=== PATIENT | female | born 1955 | race Caucasian/White ===

== ENCOUNTER 2019-02-04 07:10 | Inpatient (IN) | payer BC ==
[2019-02-03 15:32] VITALS: Ht 162.6 cm; Wt 58.9 kg
[2019-02-04] VITALS (23 sets, daily range): BP systolic 108–168; BP diastolic 49–75; PULSE 64–86; RESP 10–22
[~2019-02-04] VITALS: Ht 162.6 cm; Wt 58.9 kg
[2019-02-04] MEDS ORDERED: CEFAZOLIN 2 GM/50 ML (PMX) 50 ML IVPB SCH (08:30)
[2019-02-04] MEDS ORDERED: SOD CHLORIDE 0.9% 1,000 ML IV ONE (08:30)
[2019-02-04] MEDS ORDERED: ATOR20TA38 PO (10:02)
[2019-02-04] MEDS ORDERED: LANS15CA27 PO (10:02)
[2019-02-04] MEDS ORDERED: ATOR40TA68 PO (10:02)
[2019-02-04] MEDS ORDERED: WARF6TAB PO (10:02)
[2019-02-04] MEDS ORDERED: ISOSULFAN BLUE 1% 5 ML INJ SC ONE ×2 (12:02→12:47)
--- NOTE | 2019-02-04 12:09 | PREAC ---
Date/Time of Note Date/Time of Note DATE: 02/04/19 TIME: 12:05 Anesthesia Eval and Record Evaluation Time Pre-Procedure Interview DATE: 02/04/19 TIME: 12:05 Age 63 Sex female NPO: 8 hrs Preoperative diagnosis Breast Mass Planned procedure Excion of Breast Mass with Lymph Nodes Past Medical History Past Medical History: Includes Cardio: Arrythmia, Other (H/O AVR, Mitral Stenosis, A. Fib) Surgery & Anesthesia Issues Hx of PONV (N/V) Meds Anticoagulation: Yes (Stopped Warfarin 4 Days Ago) Beta Maddie within 24 hr: No Reason Beta Maddie not given: Pt. not on B-Maddie Reported Medications Lansoprazole* (Prevacid*) 15 Mg Capsule.dr, 15 MG PO DAILY, CAP 02/04/19 Atorvastatin Calcium* (Atorvastatin Calcium*) 20 Mg Tablet, 20 MG PO QHS, #30 TAB 02/04/19 Warfarin Sodium* (Coumadin*) 6 Mg Tablet, 6 MG PO DAILY, TAB 02/04/19 Discontinued Reported Medications Atorvastatin* (Atorvastatin*) 40 Mg Tablet, 40 MG PO QHS, #30 TAB 02/04/19 Current Medications Cefazolin Sodium/ Dextrose 50 ml @ 100 mls/hr PRE-OP IVPB ; Start 02/04/19 at 08:30 Sodium Chloride 1,000 ml @ 75 mls/hr [id number] ONCE IV Last administered on 02/04/19at 10:10; Admin Dose 75 MLS/HR; Start 02/04/19 at 08:30; Stop 02/04/19 at 21:49 Meds reviewed: Yes Allergies Coded Allergies: belladonna alkaloids (Verified Allergy, Mild, itching, swelling, 02/04/19) codeine (Verified Allergy, Mild, NUMBNESS OF HAND, EXTREME AGITATION, 02/04/19) acetaminophen (Verified Allergy, Unknown, itch, swelling, 02/04/19) hydrocodone (Verified Allergy, Unknown, itch, swelling, 02/04/19) aspirin (Verified Adverse Reaction, Mild, GASTRIC PROBLEMS, 02/04/19) Allergies Reviewed: Yes Labs/Studies Labs Reviewed: Reviewed by anesthesiologist test: N/A Pre-procedure Exam Last vitals Vital Signs Date Temp Pulse Resp B/P (MAP) Pulse Ox O2 O2 Flow FiO2 Time Delivery Rate 02/04/19 97.9 77 16 168/75 99 Room Air 10:19 (106) Airway: Adequate mouth opening Mallampati: Mallampati II Teeth: Normal Lung: Normal Heart: Normal ASA Physical Status ASA physical status: 3 Emergency: None Planned Anesthetic General/MAC: LMA Pre-operative Attestations Prior to commencing anesthesia and surgery, the patient was re-evaluated, there was verification of: *The patient's identity *The results of appropriate recent lab work and preoperative vital signs *The above evaluation not changing prior to induction *Anesthetic plan, risk benefits, alternative and complications discussed with p atient/family; questions answered; patient/family understands, accepts and wishes to proceed. STEPHANIE GONZALEZ MD February 04, 2019 12:09
[2019-02-04] MEDS ORDERED: CEFAZOLIN 1 GM INJ ONE (12:14)
[2019-02-04] MEDS ORDERED: PROPOFOL 20 ML ONE (12:14)
[2019-02-04] MEDS ORDERED: MIDAZOLAM 1 MG/ML 2 ML INJ ONE (12:15)
[2019-02-04] MEDS ORDERED: DEXAMETHASONE 4 MG/ML 5 ML INJ ONE (12:16)
[2019-02-04] MEDS ORDERED: ONDANSETRON 4 MG INJ ONE (12:17)
--- NOTE | 2019-02-04 13:42 | SIPON ---
Date/Time of Note Date/Time of Note DATE: 02/04/19 TIME: 13:40 Operative Report Preoperative Diagnosis Invasive cancer left breast Postoperative Diagnosis Same Operation/Procedure Performed Left needle directed partial mastectomy and axillary dissection utilizing sentinel lymph node technique Surgeon see signature line executive marketing assistant Dr Royal Anesthesia: general Estimated blood loss: 10 - 50 ml's Transfusion Required none Specimen Left partial mastectomy specimen and sentinel lymph node with additional axillary nodes Grafts/Implants none Complications none MAIA HINOJOSA MD February 04, 2019 13:42
[2019-02-04] MEDS ORDERED: ONDANSETRON 4 MG INJ IV PRN (14:00)
--- NOTE | 2019-02-04 14:08 | PAC ---
Date/Time of Note Date/Time of Note DATE: 02/04/19 TIME: 14:07 Post-Anesthesia Notes Post-Anesthesia Note Last documented vital signs Vital Signs Date Temp Pulse Resp B/P (MAP) Pulse Ox O2 O2 Flow FiO2 Time Delivery Rate 02/04/19 97.9 77 16 168/75 99 Room Air 10:19 (106) Activity: WNL Respiratory function: WNL Cardiovascular function: WNL Mental status: Baseline Pain reasonably controlled: Yes Hydration appropriate: Yes Nausea/Vomiting absent: Yes STEPHANIE GONZALEZ MD February 04, 2019 14:08
--- NOTE | 2019-02-04 15:05 | CONS ---
Assessment/Plan Assessment/Plan Hospital Course (Demo Recall) Status post breast surgery 02/04/2019 Mechanical aortic valve replacement Paroxysmal atrial fibrillation, currently sinus rhythm -Patient status post breast surgery today -Did speak to our esteemed surgeon heather Maurer to start full dose Lovenox this evening as well as Coumadin -Orders have been placed for Lovenox bridging as well as Coumadin to be started this evening with daily INRs Consultation Date/Type/Reason Admit Date/Time February 04, 2019 at 14:08 Type of Consult Cardiology Reason for Consultation Postoperative cardiac evaluation Date/Time of Note DATE: 02/04/19 TIME: 15:02 Hx of Present Illness This is a 63-year-old female with past medical history of mechanical aortic valve replacement, atrial fibrillation who presents for elective mastectomy. Patient underwent surgery today. She is currently being evaluated in the PACU. She is sleeping but arousable. No complaints at the current time. Past Medical History Aortic insufficiency status post mechanical aortic valve replacement Atrial fibrillation, paroxysmal Mitral insufficiency and stenosis Dyslipidemia Home Meds Reported Medications Lansoprazole* (Prevacid*) 15 Mg Capsule., 15 MG PO DAILY, CAP 02/04/19 Atorvastatin Calcium* (Atorvastatin Calcium*) 20 Mg Tablet, 20 MG PO QHS, #30 TAB 02/04/19 Warfarin Sodium* (Coumadin*) 6 Mg Tablet, 6 MG PO DAILY, TAB 02/04/19 Discontinued Reported Medications Atorvastatin* (Atorvastatin*) 40 Mg Tablet, 40 MG PO QHS, #30 TAB 02/04/19 Medications Current Medications Cefazolin Sodium/ Dextrose 50 ml @ 100 mls/hr PRE-OP IVPB ; Start 02/04/19 at 08:30 Sodium Chloride 1,000 ml @ 75 mls/hr [id number] ONCE IV Last administered on 02/04/19at 10:10; Admin Dose 75 MLS/HR; Start 02/04/19 at 08:30; Stop 02/04/19 at 21:49 Hydromorphone HCl (Dilaudid) 0.2 mg PACU PRN IV MILD PAIN 1-3; Start 02/04/19 at 14:00; Stop 02/04/19 at 19:00 Ondansetron HCl (Zofran Inj) 4 mg PACU ORDER PRN IV NAUSEA/VOMITING; Start 02/04/19 at 14:00; Stop 02/04/19 at 19:00 Ondansetron HCl (Zofran Inj) 4 mg Q6H PRN IV NAUSEA AND/OR VOMITING; Start 02/04/19 at 14:00 Potassium Chloride/Dextrose/ Sod Cl 1,000 ml @ 125 mls/hr Q8H IV ; Start 02/04/19 at 13:42 Allergies: Coded Allergies: belladonna alkaloids (Verified Allergy, Mild, itching, swelling, 02/04/19) codeine (Verified Allergy, Mild, NUMBNESS OF HAND, EXTREME AGITATION, 02/04/19) acetaminophen (Verified Allergy, Unknown, itch, swelling, 02/04/19) hydrocodone (Verified Allergy, Unknown, itch, swelling, 02/04/19) aspirin (Verified Adverse Reaction, Mild, GASTRIC PROBLEMS, 02/04/19) Past Surgical History Past Surgical Hx: other (Aortic valve replacement) Family History Significant Family History: no pertinent family hx Social History Smoking Status: Never smoker Exam/Review of Systems Vital Signs Vitals Vital Signs Date Temp Pulse Resp B/P (MAP) Pulse Ox O2 O2 Flow FiO2 Time Delivery Rate 02/04/19 64 22 150/63 100 Mask 14:24 (92) 02/04/19 6.0 14:10 02/04/19 98.2 14:07 Exam Exam Sleeping but arousable, no apparent distress Head: normocephalic Respiratory: clear to auscultation, normal air movement Cardiovascular: regular rate and rhythm, systolic murmur Gastrointestinal: soft, non-tender, bowel sounds Extremities: other (No significant edema) Labs Results 24hrs Laboratory Tests Test 02/04/19 07:57 Prothrombin Time 12.7 Prothrombin Time Ratio 1.0 INR International Normalized Ratio 0.94 Activated Partial Thromboplast Time 29.9 Medications Medications Current Medications Cefazolin Sodium/ Dextrose 50 ml @ 100 mls/hr PRE-OP IVPB ; Start 02/04/19 at 08:30 Sodium Chloride 1,000 ml @ 75 mls/hr [id number] ONCE IV Last administered on 02/04/19at 10:10; Admin Dose 75 MLS/HR; Start 02/04/19 at 08:30; Stop 02/04/19 at 21:49 Hydromorphone HCl (Dilaudid) 0.2 mg PACU PRN IV MILD PAIN 1-3; Start 02/04/19 at 14:00; Stop 02/04/19 at 19:00 Ondansetron HCl (Zofran Inj) 4 mg PACU ORDER PRN IV NAUSEA/VOMITING; Start 02/04/19 at 14:00; Stop 02/04/19 at 19:00 Ondansetron HCl (Zofran Inj) 4 mg Q6H PRN IV NAUSEA AND/OR VOMITING; Start 02/04/19 at 14:00 Potassium Chloride/Dextrose/ Sod Cl 1,000 ml @ 125 mls/hr Q8H IV ; Start 02/04/19 at 13:42 Dima Hicks DO February 04, 2019 15:05
[2019-02-04] MEDS: HYDROmorphONE 1 MG/5 ML IV SYRINGE IV PRN ×3 (15:15→17:37)
--- NOTE | 2019-02-04 16:59 | OPR ---
DATE OF OPERATION: 02/04/2019 PREOPERATIVE DIAGNOSIS: Invasive cancer, left breast. POSTOPERATIVE DIAGNOSIS: Invasive cancer, left breast. PROCEDURE: Left needle-directed partial mastectomy and axillary dissection utilizing sentinel lymph node technique. ANESTHESIA: General. ANESTHESIOLOGIST: Minesh Ahumada MD SURGEON: Barry Diaz MD ELECTRICIAN SUPERVISOR AIRPLANE: Shay Royal MD INDICATIONS FOR PROCEDURE: The patient is a 63-year-old female who underwent screening mammography a nd was found to have a suspicious lesion in her left breast. She underwent core needle biopsy which revealed invasive cancer. She was counseled as to the risks versus benefits of breast conservation s urgery. She consented and was scheduled for surgery. DESCRIPTION OF PROCEDURE: On the morning of surgery, the patient presented to [facility] where she underwent localization of the lesion performed by attending radiologist, Dr. Michael Bermudez. Subsequently, she was brought to the operating theater, placed under general a nesthesia. The left breast and axillary region was prepped and draped in the usual sterile fashion. Approximately 3 to 4 mL of 1% Lymphazurin blue dye were then injected peritumorally and the breast w as gently massaged for approximately 12 minutes. At this point, a 3 to 4 cm incision was made in the left axillary hairline. Subcutaneous tissue was dissected with cautery down through the clavipector al fascia. Dye stained lymphatic was traced to a sentinel lymph node. Approximately 3 additional ly mph nodes were then resected using the Voyant device. Specimen was removed. Intraoperative analysis was performed by attending pathologist, Dr. Lois Staples. The sentinel node was negative for eviden ce of metastatic disease; therefore, no further nodes were taken. The wound was irrigated. Minimal bleeding was controlled with cautery. Skin was then reapproximated with 4-0 Vicryl suture in subcuti cular fashion. Attention was then directed to performing the partial mastectomy. Localization wire was in the upper inner quadrant. A curvilinear incision was made in this region from approximately t he 9 o'clock position to the 12 o'clock position approximately 3 cm from nipple-areolar border. Subc utaneous tissue was dissected with cautery. The skin edges were elevated with skin hooks and wide ci rcumferential dissection of the tissue associated with the wire then took place down to the pectorali s major fascia, taking great care to ensure adequate margin. Specimen was elevated, transected, orie nted, sent for radiographic confirmation of capture. Capture was confirmed. Specimen was then sent for permanent pathologic analysis. The wound was irrigated. Minimal bleeding was controlled with ca utery. The skin was then reapproximated with deep dermal layer of 4-0 Vicryl sutures in interrupted fashion, followed by final skin approximation with 5-0 PDS sutures in subcuticular fashion. Dermabon d was then applied to both incisions. The patient tolerated procedure well. A total blood loss was approximately 50 mL. There were no complications and the patient was transported in stable condition to the recovery room where circumferential compression wrap was applied. Dictated By: BARRY DIAZ MD TL/ALLEY Conf#: [id number] DID#: [id number] CC: LEYLA ZIEGLER MD;*EndCC*
[2019-02-04] MEDS ORDERED: HYDROCODONE/APAP (7.5/325) TAB GTB PRN (18:00)
[2019-02-04] MEDS ORDERED: WARFARIN 3 MG TAB PO ONE (18:00)
[2019-02-04] MEDS: D5W-0.45 NACL + KCL 20 MEQ 1,000 ML IV SCH ×2 (18:26→21:42)
[2019-02-04] MEDS: HYDROmorphONE 0.5 MG/0.5 ML SYG IV PRN (20:52)
[2019-02-04] MEDS: ENOXAPARIN 100 MG/ML SYG SC SCH (21:02)
[2019-02-05 02:00] VITALS: BP 116/59; PULSE 75; RESP 17
[2019-02-05] MEDS: D5W-0.45 NACL + KCL 20 MEQ 1,000 ML IV SCH (02:45)
--- NOTE | 2019-02-05 04:05 | HP ---
DATE OF ADMISSION: 02/04/2019 CHIEF COMPLAINT AND HISTORY OF PRESENT ILLNESS: The patient is a 63-year-old female with history of mechanical aortic valve, atrial fibrillation who was being followed by Dr. Diaz as an outpatient for abdominal screening mammogram. The patient had a suspicious lesion in her left breast on screening mammogram. The patient underwent core needle biopsy, which revealed invasive cancer. The patient wa s brought in to hospital today and underwent a left partial mastectomy and axillary dissection. The patient has significant chest wall pain and is being admitted for further evaluation and management. The patient did not have any nausea, vomiting. No history of lightheadedness or syncope. No histor y of abdominal pain. No history of focal weakness. No history of headache. REVIEW OF SYSTEMS: Other than postoperative pain, the rest of the review of system was unremarkable. ALLERGIES: 1. CODEINE. 2. ASPIRIN. 3. THERE IS MENTION OF ALLERGY TO ACETAMINOPHEN, BELLADONNA ALKALOIDS AND HYDROCODONE, ALTHOUGH SHE DID TOLERATE NORCO IN THE RECOVERY ROOM. The patient postoperatively has been put on IV Dilaudid on p.r.n. basis. PAST MEDICAL HISTORY: As stated above, patient has history of aortic insufficiency and underwent a m echanical aortic valve replacement back [place] [address] Yates. The patient also has history of pa roxysmal atrial fibrillation. SOCIAL HISTORY: No smoking or alcohol. FAMILY HISTORY: Noncontributory. PHYSICAL EXAMINATION: GENERAL: The patient is awake, alert. VITAL SIGNS: Blood pressure 150/63, pulse 64, respirations 20, temperature 98.2, O2 saturation 97% o n room air. HEENT: Atraumatic, normocephalic. Conjunctivae are normal. Oropharynx clear. NECK: Supple. No mass, lymph node or thyromegaly. CHEST: Diminished air entry at bases. No use of accessory muscles. CARDIOVASCULAR: Regular rate and rhythm. Prosthetic valve click and systolic murmur present. ABDOMEN: Soft, nondistended, nontender. EXTREMITIES: No edema. No clubbing or cyanosis. NEUROLOGIC: The patient is awake, alert, fairly oriented with no gross focal deficit. LABORATORY DATA: Coagulation profile revealed PT 12.7, INR 1. BUN 15, creatinine 0.6. IMPRESSION: 1. Invasive cancer of the left breast, status post left partial mastectomy and axillary dissection. 2. Paroxysmal atrial fibrillation. 3. Mechanical aortic valve replacement secondary to aortic valve insufficiency. PLAN: The patient admitted on medical floor. The patient will be started with clear liquid diet, wh ich will be advanced as tolerated. The patient was seen by Dr. Hicks from cardiac standpoint and th e patient will be bridged with Lovenox and Coumadin will be resumed. The patient apparently has bee n cleared by Dr. Diaz to start full dose Lovenox as well as Coumadin postoperatively. For pain medi cation, the patient has been started on p.r.n. basis. We will order followup labs. Further re commendation will depend on patient's hospital course. Dictated By: LEYLA ZIEGLER MD AB/NTS Conf#: [id number] DID#: [id number] CC: MAIA DIAZ MD;*EndCC*
[2019-02-05 08:00] VITALS: BP 111/56; PULSE 70; RESP 20
[2019-02-05] MEDS: ENOXAPARIN 100 MG/ML SYG SC SCH ×2 (09:32→20:38)
--- NOTE | 2019-02-05 13:03 | PN ---
DATE: 02/05/2019 SUBJECTIVE: Follow up on recent left partial mastectomy, mechanical aortic valve replacement, paroxy smal atrial fibrillation. The patient is breathing comfortably. Postoperative pain seems to be bett er. No nausea, vomiting. No bleeding from any site. The patient received Lovenox this morning. PHYSICAL EXAMINATION: GENERAL: Reveals the patient to be awake, alert. VITAL SIGNS: Temperature 98.6, pulse 70, respiration 20, blood pressure 111/56, O2 saturation is 100 % on room air. HEENT: No eye discharge or redness. Conjunctivae and lids are normal. Oropharynx is clear. NECK: No mass. CHEST: Fairly clear. CARDIOVASCULAR: Irregular rhythm. Prosthetic valve click present. ABDOMEN: Soft, nondistended, nontender. EXTREMITIES: No edema. NEUROLOGIC: The patient is awake, alert, fairly oriented. LABORATORY DATA: WBC 9.6, hemoglobin 12.6 and platelet 200. Sodium 138, potassium 4.5. AST 23, ALT 30. INR 1. IMPRESSION: 1. Left breast cancer status post left partial mastectomy. 2. Paroxysmal atrial fibrillation. 3. Mechanical aortic valve replacement secondary to aortic insufficiency. PLAN: The patient will be continued on Lovenox and warfarin for now since INR is still subtherapeuti c. Continue postop care as per Dr. Diaz. We will discontinue IV fluid as the patient has good p.o. intake. Plan of care was discussed with patient's family. The patient is also being followed by Dr Desirae Hicks from cardiac standpoint. Dictated By: LEYLA ZIEGLER MD AB/NTS Conf#: [id number] DID#: [id number] CC: MAIA DIAZ MD;*EndCC*
--- NOTE | 2019-02-05 13:18 | CONS ---
Assessment/Plan Assessment/Plan Hospital Course (Demo Recall) Status post breast surgery 02/04/2019 Mechanical aortic valve replacement Paroxysmal atrial fibrillation, currently sinus rhythm -Patient status post breast surgery yesterday -Did speak to our esteemed surgeon Dr. Diaz yesterday, full dose Lovenox was started yesterday evening as well as Coumadin. -Patient's home dose of Coumadin is 6 mg daily. Would continue. If patient is discharged over the weekend, would continue Lovenox until INR is therapeutic. Patient to have outpatient INR check in the next 3 to 4 days. Consultation Date/Type/Reason Admit Date/Time February 04, 2019 at 14:08 Initial Consult Date Type of Consult Cardiology Date/Time of Note DATE: 02/05/19 TIME: 13:16 24 HR Interval Summary Free Text/Dictation Overall feeling better. Less chest wall pain. Denies palpitations Exam/Review of Systems Vital Signs Vitals Vital Signs Date Temp Pulse Resp B/P (MAP) Pulse Ox O2 O2 Flow FiO2 Time Delivery Rate 02/05/19 98.6 70 20 111/56 0 08:00 (74) 02/05/19 Room Air 02:00 02/04/19 6.0 14:10 Intake and Output 02/04/19 02/04/19 02/05/19 1515:00 23:00 07:00 IntakeIntake Total 1200 ml 400 ml 1400 ml OutputOutput Total 23 ml 412 ml BalanceBalance 1177 ml -12 ml 1400 ml Exam Constitutional: alert, oriented (No apparent distress) Head: normocephalic Respiratory: other (Coarse breath sounds bilaterally, no wheezing) Cardiovascular: regular rate and rhythm (S1-S2 heard), systolic murmur Gastrointestinal: soft, non-tender, bowel sounds Extremities: other (No edema) Labs Result Diagram: 02/05/19 0606 02/05/19 0606 Results 24hrs Laboratory Tests Test 02/04/19 18:46 02/05/19 06:06 Blood Urea Nitrogen 15 16 Creatinine 0.60 0.71 White Blood Count 9.6 Red Blood Count 4.37 Hemoglobin 12.6 Hematocrit 38.3 Mean Corpuscular Volume 87.6 Mean Corpuscular Hemoglobin 28.8 L Mean Corpuscular Hemoglobin Concent 32.9 Red Cell Distribution Width 12.3 Platelet Count 200 Mean Platelet Volume 9.6 Immature Granulocytes % 0.300 Neutrophils % 79.6 H Lymphocytes % 13.9 L Monocytes % 6.1 Eosinophils % 0.0 Basophils % 0.1 Nucleated Red Blood Cells % 0.0 Immature Granulocytes # 0.030 Neutrophils # 7.6 H Lymphocytes # 1.3 Monocytes # 0.6 Eosinophils # 0.0 Basophils # 0.0 Nucleated Red Blood Cells # 0.0 Prothrombin Time 13.6 Prothrombin Time Ratio 1.1 INR International Normalized Ratio 1.03 Sodium Level 138 Potassium Level 4.5 Chloride Level 106 Carbon Dioxide Level 26 Anion Gap 6 Est Glomerular Filtrat Rate mL/min > 60 Glucose Level 146 Calcium Level 8.3 L Total Bilirubin 1.0 Direct Bilirubin 0.00 Indirect Bilirubin 1.0 Aspartate Amino Transf (AST/SGOT) 23 Alanine Aminotransferase (ALT/SGPT) 30 Alkaline Phosphatase 60 Total Protein 6.7 Albumin 3.8 Globulin 2.90 Albumin/Globulin Ratio 1.31 Medications Medications Current Medications Cefazolin Sodium/ Dextrose 50 ml @ 100 mls/hr PRE-OP IVPB ; Start 02/04/19 at 08:30 Ondansetron HCl (Zofran Inj) 4 mg Q6H PRN IV NAUSEA AND/OR VOMITING; Start 02/04/19 at 14:00 Enoxaparin Sodium (Lovenox) 60 mg Q12 SC Last administered on 02/05/19at 09:32; Admin Dose 60 MG; Start 02/04/19 at 21:00 Warfarin Sodium (Coumadin) 6 mg 1700 GTB ; Start 02/05/19 at 17:00 Hydromorphone HCl (Dilaudid) 0.5 mg Q4H PRN IV SEVERE PAIN LEVEL 7-10 Last administered on 02/04/19at 20:52; Admin Dose 0.5 MG; Start 02/04/19 at 21:00 Dima Hicks DO February 05, 2019 13:18
[2019-02-05 14:00] VITALS: BP 116/58; PULSE 81; RESP 20
--- NOTE | 2019-02-05 14:50 | PN ---
DATE: 02/05/2019 Postop day #1 status post left breast needle localized partial mastectomy with axillary dissection and sentinel ly.n. technique. SUBJECTIVE: Feels okay. No nausea, no vomiting. OBJECTIVE: GENERAL: Awake, alert, oriented. VITAL SIGNS: Temperature maximum 98.6, heart rate 75, respirations 17, blood pressure 116/59, saturation 100% room air. HEART: Regular. LUNGS: Clear. ABDOMEN: Soft. CHEST: Symmetrical expansion. The wraparound chest dressing is not too tight. LABORATORY DATA: WBC 9600, hemoglobin 12.6, hematocrit 38.3. Chemistry: Sodium, potassium, BUN, creatinine within normal limits. INPUT AND OUTPUT: There is 1 Gerson-Russell drain which from the time of operation yesterday until today 7:00 in the morning has drained 30 mL fluid. Today, the drainage so far from 7:00 a.m. until 2:00 p.m. has been 15 mL, but it is kind of bloody drainage. Apparently, the patient was started on Coumadin and also 60 mg of Lovenox subcutaneous as of 11:00 p.m. last night. This is because of the fact that the patient has metallic aortic valve replaced and she has been on Coumadin, therapeutic dose at home for long time which at home dose of 6 mg per day. Television Journalist is following, ____. PLAN: We will keep the patient maybe a couple of more days, considering the conversion of Lovenox to Coumadin and overlapping of the doses especially that the patient is postop day #1. If stable from surgical point of view, maybe she can be discharged tomorrow which is Friday which is postop day 2, but the Coumadin and Lovenox should be adjusted by the template inspector. Dictated By: ALFONSO CONTRERAS MD PS/NTS Conf#: [id number] DID#: [id number] CC: MAIA HINOJOSA MD; LEYLA ZIEGLER MD;*EndCC* MTDD
[2019-02-05] MEDS: HYDROmorphONE 0.5 MG/0.5 ML SYG IV PRN (17:33)
[2019-02-05] MEDS: WARFARIN 3 MG TAB GTB SCH (17:34)
[2019-02-05 20:00] VITALS: BP 123/60; PULSE 77; RESP 18
[2019-02-06 02:00] VITALS: BP 114/49; PULSE 75; RESP 16
[2019-02-06] MEDS: HYDROmorphONE 0.5 MG/0.5 ML SYG IV PRN (04:34)
[2019-02-06 08:00] VITALS: BP 96/58; PULSE 79; RESP 17
[2019-02-06] MEDS: ENOXAPARIN 100 MG/ML SYG SC SCH ×2 (09:12→20:58)
[2019-02-06] MEDS: ONDANSETRON 4 MG INJ IV PRN ×2 (09:31→22:00)
[2019-02-06] MEDS ORDERED: SOD CHLORIDE 0.9% 1,000 ML IV ONE (10:30)
[2019-02-06 10:48] VITALS: BP 104/51; PULSE 61; RESP 18
[2019-02-06] MEDS: KETOROLAC 30 MG INJ IV PRN ×2 (10:48→22:01)
[2019-02-06 14:00] VITALS: BP 100/45; PULSE 81; RESP 17
[2019-02-06] MEDS: SOD CHLORIDE 0.9% 1,000 ML IV SCH (14:44)
[2019-02-06] MEDS: DOCUSATE SODIUM 100 MG CAP PO PRN (16:20)
[2019-02-06] MEDS: WARFARIN 3 MG TAB GTB SCH (16:49)
--- NOTE | 2019-02-06 17:36 | PN ---
DATE: 02/06/2019 Postop day #2, status post left partial mastectomy and axillary dissection for cancer of left breast. SUBJECTIVE: Has been complaining of increased pain on the chest wall. They had to give her Dilaudid to control the pain. Apparently when she got out of bed and walk today, she had an episode of dizziness and the blood pressure was low, so they gave 1 liter of normal saline, now feels better. No more dizziness. OBJECTIVE: GENERAL: Awake, alert, oriented x3. VITAL SIGNS: Temperature 98.1, heart rate 79, respirations 17; blood pressure 96/58 on one episode, and another episode is 104/51; saturation 95% room air. CLINICAL EXAMINATION: HEART: Regular. LUNGS: Clear. CHEST: There is obvious swelling and protrusion of the left chest wall anteriorly, so the dressing was removed and the wound inspected. There is a relatively large hematoma at the site of operation in left breast anteriorly, but there is no hematoma in the axillary area. ABDOMEN: Soft. LABORATORY DATA: There has not been any lab today, so we ordered a stat CBC. The drainage from Gerson-Russell in past 24-hour up to 7 o'clock today morning has been 195 mL, and the tubing of the stated, there is blood and there is some clot formation. As was mentioned, I removed the dressing and inspected the wound. The color of the skin is slightly bluish, but the skin of the left breast to me appears normal and the circulation and perfusion appears normal. IMPRESSION: This is a 63-year-old female known to have had aortic valve replacement metallic and has been on Coumadin, which was discontinued 4 or 5 days before operation. The patient had left breast partial mastectomy with axillary dissection. Gerson-Russell drain one was left in the left breast area. Apparently, the patient was started back on Coumadin and Lovenox as of the night of operation and appears that this has been anticoagulation started a little bit early and has caused bleeding and hematoma formation, so I discussed with Dr. Ziegler on the phone and he suggested that we hold tonight's dose of Lovenox and also tonight's dose of Coumadin. We are going to get a stat CBC and also check H and H every 8 hours and repeat CBC tomorrow. We are going to start IV normal saline at 60 mL per hour as maintenance to prevent hypotension. I will call and let Dr. Diaz know about it. I do not think if we take the patient to the OR for evacuation of hematoma, this is going to help that much, but I will to talk to him and see what the decision we shall make or Dr. Diaz is going to be his decision. Dictated By: ALFONSO CONTRERAS MD PS/NTS Conf#: [id number] DID#: [id number] CC: MAIA DIAZ MD; LEYLA ZIEGLER MD;*EndCC* MTDD
[2019-02-06 20:00] VITALS: BP 131/61; PULSE 77; RESP 18
--- NOTE | 2019-02-06 20:40 | PN ---
Date/Time of Note Date/Time of Note DATE: 02/06/19 TIME: 20:38 Assessment/Plan VTE Prophylaxis Risk score (from Ns)>0 risk: 5 SCD applied (from [facility] [place]): Yes SCD contraindicated: other Pharmacological prophylaxis: other Pharm contraindication: other Lines/Catheters IV Catheter Type (from Nrsg): Peripheral IV Assessment/Plan Assessment/Plan 1. Invasive cancer of the left breast 2. Status post left partial mastectomy and axillary dissection. - per surgery - pain control - wound care - monitor for s/s of infection;VS; am labs - advance diet per surgey 3. Paroxysmal atrial fibrillation. 4. Mechanical aortic valve replacement secondary to aortic valve insu fficiency.' 5. SCD for DVT prophylaxis Patient seen in collaboration with Dr curiel Result Diagram: 02/06/19 1514 02/05/19 0606 Results 24hrs Laboratory Tests Test 02/06/19 04:52 02/06/19 15:14 Prothrombin Time 18.4 #H Prothrombin Time Ratio 1.4 INR International Normalized Ratio 1.52 White Blood Count 9.7 Red Blood Count 4.04 L Hemoglobin 11.8 L Hematocrit 36.8 L Mean Corpuscular Volume 91.1 Mean Corpuscular Hemoglobin 29.2 Mean Corpuscular Hemoglobin Concent 32.1 Red Cell Distribution Width 12.8 Platelet Count 204 Mean Platelet Volume 10.2 Immature Granulocytes % 0.400 Neutrophils % 62.6 Lymphocytes % 27.5 Monocytes % 8.2 Eosinophils % 0.6 Basophils % 0.7 Nucleated Red Blood Cells % 0.0 Immature Granulocytes # 0.040 H Neutrophils # 6.0 Lymphocytes # 2.7 Monocytes # 0.8 Eosinophils # 0.1 Basophils # 0.1 Nucleated Red Blood Cells # 0.0 Subjective 24 Hr Interval Summary Free Text/Dictation - c/o left breast pain ; effective pain control - afebrile - no events reported overnight - family at bed side - all Qs answered. dw staff Eyes: no complaints ENT: no complaints Respiratory: no complaints Cardiovascular: no complaints Gastrointestinal: nausea Genitourinary: no complaints Musculoskeletal: no complaints Skin: other (left breast sx- pain) Exam/Review of Systems Exam Vitals Vital Signs Date Temp Pulse Resp B/P (MAP) Pulse Ox O2 O2 Flow FiO2 Time Delivery Rate 02/06/19 98.7 77 18 131/61 97 Room Air 20:00 (84) 02/04/19 6.0 14:10 Intake and Output 02/05/19 02/05/19 02/06/19 1515:00 23:00 07:00 IntakeIntake Total 590 ml OutputOutput Total 20 ml 190 ml 80 ml BalanceBalance 570 ml -190 ml -80 ml Constitutional: alert, well developed Psych: nl mood/affect Head: atraumatic Eyes: nl lids, nl sclera ENMT: nl external ears & nose Neck: non-tender Respiratory: clear to auscultation Cardiovascular: nl pulses Gastrointestinal: soft, non-tender Musculoskeletal: nl extremities to inspection Extremities: normal pulses Neurological: nl mental status, nl speech Skin: other (left mastectomy-) Lymph: nontender Results Results 24hrs Laboratory Tests Test 02/06/19 04:52 02/06/19 15:14 Prothrombin Time 18.4 #H Prothrombin Time Ratio 1.4 INR International Normalized Ratio 1.52 White Blood Count 9.7 Red Blood Count 4.04 L Hemoglobin 11.8 L Hematocrit 36.8 L Mean Corpuscular Volume 91.1 Mean Corpuscular Hemoglobin 29.2 Mean Corpuscular Hemoglobin Concent 32.1 Red Cell Distribution Width 12.8 Platelet Count 204 Mean Platelet Volume 10.2 Immature Granulocytes % 0.400 Neutrophils % 62.6 Lymphocytes % 27.5 Monocytes % 8.2 Eosinophils % 0.6 Basophils % 0.7 Nucleated Red Blood Cells % 0.0 Immature Granulocytes # 0.040 H Neutrophils # 6.0 Lymphocytes # 2.7 Monocytes # 0.8 Eosinophils # 0.1 Basophils # 0.1 Nucleated Red Blood Cells # 0.0 Medications Medication Current Medications Cefazolin Sodium/ Dextrose 50 ml @ 100 mls/hr PRE-OP IVPB ; Start 02/04/19 at 08:30 Ondansetron HCl (Zofran Inj) 4 mg Q6H PRN IV NAUSEA AND/OR VOMITING Last administered on 02/06/19at 09:31; Admin Dose 4 MG; Start 02/04/19 at 14:00 Enoxaparin Sodium (Lovenox) 60 mg Q12 SC Last administered on 02/06/19at 09:12; Admin Dose 60 MG; Start 02/04/19 at 21:00 Warfarin Sodium (Coumadin) 6 mg 1700 GTB Last administered on 02/05/19at 17:34; Admin Dose 6 MG; Start 02/05/19 at 17:00 Hydromorphone HCl (Dilaudid) 0.5 mg Q4H PRN IV SEVERE PAIN LEVEL 7-10 Last administered on 02/06/19 04:34; Admin Dose 0.5 MG; Start 02/04/19 at 21:00 Pantoprazole (Protonix Tab) 40 mg DAILY@06 PO ; Start 02/07/19 at 06:00 Ketorolac Tromethamine (Toradol) 30 mg Q6H PRN IV PAIN LEVEL 1-3 Last administered on 02/06/19 10:48; Admin Dose 30 MG; Start 02/06/19 at 10:30; Stop 02/09/19 at 10:29 Docusate Sodium (Colace) 200 mg DAILY PRN PO CONSTIPATION Last administered on 02/06/19 16:20; Admin Dose 200 MG; Start 02/06/19 at 14:00 Sodium Chloride 1,000 ml @ 60 mls/hr [id number] IV Last administered on 02/06/19 14:44; Admin Dose 60 MLS/HR; Start 02/06/19 at 14:00 ALEAH RUBY February 06, 2019 20:40
[2019-02-07 02:00] VITALS: BP 102/53; PULSE 84; RESP 18
[2019-02-07] MEDS: PANTOPRAZOLE (EC) 40 MG TAB PO SCH (05:16)
--- NOTE | 2019-02-07 07:30 | PN ---
Date/Time of Note Date/Time of Note DATE: 02/07/19 TIME: 07:28 Assessment/Plan VTE Prophylaxis Risk score (from [facility] [place])>0 risk: 4 SCD applied (from [facility] [place]): Yes SCD contraindicated: other Pharmacological prophylaxis: other Pharm contraindication: other Lines/Catheters IV [facility]ter Type (from [facility]): Peripheral IV Assessment/Plan Assessment/Plan 1. Invasive cancer of the left breast 2. status post left partial mastectomy and axillary dissection. - left breast hematoma - per general sx - Coumadin/Lovenox on hold- will check with Dr Pelaez to resume med - pain control 3. Paroxysmal atrial fibrillation. -- will cardio consult - evaluate valve functioning- DR Edmond group notified 4. Mechanical aortic valve replacement secondary to aortic valve insufficie ncy.' 5. SCD for DVT prophylaxis Patient sen in collaboration with dw dr pelaez Result Diagram: 02/07/19 0459 02/07/19 0459 Results 24hrs Laboratory Tests Test 02/06/19 15:14 02/06/19 22:20 02/07/19 04:59 White Blood Count 9.7 8.1 Red Blood Count 4.04 L 3.45 L Hemoglobin 11.8 L 10.5 L 10.1 L Hematocrit 36.8 L 32.2 L 30.6 L Mean Corpuscular Volume 91.1 88.7 Mean Corpuscular Hemoglobin 29.2 29.3 Mean Corpuscular Hemoglobin Concent 32.1 33.0 Red Cell Distribution Width 12.8 12.9 Platelet Count 204 171 Mean Platelet Volume 10.2 9.7 Immature Granulocytes % 0.400 0.400 Neutrophils % 62.6 63.7 Lymphocytes % 27.5 24.7 Monocytes % 8.2 9.5 Eosinophils % 0.6 1.2 Basophils % 0.7 0.5 Nucleated Red Blood Cells % 0.0 0.0 Immature Granulocytes # 0.040 H 0.030 Neutrophils # 6.0 5.2 Lymphocytes # 2.7 2.0 Monocytes # 0.8 0.8 Eosinophils # 0.1 0.1 Basophils # 0.1 0.0 Nucleated Red Blood Cells # 0.0 0.0 Prothrombin Time 17.8 H Prothrombin Time Ratio 1.4 INR International Normalized Ratio 1.46 Sodium Level 139 Potassium Level 4.2 Chloride Level 107 Carbon Dioxide Level 27 Anion Gap 5 Blood Urea Nitrogen 18 Creatinine 0.71 Est Glomerular Filtrat Rate mL/min > 60 Glucose Level 110 Calcium Level 7.9 L Subjective 24 Hr Interval Summary Free Text/Dictation - nad - afebrile - DDI- left breast- DDI - effective pain control -no events reported overnight dw staff Eyes: no complaints ENT: no complaints Respiratory: no complaints Cardiovascular: no complaints Gastrointestinal: no complaints Genitourinary: no complaints Musculoskeletal: no complaints Skin: other (left breast hematome) Endocrine: no complaints Exam/Review of Systems Exam Vitals Vital Signs Date Temp Pulse Resp B/P (MAP) Pulse Ox O2 O2 Flow FiO2 Time Delivery Rate 02/07/19 98.5 84 18 102/53 96 Room Air 02:00 (69) 02/04/19 6.0 14:10 Intake and Output 02/06/19 02/06/19 02/07/19 1414:59 22:59 06:59 IntakeIntake Total 225 ml 730 ml 720 ml OutputOutput Total 20 ml BalanceBalance 225 ml 710 ml 720 ml Constitutional: alert, well developed Psych: nl mood/affect Eyes: nl lids, nl sclera ENMT: nl external ears & nose Neck: non-tender Respiratory: clear to auscultation Cardiovascular: nl pulses, other (s1s2) Gastrointestinal: soft, non-tender Musculoskeletal: muscle weakness Extremities: normal pulses Neurological: nl speech, other (alert/responsive) Results Results 24hrs Laboratory Tests Test 02/06/19 15:14 02/06/19 22:20 02/07/19 04:59 White Blood Count 9.7 8.1 Red Blood Count 4.04 L 3.45 L Hemoglobin 11.8 L 10.5 L 10.1 L Hematocrit 36.8 L 32.2 L 30.6 L Mean Corpuscular Volume 91.1 88.7 Mean Corpuscular Hemoglobin 29.2 29.3 Mean Corpuscular Hemoglobin Concent 32.1 33.0 Red Cell Distribution Width 12.8 12.9 Platelet Count 204 171 Mean Platelet Volume 10.2 9.7 Immature Granulocytes % 0.400 0.400 Neutrophils % 62.6 63.7 Lymphocytes % 27.5 24.7 Monocytes % 8.2 9.5 Eosinophils % 0.6 1.2 Basophils % 0.7 0.5 Nucleated Red Blood Cells % 0.0 0.0 Immature Granulocytes # 0.040 H 0.030 Neutrophils # 6.0 5.2 Lymphocytes # 2.7 2.0 Monocytes # 0.8 0.8 Eosinophils # 0.1 0.1 Basophils # 0.1 0.0 Nucleated Red Blood Cells # 0.0 0.0 Prothrombin Time 17.8 H Prothrombin Time Ratio 1.4 INR International Normalized Ratio 1.46 Sodium Level 139 Potassium Level 4.2 Chloride Level 107 Carbon Dioxide Level 27 Anion Gap 5 Blood Urea Nitrogen 18 Creatinine 0.71 Est Glomerular Filtrat Rate mL/min > 60 Glucose Level 110 Calcium Level 7.9 L Medications Medication Current Medications Cefazolin Sodium/ Dextrose 50 ml @ 100 mls/hr PRE-OP IVPB ; Start 02/04/19 at 08:30 Ondansetron HCl (Zofran Inj) 4 mg Q6H PRN IV NAUSEA AND/OR VOMITING Last administered on 02/06/19 22:00; Admin Dose 4 MG; Start 02/04/19 at 14:00 Enoxaparin Sodium (Lovenox) 60 mg Q12 SC Last administered on 02/06/19 09:12; Admin Dose 60 MG; Start 02/04/19 at 21:00 Warfarin Sodium (Coumadin) 6 mg 1700 GTB Last administered on 02/05/19 17:34; Admin Dose 6 MG; Start 02/05/19 at 17:00 Hydromorphone HCl (Dilaudid) 0.5 mg Q4H PRN IV SEVERE PAIN LEVEL 7-10 Last administered on 02/06/19 04:34; Admin Dose 0.5 MG; Start 02/04/19 at 21:00 Pantoprazole (Protonix Tab) 40 mg DAILY@06 PO Last administered on 02/07/19 05:16; Admin Dose 40 MG; Start 02/07/19 at 06:00 Ketorolac Tromethamine (Toradol) 30 mg Q6H PRN IV PAIN LEVEL 1-3 Last administered on 02/06/19 22:01; Admin Dose 30 MG; Start 02/06/19 at 10:30; Stop 02/09/19 at 10:29 Docusate Sodium (Colace) 200 mg DAILY PRN PO CONSTIPATION Last administered on 02/06/19 16:20; Admin Dose 200 MG; Start 5/25/19 at 14:00 Sodium Chloride 1,000 ml @ 60 mls/hr [id number] IV Last administered on 02/06/19at 14:44; Admin Dose 60 MLS/HR; Start 02/06/19 at 14:00 ALEAH RUBY February 07, 2019 07:30
[2019-02-07 08:33] VITALS: BP 111/53; PULSE 83; RESP 18
[2019-02-07] MEDS: HYDROmorphONE 0.5 MG/0.5 ML SYG IV PRN ×3 (08:48→21:14)
[2019-02-07] MEDS: ONDANSETRON 4 MG INJ IV PRN ×3 (08:48→21:14)
[2019-02-07] MEDS: SOD CHLORIDE 0.9% 1,000 ML IV SCH ×2 (08:53→23:20)
[2019-02-07] MEDS: ENOXAPARIN 100 MG/ML SYG SC SCH ×3 (09:00→21:20)
--- NOTE | 2019-02-07 10:25 | CONS ---
Assessment/Plan Assessment/Plan Hospital Course (Demo Recall) Imp: Status post breast surgery 02/04/2019 Mechanical aortic valve replacement Paroxysmal atrial fibrillation, currently sinus rhythm Hematoma, more stable today Recommendations: Resume enoxaparin and warfarin today Continue Lovenox until therapeutic. If INR is not therapeutic at discharge then patient will need outpatient Lovenox. Consultation Date/Type/Reason Admit Date/Time February 04, 2019 at 14:08 Initial Consult Date Type of Consult Cardiology Date/Time of Note DATE: 02/07/19 TIME: 10:22 24 HR Interval Summary Free Text/Dictation Daughter called me last night concerned that lovenox and warfarin were being held secondary to hematoma of the breast. This am she has numbness of the left arm. No dyspnea. Exam/Review of Systems Vital Signs Vitals Vital Signs Date Temp Pulse Resp B/P (MAP) Pulse Ox O2 O2 Flow FiO2 Time Delivery Rate 02/07/19 98.2 83 18 111/53 96 08:33 (72) 02/07/19 Room Air 02:00 02/04/19 6.0 14:10 Intake and Output 02/06/19 02/06/19 02/07/19 1515:00 23:00 07:00 IntakeIntake Total 225 ml 730 ml 720 ml OutputOutput Total 20 ml BalanceBalance 225 ml 710 ml 720 ml Exam Constitutional: alert, oriented Psych: anxiety Head: normocephalic Eyes: EOMI, nl lids ENMT: nl external ears & nose Neck: No jvd, No bruits Respiratory: clear to auscultation, normal air movement Cardiovascular: regular rate and rhythm, other (crisp prosthetic valve sound) Gastrointestinal: soft, non-tender; No distended Musculoskeletal: nl extremities to inspection Extremities: No edema Neurological: nl mental status Skin: nl turgor, other (breast wound covered in dressing, drain with blood in it) Labs Result Diagram: 02/07/19 0459 02/07/19 0459 Results 24hrs Laboratory Tests Test 02/06/19 15:14 02/06/19 22:20 02/07/19 04:59 White Blood Count 9.7 8.1 Red Blood Count 4.04 L 3.45 L Hemoglobin 11.8 L 10.5 L 10.1 L Hematocrit 36.8 L 32.2 L 30.6 L Mean Corpuscular Volume 91.1 88.7 Mean Corpuscular Hemoglobin 29.2 29.3 Mean Corpuscular Hemoglobin Concent 32.1 33.0 Red Cell Distribution Width 12.8 12.9 Platelet Count 204 171 Mean Platelet Volume 10.2 9.7 Immature Granulocytes % 0.400 0.400 Neutrophils % 62.6 63.7 Lymphocytes % 27.5 24.7 Monocytes % 8.2 9.5 Eosinophils % 0.6 1.2 Basophils % 0.7 0.5 Nucleated Red Blood Cells % 0.0 0.0 Immature Granulocytes # 0.040 H 0.030 Neutrophils # 6.0 5.2 Lymphocytes # 2.7 2.0 Monocytes # 0.8 0.8 Eosinophils # 0.1 0.1 Basophils # 0.1 0.0 Nucleated Red Blood Cells # 0.0 0.0 Prothrombin Time 17.8 H Prothrombin Time Ratio 1.4 INR International Normalized Ratio 1.46 Sodium Level 139 Potassium Level 4.2 Chloride Level 107 Carbon Dioxide Level 27 Anion Gap 5 Blood Urea Nitrogen 18 Creatinine 0.71 Est Glomerular Filtrat Rate mL/min > 60 Glucose Level 110 Calcium Level 7.9 L Medications Medications Current Medications Cefazolin Sodium/ Dextrose 50 ml @ 100 mls/hr PRE-OP IVPB ; Start 02/04/19 at 08:30 Ondansetron HCl (Zofran Inj) 4 mg Q6H PRN IV NAUSEA AND/OR VOMITING Last administered on 02/07/19 08:48; Admin Dose 4 MG; Start 02/04/19 at 14:00 Enoxaparin Sodium (Lovenox) 60 mg Q12 SC Last administered on 02/06/19 09:12; Admin Dose 60 MG; Start 02/04/19 at 21:00 Warfarin Sodium (Coumadin) 6 mg 1700 GTB Last administered on 02/05/19at 17:34; Admin Dose 6 MG; Start 02/05/19 at 17:00 Hydromorphone HCl (Dilaudid) 0.5 mg Q4H PRN IV SEVERE PAIN LEVEL 7-10 Last administered on 02/07/19at 08:48; Admin Dose 0.5 MG; Start 02/04/19 at 21:00 Pantoprazole (Protonix Tab) 40 mg DAILY@06 PO Last administered on 02/07/19at 05:16; Admin Dose 40 MG; Start 02/07/19 at 06:00 Ketorolac Tromethamine (Toradol) 30 mg Q6H PRN IV PAIN LEVEL 1-3 Last administered on 02/06/19at 22:01; Admin Dose 30 MG; Start 02/06/19 at 10:30; Stop 02/09/19 at 10:29 Docusate Sodium (Colace) 200 mg DAILY PRN PO CONSTIPATION Last administered on 02/06/19at 16:20; Admin Dose 200 MG; Start 02/06/19 at 14:00 Sodium Chloride 1,000 ml @ 60 mls/hr [id number] IV Last administered on 02/07/19at 08:53; Admin Dose 60 MLS/HR; Start 02/06/19 at 14:00 Gabapentin (Neurontin) 100 mg TID PO ; Start 02/07/19 at 13:00 JERARDO STEPHENS February 07, 2019 10:25
[2019-02-07] MEDS: KETOROLAC 30 MG INJ IV PRN ×2 (10:52→19:43)
[2019-02-07] MEDS: GABAPENTIN 100 MG CAP PO SCH ×2 (12:28→21:14)
--- NOTE | 2019-02-07 12:41 | CONS ---
Assessment/Plan Assessment/Plan Hospital Course 63 yo F with recently diagnosed breast CA and other comorbidities who is noted to have an elective partial mastectomy and axillary dissection. She endorses severe perioperative pain with sensory loss... for which neurology is consulted. Her sx are likely attributed to her recent operation. An acute C-spine process is unlikely. P: Surgery followup Pain and other medical management per primary Will follow clinically, to recommend neurologic studies, as necessary Consultation Date/Type/Reason Admit Date/Time February 04, 2019 at 14:08 Type of Consult Neurology Reason for Consultation LUE pain and numbness Requesting Provider: LEYLA ZIEGLER MD Date/Time of Note DATE: 02/07/19 TIME: 12:41 Hx of Present Illness 63 yo F with multiple comorbidities including recently diagnosed breast CA who [facility] for an [facility] partial mastectomy and axillary dissection. History was obtained from pt, HCP, and chart review. The pt endorses severe pain, 10/10, that starts in her L axilla and radiates towards her back, down to the middle of her L upper arm with accompanying numbness to her fingertips. She is post-op day 3. It is additionally elsewhere noted: CHIEF COMPLAINT AND HISTORY OF PRESENT ILLNESS: The patient is a 63-year-old female with history of mechanical aortic valve, atrial fibrillation who was being followed by Dr. Diaz as an outpatient for abdominal screening mammogram. The patient had a suspicious lesion in her left breast on screening mammogram. The patient underwent core needle biopsy, which revealed invasive cancer. The patient was brought in to hospital today and underwent a left partial mastectomy and axillary dissection. The patient has significant chest wall pain and is being admitted for further evaluation and management. The patient did not have any nausea, vomiting. No history of lightheadedness or syncope. No history of abdominal pain. No history of focal weakness. No history of headache. negative unless noted otherwise in HPI Exam/Review of Systems Exam Vitals Vital Signs Date Temp Pulse Resp B/P (MAP) Pulse Ox O2 O2 Flow FiO2 Time Delivery Rate 02/07/19 98.2 83 18 111/53 96 08:33 (72) 02/07/19 Room Air 02:00 02/04/19 6.0 14:10 Intake and Output 02/06/19 02/06/19 02/07/19 1515:00 23:00 07:00 IntakeIntake Total 225 ml 730 ml 720 ml OutputOutput Total 20 ml BalanceBalance 225 ml 710 ml 720 ml Exam PE: Gen Appearance: No Apparent Distress HEENT: Normocephalic Cardiovascular: Regular rate Lungs: Clear bilaterally Abdomen: Soft; KARY drain from L breast/axilla area with compression wrapping. Extremities: Dry NE: The patient was alert and oriented. Language was normal. Fund of knowledge was normal. Pupils were equal and reactive to light. There was no afferent pupillary defect. Visual nuno were normal. Funduscopic examination was limited Extra-ocular movements were full. Ptosis was absent. There was no nystagmus. Facial sensation was normal. Face was symmetric with normal strength. Hearing was intact. Palate movements were normal. Neck strength was normal. There was normal tongue bulk and speed of movement. Tone was normal. Muscle bulk was normal. I did not see fasciculations. Arms and legs were strong. Vibration sensation was diminished in the L arm. Temperature and pinprick sensation was normal. Rapid alternating movements were normal. There was no dysmetria. There was no intention tremor. Gait was deferred due to bedrest. Arm and leg reflexes were 2+ and symmetric. Sanchez's sign was absent. Plantar responses were flexor. Results Result Diagram: 02/07/19 0459 02/07/19 0459 Results 24hrs Laboratory Tests Test 02/06/19 15:14 02/06/19 22:20 02/07/19 04:59 White Blood Count 9.7 8.1 Red Blood Count 4.04 L 3.45 L Hemoglobin 11.8 L 10.5 L 10.1 L Hematocrit 36.8 L 32.2 L 30.6 L Mean Corpuscular Volume 91.1 88.7 Mean Corpuscular Hemoglobin 29.2 29.3 Mean Corpuscular Hemoglobin Concent 32.1 33.0 Red Cell Distribution Width 12.8 12.9 Platelet Count 204 171 Mean Platelet Volume 10.2 9.7 Immature Granulocytes % 0.400 0.400 Neutrophils % 62.6 63.7 Lymphocytes % 27.5 24.7 Monocytes % 8.2 9.5 Eosinophils % 0.6 1.2 Basophils % 0.7 0.5 Nucleated Red Blood Cells % 0.0 0.0 Immature Granulocytes # 0.040 H 0.030 Neutrophils # 6.0 5.2 Lymphocytes # 2.7 2.0 Monocytes # 0.8 0.8 Eosinophils # 0.1 0.1 Basophils # 0.1 0.0 Nucleated Red Blood Cells # 0.0 0.0 Prothrombin Time 17.8 H Prothrombin Time Ratio 1.4 INR International Normalized Ratio 1.46 Sodium Level 139 Potassium Level 4.2 Chloride Level 107 Carbon Dioxide Level 27 Anion Gap 5 Blood Urea Nitrogen 18 Creatinine 0.71 Est Glomerular Filtrat Rate mL/min > 60 Glucose Level 110 Calcium Level 7.9 L Medications Medication Current Medications Cefazolin Sodium/ Dextrose 50 ml @ 100 mls/hr PRE-OP IVPB ; Start 02/04/19 at 08:30 Ondansetron HCl (Zofran Inj) 4 mg Q6H PRN IV NAUSEA AND/OR VOMITING Last administered on 02/07/19 08:48; Admin Dose 4 MG; Start 02/04/19 at 14:00 Enoxaparin Sodium (Lovenox) 60 mg Q12 SC Last administered on 02/07/19 10:31; Admin Dose 60 MG; Start 02/04/19 at 21:00 Warfarin Sodium (Coumadin) 6 mg 1700 GTB Last administered on 02/05/19 17:34; Admin Dose 6 MG; Start 02/05/19 at 17:00 Hydromorphone HCl (Dilaudid) 0.5 mg Q4H PRN IV SEVERE PAIN LEVEL 7-10 Last administered on 02/07/19 08:48; Admin Dose 0.5 MG; Start 02/04/19 at 21:00 Pantoprazole (Protonix Tab) 40 mg DAILY@06 PO Last administered on 02/07/19 05:16; Admin Dose 40 MG; Start 02/07/19 at 06:00 Ketorolac Tromethamine (Toradol) 30 mg Q6H PRN IV PAIN LEVEL 1-3 Last administered on 02/07/19 10:52; Admin Dose 30 MG; Start 02/06/19 at 10:30; Stop 02/09/19 at 10:29 Docusate Sodium (Colace) 200 mg DAILY PRN PO CONSTIPATION Last administered on 02/06/19 16:20; Admin Dose 200 MG; Start 02/06/19 at 14:00 Sodium Chloride 1,000 ml @ 60 mls/hr [id number] IV Last administered on 02/07/19 08:53; Admin Dose 60 MLS/HR; Start 02/06/19 at 14:00 Gabapentin (Neurontin) 100 mg TID PO Last administered on 02/07/19 12:28; Admin Dose 100 MG; Start 02/07/19 at 13:00 Past Medical History reviewed Home Meds Reported Medications Lansoprazole* (Prevacid*) 15 Mg Capsule.dr, 15 MG PO DAILY, CAP 02/04/19 Atorvastatin Calcium* (Atorvastatin Calcium*) 20 Mg Tablet, 20 MG PO QHS, #30 TAB 02/04/19 Warfarin Sodium* (Coumadin*) 6 Mg Tablet, 6 MG PO DAILY, TAB 02/04/19 Discontinued Reported Medications Atorvastatin* (Atorvastatin*) 40 Mg Tablet, 40 MG PO QHS, #30 TAB 02/04/19 Medications Current Medications Cefazolin Sodium/ Dextrose 50 ml @ 100 mls/hr PRE-OP IVPB ; Start 02/04/19 at 08:30 Ondansetron HCl (Zofran Inj) 4 mg Q6H PRN IV NAUSEA AND/OR VOMITING Last administered on 02/07/19 08:48; Admin Dose 4 MG; Start 02/04/19 at 14:00 Enoxaparin Sodium (Lovenox) 60 mg Q12 SC Last administered on 02/07/19 10:31; Admin Dose 60 MG; Start 02/04/19 at 21:00 Warfarin Sodium (Coumadin) 6 mg 1700 GTB Last administered on 02/05/19 17:34; Admin Dose 6 MG; Start 02/05/19 at 17:00 Hydromorphone HCl (Dilaudid) 0.5 mg Q4H PRN IV SEVERE PAIN LEVEL 7-10 Last administered on 02/07/19 08:48; Admin Dose 0.5 MG; Start 02/04/19 at 21:00 Pantoprazole (Protonix Tab) 40 mg DAILY@06 PO Last administered on 02/07/19 05:16; Admin Dose 40 MG; Start 02/07/19 at 06:00 Ketorolac Tromethamine (Toradol) 30 mg Q6H PRN IV PAIN LEVEL 1-3 Last administered on 02/07/19 10:52; Admin Dose 30 MG; Start 02/06/19 at 10:30; Stop 02/09/19 at 10:29 Docusate Sodium (Colace) 200 mg DAILY PRN PO CONSTIPATION Last administered on 02/06/19at 16:20; Admin Dose 200 MG; Start 02/06/19 at 14:00 Sodium Chloride 1,000 ml @ 60 mls/hr [id number] IV Last administered on 02/07/19at 08:53; Admin Dose 60 MLS/HR; Start 02/06/19 at 14:00 Gabapentin (Neurontin) 100 mg TID PO Last administered on 02/07/19at 12:28; Admin Dose 100 MG; Start 02/07/19 at 13:00 Allergies: Coded Allergies: belladonna alkaloids (Verified Allergy, Mild, itching, swelling, 02/04/19) codeine (Verified Allergy, Mild, NUMBNESS OF HAND, EXTREME AGITATION, 02/04/19) acetaminophen (Verified Allergy, Unknown, itch, swelling, 02/04/19) hydrocodone (Verified Allergy, Unknown, itch, swelling, 02/04/19) aspirin (Verified Adverse Reaction, Mild, GASTRIC PROBLEMS, 02/04/19) Past Surgical History reviewed Past Surgical Hx: other (Aortic valve replacement) Social History reviewed Smoking Status: Never smoker ISMAEL PROCTOR NP February 07, 2019 12:41
--- NOTE | 2019-02-07 13:04 | PN ---
DATE: 02/07/2019 ADDENDUM The patient had sudden onset of left upper extremity shooting pain down from the left shoulder to the left hand with mild numbness of the left hand, although she does not have any motor deficit. Her vi jeanne signs have remained stable. The patient does not have any focal swelling in the left axilla. I spoke with the family and the patient will be started on Neurontin and will also obtain neurologic consultation from Dr. Thompson. I spoke with Dr. Royal and her local examination did not have any ellis cation of hematoma in the axillary area. I myself examind the axilla. There is no focal swelling or ecchymosis. Dr. Royal also told me that patient might need evacuation of a local postoperative duy viki. Therefore, patient will be only on Lovenox. Will hold off on Coumadin. I also spoke with Dr. Hudson from cardiac standpoint and updated her regarding plan of care. I met with the patient's mag fitzgerald and updated her regarding patient's condition and plan of care. Dictated By: LEYLA HOBSON/ALLEY Conf#: [id number] DID#: [id number] CC: MAIA HINOJOSA MD;*EndCC*
[2019-02-07 14:00] VITALS: BP 112/56; PULSE 89; RESP 18
--- NOTE | 2019-02-07 16:58 | PN ---
DATE: 02/07/2019 Postop day #3 status post left partial mastectomy and axillary dissection for cancer of the left breast. SUBJECTIVE: Apparently, the patient has been complaining since last night of severe pain in the left shoulder area radiating down the posterior aspect of the left arm and forearm and also to the supraclavicular area. Dr. Ziegler has seen the patient has requested a neurology consultation which has been done. The patient's daughters are on the bedside. I asked them if she has had any problems with her neck before and they said that last year she had an accident. She tripped over something and fell and she had trauma to her neck and has been treated by neurosurgeon. She apparently got an MRI or CT scan. They have been told that there is inflammation or herniation and they recommended that if that conservative treatment was not effective, she should have operation. In any case, she has history of problem with her cervical spine and this new problem could be exacerbation of that problem than being related to the hematoma in the anterior chest wall or lt.axilla OBJECTIVE: GENERAL: Awake, alert, oriented. VITAL SIGNS: Temperature maximum today 98.5, heart rate 83 regular, respiration 18, blood pressure 111/53, saturation 96% on room air. HEART: Regular. Sound of metallic valve could be heard. LUNGS: Clear. ABDOMEN: Soft. SKIN: The dressing (bias dressing) around the chest wall was removed and appears that the swelling over the anterior chest wall site of excision of the mass is slightly less than yesterday. LABORATORY DATA: WBC 8100, hemoglobin on 02/05/2019 was 12.6, today is 10.1, hematocrit 30.6 with 63% segmented, platelet is 171, slightly decreased. Chemistry: Sodium, potassium, BUN, creatinine within normal limits. HOSPITAL COURSE: The blood in the Gerson-Russell tubing is dark old blood. I used the milking technique and I milked the tubing several times and gradually, the blood started to flow through the tubing and to fill up the bag. Totally, we removed 230 mL of dark old blood from the cavity of the excision of the mass and after removal of this much of blood, actually the swelling much decreased and it was obvious that it has shrunken in the swelling. Close to the axillary area at the level of the tendon of the pectoralis major area today, there is more swelling and hematoma formation comparing to yesterday. Dressing was reapplied including sponges and ABDs and on top of it, bias dressing was applied firmly around the chest wall. The patient feels much better and more comfortable. As was mentioned before, last night we held the dose of Lovenox and Coumadin, but apparently the paper counter has seen the patient today and they have restarted the Lovenox and Coumadin, so we will observe the patient. We will repeat H and H every 8 hours and we will make further decisions in future depending on how the things will go on. If the patient continues to accumulate more blood and loses blood, then probably we have to intervene surgically or transfuse blood.. I have discussed with Dr. Ziegler and I will let him know my finding. I will also inform Dr. Diaz as I have informed him before about this. Dictated By: ALFONSO CONTRERAS MD PS/NTS Conf#: [id number] DID#: [id number] CC: MAIA DIAZ MD; LEYLA ZIEGLER MD;*EndCC* MTDD
[2019-02-07] MEDS: WARFARIN 3 MG TAB GTB SCH (17:22)
[2019-02-07 20:00] VITALS: BP 98/49; PULSE 91; RESP 17
[2019-02-07 23:00] VITALS: BP 103/53; PULSE 110; RESP 20
[2019-02-08] VITALS (7 sets, daily range): BP systolic 88–137; BP diastolic 47–92; PULSE 89–107; RESP 18–19
[2019-02-08] MEDS: SOD CHLORIDE 0.9% 1,000 ML IV SCH ×2 (02:03→03:33)
[2019-02-08] MEDS ORDERED: SOD CHLORIDE 0.9% 500 ML IV ONE (03:30)
[2019-02-08] MEDS: PANTOPRAZOLE (EC) 40 MG TAB PO SCH (05:18)
[2019-02-08] MEDS: GABAPENTIN 100 MG CAP PO SCH ×3 (08:48→21:33)
[2019-02-08] MEDS: ONDANSETRON 4 MG INJ IV PRN ×2 (09:26→17:09)
[2019-02-08] MEDS: HYDROmorphONE 0.5 MG/0.5 ML SYG IV PRN ×5 (09:27→21:55)
--- NOTE | 2019-02-08 10:42 | CONS ---
Assessment/Plan Assessment/Plan Hospital Course 63 yo F with recently diagnosed breast CA and other comorbidities who is noted to have an elective partial mastectomy and axillary dissection. She endorses severe perioperative pain with sensory loss... for which neurology is consulted. Her sx are likely attributed to her recent operation. An acute C-spine process is unlikely. P: Surgery followup Pain and other medical management per primary Will follow clinically, to recommend neurologic studies, as necessary Consultation Date/Type/Reason Admit Date/Time February 04, 2019 at 14:08 Type of Consult Neurology Reason for Consultation LUE pain and numbness Requesting Provider: LEYLA ZIEGLER MD Date/Time of Note DATE: 02/08/19 TIME: 10:42 24 HR Interval Summary Free Text/Dictation Continues acute care. Pt continues to endorse L axillary/arm pain, though states that it is better than yesterday. Exam Vital Signs Vitals Vital Signs Date Temp Pulse Resp B/P (MAP) Pulse Ox O2 O2 Flow FiO2 Time Delivery Rate 02/08/19 99.3 100 18 98/52 (67) 95 08:26 02/07/19 Room Air 23:00 02/04/19 6.0 14:10 Intake and Output 02/07/19 02/07/19 02/08/19 1515:00 23:00 07:00 IntakeIntake Total 630 ml 890 ml 2020 ml OutputOutput Total 595 ml 45 ml BalanceBalance 630 ml 295 ml 1975 ml Exam PE: Gen Appearance: No Apparent Distress HEENT: Normocephalic Cardiovascular: Regular rate Lungs: Clear bilaterally Abdomen: Soft; KARY drain from L breast/axilla area with compression wrapping. Extremities: Dry NE: The patient was alert and oriented. Language was normal. Fund of knowledge was normal. Pupils were equal and reactive to light. There was no afferent pupillary defect. Visual nuno were normal. Funduscopic examination was limited Extra-ocular movements were full. Ptosis was absent. There was no nystagmus. Facial sensation was normal. Face was symmetric with normal strength. Hearing was intact. Palate movements were normal. Neck strength was normal. There was normal tongue bulk and speed of movement. Tone was normal. Muscle bulk was normal. I did not see fasciculations. R am and legs were strong. L arm was pain-limited Vibration sensation was diminished in the L arm. Temperature and pinprick sensation was normal. Rapid alternating movements were normal. There was no dysmetria. There was no intention tremor. Gait was deferred due to bedrest. Arm and leg reflexes were 2+ and symmetric. Sanchez's sign was absent. Plantar responses were flexor. ISMAEL PROCTOR NP February 08, 2019 10:42
[2019-02-08] MEDS ORDERED: VANCOMYCIN IV PER PHARMACY XX SCH (11:30)
[2019-02-08] MEDS: PIPER-TAZO 3.375 GM IV (PMX) 100 ML IVPB SCH ×2 (12:10→17:09)
[2019-02-08] MEDS: KETOROLAC 30 MG INJ IV PRN (12:16)
[2019-02-08] MEDS ORDERED: VANCOMYCIN HCL 1.25 GM in SOD CHLORIDE 0.9% 250 ML IVPB SCH (13:00)
[2019-02-08] MEDS ORDERED: DIAZEPAM 5 MG TAB PO ONE (13:30)
[2019-02-08] MEDS ORDERED: DIAZEPAM 2 MG TAB PO SCH (14:00)
--- NOTE | 2019-02-08 14:20 | PN ---
DATE: 02/08/2019 SUBJECTIVE: The patient complains of severe pain in left shoulder area radiating to the lateral aspect of the shoulder and also the pain is on the upper, mid or shoulder area, actually is over the mid part of the scapula and is tender on pressing over there, but I cannot see any mass or any gross pathology over there. Also, the patient has had an episode of temperature 101; therefore considering the fact that the patient has aortic valve, Dr. Pelaez, internal medicine corporate travel consultant, has started the patient on antibiotics, vancomycin and Zosyn and has requested the patient be transferred to telemetry. OBJECTIVE: GENERAL: Awake, alert, oriented, semi-sitting position. VITAL SIGNS: Temperature here maximum today 99.3, heart rate 100, respirations 18, blood pressure 98/52, saturation 95% on room air. HEART: Regular. LUNGS: Clear. SKIN: The left chest dressing and wound inspected. There is no increase in the size of the previous hematoma as was mentioned before and we drained the hematoma in the anterior chest wall at the site of the excision of the mass yesterday and no more accumulated over there. There is slight hematoma accumulated at the level of tendon of the pectoralis major, but the hollow of the axilla is actually empty and no hematoma in there, so I do not really think the pain in the shoulder area and scapula is from the pressure of the hematoma over nerve over there and it appears that this is a spasm of the trapezius muscle. ABDOMEN: Soft. EXTREMITIES: Legs negative. LABORATORY DATA: Hemoglobin last night eventually has dropped to 8.4 for which the patient has received 1 unit of packed cells. Today at 9:24 a.m., the WBC is 12.1 with 68% segmented which is normal differential, hemoglobin 8.9, hematocrit 26.1. No chemistry today. Coagulation today morning on 9:24 a.m. PT is 19.2, INR is 1.61. PLAN: As the patient and the nurse stated that when the patient is sitting on the bedside and dangling her legs, she feels very dizzy. The patient is receiving Dilaudid 0.5 mg every 4 hours IV for pain and apparently, it is not helping her; therefore, I am going to stop the Dilaudid and I am going to start patient on diazepam 5 mg p.o. stat and we will see how it is going to have effect on the pain and if that is due to spasm of the trapezius muscle and the spasm goes away and the pain would go away or decrease, then we are going to continue diazepam every 8 hours 5 mg. I have already given 5 mg. We will continue to check H and H every 8 hours and patient is going to be transferred to the telemetry as was documented later on before. The patient has been seen by neurologist corporate travel consultant as of yesterday considering this shoulder pain and also paste mixer continues to follow the patient. I am following the patient from surgical point of view in regard to the breast operation. Dictated By: ALFONSO CONTRERAS MD PS/NTS Conf#: [id number] DID#: [id number] CC: MAIA HINOJOSA MD; LEYLA PELAEZ MD;*EndCC* MTDD
--- NOTE | 2019-02-08 15:01 | CONS ---
Consultation Date/Type/Reason Admit Date/Time February 04, 2019 at 14:08 Initial Consult Date Requesting Provider: LEYLA ZIEGLER MD Date/Time of Note DATE: 02/08/19 TIME: 15:01 Exam/Review of Systems Exam Vitals Vital Signs Date Temp Pulse Resp B/P (MAP) Pulse Ox O2 O2 Flow FiO2 Time Delivery Rate 02/08/19 99.3 100 18 98/52 (67) 95 08:26 02/07/19 Room Air 23:00 02/04/19 6.0 14:10 Intake and Output 02/07/19 02/07/19 02/08/19 1515:00 23:00 07:00 IntakeIntake Total 630 ml 890 ml 2020 ml OutputOutput Total 595 ml 45 ml BalanceBalance 630 ml 295 ml 1975 ml Results Result Diagram: 02/08/19 0924 02/07/19 0459 Results 24hrs Laboratory Tests Test 02/07/19 22:35 02/08/19 09:24 02/08/19 10:55 Hemoglobin 8.4 L 8.9 L Hematocrit 25.6 L 26.1 L White Blood Count 12.1 #H Red Blood Count 3.01 L Mean Corpuscular Volume 86.7 Mean Corpuscular Hemoglobin 29.6 Mean Corpuscular Hemoglobin Concent 34.1 Red Cell Distribution Width 13.6 Platelet Count 176 Mean Platelet Volume 10.4 Immature Granulocytes % 0.700 H Neutrophils % 68.8 Lymphocytes % 20.5 Monocytes % 8.9 Eosinophils % 0.7 Basophils % 0.4 Nucleated Red Blood Cells % 0.0 Immature Granulocytes # 0.090 H Neutrophils # 8.3 H Lymphocytes # 2.5 Monocytes # 1.1 H Eosinophils # 0.1 Basophils # 0.1 Nucleated Red Blood Cells # 0.0 Prothrombin Time 19.2 H Prothrombin Time Ratio 1.5 INR International Normalized Ratio 1.61 Urine Color YELLOW Urine Clarity CLEAR Urine pH 5.0 Urine Specific [place] 1.015 Urine Ketones TRACE A Urine Nitrite NEGATIVE Urine Bilirubin NEGATIVE Urine Urobilinogen NEGATIVE Urine Leukocyte Esterase NEGATIVE Urine Hemoglobin NEGATIVE Urine Glucose NEGATIVE Urine Total Protein NEGATIVE Medications Medication Current Medications Cefazolin Sodium/ Dextrose 50 ml @ 100 mls/hr PRE-OP IVPB ; Start 02/04/19 at 08:30 Ondansetron HCl (Zofran Inj) 4 mg Q6H PRN IV NAUSEA AND/OR VOMITING Last administered on 02/08/19 09:26; Admin Dose 4 MG; Start 02/04/19 at 14:00 Pantoprazole (Protonix Tab) 40 mg DAILY@06 PO Last administered on 02/08/19 05:18; Admin Dose 40 MG; Start 02/07/19 at 06:00 Ketorolac Tromethamine (Toradol) 30 mg Q6H PRN IV PAIN LEVEL 1-3 Last administered on 02/08/19 12:16; Admin Dose 30 MG; Start 02/06/19 at 10:30; Stop 02/09/19 at 10:29 Docusate Sodium (Colace) 200 mg DAILY PRN PO CONSTIPATION Last administered on 02/06/19 16:20; Admin Dose 200 MG; Start 02/06/19 at 14:00 Sodium Chloride 1,000 ml @ 80 mls/hr [id number] IV Last administered on 02/08/19 03:33; Admin Dose 80 MLS/HR; Start 02/06/19 at 14:00 Gabapentin (Neurontin) 200 mg TID PO Last administered on 02/08/19 12:57; Admin Dose 200 MG; Start 02/08/19 at 13:00 Vancomycin HCl (Vanco Iv Per Pharmacy) VANCOMYCIN PER PHARMACY PER PROTOCOL XX ; Start 02/08/19 at 11:30 Piperacillin Sod/ Tazobactam Sod 100 ml @ 200 mls/hr Q6 IVPB Last administered on 02/08/19at 12:10; Admin Dose 200 MLS/HR; Start 02/08/19 at 12:00 Vancomycin HCl 1.25 gm/Sodium Chloride 250 ml @ 83.333 mls/ hr ONCE@1200 IVPB Last administered on 02/08/19 12:53; Admin Dose 83.333 MLS/HR; Start 02/08/19 at 13:00; Stop 02/08/19 at 19:00 Vancomycin/Sodium Chloride 250 ml @ 125 mls/hr Q12H IVPB ; Start 02/09/19 at 01:00 Hydromorphone HCl (Dilaudid) 0.2 mg Q2H PRN IV SEVERE PAIN LEVEL 7-10 Last administered on 02/08/19 14:38; Admin Dose 0.2 MG; Start 5/27/19 at 14:30 ANGÉLICA BRAVO MD February 08, 2019 15:01
--- NOTE | 2019-02-08 15:15 | CONS ---
Assessment/Plan Assessment/Plan Hospital Course (Demo Recall) 1. Post op fever; likely related to hematoma alone. An infected Hematoma is possible 2. Hx of Invasive Breast CA; awaiting outpatient records/path 3. s/p partial mastectomy and axillary l.n. dissection 4. AVR on anticoag; bridge in process R: ok to cont. vanco/zosyn for now lenz cx; including drainage lactic acid procalc consider lower extremity ultz for diagnostic purposes if fever recurs will continue to follow anna with you left card with family and answered all their questions; approx 6 family members Consultation Date/Type/Reason Admit Date/Time February 04, 2019 at 14:08 Date of Consultation: February 08, 2019 Type of Consult ID Reason for Consultation POST OP FEVER Requesting Provider: LEYLA ZIEGLER MD Date/Time of Note DATE: 02/08/19 TIME: 15:07 Hx of Present Illness A very pleasant 63 yo female with pmh of AVR on anticoagulation, afib, recently found to have left breast invasive CA, s/p left partial mastectomy and axillary dissection. She was noted to have fever and decreased drainage from left breast area. Drainage was able to be re-established this am. Sanguinous drainage noted. She has been placed on empiric abx; Vanco/Zosyn. Constitutional: no complaints Eyes: no complaints ENT: no complaints Respiratory: no complaints Cardiovascular: no complaints Gastrointestinal: nausea Genitourinary: no complaints Musculoskeletal: no complaints Skin: bruising, skin lesions Neurologic: no complaints Endocrine: no complaints Lymphatic: no complaints Psychological: no complaints, nl mood/affect Past Medical History Home Meds Reported Medications Lansoprazole* (Prevacid*) 15 Mg Capsule.dr, 15 MG PO DAILY, CAP 02/04/19 Atorvastatin Calcium* (Atorvastatin Calcium*) 20 Mg Tablet, 20 MG PO QHS, #30 TAB 02/04/19 Warfarin Sodium* (Coumadin*) 6 Mg Tablet, 6 MG PO DAILY, TAB 02/04/19 Discontinued Reported Medications Atorvastatin* (Atorvastatin*) 40 Mg Tablet, 40 MG PO QHS, #30 TAB 02/04/19 Medications Current Medications Cefazolin Sodium/ Dextrose 50 ml @ 100 mls/hr PRE-OP IVPB ; Start 02/04/19 at 08:30 Ondansetron HCl (Zofran Inj) 4 mg Q6H PRN IV NAUSEA AND/OR VOMITING Last admi nistered on 02/08/19 09:26; Admin Dose 4 MG; Start 02/04/19 at 14:00 Pantoprazole (Protonix Tab) 40 mg DAILY@06 PO Last administered on 02/08/19 05:18; Admin Dose 40 MG; Start 02/07/19 at 06:00 Ketorolac Tromethamine (Toradol) 30 mg Q6H PRN IV PAIN LEVEL 1-3 Last administered on 02/08/19 12:16; Admin Dose 30 MG; Start 02/06/19 at 10:30; Stop 02/09/19 at 10:29 Docusate Sodium (Colace) 200 mg DAILY PRN PO CONSTIPATION Last administered on 02/06/19 16:20; Admin Dose 200 MG; Start 02/06/19 at 14:00 Sodium Chloride 1,000 ml @ 80 mls/hr [id number] IV Last administered on 02/08/19 03:33; Admin Dose 80 MLS/HR; Start 02/06/19 at 14:00 Gabapentin (Neurontin) 200 mg TID PO Last administered on 02/08/19 12:57; Admin Dose 200 MG; Start 02/08/19 at 13:00 Vancomycin HCl (Vanco Iv Per Pharmacy) VANCOMYCIN PER PHARMACY PER PROTOCOL XX ; Start 02/08/19 at 11:30 Piperacillin Sod/ Tazobactam Sod 100 ml @ 200 mls/hr Q6 IVPB Last administered on 02/08/19 12:10; Admin Dose 200 MLS/HR; Start 02/08/19 at 12:00 Vancomycin HCl 1.25 gm/Sodium Chloride 250 ml @ 83.333 mls/ hr ONCE@1200 IVPB Last administered on 02/08/19 12:53; Admin Dose 83.333 MLS/HR; Start 02/08/19 at 13:00; Stop 02/08/19 at 19:00 Vancomycin/Sodium Chloride 250 ml @ 125 mls/hr Q12H IVPB ; Start 02/09/19 at 01:00 Hydromorphone HCl (Dilaudid) 0.2 mg Q2H PRN IV SEVERE PAIN LEVEL 7-10 Last administered on 02/08/19 14:38; Admin Dose 0.2 MG; Start 02/08/19 at 14:30 Allergies: Coded Allergies: belladonna alkaloids (Verified Allergy, Mild, itching, swelling, 02/04/19) codeine (Verified Allergy, Mild, NUMBNESS OF HAND, EXTREME AGITATION, 02/04/19) acetaminophen (Verified Allergy, Unknown, itch, swelling, 02/04/19) hydrocodone (Verified Allergy, Unknown, itch, swelling, 02/04/19) aspirin (Verified Adverse Reaction, Mild, GASTRIC PROBLEMS, 02/04/19) Past Surgical History Past Surgical Hx: other (Aortic valve replacement) Social History Smoking Status: Never smoker Exam/Review of Systems Exam Vitals Vital Signs Date Temp Pulse Resp B/P (MAP) Pulse Ox O2 O2 Flow FiO2 Time Delivery Rate 02/08/19 99.3 100 18 98/52 (67) 95 08:26 02/07/19 Room Air 23:00 02/04/19 6.0 14:10 Intake and Output 02/07/19 02/07/19 02/08/19 1515:00 23:00 07:00 IntakeIntake Total 630 ml 890 ml 2020 ml OutputOutput Total 595 ml 45 ml BalanceBalance 630 ml 295 ml 1975 ml Constitutional: alert, oriented, well developed Psych: no complaints, nl mood/affect Head: normocephalic, atraumatic Eyes: nl conjunctiva, EOMI, nl lids, nl sclera, PERRL ENMT: nl external ears & nose, nl lips & teeth, nl nasal mucosa & septum Respiratory: clear to auscultation, normal air movement Cardiovascular: regular rate and rhythm, nl pulses Gastrointestinal: soft, nl liver, spleen, non-tender Extremities: normal pulses Neurological: PROJECT CONTROL MANAGER II-XII intact Skin: ecchymosis, other (picts reviewed with daughter on phone at bedside. no overt signs of purulent drainage. drain with sanguinous drainage noted) Results Result Diagram: 02/08/19 0924 02/07/19 0453 Results 24hrs Laboratory Tests Test 02/07/19 22:35 02/08/19 09:24 02/08/19 10:55 Hemoglobin 8.4 L 8.9 L Hematocrit 25.6 L 26.1 L White Blood Count 12.1 #H Red Blood Count 3.01 L Mean Corpuscular Volume 86.7 Mean Corpuscular Hemoglobin 29.6 Mean Corpuscular Hemoglobin Concent 34.1 Red Cell Distribution Width 13.6 Platelet Count 176 Mean Platelet Volume 10.4 Immature Granulocytes % 0.700 H Neutrophils % 68.8 Lymphocytes % 20.5 Monocytes % 8.9 Eosinophils % 0.7 Basophils % 0.4 Nucleated Red Blood Cells % 0.0 Immature Granulocytes # 0.090 H Neutrophils # 8.3 H Lymphocytes # 2.5 Monocytes # 1.1 H Eosinophils # 0.1 Basophils # 0.1 Nucleated Red Blood Cells # 0.0 Prothrombin Time 19.2 H Prothrombin Time Ratio 1.5 INR International Normalized Ratio 1.61 Urine Color YELLOW Urine Clarity CLEAR Urine pH 5.0 Urine Specific [place] 1.015 Urine Ketones TRACE A Urine Nitrite NEGATIVE Urine Bilirubin NEGATIVE Urine Urobilinogen NEGATIVE Urine Leukocyte Esterase NEGATIVE Urine Hemoglobin NEGATIVE Urine Glucose NEGATIVE Urine Total Protein NEGATIVE Medications Medication Current Medications Cefazolin Sodium/ Dextrose 50 ml @ 100 mls/hr PRE-OP IVPB ; Start 02/04/19 at 08:30 Ondansetron HCl (Zofran Inj) 4 mg Q6H PRN IV NAUSEA AND/OR VOMITING Last administered on 02/08/19 09:26; Admin Dose 4 MG; Start 02/04/19 at 14:00 Pantoprazole (Protonix Tab) 40 mg DAILY@06 PO Last administered on 02/08/19 05:18; Admin Dose 40 MG; Start 02/07/19 at 06:00 Ketorolac Tromethamine (Toradol) 30 mg Q6H PRN IV PAIN LEVEL 1-3 Last administered on 02/08/19at 12:16; Admin Dose 30 MG; Start 02/06/19 at 10:30; Stop 02/09/19 at 10:29 Docusate Sodium (Colace) 200 mg DAILY PRN PO CONSTIPATION Last administered on 02/06/19 16:20; Admin Dose 200 MG; Start 02/06/19 at 14:00 Sodium Chloride 1,000 ml @ 80 mls/hr [id number] IV Last administered on 02/08/19 03:33; Admin Dose 80 MLS/HR; Start 02/06/19 at 14:00 Gabapentin (Neurontin) 200 mg TID PO Last administered on 02/08/19at 12:57; Admin Dose 200 MG; Start 02/08/19 at 13:00 Vancomycin HCl (Vanco Iv Per Pharmacy) VANCOMYCIN PER PHARMACY PER PROTOCOL XX ; Start 02/08/19 at 11:30 Piperacillin Sod/ Tazobactam Sod 100 ml @ 200 mls/hr Q6 IVPB Last administered on 02/08/19at 12:10; Admin Dose 200 MLS/HR; Start 02/08/19 at 12:00 Vancomycin HCl 1.25 gm/Sodium Chloride 250 ml @ 83.333 mls/ hr ONCE@1200 IVPB Last administered on 02/08/19at 12:53; Admin Dose 83.333 MLS/HR; Start 02/08/19 at 13:00; Stop 02/08/19 at 19:00 Vancomycin/Sodium Chloride 250 ml @ 125 mls/hr Q12H IVPB ; Start 02/09/19 at 01:00 Hydromorphone HCl (Dilaudid) 0.2 mg Q2H PRN IV SEVERE PAIN LEVEL 7-10 Last administered on 02/08/19at 14:38; Admin Dose 0.2 MG; Start 02/08/19 at 14:30 ANGÉLICA BRAVO MD February 08, 2019 15:15
--- NOTE | 2019-02-08 17:25 | PN ---
Date/Time of Note Date/Time of Note DATE: 02/08/19 TIME: 17:24 Assessment/Plan VTE Prophylaxis Risk score (from [facility] [place])>0 risk: 6 SCD applied (from [facility] [place]): Yes Pharmacological prophylaxis: NA/contraindicated Pharm contraindication: bleeding Lines/Catheters IV Catheter Type (from [facility]): Peripheral IV Assessment/Plan Hospital Course Patient was transferred to telemetry floor due to tachycardia, currently in sinus tachycardia, patient's complaints of the left side postoperative pain, patient denies shortness of breath. Patient also febrile, started on broad- spectrum antibiotics, Dr. Arias is asked to see patient in infection disease consultation. Hemoglobin is 8.9 after blood transfusion overnight. Continue to monitor H&H, continue to monitor KARY output. Assessment/Plan -Left breast cancer, status post left partial mastectomy. -Postoperative hematoma -Postoperative fever, continue antibiotics per ID. Dr. Arias is following in infection disease consultation. -Paroxysmal atrial fibrillation. -Mechanical aortic valve replacement secondary to aortic insufficiency. Patient does not tolerate anticoagulation due to postoperative hematoma. Dr. Santana is following in cardiology consultation. -Anemia of acute blood loss, continue to monitor H&H, will transfuse as needed. Further recommendations based on clinical course. Plan of care discussed with Dr. Pelaez. Result Diagram: 02/08/19 1618 02/07/19 0459 Results 24hrs Laboratory Tests Test 02/07/19 22:35 02/08/19 09:24 02/08/19 10:55 02/08/19 15:51 Hemoglobin 8.4 L 8.9 L Hematocrit 25.6 L 26.1 L White Blood Count 12.1 #H Red Blood Count 3.01 L Mean Corpuscular 86.7 Volume Mean Corpuscular 29.6 Hemoglobin Mean Corpuscular 34.1 Hemoglobin Concent Red Cell 13.6 Distribution Width Platelet Count 176 Mean Platelet Volume 10.4 Immature 0.700 H Granulocytes % Neutrophils % 68.8 Lymphocytes % 20.5 Monocytes % 8.9 Eosinophils % 0.7 Basophils % 0.4 Nucleated Red Blood 0.0 Cells % Immature 0.090 H Granulocytes # Neutrophils # 8.3 H Lymphocytes # 2.5 Monocytes # 1.1 H Eosinophils # 0.1 Basophils # 0.1 Nucleated Red Blood 0.0 Cells # Prothrombin Time 19.2 H Prothrombin Time 1.5 Ratio INR International 1.61 Normalized Ratio Urine Color YELLOW Urine Clarity CLEAR Urine pH 5.0 Urine Specific 1.015 [place] Urine Ketones TRACE A Urine Nitrite NEGATIVE Urine Bilirubin NEGATIVE Urine Urobilinogen NEGATIVE Urine Leukocyte NEGATIVE Esterase Urine Hemoglobin NEGATIVE Urine Glucose NEGATIVE Urine Total Protein NEGATIVE Lactic Acid Level 1.0 Test 02/08/19 16:18 Hemoglobin 7.8 L Hematocrit 23.5 L Exam/Review of Systems Exam Vitals Vital Signs Date Temp Pulse Resp B/P (MAP) Pulse Ox O2 O2 Flow FiO2 Time Delivery Rate 02/08/19 98.9 94 18 103/53 98 15:21 (70) 02/07/19 Room Air 23:00 02/04/19 6.0 14:10 Intake and Output 02/07/19 02/07/19 02/08/19 1515:00 23:00 07:00 IntakeIntake Total 630 ml 890 ml 2020 ml OutputOutput Total 595 ml 45 ml BalanceBalance 630 ml 295 ml 1975 ml Constitutional: alert, oriented Head: normocephalic Neck: supple Respiratory: clear to auscultation Cardiovascular: regular rate and rhythm Gastrointestinal: soft, non-tender Musculoskeletal: nl extremities to inspection Extremities: normal pulses Neurological: nl mental status Skin: other (Status post left partial mastectomy, axillary JPs) Results Results 24hrs Laboratory Tests Test 02/07/19 22:35 02/08/19 09:24 02/08/19 10:55 02/08/19 15:51 Hemoglobin 8.4 L 8.9 L Hematocrit 25.6 L 26.1 L White Blood Count 12.1 #H Red Blood Count 3.01 L Mean Corpuscular 86.7 Volume Mean Corpuscular 29.6 Hemoglobin Mean Corpuscular 34.1 Hemoglobin Concent Red Cell 13.6 Distribution Width Platelet Count 176 Mean Platelet Volume 10.4 Immature 0.700 H Granulocytes % Neutrophils % 68.8 Lymphocytes % 20.5 Monocytes % 8.9 Eosinophils % 0.7 Basophils % 0.4 Nucleated Red Blood 0.0 Cells % Immature 0.090 H Granulocytes # Neutrophils # 8.3 H Lymphocytes # 2.5 Monocytes # 1.1 H Eosinophils # 0.1 Basophils # 0.1 Nucleated Red Blood 0.0 Cells # Prothrombin Time 19.2 H Prothrombin Time 1.5 Ratio INR International 1.61 Normalized Ratio Urine Color YELLOW Urine Clarity CLEAR Urine pH 5.0 Urine Specific 1.015 [place] Urine Ketones TRACE A Urine Nitrite NEGATIVE Urine Bilirubin NEGATIVE Urine Urobilinogen NEGATIVE Urine Leukocyte NEGATIVE Esterase Urine Hemoglobin NEGATIVE Urine Glucose NEGATIVE Urine Total Protein NEGATIVE Lactic Acid Level 1.0 Test 02/08/19 16:18 Hemoglobin 7.8 L Hematocrit 23.5 L Medications Medication Current Medications Cefazolin Sodium/ Dextrose 50 ml @ 100 mls/hr PRE-OP IVPB ; Start 02/04/19 at 08:30 Ondansetron HCl (Zofran Inj) 4 mg Q6H PRN IV NAUSEA AND/OR VOMITING Last administered on 02/08/19 17:09; Admin Dose 4 MG; Start 02/04/19 at 14:00 Pantoprazole (Protonix Tab) 40 mg DAILY@06 PO Last administered on 02/08/19 05:18; Admin Dose 40 MG; Start 02/07/19 at 06:00 Ketorolac Tromethamine (Toradol) 30 mg Q6H PRN IV PAIN LEVEL 1-3 Last administered on 02/08/19 12:16; Admin Dose 30 MG; Start 02/06/19 at 10:30; Stop 02/09/19 at 10:29 Docusate Sodium (Colace) 200 mg DAILY PRN PO CONSTIPATION Last administered on 02/06/19 16:20; Admin Dose 200 MG; Start 02/06/19 at 14:00 Sodium Chloride 1,000 ml @ 80 mls/hr [id number] IV Last administered on 02/08/19 03:33; Admin Dose 80 MLS/HR; Start 02/06/19 at 14:00 Gabapentin (Neurontin) 200 mg TID PO Last administered on 02/08/19at 12:57; Admin Dose 200 MG; Start 02/08/19 at 13:00 Vancomycin HCl (Vanco Iv Per Pharmacy) VANCOMYCIN PER PHARMACY PER PROTOCOL XX ; Start 02/08/19 at 11:30 Piperacillin Sod/ Tazobactam Sod 100 ml @ 200 mls/hr Q6 IVPB Last administered on 02/08/19 17:09; Admin Dose 200 MLS/HR; Start 02/08/19 at 12:00 Vancomycin HCl 1.25 gm/Sodium Chloride 250 ml @ 83.333 mls/ hr ONCE@1200 IVPB Last administered on 02/08/19at 12:53; Admin Dose 83.333 MLS/HR; Start 02/08/19 at 13:00; Stop 02/08/19 at 19:00 Vancomycin/Sodium Chloride 250 ml @ 125 mls/hr Q12H IVPB ; Start 02/09/19 at 01:00 Hydromorphone HCl (Dilaudid) 0.2 mg Q2H PRN IV SEVERE PAIN LEVEL 7-10 Last administered on 02/08/19at 17:01; Admin Dose 0.2 MG; Start 02/08/19 at 14:30 MIHAI GUTIERREZ February 08, 2019 17:25
[2019-02-08] MEDS: DOCUSATE SODIUM 100 MG CAP PO PRN (17:30)
[2019-02-08] MEDS: CYCLOBENZAPRINE 10 MG TAB PO SCH (21:32)
[2019-02-09] VITALS (16 sets, daily range): BP systolic 91–124; BP diastolic 45–62; PULSE 85–113; RESP 18–20
[2019-02-09] MEDS: PIPER-TAZO 3.375 GM IV (PMX) 100 ML IVPB SCH ×5 (00:40→23:48)
[2019-02-09] MEDS: VANCOMYCIN 750 MG (PMX) 250 ML IVPB SCH ×2 (01:29→12:21)
[2019-02-09] MEDS: SOD CHLORIDE 0.9% 1,000 ML IV SCH (04:05)
[2019-02-09] MEDS: PANTOPRAZOLE (EC) 40 MG TAB PO SCH (05:54)
[2019-02-09] MEDS: GABAPENTIN 100 MG CAP PO SCH ×3 (08:41→21:03)
[2019-02-09] MEDS: CYCLOBENZAPRINE 10 MG TAB PO SCH ×2 (08:41→21:02)
[2019-02-09] MEDS: HYDROmorphONE 0.5 MG/0.5 ML SYG IV PRN ×3 (08:42→15:16)
[2019-02-09] MEDS: ONDANSETRON 4 MG INJ IV PRN ×2 (08:42→16:43)
[2019-02-09] MEDS: DOCUSATE SODIUM 100 MG CAP PO PRN (11:54)
[2019-02-09] MEDS: ACETAMINOPHEN 325 MG TAB PO PRN ×2 (12:20→19:28)
--- NOTE | 2019-02-09 13:11 | CONS ---
Assessment/Plan Assessment/Plan Hospital Course 63 yo F with recently diagnosed breast CA and other comorbidities who is noted to have an elective partial mastectomy and axillary dissection. She endorses severe perioperative pain with sensory loss... for which neurology is consulted. Her sx are likely attributed to her recent operation. An acute C-spine process is unlikely. P: Surgery followup Pain and other medical management per primary Will follow clinically, to recommend neurologic studies, as necessary Consultation Date/Type/Reason Admit Date/Time February 04, 2019 at 14:08 Type of Consult Neurology Reason for Consultation LUE pain and numbness Requesting Provider: LEYLA ZIEGLER MD Date/Time of Note DATE: 02/09/19 TIME: 13:11 24 HR Interval Summary Free Text/Dictation Transferred to tele for ongoing tachycardia. Pt still has c/o L axillary pain Exam Vital Signs Vitals Vital Signs Date Temp Pulse Resp B/P (MAP) Pulse Ox O2 O2 Flow FiO2 Time Delivery Rate 02/09/19 98.6 12:58 02/09/19 111 12:31 02/09/19 20 95/50 (65) 94 11:22 02/07/19 Room Air 23:00 Intake and Output 02/08/19 02/08/19 02/09/19 1515:00 23:00 07:00 IntakeIntake Total 920 ml OutputOutput Total 30 ml 1000 ml BalanceBalance 920 ml -30 ml -1000 ml Exam PE: Gen Appearance: No Apparent Distress HEENT: Normocephalic Cardiovascular: Regular rate Lungs: Clear bilaterally Abdomen: Soft; KARY drain from L breast/axilla area with compression wrapping. Extremities: Dry NE: The patient was alert and oriented. Language was normal. Fund of knowledge was normal. Pupils were equal and reactive to light. There was no afferent pupillary defect. Visual nuno were normal. Funduscopic examination was limited Extra-ocular movements were full. Ptosis was absent. There was no nystagmus. Facial sensation was normal. Face was symmetric with normal strength. Hearing was intact. Palate movements were normal. Neck strength was normal. There was normal tongue bulk and speed of movement. Tone was normal. Muscle bulk was normal. I did not see fasciculations. R am and legs were strong. L arm was pain-limited Vibration sensation was diminished in the L arm. Temperature and pinprick sensation was normal. Rapid alternating movements were normal. There was no dysmetria. There was no intention tremor. Gait was deferred due to bedrest. Arm and leg reflexes were 2+ and symmetric. Sanchez's sign was absent. Plantar responses were flexor. ISMAEL PROCTOR NP February 09, 2019 13:11
--- NOTE | 2019-02-09 15:17 | CONS ---
Assessment/Plan Assessment/Plan Hospital Course (Demo Recall) Status post breast surgery 02/04/2019 Mechanical aortic valve replacement Paroxysmal atrial fibrillation, currently sinus rhythm Acute blood loss anemia Patient with bleeding on Lovenox and Coumadin requiring blood transfusion. Would hold anticoagulation at the current time. Follow serial hemoglobins. Would consider restarting Coumadin tomorrow if hemoglobin remains stable. Plan of care discussed with Dr. Hu as well as patient and daughter at bedside Consultation Date/Type/Reason Admit Date/Time February 04, 2019 at 14:08 Initial Consult Date Type of Consult Cardiology Requesting Provider: LEYLA ZIEGLER MD Date/Time of Note DATE: 02/09/19 TIME: 15:16 24 HR Interval Summary Free Text/Dictation No shortness of breath, palpitations. Having chest wall pain at surgery site Exam/Review of Systems Vital Signs Vitals Vital Signs Date Temp Pulse Resp B/P (MAP) Pulse Ox O2 O2 Flow FiO2 Time Delivery Rate 02/09/19 98.6 13:10 02/09/19 111 12:31 02/09/19 20 95/50 (65) 94 11:22 02/07/19 Room Air 23:00 Intake and Output 02/08/19 02/08/19 02/09/19 1515:00 23:00 07:00 IntakeIntake Total 920 ml OutputOutput Total 30 ml 1000 ml BalanceBalance 920 ml -30 ml -1000 ml Exam Constitutional: alert, oriented (No apparent distress) Head: normocephalic Respiratory: other (Coarse breath sounds bilaterally, no wheezing) Cardiovascular: regular rate and rhythm, systolic murmur Gastrointestinal: soft, non-tender, bowel sounds Extremities: other (No significant edema) Labs Result Diagram: 02/09/19 0806 02/09/19 0505 Results 24hrs Laboratory Tests Test 02/08/19 15:51 02/08/19 16:18 02/09/19 00:37 02/09/19 05:05 Lactic Acid Level 1.0 Hemoglobin 7.8 L 7.1 L 6.5 *L Hematocrit 23.5 L 21.7 L 19.9 L Procalcitonin 0.11 H White Blood Count 8.4 # Red Blood Count 2.24 #L Mean Corpuscular 88.8 Volume Mean Corpuscular 29.0 Hemoglobin Mean Corpuscular 32.7 Hemoglobin Concent Red Cell 14.2 Distribution Width Platelet Count 140 # Mean Platelet Volume 10.1 Immature 1.100 H Granulocytes % Neutrophils % 62.6 Segmented 73 Neutrophils % (Manual) Lymphocytes % 22.6 Lymphocytes % 18 (Manual) Monocytes % 11.3 H Monocytes % (Manual) 2 Eosinophils % 2.0 Eosinophils % 6 (Manual) Basophils % 0.4 Basophils % (Manual) 1 Nucleated Red Blood 1 H Cells % Immature 0.090 H Granulocytes # Neutrophils # 5.3 Lymphocytes (Manual) 1.5 Lymphocytes # 1.9 Monocytes # 1.0 H Monocytes # (Manual) 0.1 L Eosinophils # 0.2 Basophils # 0.0 Basophils # (Manual) 0.0 Nucleated Red Blood 0.0 Cells # Platelet Estimate NORMAL Giant Platelets 3 H Polychromasia 1+ Anisocytosis 1+ Microcytosis 1+ Macrocytosis 1+ Prothrombin Time 20.6 H Prothrombin Time 1.6 Ratio INR International 1.76 Normalized Ratio Sodium Level 137 Potassium Level 3.9 Chloride Level 106 Carbon Dioxide Level 29 Anion Gap 2 L Blood Urea Nitrogen 15 Creatinine 0.77 Est Glomerular > 60 Filtrat Rate mL/min Glucose Level 110 Calcium Level 7.2 L Test 02/09/19 08:06 Hemoglobin 7.1 L Hematocrit 21.9 L Medications Medications Current Medications Cefazolin Sodium/ Dextrose 50 ml @ 100 mls/hr PRE-OP IVPB ; Start 02/04/19 at 08:30 Ondansetron HCl (Zofran Inj) 4 mg Q6H PRN IV NAUSEA AND/OR VOMITING Last administered on 02/09/19at 08:42; Admin Dose 4 MG; Start 02/04/19 at 14:00 Pantoprazole (Protonix Tab) 40 mg DAILY@06 PO Last administered on 02/09/19at 05:54; Admin Dose 40 MG; Start 02/07/19 at 06:00 Docusate Sodium (Colace) 200 mg DAILY PRN PO CONSTIPATION Last administered on 02/09/19at 11:54; Admin Dose 200 MG; Start 02/06/19 at 14:00 Gabapentin (Neurontin) 200 mg TID PO Last administered on 02/09/19at 12:21; Admin Dose 200 MG; Start 02/08/19 at 13:00 Vancomycin HCl (Vanco Iv Per Pharmacy) VANCOMYCIN PER PHARMACY PER PROTOCOL XX ; Start 02/08/19 at 11:30 Piperacillin Sod/ Tazobactam Sod 100 ml @ 200 mls/hr Q6 IVPB Last administered on 02/09/19at 11:55; Admin Dose 200 MLS/HR; Start 02/08/19 at 12:00 Vancomycin/Sodium Chloride 250 ml @ 125 mls/hr Q12H IVPB Last administered on 02/09/19at 12:21; Admin Dose 125 MLS/HR; Start 02/09/19 at 01:00 Hydromorphone HCl (Dilaudid) 0.2 mg Q2H PRN IV SEVERE PAIN LEVEL 7-10 Last administered on 02/09/19at 11:55; Admin Dose 0.2 MG; Start 02/08/19 at 14:30 Cyclobenzaprine HCl (Flexeril) 10 mg Q12 PO Last administered on 02/09/19at 08:41; Admin Dose 10 MG; Start 02/08/19 at 21:00 Acetaminophen (Tylenol Tab) 650 mg Q4H PRN PO MILD PAIN(1-3)OR ELEVATED TEMP Last administered on 02/09/19at 12:20; Admin Dose 650 MG; Start 02/09/19 at 12:00 Miscellaneous Information (*Rx Drug Level Order Reminder*) VANCO TROUGH = 0000 0000 ONCE XX ; Start 02/10/19 at 00:00; Stop 02/10/19 at 00:01 Saccharomyces Boulardii (Florastor) 250 mg BID PO ; Start 02/09/19 at 15:30 Dima Hicks DO February 09, 2019 15:17
[2019-02-09] MEDS: SACCHAROMYCES BOULARDII 250 MG CAP PO SCH ×2 (16:44→21:03)
--- NOTE | 2019-02-09 17:08 | CONS ---
Assessment/Plan Assessment/Plan Hospital Course (Demo Recall) - Post op fever, may be due to L breast hematoma - hematoma of L breast, possibly superimposed by infection - anemia - Hx of Invasive Breast CA - it was reported to NAVIN Lewis on 02/08/2019 that Pt's blood culture was growing Gram positive cocci; upon further investigation, all three samples of blood cultures from 02/08/2019 are negative - h/o L partial mastectomy and axillary lymph node dissection - AVR on anticoag recommendations - it was reported to NAVIN Lewis on 02/08/2019 that Pt's blood culture was growing Gram positive cocci; upon further investigation, the lab confirmed that all three samples of blood cultures from 02/08/2019 are negative so far. I instructed Pt's NAVIN Lewis to document this on [facility] - I will request that Dr. Royal allow Pt's RN to take pictures of her wound and file them in her paper chart - also pending: cultures of serosanguinous fluid in KARY drain - the skin of L breast starts to drain purulence, will send its sample for culture - continue empiric IV vanc and pip/tazo (02/08/19-) management d/w PT, her daughter and NAVIN Lewis the total time I took to care for this Pt today was from 1515 to 1600 Consultation Date/Type/Reason Admit Date/Time February 04, 2019 at 14:08 Initial Consult Date 02/08/19 Type of Consult ID Requesting Provider: LEYLA ZIEGLER MD Date/Time of Note DATE: 02/09/19 TIME: 16:57 24 HR Interval Summary Constitutional: other (not feeling well) Detailed Summary Eyes: no complaints ENT: other (yesterday had L hearing problems but it resolved) Respiratory: no complaints Cardiovascular: no complaints Gastrointestinal: no complaints Genitourinary: no complaints Musculoskeletal: bone/joint pain (L shoulder), restricted range of motion (LUE) Skin: skin lesions (L breast and L axilla) Lymphatic: other (pain of L axilla) Immunologic: No pruritis Exam/Review of Systems Exam Vitals Vital Signs Date Temp Pulse Resp B/P (MAP) Pulse Ox O2 O2 Flow FiO2 Time Delivery Rate 02/09/19 98.6 95 20 97/52 (67) 91 15:47 02/07/19 Room Air 23:00 Intake and Output 02/08/19 02/08/19 02/09/19 1515:00 23:00 07:00 IntakeIntake Total 920 ml OutputOutput Total 30 ml 1000 ml BalanceBalance 920 ml -30 ml -1000 ml Constitutional: frail Psych: no complaints Head: normocephalic, atraumatic Eyes: nl conjunctiva, nl lids, nl sclera ENMT: nl external ears & nose, nl nasal mucosa & septum, mucosa pink and moist Neck: supple Respiratory: clear to auscultation, normal air movement Cardiovascular: regular rate and rhythm, nl pulses Gastrointestinal: soft, non-tender; No distended Musculoskeletal: nl extremities to inspection Extremities: No edema Neurological: lethargic Skin: rash or lesions (L breast is tense, TTP, no erythema. +KARY with serosanguinous fluid) Lymph: other (L axilla is TTP) Results Result Diagram: 02/09/19 0806 02/09/19 0505 Results 24hrs Laboratory Tests Test 02/09/19 00:37 02/09/19 05:05 02/09/19 08:06 Hemoglobin 7.1 L 6.5 *L 7.1 L Hematocrit 21.7 L 19.9 L 21.9 L White Blood Count 8.4 # Red Blood Count 2.24 #L Mean Corpuscular Volume 88.8 Mean Corpuscular Hemoglobin 29.0 Mean Corpuscular Hemoglobin Concent 32.7 Red Cell Distribution Width 14.2 Platelet Count 140 # Mean Platelet Volume 10.1 Immature Granulocytes % 1.100 H Neutrophils % 62.6 Segmented Neutrophils % (Manual) 73 Lymphocytes % 22.6 Lymphocytes % (Manual) 18 Monocytes % 11.3 H Monocytes % (Manual) 2 Eosinophils % 2.0 Eosinophils % (Manual) 6 Basophils % 0.4 Basophils % (Manual) 1 Nucleated Red Blood Cells % 1 H Immature Granulocytes # 0.090 H Neutrophils # 5.3 Lymphocytes (Manual) 1.5 Lymphocytes # 1.9 Monocytes # 1.0 H Monocytes # (Manual) 0.1 L Eosinophils # 0.2 Basophils # 0.0 Basophils # (Manual) 0.0 Nucleated Red Blood Cells # 0.0 Platelet Estimate NORMAL Giant Platelets 3 H Polychromasia 1+ Anisocytosis 1+ Microcytosis 1+ Macrocytosis 1+ Prothrombin Time 20.6 H Prothrombin Time Ratio 1.6 INR International Normalized Ratio 1.76 Sodium Level 137 Potassium Level 3.9 Chloride Level 106 Carbon Dioxide Level 29 Anion Gap 2 L Blood Urea Nitrogen 15 Creatinine 0.77 Est Glomerular Filtrat Rate mL/min > 60 Glucose Level 110 Calcium Level 7.2 L Medications Medication Current Medications Cefazolin Sodium/ Dextrose 50 ml @ 100 mls/hr PRE-OP IVPB ; Start 02/04/19 at 08:30 Ondansetron HCl (Zofran Inj) 4 mg Q6H PRN IV NAUSEA AND/OR VOMITING Last administered on 02/09/19 16:43; Admin Dose 4 MG; Start 02/04/19 at 14:00 Pantoprazole (Protonix Tab) 40 mg DAILY@06 PO Last administered on 02/09/19 05:54; Admin Dose 40 MG; Start 02/07/19 at 06:00 Docusate Sodium (Colace) 200 mg DAILY PRN PO CONSTIPATION Last administered on 02/09/19 11:54; Admin Dose 200 MG; Start 02/06/19 at 14:00 Gabapentin (Neurontin) 200 mg TID PO Last administered on 02/09/19 12:21; Admin Dose 200 MG; Start 02/08/19 at 13:00 Vancomycin HCl (Vanco Iv Per Pharmacy) VANCOMYCIN PER PHARMACY PER PROTOCOL XX ; Start 02/08/19 at 11:30 Piperacillin Sod/ Tazobactam Sod 100 ml @ 200 mls/hr Q6 IVPB Last administered on 02/09/19 11:55; Admin Dose 200 MLS/HR; Start 02/08/19 at 12:00 Vancomycin/Sodium Chloride 250 ml @ 125 mls/hr Q12H IVPB Last administered on 02/09/19 12:21; Admin Dose 125 MLS/HR; Start 02/09/19 at 01:00 Hydromorphone HCl (Dilaudid) 0.2 mg Q2H PRN IV SEVERE PAIN LEVEL 7-10 Last administered on 02/09/19 15:16; Admin Dose 0.2 MG; Start 02/08/19 at 14:30 Cyclobenzaprine HCl (Flexeril) 10 mg Q12 PO Last administered on 02/09/19 08:41; Admin Dose 10 MG; Start 02/08/19 at 21:00 Acetaminophen (Tylenol Tab) 650 mg Q4H PRN PO MILD PAIN(1-3)OR ELEVATED TEMP Last administered on 02/09/19at 12:20; Admin Dose 650 MG; Start 02/09/19 at 12:00 Miscellaneous Information (*Rx Drug Level Order Reminder*) VANCO TROUGH = 0000 0000 ONCE XX ; Start 02/10/19 at 00:00; Stop 02/10/19 at 00:01 Saccharomyces Boulardii (Florastor) 250 mg BID PO Last administered on 02/09/19at 16:44; Admin Dose 250 MG; Start 02/09/19 at 15:30 CARLA MONTEZ M.D. February 09, 2019 17:08
--- NOTE | 2019-02-09 17:17 | PN ---
DATE: 02/09/2019 SUBJECTIVE: The patient is a 63-year-old female who underwent left partial needle directed mastectomy with axillary dissection for the cancer of the breast on the left side. The patient has history of aortic valve replacement, metallic type and has been on Coumadin since then. Four days preop, the patient's Coumadin was stopped and postop after the first night of operation, the patient was started back on Lovenox and Coumadin to cover the status of the aortic valve. Unfortunately, the patient developed hematoma at the site of operation and has dropped her hemoglobin and required at least 1 unit of blood transfusion last night and today morning also has dropped her hemoglobin down to 6.5, which is receiving more blood transfusion. The patient also in the past 2 to 3 days has been complaining of severe shoulder pain with radiation to the lateral aspect of the left arm and also to some extent of forearm and also to the scapula. The patient for the control of the pain has required to receive Dilaudid 0.5 mg every 4 hours round the clock and Toradol 30 mg IV q.6 hours round the clock and still has not been controlled. Last night with the impression and assumption that patient most probably has also trapezius spasm on the left side, I started the patient on muscle relaxant and per nurses today last night, the patient had much less requirement of pain injection especially that we has decreased the Toradol from 0.5 to 0.2 and the patient only required 1 last night and 1 in early today morning plus Toradol. OBJECTIVE: GENERAL: Awake, alert and oriented x3. VITAL SIGNS: Temperature maximum has been up to 101, heart rate up to 111, respiration 20, blood pressure 95/50, saturation 94% on room air. HEART: Regular. LUNGS: Clear. ABDOMEN: Soft. LABORATORY DATA: As was mentioned. Today, the hemoglobin at 5:00 a.m. was 6.5, hematocrit 19.9 and repeated at 8:00 was the same, 7.1, so blood transfusion was ordered by the medical service and differential is 62% segmented. Chemistry: Sodium, potassium are normal. BUN 15, creatinine 0.77. Procalcitonin is 0.11, which is high. Coagulation profile today morning: PT is 20.6 which is high and INR is 1.76 which is of course high but the medical service, Dr. Ziegler had put the patient's Lovenox and Coumadin on hold as of last night and also today and he is planning to keep it on hold even today to see if the patient stabilizes or not. INPUT AND OUTPUT: Urine output has not been properly collected and measured, but in the last 24 hours has recording of 1000 mL. Gerson-Russell drain in the past 24 hours has been recorded that it has drained only 30 mL. HOSPITAL COURSE: We saw the patient along with Dr. Diaz today afternoon at 2:00 and the hematoma in the anterior chest wall comparing to the first day that hematoma was formed still is less, but is more than yesterday. The hematoma over attachment of the pectoralis major tendon appears to be the same as yesterday. The patient can move both upper extremities almost full range. The power of vendor manager is almost equal on both sides. There is subcutaneous ecchymosis formation now which appears that is dissecting down the chest wall coming laterally and posteriorly to some extent. Therefore probably, the patient continued to bleed and part of the bleeding had dissected the tissue layers and now appears with ecchymosis. PLAN: I talked to Dr. Ziegler. His plan is to keep hold on Lovenox and Coumadin today at least. From surgical point of view, we will continue the Flexeril and pain medications. We ordered I and O control to make sure patient makes enough urine. Continue H and H q.8 hours and if it is lower than 7.5 to transfuse the patient packed cells. Other colleagues including infectious disease, lending activities supervisor and neurologist are following the patient as well. Dr. Diaz, the surgeon, for the cancer operation that he did is not planning to explore the patient for hematoma because he believes that the chance of complication and more bleeding is higher than if we do not explore the patient, so from a surgical point of view also conservative management of this hematomas and pain is recommended. We will continue to follow the patient along with other colleagues. Dictated By: ALFONSO CONTRERAS MD PS/NTS Conf#: [id number] DID#: [id number] CC: MAIA DIAZ MD; LEYLA ZIEGLER MD;*EndCC* MTDD
--- NOTE | 2019-02-09 17:46 | PN ---
Date/Time of Note Date/Time of Note DATE: 02/09/19 TIME: 17:42 Assessment/Plan VTE Prophylaxis Risk score (from [facility])>0 risk: 6 SCD applied (from [facility]): Yes Pharmacological prophylaxis: NA/contraindicated Pharm contraindication: bleeding Lines/Catheters IV Catheter Type (from [facility]): Saline Lock Assessment/Plan Hospital Course Patient is undergoing blood transfusion, spiked fever in the morning, continued on vancomycin and Zosyn, patient complains of incisional pain and shoulder pain, denies shortness of breath. Assessment/Plan -Left breast cancer, status post left partial mastectomy. -Postoperative hematoma -Postoperative fever, continue antibiotics per ID. Dr. Arias is following in infection disease consultation. -Paroxysmal atrial fibrillation. -Mechanical aortic valve replacement secondary to aortic insufficiency. Patient does not tolerate anticoagulation due to postoperative hematoma. Dr. Santana is following in cardiology consultation. -Anemia of acute blood loss, continue to monitor H&H, will transfuse as needed. Further recommendations based on clinical course. Plan of care discussed with Dr. Pelaez. Result Diagram: 02/09/19 0806 02/09/19 0505 Results 24hrs Laboratory Tests Test 02/09/19 00:37 02/09/19 05:05 02/09/19 08:06 Hemoglobin 7.1 L 6.5 *L 7.1 L Hematocrit 21.7 L 19.9 L 21.9 L White Blood Count 8.4 # Red Blood Count 2.24 #L Mean Corpuscular Volume 88.8 Mean Corpuscular Hemoglobin 29.0 Mean Corpuscular Hemoglobin Concent 32.7 Red Cell Distribution Width 14.2 Platelet Count 140 # Mean Platelet Volume 10.1 Immature Granulocytes % 1.100 H Neutrophils % 62.6 Segmented Neutrophils % (Manual) 73 Lymphocytes % 22.6 Lymphocytes % (Manual) 18 Monocytes % 11.3 H Monocytes % (Manual) 2 Eosinophils % 2.0 Eosinophils % (Manual) 6 Basophils % 0.4 Basophils % (Manual) 1 Nucleated Red Blood Cells % 1 H Immature Granulocytes # 0.090 H Neutrophils # 5.3 Lymphocytes (Manual) 1.5 Lymphocytes # 1.9 Monocytes # 1.0 H Monocytes # (Manual) 0.1 L Eosinophils # 0.2 Basophils # 0.0 Basophils # (Manual) 0.0 Nucleated Red Blood Cells # 0.0 Platelet Estimate NORMAL Giant Platelets 3 H Polychromasia 1+ Anisocytosis 1+ Microcytosis 1+ Macrocytosis 1+ Prothrombin Time 20.6 H Prothrombin Time Ratio 1.6 INR International Normalized Ratio 1.76 Sodium Level 137 Potassium Level 3.9 Chloride Level 106 Carbon Dioxide Level 29 Anion Gap 2 L Blood Urea Nitrogen 15 Creatinine 0.77 Est Glomerular Filtrat Rate mL/min > 60 Glucose Level 110 Calcium Level 7.2 L Exam/Review of Systems Exam Vitals Vital Signs Date Temp Pulse Resp B/P (MAP) Pulse Ox O2 O2 Flow FiO2 Time Delivery Rate 02/09/19 94 17:05 02/09/19 98.6 20 97/52 (67) 91 15:47 02/07/19 Room Air 23:00 Intake and Output 02/08/19 02/08/19 02/09/19 1515:00 23:00 07:00 IntakeIntake Total 920 ml OutputOutput Total 30 ml 1000 ml BalanceBalance 920 ml -30 ml -1000 ml Exam Constitutional: alert, oriented Respiratory: clear to auscultation Cardiovascular: regular rate and rhythm Gastrointestinal: soft, non-tender Musculoskeletal: nl extremities to inspection Extremities: normal pulses Neurological: nl mental status Skin: other (Status post left partial mastectomy, axillary JPs) Results Results 24hrs Laboratory Tests Test 02/09/19 00:37 02/09/19 05:05 02/09/19 08:06 Hemoglobin 7.1 L 6.5 *L 7.1 L Hematocrit 21.7 L 19.9 L 21.9 L White Blood Count 8.4 # Red Blood Count 2.24 #L Mean Corpuscular Volume 88.8 Mean Corpuscular Hemoglobin 29.0 Mean Corpuscular Hemoglobin Concent 32.7 Red Cell Distribution Width 14.2 Platelet Count 140 # Mean Platelet Volume 10.1 Immature Granulocytes % 1.100 H Neutrophils % 62.6 Segmented Neutrophils % (Manual) 73 Lymphocytes % 22.6 Lymphocytes % (Manual) 18 Monocytes % 11.3 H Monocytes % (Manual) 2 Eosinophils % 2.0 Eosinophils % (Manual) 6 Basophils % 0.4 Basophils % (Manual) 1 Nucleated Red Blood Cells % 1 H Immature Granulocytes # 0.090 H Neutrophils # 5.3 Lymphocytes (Manual) 1.5 Lymphocytes # 1.9 Monocytes # 1.0 H Monocytes # (Manual) 0.1 L Eosinophils # 0.2 Basophils # 0.0 Basophils # (Manual) 0.0 Nucleated Red Blood Cells # 0.0 Platelet Estimate NORMAL Giant Platelets 3 H Polychromasia 1+ Anisocytosis 1+ Microcytosis 1+ Macrocytosis 1+ Prothrombin Time 20.6 H Prothrombin Time Ratio 1.6 INR International Normalized Ratio 1.76 Sodium Level 137 Potassium Level 3.9 Chloride Level 106 Carbon Dioxide Level 29 Anion Gap 2 L Blood Urea Nitrogen 15 Creatinine 0.77 Est Glomerular Filtrat Rate mL/min > 60 Glucose Level 110 Calcium Level 7.2 L Medications Medication Current Medications Cefazolin Sodium/ Dextrose 50 ml @ 100 mls/hr PRE-OP IVPB ; Start 02/04/19 at 08:30 Ondansetron HCl (Zofran Inj) 4 mg Q6H PRN IV NAUSEA AND/OR VOMITING Last administered on 02/09/19 16:43; Admin Dose 4 MG; Start 02/04/19 at 14:00 Pantoprazole (Protonix Tab) 40 mg DAILY@06 PO Last administered on 02/09/19 05:54; Admin Dose 40 MG; Start 02/07/19 at 06:00 Docusate Sodium (Colace) 200 mg DAILY PRN PO CONSTIPATION Last administered on 02/09/19 11:54; Admin Dose 200 MG; Start 02/06/19 at 14:00 Gabapentin (Neurontin) 200 mg TID PO Last administered on 02/09/19 12:21; Admin Dose 200 MG; Start 02/08/19 at 13:00 Vancomycin HCl (Vanco Iv Per Pharmacy) VANCOMYCIN PER PHARMACY PER PROTOCOL XX ; Start 02/08/19 at 11:30 Piperacillin Sod/ Tazobactam Sod 100 ml @ 200 mls/hr Q6 IVPB Last administered on 02/09/19 17:38; Admin Dose 200 MLS/HR; Start 02/08/19 at 12:00 Vancomycin/Sodium Chloride 250 ml @ 125 mls/hr Q12H IVPB Last administered on 02/09/19 12:21; Admin Dose 125 MLS/HR; Start 02/09/19 at 01:00 Hydromorphone HCl (Dilaudid) 0.2 mg Q2H PRN IV SEVERE PAIN LEVEL 7-10 Last a dministered on 02/09/19 15:16; Admin Dose 0.2 MG; Start 02/08/19 at 14:30 Cyclobenzaprine HCl (Flexeril) 10 mg Q12 PO Last administered on 02/09/19at 08:41; Admin Dose 10 MG; Start 02/08/19 at 21:00 Acetaminophen (Tylenol Tab) 650 mg Q4H PRN PO MILD PAIN(1-3)OR ELEVATED TEMP Last administered on 02/09/19at 12:20; Admin Dose 650 MG; Start 02/09/19 at 12:00 Miscellaneous Information (*Rx Drug Level Order Reminder*) VANCO TROUGH = 0000 0000 ONCE XX ; Start 02/10/19 at 00:00; Stop 02/10/19 at 00:01 Saccharomyces Boulardii (Florastor) 250 mg BID PO Last administered on 02/09/19at 16:44; Admin Dose 250 MG; Start 02/09/19 at 15:30 MIHAI GUTIERREZ February 09, 2019 17:46
[2019-02-09] MEDS ORDERED: IBUPROFEN 600 MG TAB PO ONE (21:30)
[2019-02-10] VITALS (12 sets, daily range): BP systolic 82–111; BP diastolic 43–55; PULSE 61–99; RESP 18–20
[2019-02-10] MEDS: VANCOMYCIN 750 MG (PMX) 250 ML IVPB SCH ×3 (01:08→17:00)
[2019-02-10] MEDS: PANTOPRAZOLE (EC) 40 MG TAB PO SCH (05:57)
[2019-02-10] MEDS: PIPER-TAZO 3.375 GM IV (PMX) 100 ML IVPB SCH ×3 (05:57→18:06)
[2019-02-10] MEDS: SACCHAROMYCES BOULARDII 250 MG CAP PO SCH ×2 (08:20→20:19)
[2019-02-10] MEDS: ACETAMINOPHEN 325 MG TAB PO PRN (08:21)
[2019-02-10] MEDS: GABAPENTIN 100 MG CAP PO SCH ×3 (08:21→20:21)
[2019-02-10] MEDS: CYCLOBENZAPRINE 10 MG TAB PO SCH ×2 (08:21→20:19)
--- NOTE | 2019-02-10 12:47 | CONS ---
Assessment/Plan Assessment/Plan Hospital Course 63 yo F with recently diagnosed breast CA and other comorbidities who is noted to have an elective partial mastectomy and axillary dissection. She endorses severe perioperative pain with sensory loss... for which neurology is consulted. Her sx are likely attributed to her recent operation. An acute C-spine process is unlikely. P: Surgery followup Pain and other medical management per primary Will follow clinically, to recommend neurologic studies, as necessary Consultation Date/Type/Reason Admit Date/Time February 04, 2019 at 14:08 Type of Consult Neurology Reason for Consultation LUE pain and numbness Requesting Provider: LEYLA ZIEGLER MD Date/Time of Note DATE: 02/10/19 TIME: 12:47 24 HR Interval Summary Free Text/Dictation Continues acute care. S/p blood transfusion. Exam Vital Signs Vitals Vital Signs Date Temp Pulse Resp B/P (MAP) Pulse Ox O2 O2 Flow FiO2 Time Delivery Rate 02/10/19 84 12:10 02/10/19 98.2 20 82/43 (56) 96 Room Air 11:38 02/10/19 2.0 08:20 Intake and Output 02/09/19 02/09/19 02/10/19 1515:00 23:00 07:00 IntakeIntake Total 1250 ml 350 ml OutputOutput Total 60 ml 2000 ml BalanceBalance -60 ml -750 ml 350 ml Exam PE: Gen Appearance: No Apparent Distress HEENT: Normocephalic Cardiovascular: Regular rate Lungs: Clear bilaterally Abdomen: Soft; KARY drain from L breast/axilla area with compression wrapping. Extremities: Dry NE: The patient was alert and oriented. Language was normal. Fund of knowledge was normal. Pupils were equal and reactive to light. There was no afferent pupillary defect. Visual nuno were normal. Funduscopic examination was limited Extra-ocular movements were full. Ptosis was absent. There was no nystagmus. Facial sensation was normal. Face was symmetric with normal strength. Hearing was intact. Palate movements were normal. Neck strength was normal. There was normal tongue bulk and speed of movement. Tone was normal. Muscle bulk was normal. I did not see fasciculations. R arm and legs were strong. L arm was pain-limited Vibration sensation was diminished in the L arm. Temperature and pinprick sensation was normal. Rapid alternating movements were normal. There was no dysmetria. There was no intention tremor. Gait was deferred due to bedrest. Arm and leg reflexes were 2+ and symmetric. Sanchez's sign was absent. Plantar responses were flexor. ISMAEL PROCTOR NP February 10, 2019 12:47 DALY PEREZ February 11, 2019 06:42
--- NOTE | 2019-02-10 12:51 | CONS ---
Assessment/Plan Assessment/Plan Hospital Course (Demo Recall) Status post breast surgery 02/04/2019 Mechanical aortic valve replacement Paroxysmal atrial fibrillation, currently sinus rhythm Acute blood loss anemia Hemoglobin has remained stable, repeat ordered for this afternoon as well as INR. I discussed with surgery, if hemoglobin remains stable this afternoon, would start IV heparin intravenous without a bolus Consultation Date/Type/Reason Admit Date/Time February 04, 2019 at 14:08 Initial Consult Date Type of Consult Cardiology Requesting Provider: LEYLA ZIEGLER MD Date/Time of Note DATE: 02/10/19 TIME: 12:46 24 HR Interval Summary Free Text/Dictation Feeling better, denies dizziness or shortness of breath Exam/Review of Systems Vital Signs Vitals Vital Signs Date Temp Pulse Resp B/P (MAP) Pulse Ox O2 O2 Flow FiO2 Time Delivery Rate 02/10/19 84 12:10 02/10/19 98.2 20 82/43 (56) 96 Room Air 11:38 02/10/19 2.0 08:20 Intake and Output 02/09/19 02/09/19 02/10/19 1515:00 23:00 07:00 IntakeIntake Total 1250 ml 350 ml OutputOutput Total 60 ml 2000 ml BalanceBalance -60 ml -750 ml 350 ml Exam Constitutional: alert, oriented Respiratory: clear to auscultation, normal air movement Cardiovascular: regular rate and rhythm (S1-S2 heard), systolic murmur Gastrointestinal: soft, non-tender, bowel sounds Extremities: other (No significant edema) Labs Result Diagram: 02/10/19 1043 02/10/19 0514 Results 24hrs Laboratory Tests Test 02/09/19 18:57 02/09/19 21:15 02/09/19 23:48 02/10/19 05:14 Hemoglobin 9.0 #L 8.7 L Hematocrit 27.6 #L 26.1 L Urine Color YELLOW Urine Clarity CLEAR Urine pH 5.0 Urine Specific 1.010 [place] Urine Ketones NEGATIVE Urine Nitrite NEGATIVE Urine Bilirubin NEGATIVE Urine 1+ H Urobilinogen Urine Leukocyte NEGATIVE Esterase Urine Microscopic 0 RBC Urine Microscopic 2 WBC Urine Bacteria FEW A Urine Hemoglobin 1+ H Urine Glucose NEGATIVE Urine Total NEGATIVE Protein Vancomycin Level 7.5 L Trough White Blood Count 10.9 #H Red Blood Count 2.97 #L Mean Corpuscular 87.9 Volume Mean Corpuscular 29.3 Hemoglobin Mean Corpuscular 33.3 Hemoglobin Concen t Red Cell 13.7 Distribution Width Platelet Count 155 Mean Platelet 10.1 Volume Immature 0.900 H Granulocytes % Neutrophils % 74.2 Lymphocytes % 12.4 L Monocytes % 10.2 Eosinophils % 1.8 Basophils % 0.5 Nucleated Red 0.4 H Blood Cells % Immature 0.100 H Granulocytes # Neutrophils # 8.1 H Lymphocytes # 1.3 Monocytes # 1.1 H Eosinophils # 0.2 Basophils # 0.1 Nucleated Red 0.0 Blood Cells # Sodium Level 136 Potassium Level 3.7 Chloride Level 105 Carbon Dioxide 27 Level Anion Gap 4 L Blood Urea 13 Nitrogen Creatinine 0.68 Est Glomerular > 60 Filtrat Rate mL/min Glucose Level 125 Calcium Level 7.5 L Test 02/10/19 07:15 02/10/19 10:43 Lab Scanned BLOOD TRANSFUSIO Report N Hemoglobin 8.8 L Hematocrit 26.8 L Medications Medications Current Medications Cefazolin Sodium/ Dextrose 50 ml @ 100 mls/hr PRE-OP IVPB ; Start 02/04/19 at 08:30 Ondansetron HCl (Zofran Inj) 4 mg Q6H PRN IV NAUSEA AND/OR VOMITING Last administered on 02/09/19at 16:43; Admin Dose 4 MG; Start 02/04/19 at 14:00 Pantoprazole (Protonix Tab) 40 mg DAILY@06 PO Last administered on 02/10/19at 05:57; Admin Dose 40 MG; Start 02/07/19 at 06:00 Docusate Sodium (Colace) 200 mg DAILY PRN PO CONSTIPATION Last administered on 02/09/19at 11:54; Admin Dose 200 MG; Start 02/06/19 at 14:00 Gabapentin (Neurontin) 200 mg TID PO Last administered on 02/10/19at 12:28; Admin Dose 200 MG; Start 02/08/19 at 13:00 Vancomycin HCl (Vanco Iv Per Pharmacy) VANCOMYCIN PER PHARMACY PER PROTOCOL XX ; Start 02/08/19 at 11:30 Piperacillin Sod/ Tazobactam Sod 100 ml @ 200 mls/hr Q6 IVPB Last administered on 02/10/19at 12:28; Admin Dose 200 MLS/HR; Start 02/08/19 at 12:00 Hydromorphone HCl (Dilaudid) 0.2 mg Q2H PRN IV SEVERE PAIN LEVEL 7-10 Last administered on 02/09/19 15:16; Admin Dose 0.2 MG; Start 02/08/19 at 14:30 Cyclobenzaprine HCl (Flexeril) 10 mg Q12 PO Last administered on 02/10/19 08:21; Admin Dose 10 MG; Start 02/08/19 at 21:00 Acetaminophen (Tylenol Tab) 650 mg Q4H PRN PO MILD PAIN(1-3)OR ELEVATED TEMP Last administered on 02/10/19 08:21; Admin Dose 650 MG; Start 02/09/19 at 12:00 Saccharomyces Boulardii (Florastor) 250 mg BID PO Last administered on 02/10/19 08:20; Admin Dose 250 MG; Start 02/09/19 at 15:30 Vancomycin/Sodium Chloride 250 ml @ 125 mls/hr Q8H IVPB Last administered on 02/10/19 08:20; Admin Dose 125 MLS/HR; Start 02/10/19 at 01:00 Dima Hicks DO February 10, 2019 12:51
--- NOTE | 2019-02-10 13:57 | CONS ---
Assessment/Plan Assessment/Plan Hospital Course (Demo Recall) - Post op fever, may be due to L breast hematoma - hematoma of L breast, possibly superimposed by infection - anemia - pain and swelling of L axilla, and L scapular region, associated with either the exuberant inflammation from L breast or underlying infection - Hx of Invasive Breast CA - it was reported to NAVIN Lewis on 02/08/2019 that Pt's blood culture was growing Gram positive cocci; upon further investigation, all three samples of blood cultures from 02/08/2019 were found negative. This was corrected on [employer], and communicated with Pt and her daughter - h/o L partial mastectomy and axillary lymph node dissection - AVR on anticoag recommendations - it was reported to NAVIN Lewis on 02/08/2019 that Pt's blood culture was growing Gram positive cocci; upon further investigation, all three samples of blood cultures from 02/08/2019 were found negative. This was corrected on [employer], and communicated with Pt and her daughter - ordered: CT of the L breast, axilla and shoulder to eval hematoma, cellulitis and/or abscess - still pending: cultures of serosanguinous fluid in KARY drain. I spoke with Francie at [facility] today. According to Alejandra Marmolejo at the main lab received the specimen on 02/09/2019, however, the specimen was kept in the refrigerator overnight and was finally plated on the media this morning. I instructed someone from the lab to contact me and explain why the specimen did not get processed immediately. This might affect the growth of bacteria in the culture - continue empiric IV vanc and pip/tazo (02/08/19-) management d/w Pt, her daughter, NAVIN Beckman, Sagge Francie the total time I took to care for this Pt today was from 1245 to 1330 Consultation Date/Type/Reason Admit Date/Time February 04, 2019 at 14:08 Initial Consult Date 02/08/19 Type of Consult ID Requesting Provider: LEYLA ZIEGLER MD Date/Time of Note DATE: 02/10/19 TIME: 13:49 24 HR Interval Summary Constitutional: improved Detailed Summary Eyes: no complaints ENT: no complaints Respiratory: no complaints Cardiovascular: no complaints Gastrointestinal: no complaints Genitourinary: no complaints Musculoskeletal: bone/joint pain (L shoulder), restricted range of motion, swelling Skin: erythema, other (tense skin of L breast, L axilla and L shoulder) Neurologic: no complaints Lymphatic: other (+pain of L axilla) Exam/Review of Systems Exam Vitals Vital Signs Date Temp Pulse Resp B/P (MAP) Pulse Ox O2 O2 Flow FiO2 Time Delivery Rate 02/10/19 84 12:10 02/10/19 98.2 20 82/43 (56) 96 Room Air 11:38 02/10/19 2.0 08:20 Intake and Output 02/09/19 02/09/19 02/10/19 1515:00 23:00 07:00 IntakeIntake Total 1250 ml 350 ml OutputOutput Total 60 ml 2000 ml BalanceBalance -60 ml -750 ml 350 ml Constitutional: frail Psych: no complaints, nl mood/affect Head: normocephalic, atraumatic Eyes: nl conjunctiva, nl lids ENMT: nl external ears & nose, nl nasal mucosa & septum Neck: non-tender Respiratory: normal air movement Gastrointestinal: soft; No distended Musculoskeletal: joint tenderness (L scapula), range of motion (cannot abduct LUE), swelling (L shoulder) Extremities: No edema Neurological: [employer] II-XII intact, nl mental status Skin: rash or lesions (tense skin of L breast) Results Result Diagram: 02/10/19 1043 02/10/19 0514 Results 24hrs Laboratory Tests Test 02/09/19 18:57 02/09/19 21:15 02/09/19 23:48 02/10/19 05:14 Hemoglobin 9.0 #L 8.7 L Hematocrit 27.6 #L 26.1 L Urine Color YELLOW Urine Clarity CLEAR Urine pH 5.0 Urine Specific 1.010 [place] Urine Ketones NEGATIVE Urine Nitrite NEGATIVE Urine Bilirubin NEGATIVE Urine 1+ H Urobilinogen Urine Leukocyte NEGATIVE Esterase Urine Microscopic 0 RBC Urine Microscopic 2 WBC Urine Bacteria FEW A Urine Hemoglobin 1+ H Urine Glucose NEGATIVE Urine Total NEGATIVE Protein Vancomycin Level 7.5 L Trough White Blood Count 10.9 #H Red Blood Count 2.97 #L Mean Corpuscular 87.9 Volume Mean Corpuscular 29.3 Hemoglobin Mean Corpuscular 33.3 Hemoglobin Concen t Red Cell 13.7 Distribution Width Platelet Count 155 Mean Platelet 10.1 Volume Immature 0.900 H Granulocytes % Neutrophils % 74.2 Lymphocytes % 12.4 L Monocytes % 10.2 Eosinophils % 1.8 Basophils % 0.5 Nucleated Red 0.4 H Blood Cells % Immature 0.100 H Granulocytes # Neutrophils # 8.1 H Lymphocytes # 1.3 Monocytes # 1.1 H Eosinophils # 0.2 Basophils # 0.1 Nucleated Red 0.0 Blood Cells # Sodium Level 136 Potassium Level 3.7 Chloride Level 105 Carbon Dioxide 27 Level Anion Gap 4 L Blood Urea 13 Nitrogen Creatinine 0.68 Est Glomerular > 60 Filtrat Rate mL/min Glucose Level 125 Calcium Level 7.5 L Test 02/10/19 07:15 02/10/19 10:43 Lab Scanned BLOOD TRANSFUSIO Report N Hemoglobin 8.8 L Hematocrit 26.8 L Medications Medication Current Medications Cefazolin Sodium/ Dextrose 50 ml @ 100 mls/hr PRE-OP IVPB ; Start 02/04/19 at 08:30 Ondansetron HCl (Zofran Inj) 4 mg Q6H PRN IV NAUSEA AND/OR VOMITING Last administered on 02/09/19at 16:43; Admin Dose 4 MG; Start 02/04/19 at 14:00 Pantoprazole (Protonix Tab) 40 mg DAILY@06 PO Last administered on 02/10/19at 05:57; Admin Dose 40 MG; Start 02/07/19 at 06:00 Docusate Sodium (Colace) 200 mg DAILY PRN PO CONSTIPATION Last administered on 02/09/19at 11:54; Admin Dose 200 MG; Start 02/06/19 at 14:00 Gabapentin (Neurontin) 200 mg TID PO Last administered on 02/10/19at 12:28; Admin Dose 200 MG; Start 02/08/19 at 13:00 Vancomycin HCl (Vanco Iv Per Pharmacy) VANCOMYCIN PER PHARMACY PER PROTOCOL XX ; Start 02/08/19 at 11:30 Piperacillin Sod/ Tazobactam Sod 100 ml @ 200 mls/hr Q6 IVPB Last administered on 02/10/19at 12:28; Admin Dose 200 MLS/HR; Start 02/08/19 at 12:00 Hydromorphone HCl (Dilaudid) 0.2 mg Q2H PRN IV SEVERE PAIN LEVEL 7-10 Last administered on 02/09/19at 15:16; Admin Dose 0.2 MG; Start 02/08/19 at 14:30 Cyclobenzaprine HCl (Flexeril) 10 mg Q12 PO Last administered on 02/10/19 08:21; Admin Dose 10 MG; Start 02/08/19 at 21:00 Acetaminophen (Tylenol Tab) 650 mg Q4H PRN PO MILD PAIN(1-3)OR ELEVATED TEMP Last administered on 02/10/19 08:21; Admin Dose 650 MG; Start 02/09/19 at 12:00 Saccharomyces Boulardii (Florastor) 250 mg BID PO Last administered on 02/10/19 08:20; Admin Dose 250 MG; Start 02/09/19 at 15:30 Vancomycin/Sodium Chloride 250 ml @ 125 mls/hr Q8H IVPB Last administered on 02/10/19 08:20; Admin Dose 125 MLS/HR; Start 02/10/19 at 01:00 Senna/Docusate Sodium (Senokot-S) 1 tab BID PRN PO CONSTIPATION; Start 02/10/19 at 13:00 Magnesium Hydroxide (Milk Of Mag) 30 ml BID PRN PO CONSTIPATION; Start 02/10/19 at 13:00 CARLA MONTEZ M.D. February 10, 2019 13:57
--- NOTE | 2019-02-10 15:13 | PN ---
Date/Time of Note Date/Time of Note DATE: 02/10/19 TIME: 15:07 Assessment/Plan VTE Prophylaxis Risk score (from [facility] [place])>0 risk: 3 SCD applied (from [facility] [place]): Yes Pharmacological prophylaxis: NA/contraindicated Pharm contraindication: bleeding Lines/Catheters IV Catheter Type (from [facility]): Saline Lock Assessment/Plan Hospital Course Patient with low-grade fever and persistent leukocytosis, however stated that she feels better, pain is adequately controlled. Patient's condition and plan of care discussed with patient patient's daughter at the bedside, all questions answered. Pending CT of the left breast for evaluation of hematoma. Assessment/Plan -Left breast cancer, status post left partial mastectomy. -Postoperative hematoma -Postoperative fever, continue antibiotics per ID. Dr. Srinivasan is following in infection disease consultation. -Paroxysmal atrial fibrillation. -Mechanical aortic valve replacement secondary to aortic insufficiency. Dr. Hicks is following in cardiology consultation. if hemoglobin remains stable this afternoon, patient will be started on heparin drip. -Anemia of acute blood loss, continue to monitor H&H, will transfuse as needed. Further recommendations based on clinical course. Plan of care discussed with Dr. Pelaez. Result Diagram: 02/10/19 1355 02/10/19 0514 Results 24hrs Laboratory Tests Test 02/09/19 18:57 02/09/19 21:15 02/09/19 23:48 02/10/19 05:14 Hemoglobin 9.0 #L 8.7 L Hematocrit 27.6 #L 26.1 L Urine Color YELLOW Urine Clarity CLEAR Urine pH 5.0 Urine Specific 1.010 [place] Urine Ketones NEGATIVE Urine Nitrite NEGATIVE Urine Bilirubin NEGATIVE Urine 1+ H Urobilinogen Urine Leukocyte NEGATIVE Esterase Urine Microscopic 0 RBC Urine Microscopic 2 WBC Urine Bacteria FEW A Urine Hemoglobin 1+ H Urine Glucose NEGATIVE Urine Total NEGATIVE Protein Vancomycin Level 7.5 L Trough White Blood Count 10.9 #H Red Blood Count 2.97 #L Mean Corpuscular 87.9 Volume Mean Corpuscular 29.3 Hemoglobin Mean Corpuscular 33.3 Hemoglobin Concen t Red Cell 13.7 Distribution Width Platelet Count 155 Mean Platelet 10.1 Volume Immature 0.900 H Granulocytes % Neutrophils % 74.2 Lymphocytes % 12.4 L Monocytes % 10.2 Eosinophils % 1.8 Basophils % 0.5 Nucleated Red 0.4 H Blood Cells % Immature 0.100 H Granulocytes # Neutrophils # 8.1 H Lymphocytes # 1.3 Monocytes # 1.1 H Eosinophils # 0.2 Basophils # 0.1 Nucleated Red 0.0 Blood Cells # Sodium Level 136 Potassium Level 3.7 Chloride Level 105 Carbon Dioxide 27 Level Anion Gap 4 L Blood Urea 13 Nitrogen Creatinine 0.68 Est Glomerular > 60 Filtrat Rate mL/min Glucose Level 125 Calcium Level 7.5 L Test 02/10/19 07:15 02/10/19 10:43 02/10/19 13:55 Lab Scanned BLOOD TRANSFUSIO Report N Hemoglobin 8.8 L 8.5 L Hematocrit 26.8 L 26.6 L White Blood Count 10.9 H Red Blood Count 2.98 L Mean Corpuscular 89.3 Volume Mean Corpuscular 28.5 L Hemoglobin Mean Corpuscular 32.0 Hemoglobin Concen t Red Cell 14.0 Distribution Width Platelet Count 174 Mean Platelet 9.7 Volume Immature 1.100 H Granulocytes % Neutrophils % 70.8 Lymphocytes % 14.5 L Monocytes % 11.2 H Eosinophils % 1.9 Basophils % 0.5 Nucleated Red 0.2 H Blood Cells % Immature 0.120 H Granulocytes # Neutrophils # 7.7 H Lymphocytes # 1.6 Monocytes # 1.2 H Eosinophils # 0.2 Basophils # 0.1 Nucleated Red 0.0 Blood Cells # Activated 25.2 Partial Thrombopl ast Time Exam/Review of Systems Exam Vitals Vital Signs Date Temp Pulse Resp B/P (MAP) Pulse Ox O2 O2 Flow FiO2 Time Delivery Rate 02/10/19 84 12:10 02/10/19 98.2 20 82/43 (56) 96 Room Air 11:38 02/10/19 2.0 08:20 Intake and Output 02/09/19 02/09/19 02/10/19 1414:59 22:59 06:59 IntakeIntake Total 1250 ml 350 ml OutputOutput Total 60 ml 2000 ml BalanceBalance -60 ml -750 ml 350 ml Exam Constitutional: alert, oriented Respiratory: clear to auscultation Cardiovascular: regular rate and rhythm Gastrointestinal: soft, non-tender Musculoskeletal: nl extremities to inspection Extremities: normal pulses Neurological: nl mental status Skin: other (Status post left partial mastectomy, axillary JPs) Results Results 24hrs Laboratory Tests Test 02/09/19 18:57 02/09/19 21:15 02/09/19 23:48 02/10/19 05:14 Hemoglobin 9.0 #L 8.7 L Hematocrit 27.6 #L 26.1 L Urine Color YELLOW Urine Clarity CLEAR Urine pH 5.0 Urine Specific 1.010 [place] Urine Ketones NEGATIVE Urine Nitrite NEGATIVE Urine Bilirubin NEGATIVE Urine 1+ H Urobilinogen Urine Leukocyte NEGATIVE Esterase Urine Microscopic 0 RBC Urine Microscopic 2 WBC Urine Bacteria FEW A Urine Hemoglobin 1+ H Urine Glucose NEGATIVE Urine Total NEGATIVE Protein Vancomycin Level 7.5 L Trough White Blood Count 10.9 #H Red Blood Count 2.97 #L Mean Corpuscular 87.9 Volume Mean Corpuscular 29.3 Hemoglobin Mean Corpuscular 33.3 Hemoglobin Concen t Red Cell 13.7 Distribution Width Platelet Count 155 Mean Platelet 10.1 Volume Immature 0.900 H Granulocytes % Neutrophils % 74.2 Lymphocytes % 12.4 L Monocytes % 10.2 Eosinophils % 1.8 Basophils % 0.5 Nucleated Red 0.4 H Blood Cells % Immature 0.100 H Granulocytes # Neutrophils # 8.1 H Lymphocytes # 1.3 Monocytes # 1.1 H Eosinophils # 0.2 Basophils # 0.1 Nucleated Red 0.0 Blood Cells # Sodium Level 136 Potassium Level 3.7 Chloride Level 105 Carbon Dioxide 27 Level Anion Gap 4 L Blood Urea 13 Nitrogen Creatinine 0.68 Est Glomerular > 60 Filtrat Rate mL/min Glucose Level 125 Calcium Level 7.5 L Test 02/10/19 07:15 02/10/19 10:43 02/10/19 13:55 Lab Scanned BLOOD TRANSFUSIO Report N Hemoglobin 8.8 L 8.5 L Hematocrit 26.8 L 26.6 L White Blood Count 10.9 H Red Blood Count 2.98 L Mean Corpuscular 89.3 Volume Mean Corpuscular 28.5 L Hemoglobin Mean Corpuscular 32.0 Hemoglobin Concen t Red Cell 14.0 Distribution Width Platelet Count 174 Mean Platelet 9.7 Volume Immature 1.100 H Granulocytes % Neutrophils % 70.8 Lymphocytes % 14.5 L Monocytes % 11.2 H Eosinophils % 1.9 Basophils % 0.5 Nucleated Red 0.2 H Blood Cells % Immature 0.120 H Granulocytes # Neutrophils # 7.7 H Lymphocytes # 1.6 Monocytes # 1.2 H Eosinophils # 0.2 Basophils # 0.1 Nucleated Red 0.0 Blood Cells # Activated 25.2 Partial Thrombopl ast Time Medications Medication Current Medications Cefazolin Sodium/ Dextrose 50 ml @ 100 mls/hr PRE-OP IVPB ; Start 02/04/19 at 08:30 Ondansetron HCl (Zofran Inj) 4 mg Q6H PRN IV NAUSEA AND/OR VOMITING Last administered on 02/09/19 16:43; Admin Dose 4 MG; Start 02/04/19 at 14:00 Pantoprazole (Protonix Tab) 40 mg DAILY@06 PO Last administered on 02/10/19 05:57; Admin Dose 40 MG; Start 02/07/19 at 06:00 Docusate Sodium (Colace) 200 mg DAILY PRN PO CONSTIPATION Last administered on 02/09/19 11:54; Admin Dose 200 MG; Start 02/06/19 at 14:00 Gabapentin (Neurontin) 200 mg TID PO Last administered on 02/10/19 12:28; Admin Dose 200 MG; Start 02/08/19 at 13:00 Vancomycin HCl (Vanco Iv Per Pharmacy) VANCOMYCIN PER PHARMACY PER PROTOCOL XX ; Start 02/08/19 at 11:30 Piperacillin Sod/ Tazobactam Sod 100 ml @ 200 mls/hr Q6 IVPB Last administered on 02/10/19 12:28; Admin Dose 200 MLS/HR; Start 02/08/19 at 12:00 Hydromorphone HCl (Dilaudid) 0.2 mg Q2H PRN IV SEVERE PAIN LEVEL 7-10 Last administered on 02/09/19 15:16; Admin Dose 0.2 MG; Start 02/08/19 at 14:30 Cyclobenzaprine HCl (Flexeril) 10 mg Q12 PO Last administered on 02/10/19 08:21; Admin Dose 10 MG; Start 02/08/19 at 21:00 Acetaminophen (Tylenol Tab) 650 mg Q4H PRN PO MILD PAIN(1-3)OR ELEVATED TEMP Last administered on 02/10/19 08:21; Admin Dose 650 MG; Start 02/09/19 at 12:00 Saccharomyces Boulardii (Florastor) 250 mg BID PO Last administered on 02/10/19 08:20; Admin Dose 250 MG; Start 02/09/19 at 15:30 Vancomycin/Sodium Chloride 250 ml @ 125 mls/hr Q8H IVPB Last administered on 02/10/19at 08:20; Admin Dose 125 MLS/HR; Start 02/10/19 at 01:00 Senna/Docusate Sodium (Senokot-S) 1 tab BID PRN PO CONSTIPATION; Start 02/10/19 at 13:00 Magnesium Hydroxide (Milk Of Mag) 30 ml BID PRN PO CONSTIPATION; Start 02/10/19 at 13:00 MIHAI GUTIERREZ February 10, 2019 15:13
[2019-02-10] MEDS: HYDROmorphONE 0.5 MG/0.5 ML SYG IV PRN ×2 (15:42→18:18)
[2019-02-10] MEDS: MAGNESIUM HYDROXIDE 30ML CUP PO PRN (15:48)
--- NOTE | 2019-02-10 17:53 | PN ---
DATE: 02/10/2019 SUBJECTIVE: States that in regard to the pain, it is much better comparing to 2 days ago. The patie nt actually is on Neurontin and on Flexeril for pain and Tylenol. Today, she did not request any Dil audid for pain. OBJECTIVE: GENERAL: Awake, alert, oriented. VITAL SIGNS: Temperature maximum today 100.8, heart rate 99 and another episode 84, respirations 20, blood pressure 82/43, saturation 96% on room air. LABORATORY DATA: WBC today 10,900 with 70.8% segmented which is slightly elevated, hemoglobin at 2:0 0 p.m. today is 8.5, and hematocrit 26.6. It has been almost a stable in the past 24-hour, after the patient has received 1 unit of blood. Total together the patient has received 2 units of blood so f ar since operation. Chemistry: Sodium, potassium normal. BUN and creatinine normal. Coagulation: There is only a PTT today which is almost normal level. PT yesterday was 20.6 and INR was 1.76. I a nd O: Urine output less than 4 hours 2000 mL. Gerson-Russell drain which is in the cavity of the par tial mastectomy has drained only 60 mL which is bloody fluid. PHYSICAL EXAMINATION: GENERAL: Alert, awake, complains of some dizziness. No bowel movement. Has tolerated diet. HEART: Regular. LUNGS: Clear. ABDOMEN: Soft. CHEST: Dressing is intact. Wound was inspected. Appears that the swelling of the chest wall and ax illa comparing to yesterday has not increased. IMPRESSION: The patient is a 63-year-old status post left breast partial mastectomy and axillary dis section for cancer of left breast invasive. The patient had a metallic aortic valve replacement many years ago and has been on Coumadin which was held for this before operation. Immediately after oper ation at night, maybe 10 hours post-operation, patient was started on Coumadin and Lovenox, gloria ng that the danger of possible clot formation on the aortic valve and unfortunately as a complication patient later on had bleeding and oozing and much bleeding under the cavity of the breast operation and she dropped her hemoglobin down to 6.5. She required altogether in the past 3 days 2 units of pa cked cell transfusion. Now is better. Hemoglobin is stable in past [address] Hicks, cardiolog ist, and other internal medicine colleagues are following the patient in regard to handling and bienvenido cing the situation for anticoagulating the patient and preventing hemorrhage. Meanwhile, patient has been complaining of severe pain in the past 3 days except today and the impression of mine and the s urgeon was that this was due to trapezius muscle spasm. Neurologist had seen the patient and they lux ve put their own opinion. PLAN: I discussed with Dr. Hicks, watch supervisor, today. He may start patient on regular heparin and hold on Lovenox and Coumadin until we make sure that the patient's bleeding has stopped and then may continue anticoagulating her again with Lovenox and Coumadin. Thanks to all the colleagues for helping manage this nice patient. We will continue to follow. Dictated By: ALFONSO CONTRERAS MD PS/NTS Conf#: [id number] DID#: [id number] CC: MAIA HINOJOSA MD;*EndCC*
[2019-02-10] MEDS: ONDANSETRON 4 MG INJ IV PRN (18:23)
[2019-02-10] MEDS ORDERED: IOHEXOL 300MG/ML 30 ML BTL ONE (18:31)
[2019-02-10] MEDS ORDERED: SOD CHLORIDE 0.9% 100 ML ONE (18:31)
[2019-02-10] MEDS ORDERED: IOHEXOL 300MG/ML 150 ML BTL ONE (18:31)
[2019-02-10] MEDS ORDERED: HEPARIN 1000 UNITS/ML 10 ML INJ IV PRN (21:00)
[2019-02-10] MEDS: HEPARIN 25000 UNITS/250 ML 250 ML IV SCH (23:09)
[2019-02-11] VITALS (12 sets, daily range): BP systolic 89–159; BP diastolic 52–81; PULSE 84–97; RESP 18–20
[2019-02-11] MEDS: PIPER-TAZO 3.375 GM IV (PMX) 100 ML IVPB SCH ×5 (00:14→23:38)
[2019-02-11] MEDS: VANCOMYCIN 750 MG (PMX) 250 ML IVPB SCH ×2 (01:08→09:05)
[2019-02-11] MEDS: PANTOPRAZOLE (EC) 40 MG TAB PO SCH (05:20)
[2019-02-11] MEDS: DOCUSATE SODIUM 100 MG CAP PO PRN ×2 (05:29→08:45)
[2019-02-11] MEDS: HEPARIN 25000 UNITS/250 ML 250 ML IV SCH (06:39)
[2019-02-11] MEDS: SACCHAROMYCES BOULARDII 250 MG CAP PO SCH ×2 (08:45→20:10)
[2019-02-11] MEDS: CYCLOBENZAPRINE 10 MG TAB PO SCH ×2 (08:45→20:10)
[2019-02-11] MEDS: GABAPENTIN 100 MG CAP PO SCH ×3 (08:45→20:10)
[2019-02-11] MEDS: SENNA/DOCUSATE NA (8.6MG/50MG) TAB PO PRN (08:45)
[2019-02-11] MEDS: ONDANSETRON 4 MG INJ IV PRN ×2 (08:45→21:45)
[2019-02-11] MEDS: HYDROmorphONE 0.5 MG/0.5 ML SYG IV PRN (08:46)
--- NOTE | 2019-02-11 11:51 | CONS ---
Assessment/Plan Assessment/Plan Hospital Course 63 yo F with recently diagnosed breast CA and other comorbidities who is noted to have an elective partial mastectomy and axillary dissection. She endorses severe perioperative pain with sensory loss... for which neurology is consulted. Her sx are likely attributed to her recent operation. An acute C-spine process is unlikely. P: Surgery followup Pain and other medical management per primary Will follow clinically, to recommend neurologic studies, as necessary Consultation Date/Type/Reason Admit Date/Time February 04, 2019 at 14:08 Type of Consult Neurology Reason for Consultation LUE pain and numbness Requesting Provider: LEYLA ZIEGLER MD Date/Time of Note DATE: 02/11/19 TIME: 11:51 24 HR Interval Summary Free Text/Dictation Continues acute care. Exam Vital Signs Vitals Vital Signs Date Temp Pulse Resp B/P (MAP) Pulse Ox O2 O2 Flow FiO2 Time Delivery Rate 02/11/19 88 08:24 02/11/19 Nasal 2.0 08:20 Cannula 02/11/19 99.2 18 93/52 (66) 96 08:00 Intake and Output 02/10/19 02/10/19 02/11/19 1515:00 23:00 07:00 IntakeIntake Total 300 ml 1070 ml 499 ml OutputOutput Total 505 ml 1250 ml BalanceBalance -205 ml -180 ml 499 ml Exam PE: Gen Appearance: No Apparent Distress HEENT: Normocephalic Cardiovascular: Regular rate Abdomen: Soft Extremities: Dry NE: The patient was alert and oriented. Language was normal. Fund of knowledge was normal. Pupils were equal and reactive to light. There was no afferent pupillary defect. Visual nuno were normal. Funduscopic examination was limited Extra-ocular movements were full. Ptosis was absent. There was no nystagmus. Facial sensation was normal. Face was symmetric with normal strength. Hearing was intact. Palate movements were normal. Neck strength was normal. There was normal tongue bulk and speed of movement. Tone was normal. Muscle bulk was normal. I did not see fasciculations. R arm and legs were strong. L arm was pain-limited Vibration sensation was diminished in the L arm. Temperature and pinprick sensation was normal. Rapid alternating movements were normal. There was no dysmetria. There was no intention tremor. Gait was deferred due to bedrest. Arm and leg reflexes were 2+ and symmetric. Sanchez's sign was absent. Plantar responses were flexor. ISMAEL PROCTOR NP February 11, 2019 11:51
--- NOTE | 2019-02-11 11:57 | CONS ---
[facility] LIVE HCIS Consult Follow-up Patient Name: Nita Wagner Unit Number: [id number] Date of : 1955 Patient Status: Admitted Inpatient Attending Doctor: Barry Diaz MD Edit: CARLA WISEMAN M.D. on 02/12/19 @ 16:23 Bowen: I discussed the management with FIELD TEST ENGINEER Rajat and agree Assessment/Plan Assessment/Plan Hospital Course (Demo Recall) - post op fever, may be due to L breast hematoma - hematoma of L breast, possibly superimposed by infection - post-op anemia requiring PRBC - pain and swelling of L axilla, and L scapular region, associated with either the exuberant inflammation from L breast or underlying infection - h/o Invasive Breast CA - h/o L partial mastectomy and axillary lymph node dissection - AVR on anticoag - PAF recommendations: - still pending: cultures of serosanguinous fluid in KARY drain (NGTD). I spoke with Anita at micro lab today. Even though specimen was collected on 02/08/2019, Micro did not receive it till AM on 02/09/2019 , and unfortunately multiple shifts missed processing the specimen till AM on 02/10/2019. Per Anita, she does not think specimen has been compromised and currently shows no growth to date. - continue empiric IV vanc and pip/tazo (02/08/19-) - consider IR consult to possibly change direction of KARY drain Management d/w patient, family member at bedside, NAVIN Beckman, and with Dr. Wiseman ADDENDUM: I called pt's daughter Brit via telephone and she was requesting for vancomycin to be dc'd d/t c/o pain, poss phlebitis. Wound cx gram stain shows no organisms. Will DC vancomycin and f/u on final culture. I updated pt's daughter re: CT results. All questions answered. I notified Dr. Ziegler re: our recommendation for IR consult and also relayed same message to Dr. Royal. Total time spent: 45 min Consultation Date/Type/Reason Admit Date/Time February 04, 2019 at 14:08 Initial Consult Date 02/08/19 Type of Consult Infectious Disease Requesting Provider: LEYLA ZIEGLER MD Date/Time of Note DATE: 02/11/19 TIME: 11:56 24 HR Interval Summary Free Text/Dictation CT shows two large collections in the left breast and left axillary region are most likely compatible with hematoma. WBC has normalized. Remains afebrile. Pt c/o L axillary pain rating 8/10. States pain meds are effective. Reports feeling constipated even though she has two very small BM today. +Flatus. No n/v/d, dysuria, SOB. Pt is getting blood transfusion today per pt's daughter. Exam/Review of Systems Exam Vitals Vital Signs Date Temp Pulse Resp B/P (MAP) Pulse Ox O2 O2 Flow FiO2 Time Delivery Rate 02/11/19 88 08:24 02/11/19 Nasal 2.0 08:20 Cannula 02/11/19 99.2 18 93/52 (66) 96 08:00 Intake and Output 02/10/19 02/10/19 02/11/19 1515:00 23:00 07:00 IntakeIntake Total 300 ml 1070 ml 499 ml OutputOutput Total 505 ml 1250 ml BalanceBalance -205 ml -180 ml 499 ml Constitutional: alert, oriented, well developed, frail Psych: no complaints, nl mood/affect Head: normocephalic, atraumatic Eyes: nl conjunctiva, nl sclera ENMT: nl external ears & nose, nl nasal mucosa & septum, mucosa pink and moist Neck: non-tender Respiratory: clear to auscultation (anteriorly), normal air movement, crackles/rales (faint bibasilar rales) Cardiovascular: regular rate and rhythm, nl pulses Gastrointestinal: soft, non-tender Musculoskeletal: joint tenderness (L scaupla), range of motion (limited of LUE d/t pain and swelling; cannot abduct LUE or raise it above shoulder level), swelling (L shoulder) Extremities: normal pulses; No edema Neurological: nl mental status, nl speech Skin: other (L breast with large dressing c/d/i; L breast KARY drain with trivial serosanguinous output) Results Result Diagram: 02/11/19 0529 02/11/19 0529 Results 24hrs Laboratory Tests Test 02/10/19 13:55 02/11/19 05:29 02/11/19 07:41 White Blood Count 10.9 H 9.4 Red Blood Count 2.98 L 2.75 L Hemoglobin 8.5 L 7.9 L Hematocrit 26.6 L 24.4 L Mean Corpuscular Volume 89.3 88.7 Mean Corpuscular Hemoglobin 28.5 L 28.7 L Mean Corpuscular Hemoglobin Concent 32.0 32.4 Red Cell Distribution Width 14.0 13.8 Platelet Count 174 193 Mean Platelet Volume 9.7 10.0 Immature Granulocytes % 1.100 H 1.100 H Neutrophils % 70.8 68.0 Lymphocytes % 14.5 L 17.2 Monocytes % 11.2 H 10.1 Eosinophils % 1.9 3.1 Basophils % 0.5 0.5 Nucleated Red Blood Cells % 0.2 H 0.0 Immature Granulocytes # 0.120 H 0.100 H Neutrophils # 7.7 H 6.4 Lymphocytes # 1.6 1.6 Monocytes # 1.2 H 1.0 H Eosinophils # 0.2 0.3 Basophils # 0.1 0.1 Nucleated Red Blood Cells # 0.0 0.0 Activated Partial Thromboplast Time 25.2 56.9 H Prothrombin Time 14.7 # Prothrombin Time Ratio 1.1 INR International Normalized Ratio 1.14 Sodium Level 137 Potassium Level 3.9 Chloride Level 106 Carbon Dioxide Level 29 Anion Gap 2 L Blood Urea Nitrogen 14 Creatinine 0.83 Est Glomerular Filtrat Rate mL/min > 60 Glucose Level 112 Calcium Level 7.6 L Vitamin D 1,25-Dihydroxy 13.4 L Vancomycin Level Trough 16.[address] Chest 02/10/2019: FINDINGS: Lungs and pleura: Small left-sided pleural effusion with left lower lobe atelectasis. Underlying infiltrate cannot be excluded. Right lower lung atelectasis. Airways: Main central airways are patent. Mediastinum: Normal. Cardiovascular: Mild cardiomegaly. No pericardial effusion. Aortic prosthetic valve. Mildly enlarged diameter of the pulmonary artery suggestive of pulmonary hypertension. Mildly ectatic ascending thoracic aorta measuring 3.8 cm. Lymph nodes: Prominent subcentimeter mediastinal and hilar lymph nodes. Calcified right hilar lymph node. Musculoskeletal: Sternotomy wires are noted. Mild degenerative change of the visualized spine. Lower neck and chest wall: There is a large mixed density collection in the left breast with layering internal hyperdensities most likely consistent with hematoma measures 10.4 x 5.9 x 10.2 cm. There is a drainage catheter extending laterally from this collection to the skin surface. Similarly there is additional hyperdense collection in the left axillary region deep to the pectoralis muscles measures 5.8 x 7.0 x 7.2 cm and most likely represent additional area of large hematoma. There are several foci of air is seen between the hematoma and pectoralis muscles extending superiorly to the supraclavicular region. Upper abdomen: Distended stomach. IMPRESSION: 1. Two large collections in the left breast and left axillary region are most likely compatible with hematoma, as detailed above. Drainage catheter extends laterally from left breast hematoma to the skin surface. 2. Several foci of air seen between the left axillary hematoma and pectoralis muscles extending superiorly to the supraclavicular region. Correlate with recent history of intervention/trauma. 3. Small left-sided pleural effusion with left lower lobe atelectasis. Underlying infiltrate cannot be excluded. 4. Mild cardiomegaly. 5. Evidence of mild pulmonary hypertension. 6. Mildly ectatic ascending thoracic aorta measuring 3.[address] left shoulder 02/10/2019: Large, complex, heterogeneous air containing fluid collection in the left axilla with adjacent subcutaneous stranding. Differential includes hematoma or abscess. There is an additional fluid collection in the left anterior chest wall with in dwelling percutaneous strain, better evaluated on dedicated CT of the thorax. Small left pleural effusion with adjacent atelectasis. Enlarged axillary lymph nodes, likely reactive. Medications Medication Current Medications Cefazolin Sodium/ Dextrose 50 ml @ 100 mls/hr PRE-OP IVPB ; Start 02/04/19 at 08:30 Ondansetron HCl (Zofran Inj) 4 mg Q6H PRN IV NAUSEA AND/OR VOMITING Last administered on 02/11/19at 08:45; Admin Dose 4 MG; Start 02/04/19 at 14:00 Pantoprazole (Protonix Tab) 40 mg DAILY@06 PO Last administered on 02/11/19at 05:20; Admin Dose 40 MG; Start 02/07/19 at 06:00 Docusate Sodium (Colace) 200 mg DAILY PRN PO CONSTIPATION Last administered on 02/11/19 08:45; Admin Dose 200 MG; Start 02/06/19 at 14:00 Gabapentin (Neurontin) 200 mg TID PO Last administered on 02/11/19 08:45; Admin Dose 200 MG; Start 02/08/19 at 13:00 Vancomycin HCl (Vanco Iv Per Pharmacy) VANCOMYCIN PER PHARMACY PER PROTOCOL XX ; Start 02/08/19 at 11:30 Piperacillin Sod/ Tazobactam Sod 100 ml @ 200 mls/hr Q6 IVPB Last administered on 02/11/19 05:20; Admin Dose 200 MLS/HR; Start 02/08/19 at 12:00 Hydromorphone HCl (Dilaudid) 0.2 mg Q2H PRN IV SEVERE PAIN LEVEL 7-10 Last administered on 02/11/19 08:46; Admin Dose 0.2 MG; Start 02/08/19 at 14:30 Cyclobenzaprine HCl (Flexeril) 10 mg Q12 PO Last administered on 02/11/19 08:45; Admin Dose 10 MG; Start 02/08/19 at 21:00 Acetaminophen (Tylenol Tab) 650 mg Q4H PRN PO MILD PAIN(1-3)OR ELEVATED TEMP Last administered on 02/10/19 08:21; Admin Dose 650 MG; Start 02/09/19 at 12:00 Saccharomyces Boulardii (Florastor) 250 mg BID PO Last administered on 02/11/19 08:45; Admin Dose 250 MG; Start 02/09/19 at 15:30 Vancomycin/Sodium Chloride 250 ml @ 125 mls/hr Q8H IVPB Last administered on 02/11/19 09:05; Admin Dose 125 MLS/HR; Start 02/10/19 at 01:00 Senna/Docusate Sodium (Senokot-S) 1 tab BID PRN PO CONSTIPATION Last administered on 02/11/19 08:45; Admin Dose 1 TAB; Start 02/10/19 at 13:00 Magnesium Hydroxide (Milk Of Mag) 30 ml BID PRN PO CONSTIPATION Last administered on 02/10/19 15:48; Admin Dose 30 ML; Start 02/10/19 at 13:00 Heparin Sodium (Porcine) (Heparin (1000 Units/ml)) 3,500 unit PER PROTOCOL PRN IV aPTT<47; Start 02/10/19 at 21:00 Heparin Sodium (Porcine) 250 ml @ 7 mls/hr PER PROTOCOL IV Last administered on 02/11/19at 06:39; Admin Dose 8 MLS/HR; Start 02/10/19 at 21:00 Cholecalciferol (Vitamin D) 2,000 unit DAILY PO ; Start 02/11/19 at 11:00 ZULEMA BOWLING NP February 11, 2019 11:57
--- NOTE | 2019-02-11 12:40 | PN ---
Date/Time of Note Date/Time of Note DATE: 02/11/19 TIME: 12:33 Assessment/Plan VTE Prophylaxis Risk score (from [facility])>0 risk: 8 SCD applied (from [facility] Yes Pharmacological prophylaxis: heparin Lines/Catheters IV Catheter Type (from [facility]): Peripheral IV Central line still needed: Yes Assessment/Plan Hospital Course Patient is awake alert, sitting in chair, pain is well controlled. Patient currently on heparin drip for mechanical aortic valve. Assessment/Plan -Left breast cancer, status post left partial mastectomy by Dr. Diaz. -Postoperative hematomas in left breast and left axillary region. -Postoperative fever, continue antibiotics per ID. Dr. Srinivasan is following in infection disease consultation. -Paroxysmal atrial fibrillation. -Mechanical aortic valve replacement secondary to aortic insufficiency. Dr. Hicks is following in cardiology consultation. Started on heparin drip. -Anemia of acute blood loss, continue to monitor H&H, will transfuse as needed. -Vitamin D deficiency, started on supplement. Further recommendations based on clinical course. Plan of care discussed with Dr. Pelaez. Result Diagram: 02/11/1929 02/11/1929 Results 24hrs Laboratory Tests Test 02/10/19 13:55 02/11/19 05:29 02/11/19 07:41 White Blood Count 10.9 H 9.4 Red Blood Count 2.98 L 2.75 L Hemoglobin 8.5 L 7.9 L Hematocrit 26.6 L 24.4 L Mean Corpuscular Volume 89.3 88.7 Mean Corpuscular Hemoglobin 28.5 L 28.7 L Mean Corpuscular Hemoglobin Concent 32.0 32.4 Red Cell Distribution Width 14.0 13.8 Platelet Count 174 193 Mean Platelet Volume 9.7 10.0 Immature Granulocytes % 1.100 H 1.100 H Neutrophils % 70.8 68.0 Lymphocytes % 14.5 L 17.2 Monocytes % 11.2 H 10.1 Eosinophils % 1.9 3.1 Basophils % 0.5 0.5 Nucleated Red Blood Cells % 0.2 H 0.0 Immature Granulocytes # 0.120 H 0.100 H Neutrophils # 7.7 H 6.4 Lymphocytes # 1.6 1.6 Monocytes # 1.2 H 1.0 H Eosinophils # 0.2 0.3 Basophils # 0.1 0.1 Nucleated Red Blood Cells # 0.0 0.0 Activated Partial Thromboplast Time 25.2 56.9 H Prothrombin Time 14.7 # Prothrombin Time Ratio 1.1 INR International Normalized Ratio 1.14 Sodium Level 137 Potassium Level 3.9 Chloride Level 106 Carbon Dioxide Level 29 Anion Gap 2 L Blood Urea Nitrogen 14 Creatinine 0.83 Est Glomerular Filtrat Rate mL/min > 60 Glucose Level 112 Calcium Level 7.6 L Vitamin D 1,25-Dihydroxy 13.4 L Vancomycin Level Trough 16.8 Exam/Review of Systems Exam Vitals Vital Signs Date Temp Pulse Resp B/P (MAP) Pulse Ox O2 O2 Flow FiO2 Time Delivery Rate 02/11/19 89 12:23 02/11/19 98.3 20 97/52 (67) 97 12:20 02/11/19 Nasal 2.0 08:20 Cannula Intake and Output 02/10/19 02/10/19 02/11/19 1515:00 23:00 07:00 IntakeIntake Total 300 ml 1070 ml 499 ml OutputOutput Total 505 ml 1250 ml BalanceBalance -205 ml -180 ml 499 ml Exam Constitutional: alert, oriented Respiratory: clear to auscultation Cardiovascular: regular rate and rhythm Gastrointestinal: soft, non-tender Musculoskeletal: nl extremities to inspection Extremities: normal pulses Neurological: nl mental status Skin: other (Status post left partial mastectomy, axillary JPs) Results Results 24hrs Laboratory Tests Test 02/10/19 13:55 02/11/19 05:29 02/11/19 07:41 White Blood Count 10.9 H 9.4 Red Blood Count 2.98 L 2.75 L Hemoglobin 8.5 L 7.9 L Hematocrit 26.6 L 24.4 L Mean Corpuscular Volume 89.3 88.7 Mean Corpuscular Hemoglobin 28.5 L 28.7 L Mean Corpuscular Hemoglobin Concent 32.0 32.4 Red Cell Distribution Width 14.0 13.8 Platelet Count 174 193 Mean Platelet Volume 9.7 10.0 Immature Granulocytes % 1.100 H 1.100 H Neutrophils % 70.8 68.0 Lymphocytes % 14.5 L 17.2 Monocytes % 11.2 H 10.1 Eosinophils % 1.9 3.1 Basophils % 0.5 0.5 Nucleated Red Blood Cells % 0.2 H 0.0 Immature Granulocytes # 0.120 H 0.100 H Neutrophils # 7.7 H 6.4 Lymphocytes # 1.6 1.6 Monocytes # 1.2 H 1.0 H Eosinophils # 0.2 0.3 Basophils # 0.1 0.1 Nucleated Red Blood Cells # 0.0 0.0 Activated Partial Thromboplast Time 25.2 56.9 H Prothrombin Time 14.7 # Prothrombin Time Ratio 1.1 INR International Normalized Ratio 1.14 Sodium Level 137 Potassium Level 3.9 Chloride Level 106 Carbon Dioxide Level 29 Anion Gap 2 L Blood Urea Nitrogen 14 Creatinine 0.83 Est Glomerular Filtrat Rate mL/min > 60 Glucose Level 112 Calcium Level 7.6 L Vitamin D 1,25-Dihydroxy 13.4 L Vancomycin Level Trough 16.8 Medications Medication Current Medications Cefazolin Sodium/ Dextrose 50 ml @ 100 mls/hr PRE-OP IVPB ; Start 02/04/19 at 08:30 Ondansetron HCl (Zofran Inj) 4 mg Q6H PRN IV NAUSEA AND/OR VOMITING Last administered on 02/11/19at 08:45; Admin Dose 4 MG; Start 02/04/19 at 14:00 Pantoprazole (Protonix Tab) 40 mg DAILY@06 PO Last administered on 02/11/19 05:20; Admin Dose 40 MG; Start 02/07/19 at 06:00 Docusate Sodium (Colace) 200 mg DAILY PRN PO CONSTIPATION Last administered on 02/11/19at 08:45; Admin Dose 200 MG; Start 02/06/19 at 14:00 Gabapentin (Neurontin) 200 mg TID PO Last administered on 02/11/19at 08:45; Admin Dose 200 MG; Start 02/08/19 at 13:00 Vancomycin HCl (Vanco Iv Per Pharmacy) VANCOMYCIN PER PHARMACY PER PROTOCOL XX ; Start 02/08/19 at 11:30 Piperacillin Sod/ Tazobactam Sod 100 ml @ 200 mls/hr Q6 IVPB Last administered on 02/11/19at 05:20; Admin Dose 200 MLS/HR; Start 02/08/19 at 12:00 Hydromorphone HCl (Dilaudid) 0.2 mg Q2H PRN IV SEVERE PAIN LEVEL 7-10 Last administered on 02/11/19at 08:46; Admin Dose 0.2 MG; Start 02/08/19 at 14:30 Cyclobenzaprine HCl (Flexeril) 10 mg Q12 PO Last administered on 02/11/19 08:45; Admin Dose 10 MG; Start 02/08/19 at 21:00 Acetaminophen (Tylenol Tab) 650 mg Q4H PRN PO MILD PAIN(1-3)OR ELEVATED TEMP Last administered on 02/10/19 08:21; Admin Dose 650 MG; Start 02/09/19 at 12:00 Saccharomyces Boulardii (Florastor) 250 mg BID PO Last administered on 02/11/19 08:45; Admin Dose 250 MG; Start 02/09/19 at 15:30 Vancomycin/Sodium Chloride 250 ml @ 125 mls/hr Q8H IVPB Last administered on 02/11/19 09:05; Admin Dose 125 MLS/HR; Start 02/10/19 at 01:00 Senna/Docusate Sodium (Senokot-S) 1 tab BID PRN PO CONSTIPATION Last administered on 02/11/19 08:45; Admin Dose 1 TAB; Start 02/10/19 at 13:00 Magnesium Hydroxide (Milk Of Mag) 30 ml BID PRN PO CONSTIPATION Last administ ered on 02/10/19 15:48; Admin Dose 30 ML; Start 02/10/19 at 13:00 Heparin Sodium (Porcine) (Heparin (1000 Units/ml)) 3,500 unit PER PROTOCOL PRN IV aPTT<47; Start 02/10/19 at 21:00 Heparin Sodium (Porcine) 250 ml @ 7 mls/hr PER PROTOCOL IV Last administered on 02/11/19 06:39; Admin Dose 8 MLS/HR; Start 02/10/19 at 21:00 Cholecalciferol (Vitamin D) 2,000 unit DAILY PO ; Start 02/11/19 at 11:00 MIHAI GUTIERREZ February 11, 2019 12:40
[2019-02-11] MEDS: CHOLECALCIFEROL 2,000 UNIT CAP PO SCH (12:41)
[2019-02-11] MEDS: ACETAMINOPHEN 325 MG TAB PO PRN (12:42)
--- NOTE | 2019-02-11 14:01 | CONS ---
Assessment/Plan Assessment/Plan Hospital Course (Demo Recall) Status post breast surgery 02/04/2019 Mechanical aortic valve replacement Paroxysmal atrial fibrillation, currently sinus rhythm Acute blood loss anemia Patient currently on IV heparin, hemoglobin slightly lower than yesterday. Continue anticoagulation as long as okay by our surgery colleagues. Restart Coumadin when okay by surgery Consultation Date/Type/Reason Admit Date/Time February 04, 2019 at 14:08 Initial Consult Date Type of Consult Cardiology Requesting Provider: LEYLA ZIEGLER MD Date/Time of Note DATE: 02/11/19 TIME: 14:00 24 HR Interval Summary Free Text/Dictation Overall feeling better, denies shortness of breath, palpitations Exam/Review of Systems Vital Signs Vitals Vital Signs Date Temp Pulse Resp B/P (MAP) Pulse Ox O2 O2 Flow FiO2 Time Delivery Rate 02/11/19 89 12:23 02/11/19 98.3 20 97/52 (67) 97 12:20 02/11/19 Nasal 2.0 08:20 Cannula Intake and Output 02/10/19 02/10/19 02/11/19 1515:00 23:00 07:00 IntakeIntake Total 300 ml 1070 ml 499 ml OutputOutput Total 505 ml 1250 ml BalanceBalance -205 ml -180 ml 499 ml Exam Constitutional: alert, oriented (No apparent distress) Head: normocephalic Respiratory: other (Coarse breath sounds bilaterally, no wheezing) Cardiovascular: regular rate and rhythm, systolic murmur Gastrointestinal: soft, non-tender, bowel sounds Extremities: other (No significant edema) Labs Result Diagram: 02/11/19 0529 02/11/19 0529 Results 24hrs Laboratory Tests Test 02/11/19 05:29 02/11/19 07:41 White Blood Count 9.4 Red Blood Count 2.75 L Hemoglobin 7.9 L Hematocrit 24.4 L Mean Corpuscular Volume 88.7 Mean Corpuscular Hemoglobin 28.7 L Mean Corpuscular Hemoglobin Concent 32.4 Red Cell Distribution Width 13.8 Platelet Count 193 Mean Platelet Volume 10.0 Immature Granulocytes % 1.100 H Neutrophils % 68.0 Lymphocytes % 17.2 Monocytes % 10.1 Eosinophils % 3.1 Basophils % 0.5 Nucleated Red Blood Cells % 0.0 Immature Granulocytes # 0.100 H Neutrophils # 6.4 Lymphocytes # 1.6 Monocytes # 1.0 H Eosinophils # 0.3 Basophils # 0.1 Nucleated Red Blood Cells # 0.0 Prothrombin Time 14.7 # Prothrombin Time Ratio 1.1 INR International Normalized Ratio 1.14 Activated Partial Thromboplast Time 56.9 H Sodium Level 137 Potassium Level 3.9 Chloride Level 106 Carbon Dioxide Level 29 Anion Gap 2 L Blood Urea Nitrogen 14 Creatinine 0.83 Est Glomerular Filtrat Rate mL/min > 60 Glucose Level 112 Calcium Level 7.6 L Vitamin D 1,25-Dihydroxy 13.4 L Vancomycin Level Trough 16.8 Medications Medications Current Medications Cefazolin Sodium/ Dextrose 50 ml @ 100 mls/hr PRE-OP IVPB ; Start 02/04/19 at 08:30 Ondansetron HCl (Zofran Inj) 4 mg Q6H PRN IV NAUSEA AND/OR VOMITING Last administered on 02/11/19 08:45; Admin Dose 4 MG; Start 02/04/19 at 14:00 Pantoprazole (Protonix Tab) 40 mg DAILY@06 PO Last administered on 02/11/19 05:20; Admin Dose 40 MG; Start 02/07/19 at 06:00 Docusate Sodium (Colace) 200 mg DAILY PRN PO CONSTIPATION Last administered on 02/11/19 08:45; Admin Dose 200 MG; Start 02/06/19 at 14:00 Gabapentin (Neurontin) 200 mg TID PO Last administered on 02/11/19 13:04; Admin Dose 200 MG; Start 02/08/19 at 13:00 Vancomycin HCl (Vanco Iv Per Pharmacy) VANCOMYCIN PER PHARMACY PER PROTOCOL XX ; Start 02/08/19 at 11:30 Piperacillin Sod/ Tazobactam Sod 100 ml @ 200 mls/hr Q6 IVPB Last administered on 02/11/19 05:20; Admin Dose 200 MLS/HR; Start 02/08/19 at 12:00 Hydromorphone HCl (Dilaudid) 0.2 mg Q2H PRN IV SEVERE PAIN LEVEL 7-10 Last administered on 02/11/19 08:46; Admin Dose 0.2 MG; Start 02/08/19 at 14:30 Cyclobenzaprine HCl (Flexeril) 10 mg Q12 PO Last administered on 02/11/19 08:45; Admin Dose 10 MG; Start 02/08/19 at 21:00 Acetaminophen (Tylenol Tab) 650 mg Q4H PRN PO MILD PAIN(1-3)OR ELEVATED TEMP Last administered on 02/11/19 12:42; Admin Dose 650 MG; Start 02/09/19 at 12:00 Saccharomyces Boulardii (Florastor) 250 mg BID PO Last administered on 02/11/19 08:45; Admin Dose 250 MG; Start 02/09/19 at 15:30 Senna/Docusate Sodium (Senokot-S) 1 tab BID PRN PO CONSTIPATION Last administered on 02/11/19 08:45; Admin Dose 1 TAB; Start 02/10/19 at 13:00 Magnesium Hydroxide (Milk Of Mag) 30 ml BID PRN PO CONSTIPATION Last administered on 02/10/19 15:48; Admin Dose 30 ML; Start 02/10/19 at 13:00 Heparin Sodium (Porcine) (Heparin (1000 Units/ml)) 3,500 unit PER PROTOCOL PRN IV aPTT<47; Start 02/10/19 at 21:00 Heparin Sodium (Porcine) 250 ml @ 7 mls/hr PER PROTOCOL IV Last administered on 02/11/19 06:39; Admin Dose 8 MLS/HR; Start 02/10/19 at 21:00 Cholecalciferol (Vitamin D) 2,000 unit DAILY PO Last administered on 02/11/19 12:41; Admin Dose 2,000 UNIT; Start 02/11/19 at 11:00 Vancomycin HCl 100 ml @ 100 mls/hr Q8H IVPB ; Start 02/11/19 at 17:00 Dima Hicks DO February 11, 2019 14:01
[2019-02-11] MEDS ORDERED: HEPARIN 5,000 UNIT/1 ML VIAL SC SCH (16:00)
[2019-02-11] MEDS ORDERED: HYDROCODONE/APAP (5/325) TAB PO PRN (17:00)
[2019-02-11] MEDS ORDERED: VANCOMYCIN 500 MG (PMX) 100 ML IVPB SCH (17:00)
[2019-02-11] MEDS: KETOROLAC 15 MG INJ IV PRN (21:45)
[2019-02-12] VITALS (10 sets, daily range): BP systolic 138–158; BP diastolic 65–82; PULSE 75–89; RESP 16–19
[2019-02-12] MEDS: HEPARIN 25000 UNITS/250 ML 250 ML IV SCH ×2 (01:12→17:30)
[2019-02-12] MEDS: PIPER-TAZO 3.375 GM IV (PMX) 100 ML IVPB SCH ×4 (05:29→23:18)
[2019-02-12] MEDS: PANTOPRAZOLE (EC) 40 MG TAB PO SCH (05:30)
[2019-02-12] MEDS: KETOROLAC 15 MG INJ IV PRN ×3 (05:36→22:53)
[2019-02-12] MEDS: GABAPENTIN 100 MG CAP PO SCH ×3 (08:11→20:11)
[2019-02-12] MEDS: CHOLECALCIFEROL 2,000 UNIT CAP PO SCH (08:11)
[2019-02-12] MEDS: CYCLOBENZAPRINE 10 MG TAB PO SCH ×2 (08:11→20:10)
--- NOTE | 2019-02-12 08:11 | PN ---
DATE: 02/11/2019 Status post left breast partial mastectomy and axillary resection for cancer of breast, postop day #7. SUBJECTIVE: In regards to the pain in the shoulder area, the patient feels better today. Has required only 1 injection of Dilaudid for pain and Toradol has been discontinued already. The patient is also on Flexeril for pain. The daughter requested to change the Dilaudid IV to p.o. pain medication and we are going to do that. The patient has been out of bed, walked around the floor and also has been sitting out of bed for several hours per his daughter today. OBJECTIVE: VITAL SIGNS: Temperature maximum today is 99.2, heart rate fluctuating between 84 and 97. Clinically, she has atrial fibrillation at this time _ blood pressure 122/72, saturation 95% on 2 L nasal cannula. HEART: Clinically, heart is regular, probably atrial fibrillation. LUNGS: Clear. Slight decreased breathing sound at bases. CHEST: Chest wall dressing is intact. The Gerson-Russell drain, there is dark blood gradually accumulating in the Gerson-Russell reservoir. The swelling and hematoma left anterior chest probably is less than yesterday and the hematoma in the left axillary area has not increased in size, probably is slightly decreased. The patient can move left upper extremity almost in full range. ABDOMEN: Soft. EXTREMITIES: Lower extremity, no calf tenderness. LABORATORY DATA: Sodium, potassium, BUN, creatinine normal. Hematology: Hemoglobin at 5:30 a.m. today was 7.9, hematocrit 24.4 and yesterday at the same time, hemoglobin was 8.7, hematocrit 26.1, so there is slight decrease, but this could be I explained on the basis of hemodilution or hemolysis of the old blood, which has been transfused. So overall, it appears that the oozing and bleeding in the cavity of the breast and axillary area has almost stopped. The patient, of course, is not on Coumadin and/or Lovenox, but patient has been started on a drip of regular heparin and the labor training manager is controlling that. PLAN: We recommend that continue current care, including IV heparin at least for 1 more day or maybe 2 days to make sure that the bleeding is under full control. Patient is eating and having had bowel movement, passing gas, excruciating pain that patient was suffering from, I am not sure what was the etiology of that, has much decreased and is very well under control. So we will check H and H every 12 hours and daily CBC and if needed, we will transfuse the patient more. Dr. Wiseman, infectious disease specialist, has ordered CT scan of the chest and upper extremity which has revealed the presence of hematoma and some other findings related to the heart. Also, in the CT scan, they have mentioned about the hematoma and presence of some air in the axillary area. This can be easily explained on the basis of surgery that the patient had a few days ago and there was no drain placed in the axillary area to evacuate the air and the air post-incision and opening over there, we assume that is related to that one than to be related to abscess or infection at this time. So antibiotic management per Infectious Disease and we will follow the patient along with other colleagues. Dictated By: ALFONSO CONTRERAS MD PS/ALLEY Conf#: [id number] DID#: [id number] MTDD
[2019-02-12] MEDS: SACCHAROMYCES BOULARDII 250 MG CAP PO SCH ×2 (08:12→20:11)
[2019-02-12] MEDS: DOCUSATE SODIUM 100 MG CAP PO PRN (08:27)
[2019-02-12] MEDS: MAGNESIUM HYDROXIDE 30ML CUP PO PRN (08:27)
[2019-02-12] MEDS: SENNA/DOCUSATE NA (8.6MG/50MG) TAB PO PRN (08:27)
[2019-02-12] MEDS ORDERED: POTASSIUM CHLORIDE (SR) 20 MEQ TAB PO STA (09:46)
--- NOTE | 2019-02-12 09:54 | PN ---
Date/Time of Note Date/Time of Note DATE: 02/12/19 TIME: 09:41 Assessment/Plan VTE Prophylaxis [place] [facility] risk: 10 SCD applied [place] [facility] Yes SCD contraindicated: other Pharmacological prophylaxis: other Pharm contraindication: other Lines/Catheters IV Catheter Type (from [facility]): Peripheral IV Assessment/Plan Assessment/Plan - Hypokalemia- replace K ; bmp AM - Mild hypernatremia- monitor BMP am -Left breast cancer - status post left partial mastectomy by Dr. Diaz - per general surgery - pain control - wound check -Postoperative hematomas in left breast and left axillary region. -Postoperative fever, continue antibiotics per ID. - Dr. Srinivasan is following in infection disease consultation. -Paroxysmal atrial fibrillation. -Mechanical aortic valve replacement secondary to aortic insufficiency. - Dr. Hicks is following in cardiology consultation. Started on heparin drip. -Anemia of acute blood loss, continue to monitor H&H, will transfuse as needed. -Vitamin D deficiency, started on supplement. Further recommendations based on clinical course. Plan of care discussed with Dr. Pelaez. Result Diagram: 02/12/19 0542 02/12/19 0542 Results 24hrs Laboratory Tests Test 02/11/19 13:55 02/11/19 22:11 02/12/19 05:42 Activated Partial Thromboplast Time 38.6 H 47.2 H 103.4 *H White Blood Count 5.9 # Red Blood Count 2.65 L Hemoglobin 7.7 L Hematocrit 23.9 L Mean Corpuscular Volume 90.2 Mean Corpuscular Hemoglobin 29.1 Mean Corpuscular Hemoglobin Concent 32.2 Red Cell Distribution Width 13.5 Platelet Count 193 Mean Platelet Volume 9.8 Immature Granulocytes % 1.200 H Neutrophils % 62.5 Lymphocytes % 20.2 Monocytes % 10.8 Eosinophils % 4.8 Basophils % 0.5 Nucleated Red Blood Cells % 0.0 Immature Granulocytes # 0.070 H Neutrophils # 3.7 Lymphocytes # 1.2 Monocytes # 0.6 Eosinophils # 0.3 Basophils # 0.0 Nucleated Red Blood Cells # 0.0 Prothrombin Time 15.1 H Prothrombin Time Ratio 1.2 INR International Normalized Ratio 1.18 Sodium Level 149 H Potassium Level 3.4 L Chloride Level 114 H Carbon Dioxide Level 23 Anion Gap 12 # Blood Urea Nitrogen 11 Creatinine 0.54 Est Glomerular Filtrat Rate mL/min > 60 Glucose Level 87 Calcium Level 6.2 L Subjective 24 Hr Interval Summary Free Text/Dictation - NAD - afebrile - Hypokalemia- replace K ; bmp AM - no events reported last night - dw staff. Eyes: no complaints ENT: no complaints Respiratory: no complaints Cardiovascular: no complaints Gastrointestinal: no complaints Musculoskeletal: no complaints Skin: other (left breast pain ) Neurologic: no complaints Endocrine: no complaints Lymphatic: no complaints Psychological: no complaints Immunologic: no complaints Exam/Review of Systems Exam Vitals Vital Signs Date Temp Pulse Resp B/P (MAP) Pulse Ox O2 O2 Flow FiO2 Time Delivery Rate 02/12/19 85 08:57 02/12/19 Nasal 2.0 08:55 Cannula 02/12/19 97.6 17 138/82 98 08:31 (100) Intake and Output 02/11/19 02/11/19 02/12/19 1515:00 23:00 07:00 IntakeIntake Total 900 ml 800 ml 1365 ml OutputOutput Total 1400 ml 1100 ml BalanceBalance -500 ml -300 ml 1365 ml Constitutional: alert, well developed Psych: nl mood/affect Head: atraumatic Eyes: nl lids, nl sclera ENMT: nl external ears & nose Neck: non-tender Respiratory: clear to auscultation Cardiovascular: nl pulses, other (s1s2) Gastrointestinal: soft, non-tender Musculoskeletal: nl extremities to inspection Extremities: normal pulses Neurological: nl mental status Skin: other (left breast hematoma-DDI ) Lymph: nontender Results Results 24hrs Laboratory Tests Test 02/11/19 13:55 02/11/19 22:11 02/12/19 05:42 Activated Partial Thromboplast Time 38.6 H 47.2 H 103.4 *H White Blood Count 5.9 # Red Blood Count 2.65 L Hemoglobin 7.7 L Hematocrit 23.9 L Mean Corpuscular Volume 90.2 Mean Corpuscular Hemoglobin 29.1 Mean Corpuscular Hemoglobin Concent 32.2 Red Cell Distribution Width 13.5 Platelet Count 193 Mean Platelet Volume 9.8 Immature Granulocytes % 1.200 H Neutrophils % 62.5 Lymphocytes % 20.2 Monocytes % 10.8 Eosinophils % 4.8 Basophils % 0.5 Nucleated Red Blood Cells % 0.0 Immature Granulocytes # 0.070 H Neutrophils # 3.7 Lymphocytes # 1.2 Monocytes # 0.6 Eosinophils # 0.3 Basophils # 0.0 Nucleated Red Blood Cells # 0.0 Prothrombin Time 15.1 H Prothrombin Time Ratio 1.2 INR International Normalized Ratio 1.18 Sodium Level 149 H Potassium Level 3.4 L Chloride Level 114 H Carbon Dioxide Level 23 Anion Gap 12 # Blood Urea Nitrogen 11 Creatinine 0.54 Est Glomerular Filtrat Rate mL/min > 60 Glucose Level 87 Calcium Level 6.2 L Medications Medication Current Medications Cefazolin Sodium/ Dextrose 50 ml @ 100 mls/hr PRE-OP IVPB ; Start 02/04/19 at 08:30 Ondansetron HCl (Zofran Inj) 4 mg Q6H PRN IV NAUSEA AND/OR VOMITING Last administered on 02/11/19 21:45; Admin Dose 4 MG; Start 02/04/19 at 14:00 Pantoprazole (Protonix Tab) 40 mg DAILY@06 PO Last administered on 02/12/19 05:30; Admin Dose 40 MG; Start 02/07/19 at 06:00 Docusate Sodium (Colace) 200 mg DAILY PRN PO CONSTIPATION Last administered on 02/12/19 08:27; Admin Dose 200 MG; Start 02/06/19 at 14:00 Gabapentin (Neurontin) 200 mg TID PO Last administered on 02/12/19 08:11; Admin Dose 200 MG; Start 02/08/19 at 13:00 Piperacillin Sod/ Tazobactam Sod 100 ml @ 200 mls/hr Q6 IVPB Last administered on 02/12/19 05:29; Admin Dose 200 MLS/HR; Start 02/08/19 at 12:00 Cyclobenzaprine HCl (Flexeril) 10 mg Q12 PO Last administered on 02/12/19 08:11; Admin Dose 10 MG; Start 02/08/19 at 21:00 Acetaminophen (Tylenol Tab) 650 mg Q4H PRN PO MILD PAIN(1-3)OR ELEVATED TEMP Last administered on 02/11/19 12:42; Admin Dose 650 MG; Start 02/09/19 at 12:00 Saccharomyces Boulardii (Florastor) 250 mg BID PO Last administered on 02/12/19 08:12; Admin Dose 250 MG; Start 02/09/19 at 15:30 Magnesium Hydroxide (Milk Of Mag) 30 ml BID PRN PO CONSTIPATION Last administered on 02/12/19at 08:27; Admin Dose 30 ML; Start 02/10/19 at 13:00 Heparin Sodium (Porcine) (Heparin (1000 Units/ml)) 3,500 unit PER PROTOCOL PRN IV aPTT<47 Last administered on 02/11/19at 16:25; Admin Dose 3,500 UNIT; Start 02/10/19 at 21:00 Heparin Sodium (Porcine) 250 ml @ 7 mls/hr PER PROTOCOL IV Last administered on 02/12/19at 01:12; Admin Dose 11 MLS/HR; Start 02/10/19 at 21:00 Cholecalciferol (Vitamin D) 2,000 unit DAILY PO Last administered on 02/12/19at 08:11; Admin Dose 2,000 UNIT; Start 02/11/19 at 11:00 Acetaminophen/ Hydrocodone Bitart ([place] (5/325)) 1 tab Q4H PRN PO MODERATE PAIN LEVEL 4-6; Start 02/11/19 at 17:00 Ketorolac Tromethamine (Toradol) 15 mg Q6H PRN IV PAIN Last administered on 02/12/19at 05:36; Admin Dose 15 MG; Start 02/11/19 at 21:30; Stop 02/14/19 at 21:29 Senna/Docusate Sodium (Senokot-S) 2 tab BID PO ; Start 02/12/19 at 21:00 ALEAH RUBY February 12, 2019 09:53
[2019-02-12] MEDS: ACETAMINOPHEN 325 MG TAB PO PRN (11:58)
--- NOTE | 2019-02-12 12:54 | CONS ---
Assessment/Plan Assessment/Plan Hospital Course (Demo Recall) Status post breast surgery 02/04/2019 Mechanical aortic valve replacement Paroxysmal atrial fibrillation, currently sinus rhythm Acute blood loss anemia Extensive discussion had with patient and daughter at bedside, patient with lower hemoglobin today and plan for blood transfusion. PTT on the higher side, I did discuss with nursing staff and adjustments are being made to heparin. I did also speak with Dr. Diaz who agrees with continuing anticoagulation at the current time. He did request Dr. Mckenzie, who performed patient's AVR years ago to be contacted Given patient only when IV and frequent cessation of anticoagulation secondary to receiving multiple medications, will request PICC line placement Consultation Date/Type/Reason Admit Date/Time February 04, 2019 at 14:08 Initial Consult Date Type of Consult Cardiology Requesting Provider: LEYLA ZIEGLER MD Date/Time of Note DATE: 02/12/19 TIME: 12:51 24 HR Interval Summary Free Text/Dictation Complains of dizziness with standing up and fatigue. Shortness of breath with activity Exam/Review of Systems Vital Signs Vitals Vital Signs Date Temp Pulse Resp B/P (MAP) Pulse Ox O2 O2 Flow FiO2 Time Delivery Rate 02/12/19 98.1 76 16 147/76 96 11:06 (99) 02/12/19 Nasal 2.0 08:55 Cannula Intake and Output 02/11/19 02/11/19 02/12/19 1515:00 23:00 07:00 IntakeIntake Total 900 ml 800 ml 1365 ml OutputOutput Total 1400 ml 1100 ml BalanceBalance -500 ml -300 ml 1365 ml Exam Constitutional: alert, oriented (Sitting in chair, family bedside, no apparent distress) Head: normocephalic Respiratory: other (Coarse breath sounds bilaterally, no wheezing) Cardiovascular: regular rate and rhythm (S1-S2 heard) Gastrointestinal: soft, non-tender, bowel sounds Extremities: other (No significant edema) Labs Result Diagram: 02/12/19 0542 02/12/19 0542 Results 24hrs Laboratory Tests Test 02/11/19 13:55 02/11/19 22:11 02/12/19 05:42 Activated Partial Thromboplast Time 38.6 H 47.2 H 103.4 *H White Blood Count 5.9 # Red Blood Count 2.65 L Hemoglobin 7.7 L Hematocrit 23.9 L Mean Corpuscular Volume 90.2 Mean Corpuscular Hemoglobin 29.1 Mean Corpuscular Hemoglobin Concent 32.2 Red Cell Distribution Width 13.5 Platelet Count 193 Mean Platelet Volume 9.8 Immature Granulocytes % 1.200 H Neutrophils % 62.5 Lymphocytes % 20.2 Monocytes % 10.8 Eosinophils % 4.8 Basophils % 0.5 Nucleated Red Blood Cells % 0.0 Immature Granulocytes # 0.070 H Neutrophils # 3.7 Lymphocytes # 1.2 Monocytes # 0.6 Eosinophils # 0.3 Basophils # 0.0 Nucleated Red Blood Cells # 0.0 Prothrombin Time 15.1 H Prothrombin Time Ratio 1.2 INR International Normalized Ratio 1.18 Sodium Level 149 H Potassium Level 3.4 L Chloride Level 114 H Carbon Dioxide Level 23 Anion Gap 12 # Blood Urea Nitrogen 11 Creatinine 0.54 Est Glomerular Filtrat Rate mL/min > 60 Glucose Level 87 Calcium Level 6.2 L Medications Medications Current Medications Cefazolin Sodium/ Dextrose 50 ml @ 100 mls/hr PRE-OP IVPB ; Start 02/04/19 at 08:30 Ondansetron HCl (Zofran Inj) 4 mg Q6H PRN IV NAUSEA AND/OR VOMITING Last administered on 02/11/19 21:45; Admin Dose 4 MG; Start 02/04/19 at 14:00 Pantoprazole (Protonix Tab) 40 mg DAILY@06 PO Last administered on 02/12/19 05:30; Admin Dose 40 MG; Start 02/07/19 at 06:00 Docusate Sodium (Colace) 200 mg DAILY PRN PO CONSTIPATION Last administered on 02/12/19 08:27; Admin Dose 200 MG; Start 02/06/19 at 14:00 Gabapentin (Neurontin) 200 mg TID PO Last administered on 02/12/19 12:44; Admin Dose 200 MG; Start 02/08/19 at 13:00 Piperacillin Sod/ Tazobactam Sod 100 ml @ 200 mls/hr Q6 IVPB Last administered on 02/12/19 11:27; Admin Dose 200 MLS/HR; Start 02/08/19 at 12:00 Cyclobenzaprine HCl (Flexeril) 10 mg Q12 PO Last administered on 02/12/19 08:11; Admin Dose 10 MG; Start 02/08/19 at 21:00 Acetaminophen (Tylenol Tab) 650 mg Q4H PRN PO MILD PAIN(1-3)OR ELEVATED TEMP Last administered on 02/12/19 11:58; Admin Dose 650 MG; Start 02/09/19 at 12:00 Saccharomyces Boulardii (Florastor) 250 mg BID PO Last administered on 02/12/19 08:12; Admin Dose 250 MG; Start 02/09/19 at 15:30 Magnesium Hydroxide (Milk Of Mag) 30 ml BID PRN PO CONSTIPATION Last administered on 02/12/19 08:27; Admin Dose 30 ML; Start 02/10/19 at 13:00 Heparin Sodium (Porcine) 250 ml @ 7 mls/hr PER PROTOCOL IV Last administered on 02/12/19 01:12; Admin Dose 11 MLS/HR; Start 02/10/19 at 21:00 Cholecalciferol (Vitamin D) 2,000 unit DAILY PO Last administered on 02/12/19 08:11; Admin Dose 2,000 UNIT; Start 02/11/19 at 11:00 Acetaminophen/ Hydrocodone Bitart ([place] (5/325)) 1 tab Q4H PRN PO MODERATE PAIN LEVEL 4-6; Start 02/11/19 at 17:00 Ketorolac Tromethamine (Toradol) 15 mg Q6H PRN IV PAIN Last administered on 02/12/19at 05:36; Admin Dose 15 MG; Start 02/11/19 at 21:30; Stop 02/14/19 at 21:29 Senna/Docusate Sodium (Senokot-S) 2 tab BID PO ; Start 02/12/19 at 21:00 Lidocaine (Xylocaine 1% (Mpf)) 5 ml ONCE ONCE SC ; Start 02/12/19 at 13:00; Stop 02/12/19 at 13:01 Dima Hicks DO February 12, 2019 12:53
[2019-02-12] MEDS ORDERED: LIDOCAINE 1% (MPF) 5 ML VIAL SC ONE (13:00)
--- NOTE | 2019-02-12 13:07 | CONS ---
Assessment/Plan Assessment/Plan Hospital Course (Demo Recall) 63 yo s/p lumpectomy admitted with pain complication and anemia #anemia - apparently she had significant post op hematoma this could potentially explain her anemia, we do not have baseline labs from prior to her surgery -check iron studies, B12, folate -transfuse to keep hgb >7 -check hemolysis work-up -GI eval and consideration of CT AP to r/o retroperitoneal bleed #breast ca stage I, unclear why patient's family thought she had stage II disease and LN + disease I showed them the path report from the hospital showing 0/5LN and T1c tumor status she will need oncotype testing to help determine if she will need chemo Consultation Date/Type/Reason Admit Date/Time February 04, 2019 at 14:08 Date/Time of Note DATE: 02/12/19 TIME: 13:07 Hx of Present Illness The patient is a 63-year-old female with history of mechanical aortic valve, atrial fibrillation who was being followed by Dr. Diaz as an outpatient for ab dominal screening mammogram. The patient had a suspicious lesion in her left breast on screening mammogram. The patient underwent core needle biopsy, which revealed invasive cancer. The patient was brought in to hospital today and underwent a left partial mastectomy and axillary dissection. The patient has significant chest wall pain. Her path from the lumpectomy revealed a pT1c pN0 (i-) tumor. ER/ID positive Her 2 nadja +1 We are asked to see her for anemia apparently she had post op hematomas Past Medical History Home Meds Reported Medications Lansoprazole* (Prevacid*) 15 Mg Capsule.dr, 15 MG PO DAILY, CAP 02/04/19 Atorvastatin Calcium* (Atorvastatin Calcium*) 20 Mg Tablet, 20 MG PO QHS, #30 TAB 02/04/19 Warfarin Sodium* (Coumadin*) 6 Mg Tablet, 6 MG PO DAILY, TAB 02/04/19 Medications Current Medications Cefazolin Sodium/ Dextrose 50 ml @ 100 mls/hr PRE-OP IVPB ; Start 02/04/19 at 08:30 Ondansetron HCl (Zofran Inj) 4 mg Q6H PRN IV NAUSEA AND/OR VOMITING Last administered on 02/11/19at 21:45; Admin Dose 4 MG; Start 02/04/19 at 14:00 Pantoprazole (Protonix Tab) 40 mg DAILY@06 PO Last administered on 02/12/19 05:30; Admin Dose 40 MG; Start 02/07/19 at 06:00 Docusate Sodium (Colace) 200 mg DAILY PRN PO CONSTIPATION Last administered on 02/12/19 08:27; Admin Dose 200 MG; Start 02/06/19 at 14:00 Gabapentin (Neurontin) 200 mg TID PO Last administered on 02/12/19 12:44; Admin Dose 200 MG; Start 02/08/19 at 13:00 Piperacillin Sod/ Tazobactam Sod 100 ml @ 200 mls/hr Q6 IVPB Last administered on 02/12/19 11:27; Admin Dose 200 MLS/HR; Start 02/08/19 at 12:00 Cyclobenzaprine HCl (Flexeril) 10 mg Q12 PO Last administered on 02/12/19 08:11; Admin Dose 10 MG; Start 02/08/19 at 21:00 Acetaminophen (Tylenol Tab) 650 mg Q4H PRN PO MILD PAIN(1-3)OR ELEVATED TEMP Last administered on 02/12/19 11:58; Admin Dose 650 MG; Start 02/09/19 at 12:00 Saccharomyces Boulardii (Florastor) 250 mg BID PO Last administered on 02/12/19 08:12; Admin Dose 250 MG; Start 02/09/19 at 15:30 Magnesium Hydroxide (Milk Of Mag) 30 ml BID PRN PO CONSTIPATION Last administered on 02/12/19 08:27; Admin Dose 30 ML; Start 02/10/19 at 13:00 Heparin Sodium (Porcine) 250 ml @ 7 mls/hr PER PROTOCOL IV Last administered on 02/12/19 01:12; Admin Dose 11 MLS/HR; Start 02/10/19 at 21:00 Cholecalciferol (Vitamin D) 2,000 unit DAILY PO Last administered on 02/12/19 08:11; Admin Dose 2,000 UNIT; Start 02/11/19 at 11:00 Acetaminophen/ Hydrocodone Bitart ([place] (5/325)) 1 tab Q4H PRN PO MODERATE PAIN LEVEL 4-6; Start 02/11/19 at 17:00 Ketorolac Tromethamine (Toradol) 15 mg Q6H PRN IV PAIN Last administered on 5/31/19at 05:36; Admin Dose 15 MG; Start 02/11/19 at 21:30; Stop 02/14/19 at 21:29 Senna/Docusate Sodium (Senokot-S) 2 tab BID PO ; Start 02/12/19 at 21:00 Allergies: Coded Allergies: belladonna alkaloids (Verified Allergy, Mild, itching, swelling, 02/04/19) codeine (Verified Allergy, Mild, NUMBNESS OF HAND, EXTREME AGITATION, 02/04/19) hydrocodone (Verified Allergy, Unknown, itch, swelling, 02/04/19) aspirin (Verified Adverse Reaction, Mild, GASTRIC PROBLEMS, 02/04/19) Past Surgical History Past Surgical Hx: other (Aortic valve replacement) Social History Smoking Status: Never smoker Exam/Review of Systems Exam Vitals Vital Signs Date Temp Pulse Resp B/P (MAP) Pulse Ox O2 O2 Flow FiO2 Time Delivery Rate 02/12/19 89 12:53 02/12/19 98.1 16 147/76 96 11:06 (99) 02/12/19 Nasal 2.0 08:55 Cannula Intake and Output 02/11/19 02/11/19 02/12/19 1515:00 23:00 07:00 IntakeIntake Total 900 ml 800 ml 1365 ml OutputOutput Total 1400 ml 1100 ml BalanceBalance -500 ml -300 ml 1365 ml Constitutional: alert, oriented, well developed Head: normocephalic, atraumatic Eyes: nl conjunctiva, EOMI, nl lids, nl sclera, PERRL ENMT: nl external ears & nose, nl lips & teeth, nl nasal mucosa & septum Cardiovascular: regular rate and rhythm, nl pulses Musculoskeletal: nl extremities to inspection, nl gait and stance Results Result Diagram: 02/12/19 0542 02/12/19 0542 Results 24hrs Laboratory Tests Test 02/11/19 13:55 02/11/19 22:11 02/12/19 05:42 Activated Partial Thromboplast Time 38.6 H 47.2 H 103.4 *H White Blood Count 5.9 # Red Blood Count 2.65 L Hemoglobin 7.7 L Hematocrit 23.9 L Mean Corpuscular Volume 90.2 Mean Corpuscular Hemoglobin 29.1 Mean Corpuscular Hemoglobin Concent 32.2 Red Cell Distribution Width 13.5 Platelet Count 193 Mean Platelet Volume 9.8 Immature Granulocytes % 1.200 H Neutrophils % 62.5 Lymphocytes % 20.2 Monocytes % 10.8 Eosinophils % 4.8 Basophils % 0.5 Nucleated Red Blood Cells % 0.0 Immature Granulocytes # 0.070 H Neutrophils # 3.7 Lymphocytes # 1.2 Monocytes # 0.6 Eosinophils # 0.3 Basophils # 0.0 Nucleated Red Blood Cells # 0.0 Prothrombin Time 15.1 H Prothrombin Time Ratio 1.2 INR International Normalized Ratio 1.18 Sodium Level 149 H Potassium Level 3.4 L Chloride Level 114 H Carbon Dioxide Level 23 Anion Gap 12 # Blood Urea Nitrogen 11 Creatinine 0.54 Est Glomerular Filtrat Rate mL/min > 60 Glucose Level 87 Calcium Level 6.2 L Medications Medication Current Medications Cefazolin Sodium/ Dextrose 50 ml @ 100 mls/hr PRE-OP IVPB ; Start 02/04/19 at 08:30 Ondansetron HCl (Zofran Inj) 4 mg Q6H PRN IV NAUSEA AND/OR VOMITING Last administered on 02/11/19 21:45; Admin Dose 4 MG; Start 02/04/19 at 14:00 Pantoprazole (Protonix Tab) 40 mg DAILY@06 PO Last administered on 02/12/19 05:30; Admin Dose 40 MG; Start 02/07/19 at 06:00 Docusate Sodium (Colace) 200 mg DAILY PRN PO CONSTIPATION Last administered on 02/12/19 08:27; Admin Dose 200 MG; Start 02/06/19 at 14:00 Gabapentin (Neurontin) 200 mg TID PO Last administered on 02/12/19 12:44; Admin Dose 200 MG; Start 02/08/19 at 13:00 Piperacillin Sod/ Tazobactam Sod 100 ml @ 200 mls/hr Q6 IVPB Last administered on 02/12/19 11:27; Admin Dose 200 MLS/HR; Start 02/08/19 at 12:00 Cyclobenzaprine HCl (Flexeril) 10 mg Q12 PO Last administered on 02/12/19 08:11; Admin Dose 10 MG; Start 02/08/19 at 21:00 Acetaminophen (Tylenol Tab) 650 mg Q4H PRN PO MILD PAIN(1-3)OR ELEVATED TEMP Last administered on 5/31/19at 11:58; Admin Dose 650 MG; Start 02/09/19 at 12:00 Saccharomyces Boulardii (Florastor) 250 mg BID PO Last administered on 02/12/19 08:12; Admin Dose 250 MG; Start 02/09/19 at 15:30 Magnesium Hydroxide (Milk Of Mag) 30 ml BID PRN PO CONSTIPATION Last administered on 02/12/19 08:27; Admin Dose 30 ML; Start 02/10/19 at 13:00 Heparin Sodium (Porcine) 250 ml @ 7 mls/hr PER PROTOCOL IV Last administered on 02/12/19 01:12; Admin Dose 11 MLS/HR; Start 02/10/19 at 21:00 Cholecalciferol (Vitamin D) 2,000 unit DAILY PO Last administered on 02/12/19 08:11; Admin Dose 2,000 UNIT; Start 02/11/19 at 11:00 Acetaminophen/ Hydrocodone Bitart ([place] (5/325)) 1 tab Q4H PRN PO MODERATE PAIN LEVEL 4-6; Start 02/11/19 at 17:00 Ketorolac Tromethamine (Toradol) 15 mg Q6H PRN IV PAIN Last administered on 02/12/19at 05:36; Admin Dose 15 MG; Start 02/11/19 at 21:30; Stop 02/14/19 at 21:29 Senna/Docusate Sodium (Senokot-S) 2 tab BID PO ; Start 02/12/19 at 21:00 MARISSA SYED February 12, 2019 13:07
--- NOTE | 2019-02-12 13:26 | CONS ---
Assessment/Plan Assessment/Plan Assessment/Plan (Recall) 63 yo F with recently diagnosed breast CA and other comorbidities who is noted to have an elective partial mastectomy and axillary dissection. She endorses severe perioperative pain with sensory loss... for which neurology is consulted. Her sx are likely attributed to her recent operation. An acute C-spine process is unlikely. P: Surgery followup Pain and other medical management per primary Will follow clinically, to recommend neurologic studies, as necessary Consultation Date/Type/Reason Admit Date/Time February 04, 2019 at 14:08 Type of Consult Neurology Requesting Provider: LEYLA ZIEGLER MD Date/Time of Note DATE: 02/12/19 TIME: 13:26 24 HR Interval Summary Free Text/Dictation Continues acute care. S/p transfusion. Awaiting another transfusion today. Exam/Review of Systems Exam Vitals Vital Signs Date Temp Pulse Resp B/P (MAP) Pulse Ox O2 O2 Flow FiO2 Time Delivery Rate 02/12/19 89 12:53 02/12/19 98.1 16 147/76 96 11:06 (99) 02/12/19 Nasal 2.0 08:55 Cannula Intake and Output 02/11/19 02/11/19 02/12/19 1515:00 23:00 07:00 IntakeIntake Total 900 ml 800 ml 1365 ml OutputOutput Total 1400 ml 1100 ml BalanceBalance -500 ml -300 ml 1365 ml Exam PE: Gen Appearance: No Apparent Distress HEENT: Normocephalic Cardiovascular: Regular rate Abdomen: Soft Extremities: Dry NE: The patient was alert and oriented. Language was normal. Fund of knowledge was normal. Pupils were equal and reactive to light. There was no afferent pupillary defect. Visual nuno were normal. Funduscopic examination was limited Extra-ocular movements were full. Ptosis was absent. There was no nystagmus. Facial sensation was normal. Face was symmetric with normal strength. Hearing was intact. Palate movements were normal. Neck strength was normal. There was normal tongue bulk and speed of movement. Tone was normal. Muscle bulk was normal. I did not see fasciculations. Arms and legs were symmetric. Vibration sensation was diminished in the L arm. Temperature and pinprick sensation was normal. Rapid alternating movements were normal. There was no dysmetria. There was no intention tremor. Gait was deferred due to bedrest. Arm and leg reflexes were 2+ and symmetric. Sanchez's sign was absent. Plantar responses were flexor. Results Result Diagram: 02/12/19 0542 02/12/19 0542 Results 24hrs Laboratory Tests Test 02/11/19 13:55 02/11/19 22:11 02/12/19 05:42 Activated Partial Thromboplast Time 38.6 H 47.2 H 103.4 *H White Blood Count 5.9 # Red Blood Count 2.65 L Hemoglobin 7.7 L Hematocrit 23.9 L Mean Corpuscular Volume 90.2 Mean Corpuscular Hemoglobin 29.1 Mean Corpuscular Hemoglobin Concent 32.2 Red Cell Distribution Width 13.5 Platelet Count 193 Mean Platelet Volume 9.8 Immature Granulocytes % 1.200 H Neutrophils % 62.5 Lymphocytes % 20.2 Monocytes % 10.8 Eosinophils % 4.8 Basophils % 0.5 Nucleated Red Blood Cells % 0.0 Immature Granulocytes # 0.070 H Neutrophils # 3.7 Lymphocytes # 1.2 Monocytes # 0.6 Eosinophils # 0.3 Basophils # 0.0 Nucleated Red Blood Cells # 0.0 Prothrombin Time 15.1 H Prothrombin Time Ratio 1.2 INR International Normalized Ratio 1.18 Sodium Level 149 H Potassium Level 3.4 L Chloride Level 114 H Carbon Dioxide Level 23 Anion Gap 12 # Blood Urea Nitrogen 11 Creatinine 0.54 Est Glomerular Filtrat Rate mL/min > 60 Glucose Level 87 Calcium Level 6.2 L Medications Medication Current Medications Cefazolin Sodium/ Dextrose 50 ml @ 100 mls/hr PRE-OP IVPB ; Start 02/04/19 at 08:30 Ondansetron HCl (Zofran Inj) 4 mg Q6H PRN IV NAUSEA AND/OR VOMITING Last administered on 02/11/19at 21:45; Admin Dose 4 MG; Start 02/04/19 at 14:00 Pantoprazole (Protonix Tab) 40 mg DAILY@06 PO Last administered on 02/12/19at 05:30; Admin Dose 40 MG; Start 02/07/19 at 06:00 Docusate Sodium (Colace) 200 mg DAILY PRN PO CONSTIPATION Last administered on 02/12/19 08:27; Admin Dose 200 MG; Start 02/06/19 at 14:00 Gabapentin (Neurontin) 200 mg TID PO Last administered on 02/12/19at 12:44; Admin Dose 200 MG; Start 02/08/19 at 13:00 Piperacillin Sod/ Tazobactam Sod 100 ml @ 200 mls/hr Q6 IVPB Last administered on 02/12/19 11:27; Admin Dose 200 MLS/HR; Start 02/08/19 at 12:00 Cyclobenzaprine HCl (Flexeril) 10 mg Q12 PO Last administered on 02/12/19 08: 11; Admin Dose 10 MG; Start 02/08/19 at 21:00 Acetaminophen (Tylenol Tab) 650 mg Q4H PRN PO MILD PAIN(1-3)OR ELEVATED TEMP Last administered on 02/12/19 11:58; Admin Dose 650 MG; Start 02/09/19 at 12:00 Saccharomyces Boulardii (Florastor) 250 mg BID PO Last administered on 02/12/19 08:12; Admin Dose 250 MG; Start 02/09/19 at 15:30 Magnesium Hydroxide (Milk Of Mag) 30 ml BID PRN PO CONSTIPATION Last administered on 02/12/19 08:27; Admin Dose 30 ML; Start 02/10/19 at 13:00 Heparin Sodium (Porcine) 250 ml @ 7 mls/hr PER PROTOCOL IV Last administered on 02/12/19 01:12; Admin Dose 11 MLS/HR; Start 02/10/19 at 21:00 Cholecalciferol (Vitamin D) 2,000 unit DAILY PO Last administered on 02/12/19 08:11; Admin Dose 2,000 UNIT; Start 02/11/19 at 11:00 Acetaminophen/ Hydrocodone Bitart ([place] (5/325)) 1 tab Q4H PRN PO MODERATE PAIN LEVEL 4-6; Start 02/11/19 at 17:00 Ketorolac Tromethamine (Toradol) 15 mg Q6H PRN IV PAIN Last administered on 02/12/19 05:36; Admin Dose 15 MG; Start 02/11/19 at 21:30; Stop 02/14/19 at 21:29 Senna/Docusate Sodium (Senokot-S) 2 tab BID PO ; Start 02/12/19 at 21:00 ISMAEL PROCTOR NP February 12, 2019 13:26
--- NOTE | 2019-02-12 16:29 | CONS ---
Assessment/Plan Assessment/Plan Hospital Course (Demo Recall) - post op fever, may be due to L breast hematoma - hematoma of L breast, possibly superimposed by infection - post-op anemia requiring PRBC - pain and swelling of L axilla, and L scapular region, associated with either the exuberant inflammation from L breast or underlying infection - h/o Invasive Breast CA - h/o L partial mastectomy and axillary lymph node dissection - h/o AVR, off anticoag - PAF recommendations: - still pending: cultures of serosanguinous fluid in KARY drain (NGTD) - continue pip/tazo (02/08/19-); plan for 7 days. vancomycin was discontinued (02/08/2019-02/11/2019) due to painful sensation in the UE - consider IR consult to possibly change direction of KARY drain - supportive care for abdominal pain. management d/w Pt, her daughter and NAVIN Royal Consultation Date/Type/Reason Admit Date/Time February 04, 2019 at 14:08 Initial Consult Date 02/08/19 Type of Consult ID Requesting Provider: LEYLA ZIEGLER MD Date/Time of Note DATE: 02/12/19 TIME: 16:24 24 HR Interval Summary Constitutional: poor po Detailed Summary Eyes: no complaints ENT: no complaints Respiratory: no complaints Cardiovascular: no complaints Gastrointestinal: constipation Musculoskeletal: bone/joint pain, neck pain, restricted range of motion, swelling Skin: other (+tense skin of L chest, over pectoralis, shoulder and scapular region) Neurologic: no complaints Exam/Review of Systems Exam Vitals Vital Signs Date Temp Pulse Resp B/P (MAP) Pulse Ox O2 O2 Flow FiO2 Time Delivery Rate 02/12/19 97.5 79 16 158/78 98 15:10 (104) 02/12/19 Nasal 2.0 08:55 Cannula Intake and Output 02/11/19 02/11/19 02/12/19 1515:00 23:00 07:00 IntakeIntake Total 900 ml 800 ml 1365 ml OutputOutput Total 1400 ml 1100 ml BalanceBalance -500 ml -300 ml 1365 ml Constitutional: frail Psych: no complaints, nl mood/affect Head: normocephalic, atraumatic Eyes: nl conjunctiva, nl lids, nl sclera ENMT: nl external ears & nose, nl nasal mucosa & septum, mucosa pink and moist Neck: other (tender L side) Respiratory: clear to auscultation, normal air movement Cardiovascular: regular rate and rhythm, nl pulses Gastrointestinal: soft, non-tender Musculoskeletal: No swelling Extremities: No edema Neurological: IN TUBE CONVERSION TECHNICIAN II-XII intact, nl mental status, nl speech Skin: rash or lesions (skin of L breast, upper chest, shoulder and scapular area is indurated and TTP) Results Result Diagram: 02/12/1954102/12/19541 Results 24hrs Laboratory Tests Test 02/11/19 22:11 02/12/19 05:42 Activated Partial Thromboplast Time 47.2 H 103.4 *H White Blood Count 5.9 # Red Blood Count 2.65 L Hemoglobin 7.7 L Hematocrit 23.9 L Mean Corpuscular Volume 90.2 Mean Corpuscular Hemoglobin 29.1 Mean Corpuscular Hemoglobin Concent 32.2 Red Cell Distribution Width 13.5 Platelet Count 193 Mean Platelet Volume 9.8 Immature Granulocytes % 1.200 H Neutrophils % 62.5 Lymphocytes % 20.2 Monocytes % 10.8 Eosinophils % 4.8 Basophils % 0.5 Nucleated Red Blood Cells % 0.0 Immature Granulocytes # 0.070 H Neutrophils # 3.7 Lymphocytes # 1.2 Monocytes # 0.6 Eosinophils # 0.3 Basophils # 0.0 Nucleated Red Blood Cells # 0.0 Prothrombin Time 15.1 H Prothrombin Time Ratio 1.2 INR International Normalized Ratio 1.18 Sodium Level 149 H Potassium Level 3.4 L Chloride Level 114 H Carbon Dioxide Level 23 Anion Gap 12 # Blood Urea Nitrogen 11 Creatinine 0.54 Est Glomerular Filtrat Rate mL/min > 60 Glucose Level 87 Calcium Level 6.2 L Medications Medication Current Medications Cefazolin Sodium/ Dextrose 50 ml @ 100 mls/hr PRE-OP IVPB ; Start 02/04/19 at 08:30 Ondansetron HCl (Zofran Inj) 4 mg Q6H PRN IV NAUSEA AND/OR VOMITING Last administered on 02/11/19at 21:45; Admin Dose 4 MG; Start 02/04/19 at 14:00 Pantoprazole (Protonix Tab) 40 mg DAILY@06 PO Last administered on 02/12/19at 05:30; Admin Dose 40 MG; Start 02/07/19 at 06:00 Docusate Sodium (Colace) 200 mg DAILY PRN PO CONSTIPATION Last administered on 02/12/19 08:27; Admin Dose 200 MG; Start 02/06/19 at 14:00 Gabapentin (Neurontin) 200 mg TID PO Last administered on 02/12/19 12:44; Admin Dose 200 MG; Start 02/08/19 at 13:00 Piperacillin Sod/ Tazobactam Sod 100 ml @ 200 mls/hr Q6 IVPB Last administered on 02/12/19 11:27; Admin Dose 200 MLS/HR; Start 02/08/19 at 12:00 Cyclobenzaprine HCl (Flexeril) 10 mg Q12 PO Last administered on 02/12/19 08:11; Admin Dose 10 MG; Start 02/08/19 at 21:00 Acetaminophen (Tylenol Tab) 650 mg Q4H PRN PO MILD PAIN(1-3)OR ELEVATED TEMP Last administered on 02/12/19 11:58; Admin Dose 650 MG; Start 02/09/19 at 12:00 Saccharomyces Boulardii (Florastor) 250 mg BID PO Last administered on 02/12/19 08:12; Admin Dose 250 MG; Start 02/09/19 at 15:30 Magnesium Hydroxide (Milk Of Mag) 30 ml BID PRN PO CONSTIPATION Last administered on 02/12/19 08:27; Admin Dose 30 ML; Start 02/10/19 at 13:00 Heparin Sodium (Porcine) 250 ml @ 7 mls/hr PER PROTOCOL IV Last administered on 02/12/19 01:12; Admin Dose 11 MLS/HR; Start 02/10/19 at 21:00 Cholecalciferol (Vitamin D) 2,000 unit DAILY PO Last administered on 02/12/19 08:11; Admin Dose 2,000 UNIT; Start 02/11/19 at 11:00 Acetaminophen/ Hydrocodone Bitart ([place] (5/325)) 1 tab Q4H PRN PO MODERATE PAIN LEVEL 4-6; Start 02/11/19 at 17:00 Ketorolac Tromethamine (Toradol) 15 mg Q6H PRN IV PAIN Last administered on 02/12/19 05:36; Admin Dose 15 MG; Start 02/11/19 at 21:30; Stop 02/14/19 at 21:29 Senna/Docusate Sodium (Senokot-S) 2 tab BID PO ; Start 02/12/19 at 21:00 CARLA MONTEZ M.D. February 12, 2019 16:29
[2019-02-12] MEDS: MINERAL OIL 30ML CUP PO SCH ×2 (16:30→21:45)
[2019-02-12] MEDS ORDERED: IOHEXOL 14.3 MG(I)/ML (ADULT) BTL PO ONE (17:00)
[2019-02-12] MEDS ORDERED: MAGNESIUM CITRATE 300 ML BTL PO ONE (17:00)
[2019-02-12] MEDS ORDERED: HEPARIN 1000 UNITS/ML 10 ML INJ IV PRN (17:30)
--- NOTE | 2019-02-12 18:07 | CONS ---
DATE OF ADMISSION: 02/04/2019 DATE OF CONSULTATION: 02/12/2019 TYPE OF CONSULTATION: Pulmonary. REASON FOR CONSULT: Transient hemoptysis. REASON FOR CONSULTATION: Pulmonary. Thank you, Dr. Pelaez, for this consultation. 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 For the last few days, she had mild blood-streaked sputum , but no significant cough or sputum production. No massive hemoptysis or hematemesis. Of note, she has required 6 units packed red blood cells without any evidence of lower or upper GI bleeding. PAST MEDICAL HISTORY: 1. Aortic valve replacement, on chronic anticoagulation. 2. Recent diagnosis of invasive breast cancer. 3. Recent anemia. MEDICATIONS: Per chart. ALLERGIES: 1. ASPIRIN. 2. BELLADONNA ALKALOIDS. SOCIAL HISTORY: She is a nonsmoker. No alcohol, no history of drug use. FAMILY HISTORY: Noncontributory. SYSTEMS REVIEW: A 12-point review of systems was negative other than that mentioned above. PHYSICAL EXAMINATION: GENERAL: Well-nourished, well-developed lady, comfortable at rest, in no acute distress. VITAL SIGNS: Currently afebrile, pulse is 80, blood pressure 158/78, O2 saturation 98% on 2 liters' nasal cannula. NECK: Supple. No JVD or lymphadenopathy. CARDIAC: S1, S2. No added sounds or murmurs. CHEST: Diminished air entry at the bases. ABDOMEN: Soft, nontender. She has anterior KARY drain in place. EXTREMITIES: No cyanosis, clubbing or edema. NEUROLOGIC: Grossly intact. LABORATORIES: White count 5.9, hemoglobin 7.7 pretransfusion, platelets 193. BUN 11, creatinine 0.5 4. PTT was 103. Urinalysis is unremarkable. DIAGNOSTIC DATA: CT chest demonstrated 2 large collections in the left breast, compatible with hemat jorgito, small left pleural effusion; otherwise no parenchymal abnormalities. IMPRESSION AND PLAN: 1. Hemoptysis, likely secondary to tracheobronchitis, on anticoagulation. No evidence of significan t intraparenchymal abnormalities on CT chest. 2. Significant anemia concerning for possible retroperitoneal bleed. I agree with CT abdomen and pe lvis. 3. Monitor hemoglobin and hematocrit post partial mastectomy. 4. Local wound care per surgery. 5. Deep venous thrombosis and gastrointestinal prophylaxis per primary team. Dictated By: YEFRI BOWMAN MD SV/ALLEY Conf#: [id number] DID#: [id number] CC: LEYLA PELAEZ MD; MAIA HINOJOSA MD;*EndCC*
--- NOTE | 2019-02-12 18:29 | PN ---
DATE: 02/12/2019 Postop day #8 status post left breast needle localization partial mastectomy with axillary dissection sentinel lymph node technique for invasive cancer of the left breast. The patient has had complicat ion the hematoma formation and bleeding in the tissues of left breast following the operation and fol lowing restart of anticoagulants namely Lovenox and Coumadin for the sake of protection of the aortic valve prosthesis which has been in place for several years. The patient has been anticoagulated for that always and just before operation, anticoagulation was stopped for a few days and soon after ope ration was restarted per automotive technician's plan and decision and recommendation. SUBJECTIVE: No specific new complaint. The shoulder and arm pain that the patient had been complain ing of before is much less now. The patient is getting Flexeril 10 mg p.o. b.i.d., gabapentin for pa in and also 15 mg of Toradol IV q.6 hours p.r.n. Dilaudid has been discontinued. OBJECTIVE: VITAL SIGNS: Temperature maximum today 98.4, heart rate 84 and in some occasion 92, respirations 20, blood pressure is fluctuating. Last blood pressure at 3:00 was 158/78, saturation 98% to 2-liter na renetta cannula. GENERAL: Awake, alert. HEART: Regular. LUNGS: Slight decreased breathing sound at bases. ABDOMEN: Soft. EXTREMITIES: Lower extremity is negative. No calf tenderness. CHEST: There is swelling of the left anterior chest (hematoma) has not increased comparing to past 2 days and the axillary hematoma I think to some extent is softer than before. LABORATORY DATA: The patient received 1 unit of packed cells today and altogether so far has receive d 5 units of packed cells. Last hemoglobin which was at 5:40 a.m. today is 7.7 and hematocrit is 23. 9, platelet is 193. Differential count is 62% neutrophils, which is normal. INPUT AND OUTPUT: Gerson-Russell drain in place, but in the last 24-hour it has been documented that it has drained only 5 mL of dark blood. ASSESSMENT AND PLAN: A 63-year-old female who was admitted for removal of the cancer on the left oniel ast. The patient also is a case of aortic valve replacement with metallic valve which has been antic oagulated for that matter for many years after operation and for the sake of operation, we had to sto p anticoagulant medication which is Coumadin probably or Eliquis. On the day of operation, the PT, P TT and INR were normal. The patient had the operation and later that night of same day operation, th e patient was put back on Lovenox anticoagulation and Coumadin. Unfortunately, the patient had hemat jorgito formation at site of operation and also had an episode of severe left shoulder pain with radiatio n to the arm for which neurologist consultation was obtained. This pain eventually subsided by admin istrating muscle relaxant, Flexeril and gabapentin. For the bleeding and hematoma formation, the pat ient required blood transfusion and so far, has received 5 units of blood transfusion during the past 7 days. Clinically also, there is evidence of ecchymosis and dissection of the hematoma going in th e tissue planes and lateral aspect of the abdominal wall and posteriorly as well. There has been a l ot of discussion between surgeons and automotive technician in regard to the best approach for handling the si tuation that is to either or should be go after the hematoma drainage and then surgeon believes that that is going to cause more bleeding because then we have to continue keeping the patient on anticoag ulant because the hematoma itself is not actually an important issue as the prevention of clot format ion of the aortic valve. The patient's daughter today requested that they get a consultation from Dr Desirae Yates who did the operation for this patient and placed aortic valve few years ago. Therefore, they have requested Dr. Yates to see the patient and to seek his opinion regarding the best way to approach this patient to stop oozing blood. We have to discontinue all anticoagulants for 1, 2, 3 or 4 days if that is safe for the patient and let every bleeder get thrombosed and clotted and then put the patient back on anticoagulant or if there is any other approach, will see Dr. Yates's opi nion. Otherwise at this point of time, Dr. Diaz has talked to the patient's daughter today and also he has talked to Dr. Hicks, automotive technician involved and he talked to me and he told me that in his op inion from surgical point of view, he does not want to proceed with exploring the wounds and evacuati ng the hematomas because he thinks is probably it is going to be more dangerous and more problematic than just giving transfusion and observing the patient. In any case, we will continue to observe the patient and if necessary give blood transfusion and keep the blood pressure at good level to protect the perfusion of the kidneys and other vital organs. Also, we are waiting for Dr. Yates's consu ltation and input. The infectious disease colleagues are also taking care of matter of fever and ant ibiotic treatment. Dictated By: ALFONSO CONTRERAS MD PS/NTS Conf#: [id number] DID#: [id number] CC: LEYLA ZIEGLER MD; MAIA DIAZ MD;*EndCC*
--- NOTE | 2019-02-12 18:32 | CONS ---
DATE OF ADMISSION: 02/04/2019 DATE OF CONSULTATION: HISTORY OF PRESENT ILLNESS: The patient is a 63-year-old female with history of mechanical aortic va lve, atrial fibrillation, has had abdominal screening mammogram, there was a suspicious lesion in the left breast on screening mammogram. The patient underwent core needle biopsy, which revealed invasi ve cancer. She required partial left mastectomy. Postoperatively, the patient developed hematoma at the site of the surgery, which was evacuated, but hematocrit kept on dropping. She got almost 6 uni ts of packed cell RBC as per the daughter, and also she is constipated for the last 5 days, so there was a concern regarding internal bleeding in the GI tract, so GI consult was called in. No abdominal pain, no nausea, no vomiting, no chest pain or shortness of breath, no fever, no chills. She had EG D done by me last one which was grossly negative. She had a colonoscopy done 4 years ago by me, as p er the patient, which was negative. REVIEW OF SYSTEMS: Nothing additional than postoperative pain. ALLERGIES: 1. CODEINE 2. ASPIRIN. SOCIAL HISTORY: No smoking, no alcohol. FAMILY HISTORY: Nothing contributory. PHYSICAL EXAMINATION GENERAL: Awake, alert, not in distress. VITAL SIGNS: Stable. ABDOMEN: Benign. LUNGS: Clear. Left side of the chest where the surgery was done, there was some swelling. EXTREMITIES: No edema. CENTRAL NERVOUS SYSTEM: Grossly within normal limit. IMPRESSION: 1. Status post left partial mastectomy and axillary dissection for cancer of the left breast. 2. Aortic valve replacement. 3. Paroxysmal atrial fibrillation. 4. Severe anemia. 5. Constipation. PLAN: The patient will be started on Amitiza. We will continue to monitor H and H. She had develop ed a large hematoma at the surgical site, which was evacuated, but since hematocrit is still dropping and patient was on Lovenox, we will get a CAT scan of the abdomen and pelvis to make sure there is n o retroperitoneal bleed. She will be also placed on Amitiza for constipation. In the interim, rachelle farris present care. Dictated By: TNOIA CONDE/ALLEY Conf#: [id number] DID#: [id number]
[2019-02-12] MEDS: SENNA/DOCUSATE NA (8.6MG/50MG) TAB PO SCH (20:10)
[2019-02-12] MEDS: LUBIPROSTONE 24 MCG CAP PO SCH (20:11)
[2019-02-13] VITALS (13 sets, daily range): BP systolic 123–160; BP diastolic 56–97; PULSE 70–85; RESP 18–20
[2019-02-13] MEDS: ACETAMINOPHEN 325 MG TAB PO PRN ×2 (01:09→22:14)
[2019-02-13] MEDS: PIPER-TAZO 3.375 GM IV (PMX) 100 ML IVPB SCH ×3 (05:51→18:53)
[2019-02-13] MEDS: PANTOPRAZOLE (EC) 40 MG TAB PO SCH (05:51)
[2019-02-13] MEDS: MINERAL OIL 30ML CUP PO SCH ×3 (05:52→22:00)
[2019-02-13] MEDS: LUBIPROSTONE 24 MCG CAP PO SCH ×2 (09:00→22:09)
[2019-02-13] MEDS: SACCHAROMYCES BOULARDII 250 MG CAP PO SCH ×2 (09:19→22:10)
[2019-02-13] MEDS: CYCLOBENZAPRINE 10 MG TAB PO SCH ×2 (09:20→22:09)
[2019-02-13] MEDS: CHOLECALCIFEROL 2,000 UNIT CAP PO SCH (09:20)
[2019-02-13] MEDS: GABAPENTIN 100 MG CAP PO SCH ×3 (09:20→22:10)
[2019-02-13] MEDS: SENNA/DOCUSATE NA (8.6MG/50MG) TAB PO SCH ×2 (09:21→22:09)
--- NOTE | 2019-02-13 09:59 | CONS ---
Assessment/Plan Assessment/Plan Assessment/Plan (Daily) IMPRESSION: 1. Status post left partial mastectomy and axillary dissection for cancer of the left breast. 2. Aortic valve replacement. 3. Paroxysmal atrial fibrillation. 4. Severe anemia. Secondary to postoperative bleeding. There is no evidence of retroperitoneal bleed or GI bleeding. Hematocrit is stable now 5. Constipation. Responded well to Amitiza Plan Continue Amitiza Monitor H&H Discussed with the daughter [id number] Consultation Date/Type/Reason Admit Date/Time February 04, 2019 at 14:08 Initial Consult Date 02/08/19 Requesting Provider: LEYLA ZIEGLER MD Date/Time of Note DATE: 02/13/19 TIME: 09:57 24 HR Interval Summary Free Text/Dictation Finally had a good bowel movements Stool was normal in color Exam/Review of Systems Exam Vitals Vital Signs Date Temp Pulse Resp B/P (MAP) Pulse Ox O2 O2 Flow FiO2 Time Delivery Rate 02/13/19 74 08:16 02/13/19 98.1 20 158/85 95 Room Air 07:05 (109) 02/13/19 2.0 04:04 Intake and Output 02/12/19 02/12/19 02/13/19 1515:00 23:00 07:00 IntakeIntake Total 285 ml 1118 ml 800 ml OutputOutput Total 2000 ml 1000 ml BalanceBalance 285 ml -882 ml -200 ml Constitutional: alert, oriented, well developed Psych: no complaints, nl mood/affect Head: normocephalic, atraumatic Eyes: nl conjunctiva, EOMI, nl lids, nl sclera, PERRL ENMT: nl external ears & nose, nl lips & teeth, nl nasal mucosa & septum Neck: supple, non-tender Respiratory: clear to auscultation, normal air movement Cardiovascular: regular rate and rhythm, nl pulses Gastrointestinal: soft, nl liver, spleen, non-tender Musculoskeletal: nl extremities to inspection, nl gait and stance Extremities: normal pulses Neurological: FORECAST ANALYST II-XII intact, nl mental status, nl speech, nl strength Skin: nl turgor; No rash or lesions Lymph: nl lymph nodes Results Result Diagram: 02/13/19 0329 02/12/19 0542 Results 24hrs Laboratory Tests Test 02/12/19 16:05 02/12/19 16:10 02/12/19 20:47 02/13/19 03:29 Hemoglobin 10.7 #L 10.4 L Hematocrit 32.8 #L 31.9 L Activated 35.9 H 51.3 H 68.7 H Partial Thromboplast Time White Blood Count 6.8 Red Blood Count 3.58 #L Mean Corpuscular 89.1 Volume Mean Corpuscular 29.1 Hemoglobin Mean Corpuscular 32.6 Hemoglobin Concent Red Cell Distribution 13.8 Width Platelet Count 254 # Mean Platelet Volume 9.8 Immature Granulocytes 1.900 H % Neutrophils % 63.5 Lymphocytes % 19.6 Monocytes % 9.1 Eosinophils % 5.0 Basophils % 0.9 Nucleated Red Blood 0.3 H Cells % Immature Granulocytes 0.130 H # Neutrophils # 4.4 Lymphocytes # 1.3 Monocytes # 0.6 Eosinophils # 0.3 Basophils # 0.1 Nucleated Red Blood 0.0 Cells # Prothrombin Time 12.7 Prothrombin Time 1.0 Ratio INR International 0.94 Normalized Ratio Medications Medication Current Medications Cefazolin Sodium/ Dextrose 50 ml @ 100 mls/hr PRE-OP IVPB ; Start 02/04/19 at 08:30 Ondansetron HCl (Zofran Inj) 4 mg Q6H PRN IV NAUSEA AND/OR VOMITING Last administered on 02/11/19at 21:45; Admin Dose 4 MG; Start 02/04/19 at 14:00 Pantoprazole (Protonix Tab) 40 mg DAILY@06 PO Last administered on 02/13/19 05:51; Admin Dose 40 MG; Start 02/07/19 at 06:00 Docusate Sodium (Colace) 200 mg DAILY PRN PO CONSTIPATION Last administered on 02/12/19 08:27; Admin Dose 200 MG; Start 02/06/19 at 14:00 Gabapentin (Neurontin) 200 mg TID PO Last administered on 02/13/19 09:20; Admin Dose 200 MG; Start 02/08/19 at 13:00 Piperacillin Sod/ Tazobactam Sod 100 ml @ 200 mls/hr Q6 IVPB Last administered on 02/13/19 05:51; Admin Dose 200 MLS/HR; Start 02/08/19 at 12:00 Cyclobenzaprine HCl (Flexeril) 10 mg Q12 PO Last administered on 02/13/19 09:20; Admin Dose 10 MG; Start 02/08/19 at 21:00 Acetaminophen (Tylenol Tab) 650 mg Q4H PRN PO MILD PAIN(1-3)OR ELEVATED TEMP Last administered on 02/13/19 01:09; Admin Dose 650 MG; Start 02/09/19 at 12:00 Saccharomyces Boulardii (Florastor) 250 mg BID PO Last administered on 02/13/19 09:19; Admin Dose 250 MG; Start 02/09/19 at 15:30 Magnesium Hydroxide (Milk Of Mag) 30 ml BID PRN PO CONSTIPATION Last administered on 02/12/19 08:27; Admin Dose 30 ML; Start 02/10/19 at 13:00 Heparin Sodium (Porcine) 250 ml @ 7 mls/hr PER PROTOCOL IV Last administered on 02/12/19 17:30; Admin Dose 10 MLS/HR; Start 02/10/19 at 21:00 Cholecalciferol (Vitamin D) 2,000 unit DAILY PO Last administered on 02/13/19 09:20; Admin Dose 2,000 UNIT; Start 02/11/19 at 11:00 Acetaminophen/ Hydrocodone Bitart ([place] (5/325)) 1 tab Q4H PRN PO MODERATE PAIN LEVEL 4-6; Start 02/11/19 at 17:00 Ketorolac Tromethamine (Toradol) 15 mg Q6H PRN IV PAIN Last administered on 02/12/19at 22:53; Admin Dose 15 MG; Start 02/11/19 at 21:30; Stop 02/14/19 at 21:29 Senna/Docusate Sodium (Senokot-S) 2 tab BID PO Last administered on 02/13/19 09:21; Admin Dose 2 TAB; Start 02/12/19 at 21:00 Mineral Oil (Mineral Oil) 30 ml Q8 PO ; Start 02/12/19 at 16:30 Lubiprostone (Amitiza) 24 mcg BID PO ; Start 02/12/19 at 21:00 Heparin Sodium (Porcine) (Heparin (1000 Units/ml)) 3,500 unit PER PROTOCOL PRN IV aPTT<47; Start 02/12/19 at 17:30 TONIA SANTANA MD Feb 13, 2019 09:59
--- NOTE | 2019-02-13 10:15 | CONS ---
Assessment/Plan Assessment/Plan Assessment/Plan (Daily) Status post breast surgery 02/04/2019 Mechanical aortic valve replacement Paroxysmal atrial fibrillation, currently sinus rhythm Acute blood loss anemia Extensive discussion had with patient and daughter at bedside, s/p alpesh recently. PTT on the higher side, Dr. Diaz who agrees with continuing anticoagulation at the current time. He did request Dr. Mckenzie, who performed patient's AVR years ago to be contacted Conservative therpay for now - surgery following re: breast hematoma Rx warfarin when no more bleeding, if no evacuation of hematoma and when ok with srugery sw daughter Consultation Date/Type/Reason Admit Date/Time February 04, 2019 at 14:08 Initial Consult Date 02/08/19 Type of Consult Cardiology Requesting Provider: LEYLA ZIEGLER MD Date/Time of Note DATE: 02/13/19 TIME: 10:12 24 HR Interval Summary Free Text/Dictation the patnet improving Exam/Review of Systems Vital Signs Vitals Vital Signs Date Temp Pulse Resp B/P (MAP) Pulse Ox O2 O2 Flow FiO2 Time Delivery Rate 02/13/19 74 08:16 02/13/19 98.1 20 158/85 95 Room Air 07:05 (109) 02/13/19 2.0 04:04 Intake and Output 02/12/19 02/12/19 02/13/19 1515:00 23:00 07:00 IntakeIntake Total 285 ml 1118 ml 800 ml OutputOutput Total 2000 ml 1000 ml BalanceBalance 285 ml -882 ml -200 ml Labs Result Diagram: 02/13/19 0329 02/12/19 0542 Results 24hrs Laboratory Tests Test 02/12/19 16:05 02/12/19 16:10 02/12/19 20:47 02/13/19 03:29 Hemoglobin 10.7 #L 10.4 L Hematocrit 32.8 #L 31.9 L Activated 35.9 H 51.3 H 68.7 H Partial Thromboplast Time White Blood Count 6.8 Red Blood Count 3.58 #L Mean Corpuscular 89.1 Volume Mean Corpuscular 29.1 Hemoglobin Mean Corpuscular 32.6 Hemoglobin Concent Red Cell Distribution 13.8 Width Platelet Count 254 # Mean Platelet Volume 9.8 Immature Granulocytes 1.900 H % Neutrophils % 63.5 Lymphocytes % 19.6 Monocytes % 9.1 Eosinophils % 5.0 Basophils % 0.9 Nucleated Red Blood 0.3 H Cells % Immature Granulocytes 0.130 H # Neutrophils # 4.4 Lymphocytes # 1.3 Monocytes # 0.6 Eosinophils # 0.3 Basophils # 0.1 Nucleated Red Blood 0.0 Cells # Prothrombin Time 12.7 Prothrombin Time 1.0 Ratio INR International 0.94 Normalized Ratio Medications Medications Current Medications Cefazolin Sodium/ Dextrose 50 ml @ 100 mls/hr PRE-OP IVPB ; Start 02/04/19 at 08:30 Ondansetron HCl (Zofran Inj) 4 mg Q6H PRN IV NAUSEA AND/OR VOMITING Last administered on 02/11/19 21:45; Admin Dose 4 MG; Start 02/04/19 at 14:00 Pantoprazole (Protonix Tab) 40 mg DAILY@06 PO Last administered on 02/13/19 05:51; Admin Dose 40 MG; Start 02/07/19 at 06:00 Docusate Sodium (Colace) 200 mg DAILY PRN PO CONSTIPATION Last administered on 02/12/19 08:27; Admin Dose 200 MG; Start 02/06/19 at 14:00 Gabapentin (Neurontin) 200 mg TID PO Last administered on 02/13/19 09:20; Admin Dose 200 MG; Start 02/08/19 at 13:00 Piperacillin Sod/ Tazobactam Sod 100 ml @ 200 mls/hr Q6 IVPB Last administered on 02/13/19 05:51; Admin Dose 200 MLS/HR; Start 02/08/19 at 12:00 Cyclobenzaprine HCl (Flexeril) 10 mg Q12 PO Last administered on 02/13/19 09:20; Admin Dose 10 MG; Start 02/08/19 at 21:00 Acetaminophen (Tylenol Tab) 650 mg Q4H PRN PO MILD PAIN(1-3)OR ELEVATED TEMP Last administered on 02/13/19 01:09; Admin Dose 650 MG; Start 02/09/19 at 12:00 Saccharomyces Boulardii (Florastor) 250 mg BID PO Last administered on 02/13/19 09:19; Admin Dose 250 MG; Start 02/09/19 at 15:30 Magnesium Hydroxide (Milk Of Mag) 30 ml BID PRN PO CONSTIPATION Last administered on 02/12/19 08:27; Admin Dose 30 ML; Start 02/10/19 at 13:00 Heparin Sodium (Porcine) 250 ml @ 7 mls/hr PER PROTOCOL IV Last administered on 02/12/19 17:30; Admin Dose 10 MLS/HR; Start 02/10/19 at 21:00 Cholecalciferol (Vitamin D) 2,000 unit DAILY PO Last administered on 02/13/19 09:20; Admin Dose 2,000 UNIT; Start 02/11/19 at 11:00 Acetaminophen/ Hydrocodone Bitart ([place] (5/325)) 1 tab Q4H PRN PO MODERATE PAIN LEVEL 4-6; Start 02/11/19 at 17:00 Ketorolac Tromethamine (Toradol) 15 mg Q6H PRN IV PAIN Last administered on 02/12/19at 22:53; Admin Dose 15 MG; Start 02/11/19 at 21:30; Stop 02/14/19 at 21:29 Senna/Docusate Sodium (Senokot-S) 2 tab BID PO Last administered on 02/13/19 09:21; Admin Dose 2 TAB; Start 02/12/19 at 21:00 Mineral Oil (Mineral Oil) 30 ml Q8 PO ; Start 02/12/19 at 16:30 Lubiprostone (Amitiza) 24 mcg BID PO ; Start 02/12/19 at 21:00 Heparin Sodium (Porcine) (Heparin (1000 Units/ml)) 3,500 unit PER PROTOCOL PRN IV aPTT<47; Start 02/12/19 at 17:30 ELISA RAYMOND MD Feb 13, 2019 10:15
--- NOTE | 2019-02-13 11:09 | PN ---
Date/Time of Note Date/Time of Note DATE: 02/13/19 TIME: 11:09 Assessment/Plan VTE Prophylaxis Risk score (from [facility] [place])>0 risk: 10 SCD applied (from [facility] [place]): Yes Pharmacological prophylaxis: LMWH Lines/Catheters IV Catheter Type (from [facility]): Peripheral IV Assessment/Plan Hospital Course Hypokalemia- replace K ; bmp AM -Left breast cancer, status post left partial mastectomy by Dr. Diaz. -Postoperative hematomas in left breast and left axillary region. -Postoperative fever, continue antibiotics per ID. Dr. Srinivasan is following in infection disease consultation. -Paroxysmal atrial fibrillation. -Mechanical aortic valve replacement secondary to aortic insufficiency. Dr. Hicks is following in cardiology consultation. Started on heparin drip. -Anemia of acute blood loss, continue to monitor H&H, will transfuse as needed. -Vitamin D deficiency, started on supplement. Result Diagram: 02/13/19 0329 02/12/19 0542 Results 24hrs Laboratory Tests Test 02/12/19 16:05 02/12/19 16:10 02/12/19 20:47 02/13/19 03:29 Hemoglobin 10.7 #L 10.4 L Hematocrit 32.8 #L 31.9 L Activated 35.9 H 51.3 H 68.7 H Partial Thromboplast Time White Blood Count 6.8 Red Blood Count 3.58 #L Mean Corpuscular 89.1 Volume Mean Corpuscular 29.1 Hemoglobin Mean Corpuscular 32.6 Hemoglobin Concent Red Cell Distribution 13.8 Width Platelet Count 254 # Mean Platelet Volume 9.8 Immature Granulocytes 1.900 H % Neutrophils % 63.5 Lymphocytes % 19.6 Monocytes % 9.1 Eosinophils % 5.0 Basophils % 0.9 Nucleated Red Blood 0.3 H Cells % Immature Granulocytes 0.130 H # Neutrophils # 4.4 Lymphocytes # 1.3 Monocytes # 0.6 Eosinophils # 0.3 Basophils # 0.1 Nucleated Red Blood 0.0 Cells # Prothrombin Time 12.7 Prothrombin Time 1.0 Ratio INR International 0.94 Normalized Ratio Subjective 24 Hr Interval Summary Free Text/Dictation Patient has pain in left breast area Exam/Review of Systems Exam Vitals Vital Signs Date Temp Pulse Resp B/P (MAP) Pulse Ox O2 O2 Flow FiO2 Time Delivery Rate 02/13/19 74 08:16 02/13/19 98.1 20 158/85 95 Room Air 07:05 (109) 02/13/19 2.0 04:04 Intake and Output 02/12/19 02/12/19 02/13/19 1515:00 23:00 07:00 IntakeIntake Total 285 ml 1118 ml 800 ml OutputOutput Total 2000 ml 1000 ml BalanceBalance 285 ml -882 ml -200 ml Constitutional: well developed Head: normocephalic, atraumatic Neck: supple Respiratory: diminished breath sounds Cardiovascular: regular rate and rhythm Gastrointestinal: soft, non-tender Extremities: normal pulses Results Results 24hrs Laboratory Tests Test 02/12/19 16:05 02/12/19 16:10 02/12/19 20:47 02/13/19 03:29 Hemoglobin 10.7 #L 10.4 L Hematocrit 32.8 #L 31.9 L Activated 35.9 H 51.3 H 68.7 H Partial Thromboplast Time White Blood Count 6.8 Red Blood Count 3.58 #L Mean Corpuscular 89.1 Volume Mean Corpuscular 29.1 Hemoglobin Mean Corpuscular 32.6 Hemoglobin Concent Red Cell Distribution 13.8 Width Platelet Count 254 # Mean Platelet Volume 9.8 Immature Granulocytes 1.900 H % Neutrophils % 63.5 Lymphocytes % 19.6 Monocytes % 9.1 Eosinophils % 5.0 Basophils % 0.9 Nucleated Red Blood 0.3 H Cells % Immature Granulocytes 0.130 H # Neutrophils # 4.4 Lymphocytes # 1.3 Monocytes # 0.6 Eosinophils # 0.3 Basophils # 0.1 Nucleated Red Blood 0.0 Cells # Prothrombin Time 12.7 Prothrombin Time 1.0 Ratio INR International 0.94 Normalized Ratio Medications Medication Current Medications Cefazolin Sodium/ Dextrose 50 ml @ 100 mls/hr PRE-OP IVPB ; Start 02/04/19 at 08:30 Ondansetron HCl (Zofran Inj) 4 mg Q6H PRN IV NAUSEA AND/OR VOMITING Last administered on 02/11/19at 21:45; Admin Dose 4 MG; Start 02/04/19 at 14:00 Pantoprazole (Protonix Tab) 40 mg DAILY@06 PO Last administered on 02/13/19at 05:51; Admin Dose 40 MG; Start 02/07/19 at 06:00 Docusate Sodium (Colace) 200 mg DAILY PRN PO CONSTIPATION Last administered on 02/12/19 08:27; Admin Dose 200 MG; Start 02/06/19 at 14:00 Gabapentin (Neurontin) 200 mg TID PO Last administered on 02/13/19 09:20; Admin Dose 200 MG; Start 02/08/19 at 13:00 Piperacillin Sod/ Tazobactam Sod 100 ml @ 200 mls/hr Q6 IVPB Last administered on 02/13/19 05:51; Admin Dose 200 MLS/HR; Start 02/08/19 at 12:00 Cyclobenzaprine HCl (Flexeril) 10 mg Q12 PO Last administered on 02/13/19 09:20; Admin Dose 10 MG; Start 02/08/19 at 21:00 Acetaminophen (Tylenol Tab) 650 mg Q4H PRN PO MILD PAIN(1-3)OR ELEVATED TEMP Last administered on 02/13/19 01:09; Admin Dose 650 MG; Start 02/09/19 at 12:00 Saccharomyces Boulardii (Florastor) 250 mg BID PO Last administered on 02/13/19 09:19; Admin Dose 250 MG; Start 02/09/19 at 15:30 Magnesium Hydroxide (Milk Of Mag) 30 ml BID PRN PO CONSTIPATION Last administered on 02/12/19 08:27; Admin Dose 30 ML; Start 02/10/19 at 13:00 Heparin Sodium (Porcine) 250 ml @ 7 mls/hr PER PROTOCOL IV Last administered on 02/12/19 17:30; Admin Dose 10 MLS/HR; Start 02/10/19 at 21:00 Cholecalciferol (Vitamin D) 2,000 unit DAILY PO Last administered on 02/13/19 09:20; Admin Dose 2,000 UNIT; Start 02/11/19 at 11:00 Acetaminophen/ Hydrocodone Bitart ([place] (5/325)) 1 tab Q4H PRN PO MODERATE PAIN LEVEL 4-6; Start 02/11/19 at 17:00 Ketorolac Tromethamine (Toradol) 15 mg Q6H PRN IV PAIN Last administered on 02/12/19 22:53; Admin Dose 15 MG; Start 02/11/19 at 21:30; Stop 02/14/19 at 21:29 Senna/Docusate Sodium (Senokot-S) 2 tab BID PO Last administered on 02/13/19at 09:21; Admin Dose 2 TAB; Start 02/12/19 at 21:00 Mineral Oil (Mineral Oil) 30 ml Q8 PO ; Start 02/12/19 at 16:30 Lubiprostone (Amitiza) 24 mcg BID PO ; Start 02/12/19 at 21:00 Heparin Sodium (Porcine) (Heparin (1000 Units/ml)) 3,500 unit PER PROTOCOL PRN IV aPTT<47; Start 02/12/19 at 17:30 ELSY DOUGLAS Feb 13, 2019 11:09
[2019-02-13] MEDS: KETOROLAC 15 MG INJ IV PRN (12:54)
[2019-02-13] MEDS: HEPARIN 25000 UNITS/250 ML 250 ML IV SCH ×2 (13:00→22:07)
--- NOTE | 2019-02-13 15:25 | CONS ---
Assessment/Plan Assessment/Plan Assessment/Plan (Daily) Status post aortic valve replacement by myself in 2008 with a mechanical valve patient has been on oral anticoagulants including Coumadin which is now off secondary to breast surgery Patient has had bleeding from the left breast tissue sites required 6 units of transfusions Currently the Gerson-Russell is dry no clinical signs of bleeding breast tissue appears to be soft hemoglobin stable at 10.8 At this time I recommend continuation of heparin for 1 or 2 more days and switching to low-dose gentle anticoagulation with Coumadin to decrease the chance of mechanical valve failure failure and thrombosis and stroke. This was discussed at length with the patient and the family will discuss with cardiology and general surgery Consultation Date/Type/Reason Admit Date/Time February 04, 2019 at 14:08 Date of Consultation: Feb 13, 2019 Type of Consult Cardiothoracic surgery Reason for Consultation Status post aortic valve replacement Date/Time of Note DATE: 02/13/19 TIME: 15:20 Hx of Present Illness This is a patient known to me 63-year-old female with a history of aortic valve replacement done by me in 2008 patient had been on Coumadin after the surgery patient has recently had left breast surgery anticoagulation was stopped prior to left breast surgery postoperatively the patient has had left surgical site breast bleeding has required 6 units of transfusion clinically she is now stable to Gerson-Russell in the left tissue appears to be dry no signs of any major bleeding in the left breast tissue appears to be soft with no significant hematoma she is currently being treated with heparin drip Last hemoglobin is 10.8 with PTT of 87 she appears to be weak but functional and able to ambulate minimal shortness of breath ENT: no complaints Respiratory: no complaints Cardiovascular: no complaints Gastrointestinal: no complaints Genitourinary: no complaints Musculoskeletal: no complaints Skin: no complaints Neurologic: no complaints Past Medical History Home Meds Reported Medications Lansoprazole* (Prevacid*) 15 Mg Capsule.dr, 15 MG PO DAILY, CAP 02/04/19 Atorvastatin Calcium* (Atorvastatin Calcium*) 20 Mg Tablet, 20 MG PO QHS, #30 TAB 02/04/19 Warfarin Sodium* (Coumadin*) 6 Mg Tablet, 6 MG PO DAILY, TAB 02/04/19 Medications Current Medications Cefazolin Sodium/ Dextrose 50 ml @ 100 mls/hr PRE-OP IVPB ; Start 02/04/19 at 08:30 Ondansetron HCl (Zofran Inj) 4 mg Q6H PRN IV NAUSEA AND/OR VOMITING Last administered on 02/11/19 21:45; Admin Dose 4 MG; Start 02/04/19 at 14:00 Pantoprazole (Protonix Tab) 40 mg DAILY@06 PO Last administered on 02/13/19 05:51; Admin Dose 40 MG; Start 02/07/19 at 06:00 Docusate Sodium (Colace) 200 mg DAILY PRN PO CONSTIPATION Last administered on 02/12/19 08:27; Admin Dose 200 MG; Start 02/06/19 at 14:00 Gabapentin (Neurontin) 200 mg TID PO Last administered on 02/13/19 12:35; Admin Dose 200 MG; Start 02/08/19 at 13:00 Piperacillin Sod/ Tazobactam Sod 100 ml @ 200 mls/hr Q6 IVPB Last administered on 02/13/19 12:35; Admin Dose 200 MLS/HR; Start 02/08/19 at 12:00 Cyclobenzaprine HCl (Flexeril) 10 mg Q12 PO Last administered on 02/13/19 09:20; Admin Dose 10 MG; Start 02/08/19 at 21:00 Acetaminophen (Tylenol Tab) 650 mg Q4H PRN PO MILD PAIN(1-3)OR ELEVATED TEMP Last administered on 02/13/19 01:09; Admin Dose 650 MG; Start 02/09/19 at 12:00 Saccharomyces Boulardii (Florastor) 250 mg BID PO Last administered on 02/13/19 09:19; Admin Dose 250 MG; Start 02/09/19 at 15:30 Magnesium Hydroxide (Milk Of Mag) 30 ml BID PRN PO CONSTIPATION Last administered on 02/12/19 08:27; Admin Dose 30 ML; Start 02/10/19 at 13:00 Heparin Sodium (Porcine) 250 ml @ 7 mls/hr PER PROTOCOL IV Last administered on 02/13/19 13:00; Admin Dose 10.41 MLS/HR; Start 02/10/19 at 21:00 Cholecalciferol (Vitamin D) 2,000 unit DAILY PO Last administered on 02/13/19 09:20; Admin Dose 2,000 UNIT; Start 02/11/19 at 11:00 Acetaminophen/ Hydrocodone Bitart ([place] (5/325)) 1 tab Q4H PRN PO MODERATE PAIN LEVEL 4-6; Start 02/11/19 at 17:00 Ketorolac Tromethamine (Toradol) 15 mg Q6H PRN IV PAIN Last administered on 02/13/19at 12:54; Admin Dose 15 MG; Start 02/11/19 at 21:30; Stop 02/14/19 at 21:29 Senna/Docusate Sodium (Senokot-S) 2 tab BID PO Last administered on 02/13/19at 09:21; Admin Dose 2 TAB; Start 02/12/19 at 21:00 Mineral Oil (Mineral Oil) 30 ml Q8 PO ; Start 02/12/19 at 16:30 Lubiprostone (Amitiza) 24 mcg BID PO ; Start 02/12/19 at 21:00 Heparin Sodium (Porcine) (Heparin (1000 Units/ml)) 3,500 unit PER PROTOCOL PRN IV aPTT<47; Start 02/12/19 at 17:30 Allergies: Coded Allergies: belladonna alkaloids (Verified Allergy, Mild, itching, swelling, 02/04/19) codeine (Verified Allergy, Mild, NUMBNESS OF HAND, EXTREME AGITATION, 02/04/19) hydrocodone (Verified Allergy, Unknown, itch, swelling, 02/04/19) aspirin (Verified Adverse Reaction, Mild, GASTRIC PROBLEMS, 02/04/19) Past Surgical History Status post aortic valve replacement by Dr. Yates 2008 with mechanical valve Past Surgical Hx: other Family History Significant Family History: no pertinent family hx Social History Alcohol Use: sober Smoking Status: Never smoker Exam/Review of Systems Exam Vitals Vital Signs Date Temp Pulse Resp B/P (MAP) Pulse Ox O2 O2 Flow FiO2 Time Delivery Rate 02/13/19 83 12:35 02/13/19 97.7 20 156/72 97 Room Air 11:40 (100) 02/13/19 2.0 07:40 Intake and Output 02/12/19 02/12/19 02/13/19 1515:00 23:00 07:00 IntakeIntake Total 285 ml 1118 ml 800 ml OutputOutput Total 2000 ml 1000 ml BalanceBalance 285 ml -882 ml -200 ml Eyes: nl conjunctiva, EOMI, nl lids, nl sclera, PERRL ENMT: nl external ears & nose, nl lips & teeth, nl nasal mucosa & septum Neck: supple, non-tender Respiratory: clear to auscultation, normal air movement Cardiovascular: regular rate and rhythm, nl pulses Gastrointestinal: soft, nl liver, spleen, non-tender Musculoskeletal: nl extremities to inspection, nl gait and stance Results Result Diagram: 02/13/19 1100 02/12/19 0542 Results 24hrs Laboratory Tests Test 02/12/19 16:05 02/12/19 16:10 02/12/19 20:47 02/13/19 03:29 Hemoglobin 10.7 #L 10.4 L Hematocrit 32.8 #L 31.9 L Activated 35.9 H 51.3 H 68.7 H Partial Thromboplast Time White Blood Count 6.8 Red Blood Count 3.58 #L Mean Corpuscular 89.1 Volume Mean Corpuscular 29.1 Hemoglobin Mean Corpuscular 32.6 Hemoglobin Concent Red Cell Distribution 13.8 Width Platelet Count 254 # Mean Platelet Volume 9.8 Immature Granulocytes 1.900 H % Neutrophils % 63.5 Lymphocytes % 19.6 Monocytes % 9.1 Eosinophils % 5.0 Basophils % 0.9 Nucleated Red Blood 0.3 H Cells % Immature Granulocytes 0.130 H # Neutrophils # 4.4 Lymphocytes # 1.3 Monocytes # 0.6 Eosinophils # 0.3 Basophils # 0.1 Nucleated Red Blood 0.0 Cells # Prothrombin Time 12.7 Prothrombin Time 1.0 Ratio INR International 0.94 Normalized Ratio Test 02/13/19 11:00 Hemoglobin 10.8 L Hematocrit 33.3 L Activated 87.0 *H Partial Thromboplast Time Medications Medication Current Medications Cefazolin Sodium/ Dextrose 50 ml @ 100 mls/hr PRE-OP IVPB ; Start 02/04/19 at 08:30 Ondansetron HCl (Zofran Inj) 4 mg Q6H PRN IV NAUSEA AND/OR VOMITING Last administered on 02/11/19at 21:45; Admin Dose 4 MG; Start 02/04/19 at 14:00 Pantoprazole (Protonix Tab) 40 mg DAILY@06 PO Last administered on 02/13/19at 05:51; Admin Dose 40 MG; Start 02/07/19 at 06:00 Docusate Sodium (Colace) 200 mg DAILY PRN PO CONSTIPATION Last administered on 02/12/19at 08:27; Admin Dose 200 MG; Start 02/06/19 at 14:00 Gabapentin (Neurontin) 200 mg TID PO Last administered on 02/13/19 12:35; Admin Dose 200 MG; Start 02/08/19 at 13:00 Piperacillin Sod/ Tazobactam Sod 100 ml @ 200 mls/hr Q6 IVPB Last administered on 02/13/19 12:35; Admin Dose 200 MLS/HR; Start 02/08/19 at 12:00 Cyclobenzaprine HCl (Flexeril) 10 mg Q12 PO Last administered on 02/13/19 09:20; Admin Dose 10 MG; Start 02/08/19 at 21:00 Acetaminophen (Tylenol Tab) 650 mg Q4H PRN PO MILD PAIN(1-3)OR ELEVATED TEMP Last administered on 02/13/19 01:09; Admin Dose 650 MG; Start 02/09/19 at 12:00 Saccharomyces Boulardii (Florastor) 250 mg BID PO Last administered on 02/13/19 09:19; Admin Dose 250 MG; Start 02/09/19 at 15:30 Magnesium Hydroxide (Milk Of Mag) 30 ml BID PRN PO CONSTIPATION Last administered on 02/12/19 08:27; Admin Dose 30 ML; Start 02/10/19 at 13:00 Heparin Sodium (Porcine) 250 ml @ 7 mls/hr PER PROTOCOL IV Last administered on 02/13/19 13:00; Admin Dose 10.41 MLS/HR; Start 02/10/19 at 21:00 Cholecalciferol (Vitamin D) 2,000 unit DAILY PO Last administered on 02/13/19 09:20; Admin Dose 2,000 UNIT; Start 02/11/19 at 11:00 Acetaminophen/ Hydrocodone Bitart ([place] (5/325)) 1 tab Q4H PRN PO MODERATE PAIN LEVEL 4-6; Start 02/11/19 at 17:00 Ketorolac Tromethamine (Toradol) 15 mg Q6H PRN IV PAIN Last administered on 02/13/19at 12:54; Admin Dose 15 MG; Start 02/11/19 at 21:30; Stop 02/14/19 at 21:29 Senna/Docusate Sodium (Senokot-S) 2 tab BID PO Last administered on 02/13/19at 09:21; Admin Dose 2 TAB; Start 02/12/19 at 21:00 Mineral Oil (Mineral Oil) 30 ml Q8 PO ; Start 02/12/19 at 16:30 Lubiprostone (Amitiza) 24 mcg BID PO ; Start 02/12/19 at 21:00 Heparin Sodium (Porcine) (Heparin (1000 Units/ml)) 3,500 unit PER PROTOCOL PRN IV aPTT<47; Start 02/12/19 at 17:30 ALICE YATES MD Feb 13, 2019 15:25
--- NOTE | 2019-02-13 15:49 | CONS ---
Consult Date/Type/Reason Admit Date/Time February 04, 2019 at 14:08 Initial Consult Date 02/13/19 Type of Consultation: Pulm Requesting Provider: LEYLA ZIEGLER MD Date/Time of Note DATE: 02/13/19 TIME: 15:42 Subjective No events. Appreciate input by CT surgery. Objective Vitals Vital Signs Date Temp Pulse Resp B/P (MAP) Pulse Ox O2 O2 Flow FiO2 Time Delivery Rate 02/13/19 83 12:35 02/13/19 97.7 20 156/72 97 Room Air 11:40 (100) 02/13/19 2.0 07:40 Intake and Output 02/12/19 02/12/19 02/13/19 1515:00 23:00 07:00 IntakeIntake Total 285 ml 1118 ml 800 ml OutputOutput Total 2000 ml 1000 ml BalanceBalance 285 ml -882 ml -200 ml Exam GENERAL: Well-nourished, well-developed lady, comfortable at rest, in no acute distress. NECK: Supple. No JVD or lymphadenopathy. CARDIAC: S1, S2. No added sounds or murmurs. CHEST: Diminished air entry at the bases. ABDOMEN: Soft, nontender. She has anterior KARY drain in place. EXTREMITIES: No cyanosis, clubbing or edema. NEUROLOGIC: Grossly intact. Results/Medications Result Diagram: 02/13/19 1100 02/12/19 0542 Results 24 hrs Laboratory Tests Test 02/12/19 16:05 02/12/19 16:10 02/12/19 20:47 02/13/19 03:29 Hemoglobin 10.7 #L 10.4 L Hematocrit 32.8 #L 31.9 L Activated 35.9 H 51.3 H 68.7 H Partial Thromboplast Time White Blood Count 6.8 Red Blood Count 3.58 #L Mean Corpuscular 89.1 Volume Mean Corpuscular 29.1 Hemoglobin Mean Corpuscular 32.6 Hemoglobin Concent Red Cell Distribution 13.8 Width Platelet Count 254 # Mean Platelet Volume 9.8 Immature Granulocytes 1.900 H % Neutrophils % 63.5 Lymphocytes % 19.6 Monocytes % 9.1 Eosinophils % 5.0 Basophils % 0.9 Nucleated Red Blood 0.3 H Cells % Immature Granulocytes 0.130 H # Neutrophils # 4.4 Lymphocytes # 1.3 Monocytes # 0.6 Eosinophils # 0.3 Basophils # 0.1 Nucleated Red Blood 0.0 Cells # Prothrombin Time 12.7 Prothrombin Time 1.0 Ratio INR International 0.94 Normalized Ratio Test 02/13/19 11:00 Hemoglobin 10.8 L Hematocrit 33.3 L Activated 87.0 *H Partial Thromboplast Time Home Meds Reported Medications Lansoprazole* (Prevacid*) 15 Mg Capsule.dr, 15 MG PO DAILY, CAP 02/04/19 Atorvastatin Calcium* (Atorvastatin Calcium*) 20 Mg Tablet, 20 MG PO QHS, #30 TAB 02/04/19 Warfarin Sodium* (Coumadin*) 6 Mg Tablet, 6 MG PO DAILY, TAB 02/04/19 Medications Current Medications Cefazolin Sodium/ Dextrose 50 ml @ 100 mls/hr PRE-OP IVPB ; Start 02/04/19 at 08:30 Ondansetron HCl (Zofran Inj) 4 mg Q6H PRN IV NAUSEA AND/OR VOMITING Last admin istered on 02/11/19at 21:45; Admin Dose 4 MG; Start 02/04/19 at 14:00 Pantoprazole (Protonix Tab) 40 mg DAILY@06 PO Last administered on 02/13/19 05:51; Admin Dose 40 MG; Start 02/07/19 at 06:00 Docusate Sodium (Colace) 200 mg DAILY PRN PO CONSTIPATION Last administered on 02/12/19 08:27; Admin Dose 200 MG; Start 02/06/19 at 14:00 Gabapentin (Neurontin) 200 mg TID PO Last administered on 02/13/19 12:35; Admin Dose 200 MG; Start 02/08/19 at 13:00 Piperacillin Sod/ Tazobactam Sod 100 ml @ 200 mls/hr Q6 IVPB Last administered on 02/13/19 12:35; Admin Dose 200 MLS/HR; Start 02/08/19 at 12:00 Cyclobenzaprine HCl (Flexeril) 10 mg Q12 PO Last administered on 02/13/19 09:20; Admin Dose 10 MG; Start 02/08/19 at 21:00 Acetaminophen (Tylenol Tab) 650 mg Q4H PRN PO MILD PAIN(1-3)OR ELEVATED TEMP Last administered on 02/13/19at 01:09; Admin Dose 650 MG; Start 02/09/19 at 12:00 Saccharomyces Boulardii (Florastor) 250 mg BID PO Last administered on 02/13/19 09:19; Admin Dose 250 MG; Start 02/09/19 at 15:30 Magnesium Hydroxide (Milk Of Mag) 30 ml BID PRN PO CONSTIPATION Last administered on 02/12/19 08:27; Admin Dose 30 ML; Start 02/10/19 at 13:00 Heparin Sodium (Porcine) 250 ml @ 7 mls/hr PER PROTOCOL IV Last administered on 02/13/19at 13:00; Admin Dose 10.41 MLS/HR; Start 02/10/19 at 21:00 Cholecalciferol (Vitamin D) 2,000 unit DAILY PO Last administered on 02/13/19 09:20; Admin Dose 2,000 UNIT; Start 02/11/19 at 11:00 Acetaminophen/ Hydrocodone Bitart ([place] (5/325)) 1 tab Q4H PRN PO MODERATE PAIN LEVEL 4-6; Start 02/11/19 at 17:00 Ketorolac Tromethamine (Toradol) 15 mg Q6H PRN IV PAIN Last administered on 02/13/19at 12:54; Admin Dose 15 MG; Start 02/11/19 at 21:30; Stop 02/14/19 at 21:29 Senna/Docusate Sodium (Senokot-S) 2 tab BID PO Last administered on 02/13/19 09:21; Admin Dose 2 TAB; Start 02/12/19 at 21:00 Mineral Oil (Mineral Oil) 30 ml Q8 PO ; Start 02/12/19 at 16:30 Lubiprostone (Amitiza) 24 mcg BID PO ; Start 02/12/19 at 21:00 Heparin Sodium (Porcine) (Heparin (1000 Units/ml)) 3,500 unit PER PROTOCOL PRN IV aPTT<47; Start 02/12/19 at 17:30 Assessment/Plan Assessment/Plan (Daily) IMP: 1. Hemoptysis, likely secondary to tracheobronchitis, on anticoagulation--now improved. No evidence of significant intraparenchymal abnormalities on CT chest. 2. +/- minimal spontaneous left hemothorax (very subtle finding on CT) 3. s/p AVR 4. s/p Breast surgery RECS: 1. Agree with heparin gtt for now 2. Follow H/H 3. Quantify all hemoptysis if it recurs. JOSÉ MIGUEL AMBROSE MD Feb 13, 2019 15:49
[2019-02-13] MEDS: ONDANSETRON 4 MG INJ IV PRN (18:54)
--- NOTE | 2019-02-13 21:51 | CONS ---
Assessment/Plan Assessment/Plan Hospital Course (Demo Recall) - post op fever, may be due to L breast hematoma - hematoma of L breast, possibly superimposed by infection - post-op anemia requiring PRBC - pain and swelling of L axilla, and L scapular region, associated with either the exuberant inflammation from L breast or underlying infection - h/o Invasive Breast CA - h/o L partial mastectomy and axillary lymph node dissection - h/o AVR, off anticoag - PAF recommendations: - still pending results: cultures of serosanguinous fluid in KARY drain (NGTD) - continue pip/tazo (02/08/19-); plan for 7-8 days (02/09/2019 or 02/13/2018). va ncomycin was discontinued (02/08/2019-02/11/2019) due to painful sensation in the UE management d/w Pt, TB's daughter.Dr. Dr. Royal yesterday Consultation Date/Type/Reason Admit Date/Time February 04, 2019 at 14:08 Initial Consult Date 02/08/19 Type of Consult ID Requesting Provider: LEYLA ZIEGLER MD Date/Time of Note DATE: 02/13/19 TIME: 21:44 24 HR Interval Summary Free Text/Dictation Ate fish for dinner and then developed nausea and emesis Constitutional: poor po Detailed Summary Eyes: no complaints ENT: other (epistaxis) Respiratory: no complaints Cardiovascular: no complaints Gastrointestinal: nausea, vomiting Genitourinary: no complaints Musculoskeletal: no complaints Skin: other (less swelling of the tissue surrounding the breast) Neurologic: no complaints Endocrine: no complaints Exam/Review of Systems Exam Vitals Vital Signs Date Temp Pulse Resp B/P (MAP) Pulse Ox O2 O2 Flow FiO2 Time Delivery Rate 02/13/19 98.5 85 18 150/68 98 20:35 (95) 02/13/19 Room Air 15:45 02/13/19 2.0 07:40 Intake and Output 02/12/19 02/12/19 02/13/19 1515:00 23:00 07:00 IntakeIntake Total 285 ml 1118 ml 800 ml OutputOutput Total 2000 ml 1000 ml BalanceBalance 285 ml -882 ml -200 ml Constitutional: frail Psych: no complaints, nl mood/affect Head: normocephalic, atraumatic Eyes: nl conjunctiva, nl lids, nl sclera ENMT: nl external ears & nose, nl nasal mucosa & septum, mucosa pink and moist Neck: non-tender Respiratory: clear to auscultation, normal air movement Cardiovascular: regular rate and rhythm, nl pulses Gastrointestinal: soft, non-tender, surgical scars; No distended, No tender Musculoskeletal: nl extremities to inspection Extremities: No edema Neurological: [employer] SCOUT II-XII intact, nl mental status Skin: nl turgor (skin surrounding L breast, L shoulder and L scapular space are all NGT) Results Result Diagram: 02/13/19 1918 02/12/19 0542 Results 24hrs Laboratory Tests Test 02/13/19 03:29 02/13/19 11:00 02/13/19 19:18 White Blood Count 6.8 Red Blood Count 3.58 #L Hemoglobin 10.4 L 10.8 L 10.6 L Hematocrit 31.9 L 33.3 L 32.6 L Mean Corpuscular Volume 89.1 Mean Corpuscular Hemoglobin 29.1 Mean Corpuscular Hemoglobin Concent 32.6 Red Cell Distribution Width 13.8 Platelet Count 254 # Mean Platelet Volume 9.8 Immature Granulocytes % 1.900 H Neutrophils % 63.5 Lymphocytes % 19.6 Monocytes % 9.1 Eosinophils % 5.0 Basophils % 0.9 Nucleated Red Blood Cells % 0.3 H Immature Granulocytes # 0.130 H Neutrophils # 4.4 Lymphocytes # 1.3 Monocytes # 0.6 Eosinophils # 0.3 Basophils # 0.1 Nucleated Red Blood Cells # 0.0 Prothrombin Time 12.7 Prothrombin Time Ratio 1.0 INR International Normalized Ratio 0.94 Activated Partial Thromboplast Time 68.7 H 87.0 *H 81.3 *H Medications Medication Current Medications Cefazolin Sodium/ Dextrose 50 ml @ 100 mls/hr PRE-OP IVPB ; Start 02/04/19 at 08:30 Ondansetron HCl (Zofran Inj) 4 mg Q6H PRN IV NAUSEA AND/OR VOMITING Last administered on 02/13/19at 18:54; Admin Dose 4 MG; Start 02/04/19 at 14:00 Pantoprazole (Protonix Tab) 40 mg DAILY@06 PO Last administered on 02/13/19at 05:51; Admin Dose 40 MG; Start 02/07/19 at 06:00 Docusate Sodium (Colace) 200 mg DAILY PRN PO CONSTIPATION Last administered on 02/12/19 08:27; Admin Dose 200 MG; Start 02/06/19 at 14:00 Gabapentin (Neurontin) 200 mg TID PO Last administered on 02/13/19 12:35; Admin Dose 200 MG; Start 02/08/19 at 13:00 Piperacillin Sod/ Tazobactam Sod 100 ml @ 200 mls/hr Q6 IVPB Last administered on 02/13/19 18:53; Admin Dose 200 MLS/HR; Start 02/08/19 at 12:00 Cyclobenzaprine HCl (Flexeril) 10 mg Q12 PO Last administered on 02/13/19 09:20; Admin Dose 10 MG; Start 02/08/19 at 21:00 Acetaminophen (Tylenol Tab) 650 mg Q4H PRN PO MILD PAIN(1-3)OR ELEVATED TEMP Last administered on 02/13/19 01:09; Admin Dose 650 MG; Start 02/09/19 at 12:00 Saccharomyces Boulardii (Florastor) 250 mg BID PO Last administered on 02/13/19 09:19; Admin Dose 250 MG; Start 02/09/19 at 15:30 Magnesium Hydroxide (Milk Of Mag) 30 ml BID PRN PO CONSTIPATION Last administered on 02/12/19 08:27; Admin Dose 30 ML; Start 02/10/19 at 13:00 Heparin Sodium (Porcine) 250 ml @ 7 mls/hr PER PROTOCOL IV Last administered on 02/13/19 13:00; Admin Dose 10.41 MLS/HR; Start 02/10/19 at 21:00 Cholecalciferol (Vitamin D) 2,000 unit DAILY PO Last administered on 02/13/19 09:20; Admin Dose 2,000 UNIT; Start 02/11/19 at 11:00 Acetaminophen/ Hydrocodone Bitart ([place] (5/325)) 1 tab Q4H PRN PO MODERATE PAIN LEVEL 4-6; Start 02/11/19 at 17:00 Ketorolac Tromethamine (Toradol) 15 mg Q6H PRN IV PAIN Last administered on 12:54; Admin Dose 15 MG; Start 02/11/19 at 21:30; Stop 02/14/19 at 21:29 Senna/Docusate Sodium (Senokot-S) 2 tab BID PO Last administered on 02/13/19at 09:21; Admin Dose 2 TAB; Start 02/12/19 at 21:00 Mineral Oil (Mineral Oil) 30 ml Q8 PO ; Start 02/12/19 at 16:30 Lubiprostone (Amitiza) 24 mcg BID PO ; Start 02/12/19 at 21:00 Heparin Sodium (Porcine) (Heparin (1000 Units/ml)) 3,500 unit PER PROTOCOL PRN IV aPTT<47; Start 02/12/19 at 17:30 CARLA MONTEZ M.D. Feb 13, 2019 21:51
--- NOTE | 2019-02-13 21:59 | PN ---
DATE: 02/13/2019 SUBJECTIVE: Feels better today. Has been out of bed, walking around her room with the help from her sister. She has had bowel movement x2 today. No diarrhea. No nausea, no vomiting. Has tolerated diet. OBJECTIVE: GENERAL: Awake and alert. VITAL SIGNS: Temperature maximum today 98.1, heart rate 78, regular rhythm, respirations 20, blood p ressure 158/85, saturation 95% on room air. LABORATORY DATA: WBC today is 6800 with 63% segmented, which is normal differential, hemoglobin at 5 :40 a.m. yesterday was 7.7 and hematocrit 23.9. The patient received 1 unit of blood transfusion, an d since then, the hemoglobin has ranged up to 10.8, hematocrit 33.3 and has been stable; this figure is the last figure at 11:00 today. We will continue checking H and H q.12 hours. It appears that oo zing and bleeding has stopped. The patient is on heparin IV drip, which is about 1041 unit per hour. The cardiology has seen the patient, has had adjusted the dose of heparin . CLINICAL EXAM: HEART: Regular. LUNGS: Clear. Decreased breathing sound at bases, most on the left side. The patient can move and raised the left upper extremity, almost in full range though very slowly. CHEST WALL: Left side swelling and hematoma appears to be stable and not increased comparing in the past [address] scan has been performed per request of one of the colleagues and does not show any abnor mality. The patient is on antibiotic per infectious disease colleague recommendation. ASSESSMENT: A 63-year-old female postop day #1, status post left breast and left partial mastectomy with axillary dissection. Postop, the patient developed hematoma. Of course, the patient had been s tarted on Lovenox and Coumadin in regard to the aortic valve replacement that the patient had some ye ars ago. At this time, traffic operator, infectious disease, general medicine and general surgery are fo llowing. We requested Dr. Yates, who did the surgery of the aortic to see the patient in consult ation in regard to this matter. PLAN: Continue current care. Encouraged to be out of bed and try to walk around. Continue heparin drip as per calculation recommendation of traffic operator. Again, there is no plan for surgical interve ntion to evacuate these hematomas. Expecting liquification and hopefully absorption gradually. Disc ussed with the patient's sister and family around the bed. In regard to the pain, the patient is lev el 12/23 and the patient is only on gabapentin, and today only has required 1 dose of Toradol 15 mg IV and of course Flexeril 10 mg b.i.d. Dictated By: ALFONSO CONTRERAS MD PS/NTS Conf#: [id number] DID#: [id number] CC: LEYLA ZIEGLER MD; MAIA HINOJOSA MD;*EndCC*
--- NOTE | 2019-02-13 22:57 | CONS ---
Assessment/Plan Assessment/Plan Hospital Course (Demo Recall) revised assessment - post op fever, may be due to L breast hematoma - hematoma of L breast, its culture was negative - post-op anemia requiring PRBC - pain and swelling of L axilla, and L scapular region, associated with either the exuberant inflammation from L breast or underlying infection - h/o Invasive Breast CA - h/o L partial mastectomy and axillary lymph node dissection - h/o AVR, off anticoag - PAF revised recommendations: - I recommend pip/tazo (02/08/19-) x 7 days through 02/14/2019. vancomycin was discontinued (02/08/2019-02/11/2019) due to painful sensation in the UE management d/w Pt, Pt's daughter, NAVIN Church. d/w Dr. Royal yesterday Consultation Date/Type/Reason Admit Date/Time February 04, 2019 at 14:08 Initial Consult Date 02/08/19 Type of Consult ID Requesting Provider: LEYLA ZIEGLER MD Date/Time of Note DATE: 02/13/19 TIME: 22:49 Exam/Review of Systems Exam Vitals Vital Signs Date Temp Pulse Resp B/P (MAP) Pulse Ox O2 O2 Flow FiO2 Time Delivery Rate 02/13/19 98.5 85 18 150/68 98 20:35 (95) 02/13/19 Room Air 15:45 02/13/19 2.0 07:40 Intake and Output 02/12/19 02/12/19 02/13/19 1515:00 23:00 07:00 IntakeIntake Total 285 ml 1118 ml 800 ml OutputOutput Total 2000 ml 1000 ml BalanceBalance 285 ml -882 ml -200 ml Results Result Diagram: 02/13/19 1918 02/12/19 0542 Results 24hrs Laboratory Tests Test 02/13/19 03:29 02/13/19 11:00 02/13/19 19:18 White Blood Count 6.8 Red Blood Count 3.58 #L Hemoglobin 10.4 L 10.8 L 10.6 L Hematocrit 31.9 L 33.3 L 32.6 L Mean Corpuscular Volume 89.1 Mean Corpuscular Hemoglobin 29.1 Mean Corpuscular Hemoglobin Concent 32.6 Red Cell Distribution Width 13.8 Platelet Count 254 # Mean Platelet Volume 9.8 Immature Granulocytes % 1.900 H Neutrophils % 63.5 Lymphocytes % 19.6 Monocytes % 9.1 Eosinophils % 5.0 Basophils % 0.9 Nucleated Red Blood Cells % 0.3 H Immature Granulocytes # 0.130 H Neutrophils # 4.4 Lymphocytes # 1.3 Monocytes # 0.6 Eosinophils # 0.3 Basophils # 0.1 Nucleated Red Blood Cells # 0.0 Prothrombin Time 12.7 Prothrombin Time Ratio 1.0 INR International Normalized Ratio 0.94 Activated Partial Thromboplast Time 68.7 H 87.0 *H 81.3 *H Medications Medication Current Medications Cefazolin Sodium/ Dextrose 50 ml @ 100 mls/hr PRE-OP IVPB ; Start 02/04/19 at 08:30 Ondansetron HCl (Zofran Inj) 4 mg Q6H PRN IV NAUSEA AND/OR VOMITING Last administered on 02/13/19 18:54; Admin Dose 4 MG; Start 02/04/19 at 14:00 Pantoprazole (Protonix Tab) 40 mg DAILY@06 PO Last administered on 02/13/19 05:51; Admin Dose 40 MG; Start 02/07/19 at 06:00 Docusate Sodium (Colace) 200 mg DAILY PRN PO CONSTIPATION Last administered on 02/12/19 08:27; Admin Dose 200 MG; Start 02/06/19 at 14:00 Gabapentin (Neurontin) 200 mg TID PO Last administered on 02/13/19 22:10; Admin Dose 200 MG; Start 02/08/19 at 13:00 Piperacillin Sod/ Tazobactam Sod 100 ml @ 200 mls/hr Q6 IVPB Last administered on 02/13/19 18:53; Admin Dose 200 MLS/HR; Start 02/08/19 at 12:00 Cyclobenzaprine HCl (Flexeril) 10 mg Q12 PO Last administered on 02/13/19 22:09; Admin Dose 10 MG; Start 02/08/19 at 21:00 Acetaminophen (Tylenol Tab) 650 mg Q4H PRN PO MILD PAIN(1-3)OR ELEVATED TEMP Last administered on 02/13/19 22:14; Admin Dose 650 MG; Start 02/09/19 at 12:00 Saccharomyces Boulardii (Florastor) 250 mg BID PO Last administered on 02/13/19 22:10; Admin Dose 250 MG; Start 02/09/19 at 15:30 Magnesium Hydroxide (Milk Of Mag) 30 ml BID PRN PO CONSTIPATION Last administered on 02/12/19 08:27; Admin Dose 30 ML; Start 02/10/19 at 13:00 Heparin Sodium (Porcine) 250 ml @ 7 mls/hr PER PROTOCOL IV Last administered on 02/13/19 22:07; Admin Dose 10 MLS/HR; Start 02/10/19 at 21:00 Cholecalciferol (Vitamin D) 2,000 unit DAILY PO Last administered on 02/13/19 09:20; Admin Dose 2,000 UNIT; Start 02/11/19 at 11:00 Acetaminophen/ Hydrocodone Bitart ([place] (5/325)) 1 tab Q4H PRN PO MODERATE PAIN LEVEL 4-6; Start 02/11/19 at 17:00 Ketorolac Tromethamine (Toradol) 15 mg Q6H PRN IV PAIN Last administered on 02/13/19at 12:54; Admin Dose 15 MG; Start 02/11/19 at 21:30; Stop 02/14/19 at 21:29 Senna/Docusate Sodium (Senokot-S) 2 tab BID PO Last administered on 02/13/19 22:09; Admin Dose 2 TAB; Start 02/12/19 at 21:00 Mineral Oil (Mineral Oil) 30 ml Q8 PO ; Start 02/12/19 at 16:30 Lubiprostone (Amitiza) 24 mcg BID PO Last administered on 02/13/19 22:09; Admin Dose 24 MCG; Start 02/12/19 at 21:00 Heparin Sodium (Porcine) (Heparin (1000 Units/ml)) 3,500 unit PER PROTOCOL PRN IV aPTT<47; Start 02/12/19 at 17:30 CARLA MONTEZ M.D. Feb 13, 2019 22:57
[2019-02-14] VITALS (12 sets, daily range): BP systolic 122–157; BP diastolic 56–86; PULSE 67–76; RESP 18–20
[2019-02-14] MEDS: PIPER-TAZO 3.375 GM IV (PMX) 100 ML IVPB SCH ×4 (00:08→17:45)
[2019-02-14] MEDS: ACETAMINOPHEN 325 MG TAB PO PRN ×3 (04:35→23:28)
[2019-02-14] MEDS: MINERAL OIL 30ML CUP PO SCH ×2 (06:00→13:01)
[2019-02-14] MEDS: PANTOPRAZOLE (EC) 40 MG TAB PO SCH (06:09)
[2019-02-14] MEDS: HEPARIN 25000 UNITS/250 ML 250 ML IV SCH ×3 (07:18→19:22)
[2019-02-14] MEDS: CHOLECALCIFEROL 2,000 UNIT CAP PO SCH (08:19)
[2019-02-14] MEDS: CYCLOBENZAPRINE 10 MG TAB PO SCH ×2 (08:19→20:49)
[2019-02-14] MEDS: SACCHAROMYCES BOULARDII 250 MG CAP PO SCH ×2 (08:19→20:49)
[2019-02-14] MEDS: GABAPENTIN 100 MG CAP PO SCH ×3 (08:19→20:49)
[2019-02-14] MEDS: SENNA/DOCUSATE NA (8.6MG/50MG) TAB PO SCH (08:20)
[2019-02-14] MEDS: LUBIPROSTONE 24 MCG CAP PO SCH (08:20)
--- NOTE | 2019-02-14 09:04 | CONS ---
Consultation Date/Type/Reason Admit Date/Time February 04, 2019 at 14:08 Initial Consult Date 02/13/19 Type of Consult Cardiology Requesting Provider: LEYLA ZIEGLER MD Date/Time of Note DATE: 02/14/19 TIME: 09:03 24 HR Interval Summary Free Text/Dictation Status post breast surgery 02/04/2019 Mechanical aortic valve replacement Paroxysmal atrial fibrillation, currently sinus rhythm Acute blood loss anemia Patient currently on IV heparin, hemoglobin trending upward start coumadin if surgery agrees continue Heparin until INR > 2 Exam/Review of Systems Vital Signs Vitals Vital Signs Date Temp Pulse Resp B/P (MAP) Pulse Ox O2 O2 Flow FiO2 Time Delivery Rate 02/14/19 73 08:13 02/14/19 98.0 20 157/86 98 Room Air 07:05 (109) 02/13/19 2.0 20:00 Intake and Output 02/13/19 02/13/19 02/14/19 1515:00 23:00 07:00 IntakeIntake Total 642 ml 180 ml OutputOutput Total 1800 ml BalanceBalance -1158 ml 180 ml Exam Constitutional: alert, oriented Respiratory: clear to auscultation Cardiovascular: regular rate and rhythm (metallic click) Skin: ecchymosis (ecchymosis exteniding around back) Labs Result Diagram: 02/14/19 0432 02/12/19 0542 Results 24hrs Laboratory Tests Test 02/13/19 11:00 02/13/19 19:18 02/14/19 04:32 Hemoglobin 10.8 L 10.6 L 11.3 L Hematocrit 33.3 L 32.6 L 35.3 L Activated Partial Thromboplast Time 87.0 *H 81.3 *H 68.5 H Prothrombin Time 12.7 Prothrombin Time Ratio 1.0 INR International Normalized Ratio 0.94 Medications Medications Current Medications Cefazolin Sodium/ Dextrose 50 ml @ 100 mls/hr PRE-OP IVPB ; Start 02/04/19 at 08:30 Ondansetron HCl (Zofran Inj) 4 mg Q6H PRN IV NAUSEA AND/OR VOMITING Last administered on 02/13/19at 18:54; Admin Dose 4 MG; Start 02/04/19 at 14:00 Pantoprazole (Protonix Tab) 40 mg DAILY@06 PO Last administered on 02/14/19at 06:09; Admin Dose 40 MG; Start 02/07/19 at 06:00 Docusate Sodium (Colace) 200 mg DAILY PRN PO CONSTIPATION Last administered on 02/12/19 08:27; Admin Dose 200 MG; Start 02/06/19 at 14:00 Gabapentin (Neurontin) 200 mg TID PO Last administered on 02/14/19 08:19; Admin Dose 200 MG; Start 02/08/19 at 13:00 Piperacillin Sod/ Tazobactam Sod 100 ml @ 200 mls/hr Q6 IVPB Last administered on 02/14/19 06:09; Admin Dose 200 MLS/HR; Start 02/08/19 at 12:00 Cyclobenzaprine HCl (Flexeril) 10 mg Q12 PO Last administered on 02/14/19 08:19; Admin Dose 10 MG; Start 02/08/19 at 21:00 Acetaminophen (Tylenol Tab) 650 mg Q4H PRN PO MILD PAIN(1-3)OR ELEVATED TEMP Last administered on 02/14/19 04:35; Admin Dose 650 MG; Start 02/09/19 at 12:00 Saccharomyces Boulardii (Florastor) 250 mg BID PO Last administered on 02/14/19 08:19; Admin Dose 250 MG; Start 02/09/19 at 15:30 Magnesium Hydroxide (Milk Of Mag) 30 ml BID PRN PO CONSTIPATION Last administered on 02/12/19 08:27; Admin Dose 30 ML; Start 02/10/19 at 13:00 Heparin Sodium (Porcine) 250 ml @ 7 mls/hr PER PROTOCOL IV Last administered on 02/14/19 07:18; Admin Dose 10 MLS/HR; Start 02/10/19 at 21:00 Cholecalciferol (Vitamin D) 2,000 unit DAILY PO Last administered on 02/14/19 08:19; Admin Dose 2,000 UNIT; Start 02/11/19 at 11:00 Acetaminophen/ Hydrocodone Bitart ([place] (5/325)) 1 tab Q4H PRN PO MODERATE PAIN LEVEL 4-6; Start 02/11/19 at 17:00 Ketorolac Tromethamine (Toradol) 15 mg Q6H PRN IV PAIN Last administered on 02/13/19at 12:54; Admin Dose 15 MG; Start 02/11/19 at 21:30; Stop 02/14/19 at 21:29 Senna/Docusate Sodium (Senokot-S) 2 tab BID PO Last administered on 02/13/19at 22:09; Admin Dose 2 TAB; Start 02/12/19 at 21:00 Mineral Oil (Mineral Oil) 30 ml Q8 PO ; Start 02/12/19 at 16:30 Lubiprostone (Amitiza) 24 mcg BID PO Last administered on 02/13/19at 22:09; Admin Dose 24 MCG; Start 02/12/19 at 21:00 Heparin Sodium (Porcine) (Heparin (1000 Units/ml)) 3,500 unit PER PROTOCOL PRN IV aPTT<47; Start 02/12/19 at 17:30 SEVERIANO GARCIA MD Feb 14, 2019 09:04
--- NOTE | 2019-02-14 10:27 | PN ---
Date/Time of Note Date/Time of Note DATE: 02/14/19 TIME: 10:26 Assessment/Plan VTE Prophylaxis Risk score (from Ns)>0 risk: 13 SCD applied (from Ns): Yes Pharmacological prophylaxis: LMWH Lines/Catheters IV Catheter Type (from [facility] Peripheral IV Assessment/Plan Hospital Course Hypokalemia- replace K ; bmp AM -Left breast cancer, status post left partial mastectomy by Dr. Diaz. -Postoperative hematomas in left breast and left axillary region. -Postoperative fever, continue antibiotics per ID. Dr. Srinivasan is following in infection disease consultation. -Paroxysmal atrial fibrillation. -Mechanical aortic valve replacement secondary to aortic insufficiency. Dr. Hicks is following in cardiology consultation. Started on heparin drip. -Anemia of acute blood loss, continue to monitor H&H, will transfuse as needed. -Vitamin D deficiency, started on supplement. Result Diagram: 02/14/19 0432 02/12/19 0542 Results 24hrs Laboratory Tests Test 02/13/19 11:00 02/13/19 19:18 02/14/19 04:32 Hemoglobin 10.8 L 10.6 L 11.3 L Hematocrit 33.3 L 32.6 L 35.3 L Activated Partial Thromboplast Time 87.0 *H 81.3 *H 68.5 H Prothrombin Time 12.7 Prothrombin Time Ratio 1.0 INR International Normalized Ratio 0.94 Subjective 24 Hr Interval Summary Free Text/Dictation Patient has pain related to breast surgery but is controlled Exam/Review of Systems Exam Vitals Vital Signs Date Temp Pulse Resp B/P (MAP) Pulse Ox O2 O2 Flow FiO2 Time Delivery Rate 02/14/19 73 08:13 02/14/19 98.0 20 157/86 98 Room Air 07:05 (109) 02/13/19 2.0 20:00 Intake and Output 02/13/19 02/13/19 02/14/19 1515:00 23:00 07:00 IntakeIntake Total 642 ml 180 ml OutputOutput Total 1800 ml BalanceBalance -1158 ml 180 ml Constitutional: well developed Head: normocephalic, atraumatic Neck: supple Respiratory: clear to auscultation Cardiovascular: regular rate and rhythm Gastrointestinal: soft, non-tender Extremities: normal pulses Results Results 24hrs Laboratory Tests Test 02/13/19 11:00 02/13/19 19:18 02/14/19 04:32 Hemoglobin 10.8 L 10.6 L 11.3 L Hematocrit 33.3 L 32.6 L 35.3 L Activated Partial Thromboplast Time 87.0 *H 81.3 *H 68.5 H Prothrombin Time 12.7 Prothrombin Time Ratio 1.0 INR International Normalized Ratio 0.94 Medications Medication Current Medications Cefazolin Sodium/ Dextrose 50 ml @ 100 mls/hr PRE-OP IVPB ; Start 02/04/19 at 08:30 Ondansetron HCl (Zofran Inj) 4 mg Q6H PRN IV NAUSEA AND/OR VOMITING Last administered on 02/13/19 18:54; Admin Dose 4 MG; Start 02/04/19 at 14:00 Pantoprazole (Protonix Tab) 40 mg DAILY@06 PO Last administered on 02/14/19 06:09; Admin Dose 40 MG; Start 02/07/19 at 06:00 Docusate Sodium (Colace) 200 mg DAILY PRN PO CONSTIPATION Last administered on 02/12/19 08:27; Admin Dose 200 MG; Start 02/06/19 at 14:00 Gabapentin (Neurontin) 200 mg TID PO Last administered on 02/14/19 08:19; Admin Dose 200 MG; Start 02/08/19 at 13:00 Piperacillin Sod/ Tazobactam Sod 100 ml @ 200 mls/hr Q6 IVPB Last administered on 02/14/19 06:09; Admin Dose 200 MLS/HR; Start 02/08/19 at 12:00 Cyclobenzaprine HCl (Flexeril) 10 mg Q12 PO Last administered on 02/14/19 08:19; Admin Dose 10 MG; Start 02/08/19 at 21:00 Acetaminophen (Tylenol Tab) 650 mg Q4H PRN PO MILD PAIN(1-3)OR ELEVATED TEMP Last administered on 02/14/19 04:35; Admin Dose 650 MG; Start 02/09/19 at 12:00 Saccharomyces Boulardii (Florastor) 250 mg BID PO Last administered on 02/14/19 08:19; Admin Dose 250 MG; Start 02/09/19 at 15:30 Magnesium Hydroxide (Milk Of Mag) 30 ml BID PRN PO CONSTIPATION Last administered on 5/31/19at 08:27; Admin Dose 30 ML; Start 02/10/19 at 13:00 Heparin Sodium (Porcine) 250 ml @ 7 mls/hr PER PROTOCOL IV Last administered on 02/14/19 07:18; Admin Dose 10 MLS/HR; Start 02/10/19 at 21:00 Cholecalciferol (Vitamin D) 2,000 unit DAILY PO Last administered on 02/14/19 08:19; Admin Dose 2,000 UNIT; Start 02/11/19 at 11:00 Acetaminophen/ Hydrocodone Bitart ([place] (5/325)) 1 tab Q4H PRN PO MODERATE PAIN LEVEL 4-6; Start 02/11/19 at 17:00 Ketorolac Tromethamine (Toradol) 15 mg Q6H PRN IV PAIN Last administered on 02/13/19at 12:54; Admin Dose 15 MG; Start 02/11/19 at 21:30; Stop 02/14/19 at 21:29 Senna/Docusate Sodium (Senokot-S) 2 tab BID PO Last administered on 02/13/19 22:09; Admin Dose 2 TAB; Start 02/12/19 at 21:00 Mineral Oil (Mineral Oil) 30 ml Q8 PO ; Start 02/12/19 at 16:30 Lubiprostone (Amitiza) 24 mcg BID PO Last administered on 02/13/19at 22:09; Admin Dose 24 MCG; Start 02/12/19 at 21:00 Heparin Sodium (Porcine) (Heparin (1000 Units/ml)) 3,500 unit PER PROTOCOL PRN IV aPTT<47; Start 02/12/19 at 17:30 ELSY DOUGLAS Feb 14, 2019 10:27
--- NOTE | 2019-02-14 17:32 | PN ---
DATE: 02/14/2019 Status post left partial mastectomy and axillary dissection sentinel lymph node technique. The patie nt also is status post bleeding and hematoma formation in the wound secondary to restarting the patie nt on blood thinner that she was on it before operation for protection of the aortic valve, which has been replaced years ago. SUBJECTIVE: States that feels much better today. Has tolerated food very well. Has had several bow el movements actually diarrhea because she is getting too many stool softener and I am going to stop them. OBJECTIVE: GENERAL: Awake, alert, oriented. VITAL SIGNS: Temperature maximum today 98, heart rate 72, respirations 19, blood pressure 122/56, sa turation 96% on 2-liter nasal cannula. HEART: Regular. LUNGS: Clear. ABDOMEN: Soft. SKIN: Chest wall dressing is intact. Wound was examined. Swelling in the anterior chest left side has not increased, but slightly decreased compared to other days. Also, the hematoma in the left axi llary and left lateral chest wall, lateral to the pectoralis major muscle has not increased in size. It is getting softer and getting more consistency of having fluctuation. It probably is getting liq uified. The drain still is in place, but is not draining that much. LABORATORY DATA: Hemoglobin is 11.3, hematocrit 35.3 and appears that for the past 36 hours or so, t he hemoglobin and hematocrit have stayed stable. No drop. Chemistry: Sodium 149, potassium 3.4, BU N, creatinine normal. PLAN: Continue current care apparently per order of the inspector elevators. They have started patient david k on Coumadin, but we will continue heparin as a bridge until Coumadin therapeutic level is reached. From a general surgical point of view, we do not have any plan for any surgical intervention. We wi ll continue to observe and follow. Dictated By: ALFONSO CONTRERAS MD PS/NTS Conf#: [id number] DID#: [id number] CC: LEYLA ZIEGLER MD; MAIA HINOJOSA MD;*EndCC*
--- NOTE | 2019-02-14 17:36 | CONS ---
DATE OF ADMISSION: 02/04/2019 DATE OF CONSULTATION: SUBJECTIVE: The patient has a good bowel movement. There is no black-colored stool. Appetite is go od. OBJECTIVE: VITAL SIGNS: Stable. ABDOMEN: Benign. LUNGS: Clear. EXTREMITIES: No edema. CENTRAL NERVOUS SYSTEM: Grossly within normal limits. IMPRESSION: 1. Status post surgery, left-sided mastectomy for a left breast cancer. 2. Postoperative hematoma at the site of surgery now the drain has been in place. 3. Status post 6 units of packed cell RBC transfusion. 4. Chronic constipation, which has improved with Amitiza. 5. Mechanical aortic valve replacement. The patient is on heparin for that. 6. Paroxysmal atrial fibrillation. PLAN: At this point, we will make Amitiza p.r.n. because the patient is having multiple bowel moveme nts. Her hematocrit has remained stable, so there is no further bleeding. Continue postoperative ca re. Dictated By: TONIA SANTANA MD PJ/NTS Conf#: [id number] DID#: [id number] CC: MAIA HINOJOSA MD;*EndCC*
[2019-02-14] MEDS: WARFARIN 3 MG TAB PO SCH (17:45)
--- NOTE | 2019-02-14 22:17 | CONS ---
Consult Date/Type/Reason Admit Date/Time February 04, 2019 at 14:08 Initial Consult Date 02/13/19 Type of Consultation: Pulm Requesting Provider: LEYLA ZIEGLER MD Date/Time of Note DATE: 02/14/19 TIME: 22:16 Subjective No events. H/H remained stable. Objective Vitals Vital Signs Date Temp Pulse Resp B/P (MAP) Pulse Ox O2 O2 Flow FiO2 Time Delivery Rate 02/14/19 97.9 73 18 155/77 97 20:27 (103) 02/14/19 Room Air 15:05 02/14/19 2.0 08:00 Intake and Output 02/13/19 02/13/19 02/14/19 1515:00 23:00 07:00 IntakeIntake Total 642 ml 180 ml OutputOutput Total 1800 ml BalanceBalance -1158 ml 180 ml Exam GENERAL: Well-nourished, well-developed lady, comfortable at rest, in no acute distress. NECK: Supple. No JVD or lymphadenopathy. CARDIAC: S1, S2. No added sounds or murmurs. CHEST: Diminished air entry at the bases. ABDOMEN: Soft, nontender. She has anterior KARY drain in place. EXTREMITIES: No cyanosis, clubbing or edema. NEUROLOGIC: Grossly intact. Results/Medications Result Diagram: 02/14/19 1745 02/12/19 0542 Results 24 hrs Laboratory Tests Test 02/14/19 04:32 02/14/19 10:03 02/14/19 17:45 Hemoglobin 11.3 L 11.2 L Hematocrit 35.3 L 35.2 L Prothrombin Time 12.7 Prothrombin Time Ratio 1.0 INR International Normalized Ratio 0.94 Activated Partial Thromboplast Time 68.5 H 79.3 *H 65.9 H Home Meds Reported Medications Lansoprazole* (Prevacid*) 15 Mg Capsule.dr, 15 MG PO DAILY, CAP 02/04/19 Atorvastatin Calcium* (Atorvastatin Calcium*) 20 Mg Tablet, 20 MG PO QHS, #30 TAB 02/04/19 Warfarin Sodium* (Coumadin*) 6 Mg Tablet, 6 MG PO DAILY, TAB 02/04/19 Medications Current Medications Cefazolin Sodium/ Dextrose 50 ml @ 100 mls/hr PRE-OP IVPB ; Start 02/04/19 at 08:30 Ondansetron HCl (Zofran Inj) 4 mg Q6H PRN IV NAUSEA AND/OR VOMITING Last administered on 02/13/19 18:54; Admin Dose 4 MG; Start 02/04/19 at 14:00 Pantoprazole (Protonix Tab) 40 mg DAILY@06 PO Last administered on 02/14/19 06:09; Admin Dose 40 MG; Start 02/07/19 at 06:00 Docusate Sodium (Colace) 200 mg DAILY PRN PO CONSTIPATION Last administered on 02/12/19 08:27; Admin Dose 200 MG; Start 02/06/19 at 14:00 Gabapentin (Neurontin) 200 mg TID PO Last administered on 02/14/19 20:49; Admin Dose 200 MG; Start 02/08/19 at 13:00 Piperacillin Sod/ Tazobactam Sod 100 ml @ 200 mls/hr Q6 IVPB Last administered on 02/14/19 17:45; Admin Dose 200 MLS/HR; Start 02/08/19 at 12:00 Acetaminophen (Tylenol Tab) 650 mg Q4H PRN PO MILD PAIN(1-3)OR ELEVATED TEMP Last administered on 02/14/19 17:47; Admin Dose 650 MG; Start 02/09/19 at 12:00 Saccharomyces Boulardii (Florastor) 250 mg BID PO Last administered on 02/14/19 20:49; Admin Dose 250 MG; Start 02/09/19 at 15:30 Magnesium Hydroxide (Milk Of Mag) 30 ml BID PRN PO CONSTIPATION Last administered on 02/12/19 08:27; Admin Dose 30 ML; Start 02/10/19 at 13:00 Heparin Sodium (Porcine) 250 ml @ 7 mls/hr PER PROTOCOL IV Last administered on 02/14/19 19:22; Admin Dose 9 MLS/HR; Start 02/10/19 at 21:00 Cholecalciferol (Vitamin D) 2,000 unit DAILY PO Last administered on 02/14/19 08:19; Admin Dose 2,000 UNIT; Start 02/11/19 at 11:00 Acetaminophen/ Hydrocodone Bitart ([place] (5/325)) 1 tab Q4H PRN PO MODERATE PAIN LEVEL 4-6; Start 02/11/19 at 17:00 Heparin Sodium (Porcine) (Heparin (1000 Units/ml)) 3,500 unit PER PROTOCOL PRN IV aPTT<47; Start 02/12/19 at 17:30 Warfarin Sodium (Coumadin) 6 mg DAILY@17 PO Last administered on 02/14/19at 17:45; Admin Dose 6 MG; Start 02/14/19 at 17:00 Cyclobenzaprine HCl (Flexeril) 5 mg Q12 PO Last administered on 02/14/19at 20:49; Admin Dose 5 MG; Start 02/14/19 at 21:00 Assessment/Plan Assessment/Plan (Daily) IMP: 1. Hemoptysis, likely secondary to tracheobronchitis, on anticoagulation--now improved. No evidence of significant intraparenchymal abnormalities on CT chest. 2. +/- minimal spontaneous left hemothorax (very subtle finding on CT) 3. s/p AVR 4. s/p Breast surgery RECS: 1. Agree with heparin gtt; to transition to coumadin 2. Follow H/H 3. Quantify all hemoptysis if it recurs 4. Remainder of management as per CV JOSÉ MIGUEL AMBROSE MD Feb 14, 2019 22:17
--- NOTE | 2019-02-14 23:04 | CONS ---
Assessment/Plan Assessment/Plan Hospital Course (Demo Recall) assessment - post op fever, may be due to L breast hematoma - hematoma of L breast, its culture was negative - post-op anemia requiring PRBC - pain and swelling of L axilla, and L scapular region, associated with either the exuberant inflammation from L breast or underlying infection - eczematous rash of L axillary region, possible allergic dermatitis - h/o Invasive Breast CA - h/o L partial mastectomy and axillary lymph node dissection - h/o AVR, on heparin as a transition to coumadin - PAF recommendations: - re. rash: I instructed Pt's RN to arthur the edge of rash, ordered hydrocortisone cream 1% - I recommend ending pip/tazo (02/08/19-) after the last dose today. Vancomycin was discontinued (02/08/2019-02/11/2019) due to phlebitis in the UE management d/w Pt, Pt's sister in law and RN Radha The total time I took to care for this Pt today was from 2200 to 2245 Consultation Date/Type/Reason Admit Date/Time February 04, 2019 at 14:08 Initial Consult Date 02/08/19 Type of Consult ID Requesting Provider: LEYLA ZIEGLER MD Date/Time of Note DATE: 02/14/19 TIME: 22:58 24 HR Interval Summary Constitutional: improved Detailed Summary Eyes: no complaints ENT: no complaints Respiratory: no complaints Cardiovascular: no complaints Gastrointestinal: no complaints; No diarrhea, No nausea, No vomiting Genitourinary: other (uses toilet with assistance) Musculoskeletal: restricted range of motion (LUE) Skin: pruritis, rash (painful rash on L axilla and deltoid region), other (+pain and fullness of L breast, rated at 6-7) Exam/Review of Systems Exam Vitals Vital Signs Date Temp Pulse Resp B/P (MAP) Pulse Ox O2 O2 Flow FiO2 Time Delivery Rate 02/14/19 97.9 73 18 155/77 97 20:27 (103) 02/14/19 Room Air 15:05 02/14/19 2.0 08:00 Intake and Output 02/13/19 02/13/19 02/14/19 1515:00 23:00 07:00 IntakeIntake Total 642 ml 180 ml OutputOutput Total 1800 ml BalanceBalance -1158 ml 180 ml Results Result Diagram: 02/14/19 1745 02/12/19 0542 Results 24hrs Laboratory Tests Test 02/14/19 04:32 02/14/19 10:03 02/14/19 17:45 Hemoglobin 11.3 L 11.2 L Hematocrit 35.3 L 35.2 L Prothrombin Time 12.7 Prothrombin Time Ratio 1.0 INR International Normalized Ratio 0.94 Activated Partial Thromboplast Time 68.5 H 79.3 *H 65.9 H Medications Medication Current Medications Cefazolin Sodium/ Dextrose 50 ml @ 100 mls/hr PRE-OP IVPB ; Start 02/04/19 at 08:30 Ondansetron HCl (Zofran Inj) 4 mg Q6H PRN IV NAUSEA AND/OR VOMITING Last administered on 02/13/19 18:54; Admin Dose 4 MG; Start 02/04/19 at 14:00 Pantoprazole (Protonix Tab) 40 mg DAILY@06 PO Last administered on 02/14/19 06:09; Admin Dose 40 MG; Start 02/07/19 at 06:00 Docusate Sodium (Colace) 200 mg DAILY PRN PO CONSTIPATION Last administered on 02/12/19 08:27; Admin Dose 200 MG; Start 02/06/19 at 14:00 Gabapentin (Neurontin) 200 mg TID PO Last administered on 02/14/19 20:49; Admin Dose 200 MG; Start 02/08/19 at 13:00 Piperacillin Sod/ Tazobactam Sod 100 ml @ 200 mls/hr Q6 IVPB Last administered on 02/14/19 17:45; Admin Dose 200 MLS/HR; Start 02/08/19 at 12:00 Acetaminophen (Tylenol Tab) 650 mg Q4H PRN PO MILD PAIN(1-3)OR ELEVATED TEMP Last administered on 02/14/19 17:47; Admin Dose 650 MG; Start 02/09/19 at 12:00 Saccharomyces Boulardii (Florastor) 250 mg BID PO Last administered on 02/14/19 20:49; Admin Dose 250 MG; Start 02/09/19 at 15:30 Magnesium Hydroxide (Milk Of Mag) 30 ml BID PRN PO CONSTIPATION Last administered on 02/12/19 08:27; Admin Dose 30 ML; Start 02/10/19 at 13:00 Heparin Sodium (Porcine) 250 ml @ 7 mls/hr PER PROTOCOL IV Last administered on 02/14/19at 19:22; Admin Dose 9 MLS/HR; Start 02/10/19 at 21:00 Cholecalciferol (Vitamin D) 2,000 unit DAILY PO Last administered on 02/14/19at 08:19; Admin Dose 2,000 UNIT; Start 02/11/19 at 11:00 Acetaminophen/ Hydrocodone Bitart ([place] (5/325)) 1 tab Q4H PRN PO MODERATE PAIN LEVEL 4-6; Start 02/11/19 at 17:00 Heparin Sodium (Porcine) (Heparin (1000 Units/ml)) 3,500 unit PER PROTOCOL PRN IV aPTT<47; Start 02/12/19 at 17:30 Warfarin Sodium (Coumadin) 6 mg DAILY@17 PO Last administered on 02/14/19at 17:45; Admin Dose 6 MG; Start 02/14/19 at 17:00 Cyclobenzaprine HCl (Flexeril) 5 mg Q12 PO Last administered on 02/14/19at 20:49; Admin Dose 5 MG; Start 02/14/19 at 21:00 ACRLA MONTEZ M.D. Feb 14, 2019 23:04
[2019-02-15] VITALS (14 sets, daily range): BP systolic 118–183; BP diastolic 60–93; PULSE 61–79; RESP 18–20
[2019-02-15] MEDS: HYDROCORTISONE 1% 28 GM CR TOP SCH ×3 (00:57→20:30)
[2019-02-15] MEDS: HEPARIN 25000 UNITS/250 ML 250 ML IV SCH ×4 (03:16→18:55)
[2019-02-15] MEDS: PANTOPRAZOLE (EC) 40 MG TAB PO SCH (05:55)
[2019-02-15] MEDS: ACETAMINOPHEN 325 MG TAB PO PRN ×2 (06:02→16:34)
--- NOTE | 2019-02-15 07:43 | CONS ---
Assessment/Plan Assessment/Plan Hospital Course (Demo Recall) 63 yo female 1. Status post surgery, left-sided mastectomy for a left breast cancer. 2. Postoperative hematoma at the site of surgery now the drain has been in place. 3. Status post 6 units of packed cell RBC transfusion. 4. Chronic constipation, which has improved with Amitiza. 5. Mechanical aortic valve replacement. The patient is on heparin for that. 6. Paroxysmal atrial fibrillation. 7. Vitamin D deficiency with low calcium PLAN: Continue post op care Utilize prn laxatives as needed Monitor HH and for active GI bleeding, pt is on coumadin Pt examined and plan of care discussed with Consultation Date/Type/Reason Admit Date/Time February 04, 2019 at 14:08 Initial Consult Date 02/13/19 Requesting Provider: LEYLA ZIEGLER MD Date/Time of Note DATE: 02/15/19 TIME: 07:40 24 HR Interval Summary Free Text/Dictation Tolerating PO diet. Diarrhea resolved. HH stable. Exam/Review of Systems Exam Vitals Vital Signs Date Temp Pulse Resp B/P (MAP) Pulse Ox O2 O2 Flow FiO2 Time Delivery Rate 02/15/19 97.8 66 20 154/72 96 07:18 (99) 02/14/19 Nasal 2.0 20:00 Cannula Intake and Output 02/14/19 02/14/19 02/15/19 1515:00 23:00 07:00 IntakeIntake Total 1000 ml 600 ml 63 ml OutputOutput Total 1050 ml 1200 ml BalanceBalance -50 ml -600 ml 63 ml Constitutional: alert, oriented Psych: no complaints Head: normocephalic Eyes: nl sclera, PERRL Respiratory: normal air movement Cardiovascular: regular rate and rhythm Gastrointestinal: soft, non-tender Musculoskeletal: nl gait and stance Neurological: nl mental status Results Result Diagram: 02/14/19 1745 02/12/19 0542 Results 24hrs Laboratory Tests Test 02/14/19 10:03 02/14/19 17:45 02/15/19 00:35 Activated Partial Thromboplast Time 79.3 *H 65.9 H 57.9 H Hemoglobin 11.2 L Hematocrit 35.2 L Prothrombin Time 12.4 Prothrombin Time Ratio 1.0 INR International Normalized Ratio 0.91 Medications Medication Current Medications Cefazolin Sodium/ Dextrose 50 ml @ 100 mls/hr PRE-OP IVPB ; Start 02/04/19 at 08:30 Ondansetron HCl (Zofran Inj) 4 mg Q6H PRN IV NAUSEA AND/OR VOMITING Last administered on 02/13/19 18:54; Admin Dose 4 MG; Start 02/04/19 at 14:00 Pantoprazole (Protonix Tab) 40 mg DAILY@06 PO Last administered on 02/15/19 05:55; Admin Dose 40 MG; Start 02/07/19 at 06:00 Docusate Sodium (Colace) 200 mg DAILY PRN PO CONSTIPATION Last administered on 02/12/19 08:27; Admin Dose 200 MG; Start 02/06/19 at 14:00 Gabapentin (Neurontin) 200 mg TID PO Last administered on 02/14/19 20:49; Admin Dose 200 MG; Start 02/08/19 at 13:00 Acetaminophen (Tylenol Tab) 650 mg Q4H PRN PO MILD PAIN(1-3)OR ELEVATED TEMP Last administered on 02/15/19 06:02; Admin Dose 650 MG; Start 02/09/19 at 12:00 Saccharomyces Boulardii (Florastor) 250 mg BID PO Last administered on 02/14/19 20:49; Admin Dose 250 MG; Start 02/09/19 at 15:30 Magnesium Hydroxide (Milk Of Mag) 30 ml BID PRN PO CONSTIPATION Last administered on 02/12/19 08:27; Admin Dose 30 ML; Start 02/10/19 at 13:00 Cholecalciferol (Vitamin D) 2,000 unit DAILY PO Last administered on 02/14/19 08:19; Admin Dose 2,000 UNIT; Start 02/11/19 at 11:00 Acetaminophen/ Hydrocodone Bitart ([place] (5/325)) 1 tab Q4H PRN PO MODERATE PAIN LEVEL 4-6; Start 02/11/19 at 17:00 Heparin Sodium (Porcine) (Heparin (1000 Units/ml)) 3,500 unit PER PROTOCOL PRN IV aPTT<47; Start 02/12/19 at 17:30 Warfarin Sodium (Coumadin) 6 mg DAILY@17 PO Last administered on 02/14/19 17:45; Admin Dose 6 MG; Start 02/14/19 at 17:00 Cyclobenzaprine HCl (Flexeril) 5 mg Q12 PO Last administered on 02/14/19at 20:49; Admin Dose 5 MG; Start 02/14/19 at 21:00 Hydrocortisone (Hydrocortisone 1% Cr) 1 applic BID TOP Last administered on 02/15/19at 00:57; Admin Dose 1 APPLIC; Start 02/14/19 at 23:00 Heparin Sodium (Porcine) 250 ml @ 7 mls/hr PER PROTOCOL IV Last administered on 02/15/19at 07:17; Admin Dose 9 MLS/HR; Start 02/15/19 at 03:00 BRENDA ESPINOZA Feb 15, 2019 07:43
[2019-02-15] MEDS: SACCHAROMYCES BOULARDII 250 MG CAP PO SCH ×2 (09:05→20:28)
[2019-02-15] MEDS: GABAPENTIN 100 MG CAP PO SCH ×3 (09:05→20:28)
[2019-02-15] MEDS: CHOLECALCIFEROL 2,000 UNIT CAP PO SCH (09:05)
[2019-02-15] MEDS: CYCLOBENZAPRINE 10 MG TAB PO SCH ×2 (09:06→20:28)
--- NOTE | 2019-02-15 11:25 | CONS ---
Assessment/Plan Assessment/Plan Assessment/Plan (Daily) Assessment and recommendations; next 1. Patient admitted with hemoptysis with a history of aortic valve replacement on chronic anticoagulation, hemoptysis likely from acute tracheobronchitis with interval resolution. 2. Mild CHF. Continue current supportive care. Consider discharge. Consultation Date/Type/Reason Admit Date/Time February 04, 2019 at 14:08 Initial Consult Date 02/13/19 Type of Consult Pulmonary Patient's condition is stable. Denies any further hemoptysis, chest pain, shortness of breath. General exam; elderly lady, sitting in chair by bedside. Awake and alert. Currently in no distress. On room air. Reason for Consultation H EENT exam; supple neck, positive JVD. No lymphadenopathy. Midline trachea. No thyromegaly. Patient has fair dentition. No neck masses. Chest exam; diminished but clear breath sounds. S1-S2 audible, no murmurs. Mechanical S2. There is a well-healed sternal scar. Abdomen exam; soft, nontender. No organomegaly. Bowel sounds audible. Extremity exam; no peripheral edema clubbing. [employer] exam; no focal deficit. Requesting Provider: LEYLA ZIEGLER MD Date/Time of Note DATE: 02/15/19 TIME: 11:23 Exam/Review of Systems Exam Vitals Vital Signs Date Temp Pulse Resp B/P (MAP) Pulse Ox O2 O2 Flow FiO2 Time Delivery Rate 02/15/19 98.0 61 20 155/83 95 11:09 (107) 02/14/19 Nasal 2.0 20:00 Cannula Intake and Output 02/14/19 02/14/19 02/15/19 1515:00 23:00 07:00 IntakeIntake Total 1000 ml 600 ml 63 ml OutputOutput Total 1050 ml 1200 ml BalanceBalance -50 ml -600 ml 63 ml Results Result Diagram: 02/15/19 0806 02/12/19 0542 Results 24hrs Laboratory Tests Test 02/14/19 17:45 02/15/19 00:35 02/15/19 08:05 02/15/19 08:06 Hemoglobin 11.2 L 11.4 L Hematocrit 35.2 L 34.9 L Activated 65.9 H 57.9 H 79.1 *H Partial Thromboplast Time Prothrombin Time 12.4 Prothrombin Time Ratio 1.0 INR International 0.91 Normalized Ratio Medications Medication Current Medications Cefazolin Sodium/ Dextrose 50 ml @ 100 mls/hr PRE-OP IVPB ; Start 02/04/19 at 08:30 Ondansetron HCl (Zofran Inj) 4 mg Q6H PRN IV NAUSEA AND/OR VOMITING Last administered on 02/13/19 18:54; Admin Dose 4 MG; Start 02/04/19 at 14:00 Pantoprazole (Protonix Tab) 40 mg DAILY@06 PO Last administered on 02/15/19 05:55; Admin Dose 40 MG; Start 02/07/19 at 06:00 Docusate Sodium (Colace) 200 mg DAILY PRN PO CONSTIPATION Last administered on 02/12/19 08:27; Admin Dose 200 MG; Start 02/06/19 at 14:00 Gabapentin (Neurontin) 200 mg TID PO Last administered on 02/15/19 09:05; Admin Dose 200 MG; Start 02/08/19 at 13:00 Acetaminophen (Tylenol Tab) 650 mg Q4H PRN PO MILD PAIN(1-3)OR ELEVATED TEMP Last administered on 02/15/19 06:02; Admin Dose 650 MG; Start 02/09/19 at 12:00 Saccharomyces Boulardii (Florastor) 250 mg BID PO Last administered on 02/15/19 09:05; Admin Dose 250 MG; Start 02/09/19 at 15:30 Magnesium Hydroxide (Milk Of Mag) 30 ml BID PRN PO CONSTIPATION Last administered on 02/12/19 08:27; Admin Dose 30 ML; Start 02/10/19 at 13:00 Cholecalciferol (Vitamin D) 2,000 unit DAILY PO Last administered on 02/15/19 09:05; Admin Dose 2,000 UNIT; Start 02/11/19 at 11:00 Acetaminophen/ Hydrocodone Bitart ([place] (5/325)) 1 tab Q4H PRN PO MODERATE PAIN LEVEL 4-6; Start 02/11/19 at 17:00 Heparin Sodium (Porcine) (Heparin (1000 Units/ml)) 3,500 unit PER PROTOCOL PRN IV aPTT<47; Start 02/12/19 at 17:30 Warfarin Sodium (Coumadin) 6 mg DAILY@17 PO Last administered on 02/14/19 17:45; Admin Dose 6 MG; Start 02/14/19 at 17:00 Cyclobenzaprine HCl (Flexeril) 5 mg Q12 PO Last administered on 02/15/19at 09:06; Admin Dose 5 MG; Start 02/14/19 at 21:00 Hydrocortisone (Hydrocortisone 1% Cr) 1 applic BID TOP Last administered on 02/15/19 09:05; Admin Dose 1 APPLIC; Start 02/14/19 at 23:00 Heparin Sodium (Porcine) 250 ml @ 7 mls/hr PER PROTOCOL IV Last administered on 02/15/19at 10:30; Admin Dose 8.5 MLS/HR; Start 02/15/19 at 03:00 ROHAN NAIK Feb 15, 2019 11:25
--- NOTE | 2019-02-15 14:39 | CONS ---
Assessment/Plan Assessment/Plan Assessment/Plan (Recall) 63 yo F with recently diagnosed breast CA and other comorbidities who is noted to have an elective partial mastectomy and axillary dissection. She endorses severe perioperative pain with sensory loss... for which neurology is consulted. Her sx are likely attributed to her recent operation. An acute C-spine process is unlikely. P: Surgery followup Pain and other medical management per primary Will sign off. Please call with additional questions.. Consultation Date/Type/Reason Admit Date/Time February 04, 2019 at 14:08 Type of Consult Neurology Requesting Provider: LEYLA ZIEGLER MD Date/Time of Note DATE: 02/15/19 TIME: 14:39 24 HR Interval Summary Free Text/Dictation Continues acute care. Exam/Review of Systems Exam Vitals Vital Signs Date Temp Pulse Resp B/P (MAP) Pulse Ox O2 O2 Flow FiO2 Time Delivery Rate 02/15/19 68 12:00 02/15/19 98.0 20 155/83 95 11:09 (107) 02/14/19 Nasal 2.0 20:00 Cannula Intake and Output 02/14/19 02/14/19 02/15/19 1515:00 23:00 07:00 IntakeIntake Total 1000 ml 600 ml 63 ml OutputOutput Total 1050 ml 1200 ml BalanceBalance -50 ml -600 ml 63 ml Exam PE: Gen Appearance: No Apparent Distress HEENT: Normocephalic Cardiovascular: Regular rate Abdomen: Soft Extremities: Dry NE: The patient was alert and oriented. Language was normal. Fund of knowledge was normal. Pupils were equal and reactive to light. There was no afferent pupillary defect. Visual nuno were normal. Funduscopic examination was limited Extra-ocular movements were full. Ptosis was absent. There was no nystagmus. Facial sensation was normal. Face was symmetric with normal strength. Hearing was intact. Palate movements were normal. Neck strength was normal. There was normal tongue bulk and speed of movement. Tone was normal. Muscle bulk was normal. I did not see fasciculations. Arms and legs were symmetric. Vibration sensation was normal. Temperature and pinprick sensation was normal. Rapid alternating movements were normal. There was no dysmetria. There was no intention tremor. Gait was deferred due to bedrest. Arm and leg reflexes were 2+ and symmetric. Sanchez's sign was absent. Plantar responses were flexor. Results Result Diagram: 02/15/19 0806 02/12/19 0542 Results 24hrs Laboratory Tests Test 02/14/19 17:45 02/15/19 00:35 02/15/19 08:05 02/15/19 08:06 Hemoglobin 11.2 L 11.4 L Hematocrit 35.2 L 34.9 L Activated 65.9 H 57.9 H 79.1 *H Partial Thromboplast Time Prothrombin Time 12.4 Prothrombin Time Ratio 1.0 INR International 0.91 Normalized Ratio Medications Medication Current Medications Cefazolin Sodium/ Dextrose 50 ml @ 100 mls/hr PRE-OP IVPB ; Start 02/04/19 at 08:30 Ondansetron HCl (Zofran Inj) 4 mg Q6H PRN IV NAUSEA AND/OR VOMITING Last administered on 02/13/19 18:54; Admin Dose 4 MG; Start 02/04/19 at 14:00 Pantoprazole (Protonix Tab) 40 mg DAILY@06 PO Last administered on 02/15/19 05:55; Admin Dose 40 MG; Start 02/07/19 at 06:00 Docusate Sodium (Colace) 200 mg DAILY PRN PO CONSTIPATION Last administered on 02/12/19 08:27; Admin Dose 200 MG; Start 02/06/19 at 14:00 Gabapentin (Neurontin) 200 mg TID PO Last administered on 02/15/19 12:15; Admin Dose 200 MG; Start 02/08/19 at 13:00 Acetaminophen (Tylenol Tab) 650 mg Q4H PRN PO MILD PAIN(1-3)OR ELEVATED TEMP Last administered on 02/15/19 06:02; Admin Dose 650 MG; Start 02/09/19 at 12:00 Saccharomyces Boulardii (Florastor) 250 mg BID PO Last administered on 02/15/19 09:05; Admin Dose 250 MG; Start 02/09/19 at 15:30 Magnesium Hydroxide (Milk Of Mag) 30 ml BID PRN PO CONSTIPATION Last administered on 02/12/19 08:27; Admin Dose 30 ML; Start 02/10/19 at 13:00 Cholecalciferol (Vitamin D) 2,000 unit DAILY PO Last administered on 02/15/19 09:05; Admin Dose 2,000 UNIT; Start 02/11/19 at 11:00 Acetaminophen/ Hydrocodone Bitart ([place] (5/325)) 1 tab Q4H PRN PO MODERATE PAIN LEVEL 4-6; Start 02/11/19 at 17:00 Heparin Sodium (Porcine) (Heparin (1000 Units/ml)) 3,500 unit PER PROTOCOL PRN IV aPTT<47; Start 02/12/19 at 17:30 Warfarin Sodium (Coumadin) 6 mg DAILY@17 PO Last administered on 02/14/19at 17:45; Admin Dose 6 MG; Start 02/14/19 at 17:00 Cyclobenzaprine HCl (Flexeril) 5 mg Q12 PO Last administered on 02/15/19at 09:06; Admin Dose 5 MG; Start 02/14/19 at 21:00 Hydrocortisone (Hydrocortisone 1% Cr) 1 applic BID TOP Last administered on 02/15/19at 09:05; Admin Dose 1 APPLIC; Start 02/14/19 at 23:00 Heparin Sodium (Porcine) 250 ml @ 7 mls/hr PER PROTOCOL IV Last administered on 02/15/19at 10:30; Admin Dose 8.5 MLS/HR; Start 02/15/19 at 03:00 ISMAEL PROCTOR NP Feb 15, 2019 14:39 DALY PEREZ Feb 15, 2019 20:59
--- NOTE | 2019-02-15 14:41 | PN ---
Date/Time of Note Date/Time of Note DATE: 02/15/19 TIME: 14:36 Assessment/Plan VTE Prophylaxis Risk score (from Ns)>0 risk: 11 SCD applied (from Ns): Yes Pharmacological prophylaxis: heparin Lines/Catheters IV Catheter Type (from [facility]): Peripheral IV Assessment/Plan Hospital Course Patient complains of persistent headache, pending CT of the brain. Patient continues on heparin drip for mechanical AVR. Stable hemoglobin, no complaints of hemoptysis or active bleeding. Patient's condition and plan of care discussed with patient and patient's daughter at the bedside. Assessment/Plan -Hemoptysis, likely secondary to tracheobronchitis, on anticoagulation--now improved. No evidence of significant intraparenchymal abnormalities on CT chest. Status post evaluation by Dr. Pierce in pulmonology consultation. -Left breast cancer, status post left partial mastectomy by Dr. Diaz. -Postoperative hematomas in left breast and left axillary region. -Postoperative fever, continue antibiotics per ID. Dr. Srinivasan is following in infection disease consultation. -Paroxysmal atrial fibrillation. -Mechanical aortic valve replacement secondary to aortic insufficiency. Dr. Hicks is following in cardiology consultation. on heparin drip. -Anemia of acute blood loss, continue to monitor H&H, will transfuse as needed. -Vitamin D deficiency, started on supplement. Further recommendations based on clinical course. Plan of care discussed with Dr. Pelaez. Result Diagram: 02/15/19 0806 02/12/19 0542 Results 24hrs Laboratory Tests Test 02/14/19 17:45 02/15/19 00:35 02/15/19 08:05 02/15/19 08:06 Hemoglobin 11.2 L 11.4 L Hematocrit 35.2 L 34.9 L Activated 65.9 H 57.9 H 79.1 *H Partial Thromboplast Time Prothrombin Time 12.4 Prothrombin Time Ratio 1.0 INR International 0.91 Normalized Ratio Exam/Review of Systems Exam Vitals Vital Signs Date Temp Pulse Resp B/P (MAP) Pulse Ox O2 O2 Flow FiO2 Time Delivery Rate 02/15/19 68 12:00 02/15/19 98.0 20 155/83 95 11:09 (107) 02/14/19 Nasal 2.0 20:00 Cannula Intake and Output 02/14/19 02/14/19 02/15/19 1515:00 23:00 07:00 IntakeIntake Total 1000 ml 600 ml 63 ml OutputOutput Total 1050 ml 1200 ml BalanceBalance -50 ml -600 ml 63 ml Exam Constitutional: alert, oriented Respiratory: clear to auscultation Cardiovascular: regular rate and rhythm Gastrointestinal: soft, non-tender Musculoskeletal: nl extremities to inspection Extremities: normal pulses Neurological: nl mental status Skin: other (Status post left partial mastectomy, axillary JPs) Results Results 24hrs Laboratory Tests Test 02/14/19 17:45 02/15/19 00:35 02/15/19 08:05 02/15/19 08:06 Hemoglobin 11.2 L 11.4 L Hematocrit 35.2 L 34.9 L Activated 65.9 H 57.9 H 79.1 *H Partial Thromboplast Time Prothrombin Time 12.4 Prothrombin Time Ratio 1.0 INR International 0.91 Normalized Ratio Medications Medication Current Medications Cefazolin Sodium/ Dextrose 50 ml @ 100 mls/hr PRE-OP IVPB ; Start 02/04/19 at 08:30 Ondansetron HCl (Zofran Inj) 4 mg Q6H PRN IV NAUSEA AND/OR VOMITING Last administered on 02/13/19at 18:54; Admin Dose 4 MG; Start 02/04/19 at 14:00 Pantoprazole (Protonix Tab) 40 mg DAILY@06 PO Last administered on 02/15/19 05:55; Admin Dose 40 MG; Start 02/07/19 at 06:00 Docusate Sodium (Colace) 200 mg DAILY PRN PO CONSTIPATION Last administered on 02/12/19 08:27; Admin Dose 200 MG; Start 02/06/19 at 14:00 Gabapentin (Neurontin) 200 mg TID PO Last administered on 02/15/19 12:15; Admin Dose 200 MG; Start 02/08/19 at 13:00 Acetaminophen (Tylenol Tab) 650 mg Q4H PRN PO MILD PAIN(1-3)OR ELEVATED TEMP Last administered on 02/15/19 06:02; Admin Dose 650 MG; Start 02/09/19 at 12:00 Saccharomyces Boulardii (Florastor) 250 mg BID PO Last administered on 02/15/19 09:05; Admin Dose 250 MG; Start 02/09/19 at 15:30 Magnesium Hydroxide (Milk Of Mag) 30 ml BID PRN PO CONSTIPATION Last administered on 02/12/19 08:27; Admin Dose 30 ML; Start 02/10/19 at 13:00 Cholecalciferol (Vitamin D) 2,000 unit DAILY PO Last administered on 02/15/19 09:05; Admin Dose 2,000 UNIT; Start 02/11/19 at 11:00 Acetaminophen/ Hydrocodone Bitart ([place] (5/325)) 1 tab Q4H PRN PO MODERATE PAIN LEVEL 4-6; Start 02/11/19 at 17:00 Heparin Sodium (Porcine) (Heparin (1000 Units/ml)) 3,500 unit PER PROTOCOL PRN IV aPTT<47; Start 02/12/19 at 17:30 Warfarin Sodium (Coumadin) 6 mg DAILY@17 PO Last administered on 02/14/19 17:45; Admin Dose 6 MG; Start 02/14/19 at 17:00 Cyclobenzaprine HCl (Flexeril) 5 mg Q12 PO Last administered on 02/15/19 09:06; Admin Dose 5 MG; Start 02/14/19 at 21:00 Hydrocortisone (Hydrocortisone 1% Cr) 1 applic BID TOP Last administered on 02/15/19 09:05; Admin Dose 1 APPLIC; Start 02/14/19 at 23:00 Heparin Sodium (Porcine) 250 ml @ 7 mls/hr PER PROTOCOL IV Last administered on 02/15/19 10:30; Admin Dose 8.5 MLS/HR; Start 02/15/19 at 03:00 MIHAI GUTIERREZ Feb 15, 2019 14:41
--- NOTE | 2019-02-15 14:46 | CONS ---
Assessment/Plan Assessment/Plan Hospital Course (Demo Recall) assessment: - post op fever, may be due to L breast hematoma - hematoma of L breast, its culture was negative - post-op anemia requiring PRBC - pain and swelling of L axilla, and L scapular region, associated with either the exuberant inflammation from L breast or underlying infection - eczematous rash of L axillary region, possible allergic dermatitis - resolving with hydrocortisone cream 1% - h/o Invasive Breast CA - h/o L partial mastectomy and axillary lymph node dissection - h/o AVR, on heparin as a transition to Coumadin - PAF - low vitamin D - acute cephalgia recommendations: - continue hydrocortisone cream 1% (02/14/2019-) for pruritic rash - monitor closely off antibiotics; s/p pip/tazo (02/08/19-02/14/19). Vancomycin was discontinued (02/08/2019-02/11/2019) due to phlebitis in the UE - f/u CT head Management d/w patient, pt's daughter Brit at bedside, RN Daisy, and with Dr. Arias. Also briefly spoke with Dr. Ziegler. Consultation Date/Type/Reason Admit Date/Time February 04, 2019 at 14:08 Initial Consult Date 02/08/19 Type of Consult Infectious Disease Requesting Provider: LEYLA ZIEGLER MD Date/Time of Note DATE: 02/15/19 TIME: 14:44 24 HR Interval Summary Free Text/Dictation C/o posterior GLASGOW, numbness and states "head feels heavy" x3 days. Awaiting CT head per d/w pt's daughter. Reports mild dizziness when getting OOB. No change in vision. No n/v/d, dysuria. Had 2 normal BM's today. Pruritic rash on L axilla/LUE has significantly improved. Pain on L axilla is slightly improved. Rates pain 7/10. L axilla dressing was changed by Dr. Royal per d/w nursing. Exam/Review of Systems Exam Vitals Vital Signs Date Temp Pulse Resp B/P (MAP) Pulse Ox O2 O2 Flow FiO2 Time Delivery Rate 02/15/19 68 12:00 02/15/19 98.0 20 155/83 95 11:09 (107) 02/14/19 Nasal 2.0 20:00 Cannula Intake and Output 02/14/19 02/14/19 02/15/19 1515:00 23:00 07:00 IntakeIntake Total 1000 ml 600 ml 63 ml OutputOutput Total 1050 ml 1200 ml BalanceBalance -50 ml -600 ml 63 ml Exam Constitutional: alert, oriented, well developed, other (sitting up in bed in NAD) Psych: no complaints, nl mood/affect Head: normocephalic, atraumatic Eyes: nl conjunctiva, nl sclera ENMT: nl external ears & nose, nl nasal mucosa & septum, mucosa pink and moist Neck: non-tender Respiratory: clear to auscultation (anteriorly), normal air movement, crackles/rales (faint bibasilar rales) Cardiovascular: regular rate and rhythm, nl pulses Gastrointestinal: soft, non-tender Musculoskeletal: joint tenderness (L scapula), range of motion (limited of LUE d/t pain and swelling; cannot abduct LUE or raise it above shoulder level), swelling (L shoulder but improved) Extremities: normal pulses; No edema Neurological: nl mental status, nl speech Skin: other (L axillary rash has practically resolved compared to marked borders; L breast with large dressing c/d/i; L breast KARY drain with small amount dark output) Results Result Diagram: 02/15/19 0806 02/12/19 0542 Results 24hrs Laboratory Tests Test 02/14/19 17:45 02/15/19 00:35 02/15/19 08:05 02/15/19 08:06 Hemoglobin 11.2 L 11.4 L Hematocrit 35.2 L 34.9 L Activated 65.9 H 57.9 H 79.1 *H Partial Thromboplast Time Prothrombin Time 12.4 Prothrombin Time Ratio 1.0 INR International 0.91 Normalized Ratio Medications Medication Current Medications Cefazolin Sodium/ Dextrose 50 ml @ 100 mls/hr PRE-OP IVPB ; Start 02/04/19 at 08:30 Ondansetron HCl (Zofran Inj) 4 mg Q6H PRN IV NAUSEA AND/OR VOMITING Last administered on 02/13/19at 18:54; Admin Dose 4 MG; Start 02/04/19 at 14:00 Pantoprazole (Protonix Tab) 40 mg DAILY@06 PO Last administered on 02/15/19at 05:55; Admin Dose 40 MG; Start 02/07/19 at 06:00 Docusate Sodium (Colace) 200 mg DAILY PRN PO CONSTIPATION Last administered on 02/12/19 08:27; Admin Dose 200 MG; Start 02/06/19 at 14:00 Gabapentin (Neurontin) 200 mg TID PO Last administered on 02/15/19 12:15; Admin Dose 200 MG; Start 02/08/19 at 13:00 Acetaminophen (Tylenol Tab) 650 mg Q4H PRN PO MILD PAIN(1-3)OR ELEVATED TEMP Last administered on 02/15/19 06:02; Admin Dose 650 MG; Start 02/09/19 at 12:00 Saccharomyces Boulardii (Florastor) 250 mg BID PO Last administered on 02/15/19 09:05; Admin Dose 250 MG; Start 02/09/19 at 15:30 Magnesium Hydroxide (Milk Of Mag) 30 ml BID PRN PO CONSTIPATION Last admini stered on 02/12/19 08:27; Admin Dose 30 ML; Start 02/10/19 at 13:00 Cholecalciferol (Vitamin D) 2,000 unit DAILY PO Last administered on 02/15/19 09:05; Admin Dose 2,000 UNIT; Start 02/11/19 at 11:00 Acetaminophen/ Hydrocodone Bitart ([place] (5/325)) 1 tab Q4H PRN PO MODERATE PAIN LEVEL 4-6; Start 02/11/19 at 17:00 Heparin Sodium (Porcine) (Heparin (1000 Units/ml)) 3,500 unit PER PROTOCOL PRN IV aPTT<47; Start 02/12/19 at 17:30 Warfarin Sodium (Coumadin) 6 mg DAILY@17 PO Last administered on 02/14/19 17:45; Admin Dose 6 MG; Start 02/14/19 at 17:00 Cyclobenzaprine HCl (Flexeril) 5 mg Q12 PO Last administered on 02/15/19 09:06; Admin Dose 5 MG; Start 02/14/19 at 21:00 Hydrocortisone (Hydrocortisone 1% Cr) 1 applic BID TOP Last administered on 02/15/19 09:05; Admin Dose 1 APPLIC; Start 02/14/19 at 23:00 Heparin Sodium (Porcine) 250 ml @ 7 mls/hr PER PROTOCOL IV Last administered on 6/3/19at 10:30; Admin Dose 8.5 MLS/HR; Start 02/15/19 at 03:00 ZULEMA BOWLING NP Feb 15, 2019 14:46
[2019-02-15] MEDS ORDERED: POTASSIUM CHLORIDE (SR) 10 MEQ TAB PO ONE (15:00)
--- NOTE | 2019-02-15 15:06 | CONS ---
Assessment/Plan Assessment/Plan Hospital Course (Demo Recall) Status post breast surgery 02/04/2019 Mechanical aortic valve replacement Paroxysmal atrial fibrillation, currently sinus rhythm Acute blood loss anemia Hemoglobin has remained stable Patient has been restarted on Coumadin and continue IV heparin bridging until INR is therapeutic Patient awaiting CT head given headache Consultation Date/Type/Reason Admit Date/Time February 04, 2019 at 14:08 Initial Consult Date Type of Consult Cardiology Requesting Provider: LEYLA ZIGELER MD Date/Time of Note DATE: 02/15/19 TIME: 15:04 24 HR Interval Summary Free Text/Dictation No dizziness, palpitations. Complaining of headache for the past few days Exam/Review of Systems Vital Signs Vitals Vital Signs Date Temp Pulse Resp B/P (MAP) Pulse Ox O2 O2 Flow FiO2 Time Delivery Rate 02/15/19 68 12:00 02/15/19 98.0 20 155/83 95 11:09 (107) 02/14/19 Nasal 2.0 20:00 Cannula Intake and Output 02/14/19 02/14/19 02/15/19 1515:00 23:00 07:00 IntakeIntake Total 1000 ml 600 ml 63 ml OutputOutput Total 1050 ml 1200 ml BalanceBalance -50 ml -600 ml 63 ml Exam Constitutional: alert, oriented (No apparent distress) Head: normocephalic Respiratory: other (Coarse breath sounds bilaterally, no wheezing) Cardiovascular: regular rate and rhythm (S1-S2 heard) Gastrointestinal: soft, non-tender, bowel sounds Extremities: other (No edema) Labs Result Diagram: 02/15/19 0806 02/12/19 0542 Results 24hrs Laboratory Tests Test 02/14/19 17:45 02/15/19 00:35 02/15/19 08:05 02/15/19 08:06 Hemoglobin 11.2 L 11.4 L Hematocrit 35.2 L 34.9 L Activated 65.9 H 57.9 H 79.1 *H Partial Thromboplast Time Prothrombin Time 12.4 Prothrombin Time Ratio 1.0 INR International 0.91 Normalized Ratio Medications Medications Current Medications Cefazolin Sodium/ Dextrose 50 ml @ 100 mls/hr PRE-OP IVPB ; Start 02/04/19 at 08:30 Ondansetron HCl (Zofran Inj) 4 mg Q6H PRN IV NAUSEA AND/OR VOMITING Last administered on 02/13/19 18:54; Admin Dose 4 MG; Start 02/04/19 at 14:00 Pantoprazole (Protonix Tab) 40 mg DAILY@06 PO Last administered on 02/15/19 05:55; Admin Dose 40 MG; Start 02/07/19 at 06:00 Docusate Sodium (Colace) 200 mg DAILY PRN PO CONSTIPATION Last administered on 02/12/19 08:27; Admin Dose 200 MG; Start 02/06/19 at 14:00 Gabapentin (Neurontin) 200 mg TID PO Last administered on 02/15/19 12:15; Admin Dose 200 MG; Start 02/08/19 at 13:00 Acetaminophen (Tylenol Tab) 650 mg Q4H PRN PO MILD PAIN(1-3)OR ELEVATED TEMP Last administered on 02/15/19 06:02; Admin Dose 650 MG; Start 02/09/19 at 12:00 Saccharomyces Boulardii (Florastor) 250 mg BID PO Last administered on 02/15/19 09:05; Admin Dose 250 MG; Start 02/09/19 at 15:30 Magnesium Hydroxide (Milk Of Mag) 30 ml BID PRN PO CONSTIPATION Last administered on 02/12/19 08:27; Admin Dose 30 ML; Start 02/10/19 at 13:00 Cholecalciferol (Vitamin D) 2,000 unit DAILY PO Last administered on 02/15/19 09:05; Admin Dose 2,000 UNIT; Start 02/11/19 at 11:00 Acetaminophen/ Hydrocodone Bitart ([place] (5/325)) 1 tab Q4H PRN PO MODERATE PAIN LEVEL 4-6; Start 02/11/19 at 17:00 Heparin Sodium (Porcine) (Heparin (1000 Units/ml)) 3,500 unit PER PROTOCOL PRN IV aPTT<47; Start 02/12/19 at 17:30 Warfarin Sodium (Coumadin) 6 mg DAILY@17 PO Last administered on 02/14/19 17:45; Admin Dose 6 MG; Start 02/14/19 at 17:00 Cyclobenzaprine HCl (Flexeril) 5 mg Q12 PO Last administered on 02/15/19 09:06; Admin Dose 5 MG; Start 02/14/19 at 21:00 Hydrocortisone (Hydrocortisone 1% Cr) 1 applic BID TOP Last administered on 02/15/19at 09:05; Admin Dose 1 APPLIC; Start 02/14/19 at 23:00 Heparin Sodium (Porcine) 250 ml @ 7 mls/hr PER PROTOCOL IV Last administered on 02/15/19at 10:30; Admin Dose 8.5 MLS/HR; Start 02/15/19 at 03:00 Dima Hicks DO Feb 15, 2019 15:06
[2019-02-15] MEDS: WARFARIN 3 MG TAB PO SCH (16:38)
--- NOTE | 2019-02-15 16:47 | PN ---
DATE: 02/15/2019 SUBJECTIVE: Feels much better today. The pain is much better in the shoulder, can move her shoulder more. Has had bowel movement. Actually diarrhea which she had previously and stopping cathartic medications. Appetite is good. No nausea, no vomiting. OBJECTIVE: VITAL SIGNS: Temperature today maximum 98.3, heart rate is 70, respiration 20, blood pressure 155/83, saturation 95% on room air. HEART: Regular. LUNGS: Clear. ABDOMEN: Soft. SKIN: Dressing was removed. The incision of wound has healed nicely, but of course, there is evidence of resolving ecchymosis under the skin and hematoma still is present under the area of cavity of the partial mastectomy and probably more spread in the parenchyma of the left breast and also hematoma in the left axilla area. LABORATORY DATA: Hemoglobin 11.4, hematocrit 34.9, so it has been stable in past at least 48 hours. Chemistry is not done today. Coagulation today: PTT is 79.1 which is of course high because the patient is getting heparin. Also, the patient is receiving Coumadin. PT. today is 12.4 and INR is 0.9. ASSESSMENT: It appears that patient has stopped further bleeding even though the PTT is now 79 seconds which is almost twice the normal. The patient is going back to full coumadinization. Gastrointestinal function is good. Hemoglobin and hematocrit have been stable in past 48 to 96 hours. PLAN: Continue current care. Dictated By: ALFONSO CONTRERAS MD PS/NTS Conf#: [id number] DID#: [id number] CC: LEYLA ZIEGLER MD; MAIA HINOJOSA MD;*EndCC* MTDD
[2019-02-16] VITALS (11 sets, daily range): BP systolic 133–177; BP diastolic 62–86; PULSE 63–77; RESP 20
[2019-02-16] MEDS: PANTOPRAZOLE (EC) 40 MG TAB PO SCH (05:58)
[2019-02-16] MEDS: ACETAMINOPHEN 325 MG TAB PO PRN (06:13)
[2019-02-16] MEDS: HEPARIN 25000 UNITS/250 ML 250 ML IV SCH (07:07)
--- NOTE | 2019-02-16 07:16 | CONS ---
Assessment/Plan Assessment/Plan Hospital Course (Demo Recall) 63 yo female 1. Status post surgery, left-sided mastectomy for a left breast cancer. 2. Postoperative hematoma at the site of surgery now the drain has been in place. 3. Status post 6 units of packed cell RBC transfusion. 4. Chronic constipation, which has improved with Amitiza. 5. Mechanical aortic valve replacement. The patient is on heparin for that. 6. Paroxysmal atrial fibrillation. 7. Vitamin D deficiency with low calcium 8. Anemia, mild -no evidence of overt GI bleeding -pt is on coumadin and heparin gtt PLAN: Continue post op care Utilize prn laxatives as needed Monitor HH and for active GI bleeding, pt is on coumadin Pt examined and plan of care discussed with Consultation Date/Type/Reason Admit Date/Time February 04, 2019 at 14:08 Initial Consult Date 02/13/19 Requesting Provider: LEYLA ZIEGLER MD Date/Time of Note DATE: 02/16/19 TIME: 07:14 24 HR Interval Summary Free Text/Dictation No acute changes. Soft bm. HH has been stable. This am labs pending. Exam/Review of Systems Exam Vitals Vital Signs Date Temp Pulse Resp B/P (MAP) Pulse Ox O2 O2 Flow FiO2 Time Delivery Rate 02/16/19 98.0 72 20 139/63 95 04:16 (88) 02/14/19 Nasal 2.0 20:00 Cannula Intake and Output 02/15/19 02/15/19 02/16/19 1414:59 22:59 06:59 IntakeIntake Total 400 ml 1349 ml 500 ml OutputOutput Total 2 ml BalanceBalance 400 ml 1349 ml 498 ml Constitutional: alert, oriented Psych: no complaints Head: normocephalic Eyes: nl sclera, PERRL Respiratory: normal air movement Cardiovascular: regular rate and rhythm Gastrointestinal: soft, non-tender Musculoskeletal: muscle weakness Neurological: nl mental status Results Result Diagram: 02/15/19204902/15/19 1636 Results 24hrs Laboratory Tests Test 02/15/19 08:05 02/15/19 08:06 02/15/19 16:36 02/15/19 20:50 Activated 79.1 *H 88.1 *H Partial Thromboplast Time Hemoglobin 11.4 L 11.0 L Hematocrit 34.9 L 33.9 L Sodium Level 138 Potassium Level 4.1 Chloride Level 104 Carbon Dioxide Level 28 Anion Gap 6 Blood Urea Nitrogen 16 Creatinine 0.74 Est Glomerular Filtrat > 60 Rate mL/min Glucose Level 128 Calcium Level 8.6 Test 02/16/19 00:27 02/16/19 06:26 Activated 59.8 H Partial Thromboplast Time White Blood Count Pending Red Blood Count Pending Hemoglobin Pending Hematocrit Pending Mean Corpuscular Volume Pending Mean Corpuscular Pending Hemoglobin Mean Corpuscular Pending Hemoglobin Concent Red Cell Distribution Pending Width Platelet Count Pending Mean Platelet Volume Pending Medications Medication Current Medications Ondansetron HCl (Zofran Inj) 4 mg Q6H PRN IV NAUSEA AND/OR VOMITING Last administered on 02/13/19 18:54; Admin Dose 4 MG; Start 02/04/19 at 14:00 Pantoprazole (Protonix Tab) 40 mg DAILY@06 PO Last administered on 02/16/19 05:58; Admin Dose 40 MG; Start 02/07/19 at 06:00 Docusate Sodium (Colace) 200 mg DAILY PRN PO CONSTIPATION Last administered on 02/12/19 08:27; Admin Dose 200 MG; Start 02/06/19 at 14:00 Gabapentin (Neurontin) 200 mg TID PO Last administered on 02/15/19 20:28; Admin Dose 200 MG; Start 02/08/19 at 13:00 Acetaminophen (Tylenol Tab) 650 mg Q4H PRN PO MILD PAIN(1-3)OR ELEVATED TEMP Last administered on 02/16/19 06:13; Admin Dose 650 MG; Start 02/09/19 at 12:00 Saccharomyces Boulardii (Florastor) 250 mg BID PO Last administered on 02/15/19 20:28; Admin Dose 250 MG; Start 02/09/19 at 15:30 Magnesium Hydroxide (Milk Of Mag) 30 ml BID PRN PO CONSTIPATION Last administered on 02/12/19 08:27; Admin Dose 30 ML; Start 02/10/19 at 13:00 Cholecalciferol (Vitamin D) 2,000 unit DAILY PO Last administered on 02/15/19 09:05; Admin Dose 2,000 UNIT; Start 02/11/19 at 11:00 Acetaminophen/ Hydrocodone Bitart ([place] (5/325)) 1 tab Q4H PRN PO MODERATE PAIN LEVEL 4-6; Start 02/11/19 at 17:00 Heparin Sodium (Porcine) (Heparin (1000 Units/ml)) 3,500 unit PER PROTOCOL PRN IV aPTT<47; Start 02/12/19 at 17:30 Warfarin Sodium (Coumadin) 6 mg DAILY@17 PO Last administered on 02/15/19at 16:38; Admin Dose 6 MG; Start 02/14/19 at 17:00 Cyclobenzaprine HCl (Flexeril) 5 mg Q12 PO Last administered on 02/15/19at 09:06; Admin Dose 5 MG; Start 02/14/19 at 21:00 Hydrocortisone (Hydrocortisone 1% Cr) 1 applic BID TOP Last administered on 02/15/19at 20:30; Admin Dose 1 APPLIC; Start 02/14/19 at 23:00 Heparin Sodium (Porcine) 250 ml @ 7 mls/hr PER PROTOCOL IV Last administered on 02/16/19 07:07; Admin Dose 8 MLS/HR; Start 02/15/19 at 03:00 BRENDA ESPINOZA Feb 16, 2019 07:16
--- NOTE | 2019-02-16 07:18 | CONS ---
Assessment/Plan Assessment/Plan Assessment/Plan (Daily) Assessment and recommendations; 1. Patient with history of mechanical aortic exam replacement admitted for hemoptysis likely from acute tracheobronchitis with interval resolution. Continue current supportive care. Once INR is therapeutic patient can be discharged home. Currently there is no acute pulmonary pathology. Consultation Date/Type/Reason Admit Date/Time February 04, 2019 at 14:08 Initial Consult Date 02/13/19 Type of Consult Pulmonary Patient's condition is stable. Denies any further hemoptysis, chest pain, shor tness of breath. General exam; elderly lady, sitting in chair by bedside. Awake and alert. Currently in no distress. On room air. Requesting Provider: LEYLA ZIEGLER MD Date/Time of Note DATE: 02/16/19 TIME: 07:16 24 HR Interval Summary Free Text/Dictation Patient's condition is stable. Denies any shortness of breath, any hemoptysis, chest pain. General exam; elderly lady, awake alert, currently no distress. Exam/Review of Systems Exam Vitals Vital Signs Date Temp Pulse Resp B/P (MAP) Pulse Ox O2 O2 Flow FiO2 Time Delivery Rate 02/16/19 98.0 72 20 139/63 95 04:16 (88) 02/14/19 Nasal 2.0 20:00 Cannula Intake and Output 02/15/19 02/15/19 02/16/19 1515:00 23:00 07:00 IntakeIntake Total 400 ml 1349 ml 500 ml OutputOutput Total 2 ml BalanceBalance 400 ml 1349 ml 498 ml Exam H EENT exam; supple neck, no JVD. No lymphadenopathy. Midline trachea. No thyromegaly. Patient has fair dentition. No neck masses. Chest exam; diminished but clear breath sounds. Mechanical S2. No murmurs. Regular rhythm. There is a well-healed sternal scar. Abdomen exam; soft, nontender. No organomegaly. Bowel sounds audible. Extremity exam; no peripheral edema clubbing. 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 Results Result Diagram: 02/16/19 0626 02/15/19 1636 Results 24hrs Laboratory Tests Test 02/15/19 08:05 02/15/19 08:06 02/15/19 16:36 02/15/19 20:50 Activated 79.1 *H 88.1 *H Partial Thromboplast Time Hemoglobin 11.4 L 11.0 L Hematocrit 34.9 L 33.9 L Sodium Level 138 Potassium Level 4.1 Chloride Level 104 Carbon Dioxide Level 28 Anion Gap 6 Blood Urea Nitrogen 16 Creatinine 0.74 Est Glomerular Filtrat > 60 Rate mL/min Glucose Level 128 Calcium Level 8.6 Test 02/16/19 00:27 02/16/19 06:26 Activated 59.8 H Partial Thromboplast Time White Blood Count 7.6 Red Blood Count 3.91 L Hemoglobin 11.4 L Hematocrit 35.1 L Mean Corpuscular Volume 89.8 Mean Corpuscular 29.2 Hemoglobin Mean Corpuscular 32.5 Hemoglobin Concent Red Cell Distribution 13.7 Width Platelet Count 393 # Mean Platelet Volume 9.2 Immature Granulocytes % 2.800 H Neutrophils % 60.4 Lymphocytes % 22.1 Monocytes % 8.8 Eosinophils % 5.1 Basophils % 0.8 Nucleated Red Blood 0.0 Cells % Immature Granulocytes # 0.210 H Neutrophils # 4.6 Lymphocytes # 1.7 Monocytes # 0.7 Eosinophils # 0.4 Basophils # 0.1 Nucleated Red Blood 0.0 Cells # Medications Medication Current Medications Ondansetron HCl (Zofran Inj) 4 mg Q6H PRN IV NAUSEA AND/OR VOMITING Last administered on 02/13/19 18:54; Admin Dose 4 MG; Start 02/04/19 at 14:00 Pantoprazole (Protonix Tab) 40 mg DAILY@06 PO Last administered on 02/16/19 05:58; Admin Dose 40 MG; Start 02/07/19 at 06:00 Docusate Sodium (Colace) 200 mg DAILY PRN PO CONSTIPATION Last administered on 02/12/19 08:27; Admin Dose 200 MG; Start 02/06/19 at 14:00 Gabapentin (Neurontin) 200 mg TID PO Last administered on 02/15/19 20:28; Admin Dose 200 MG; Start 02/08/19 at 13:00 Acetaminophen (Tylenol Tab) 650 mg Q4H PRN PO MILD PAIN(1-3)OR ELEVATED TEMP Last administered on 02/16/19 06:13; Admin Dose 650 MG; Start 02/09/19 at 12:00 Saccharomyces Boulardii (Florastor) 250 mg BID PO Last administered on 02/15/19 20:28; Admin Dose 250 MG; Start 02/09/19 at 15:30 Magnesium Hydroxide (Milk Of Mag) 30 ml BID PRN PO CONSTIPATION Last administered on 02/12/19 08:27; Admin Dose 30 ML; Start 02/10/19 at 13:00 Cholecalciferol (Vitamin D) 2,000 unit DAILY PO Last administered on 02/15/19 09:05; Admin Dose 2,000 UNIT; Start 02/11/19 at 11:00 Acetaminophen/ Hydrocodone Bitart ([place] (5/325)) 1 tab Q4H PRN PO MODERATE PAIN LEVEL 4-6; Start 02/11/19 at 17:00 Heparin Sodium (Porcine) (Heparin (1000 Units/ml)) 3,500 unit PER PROTOCOL PRN IV aPTT<47; Start 02/12/19 at 17:30 Warfarin Sodium (Coumadin) 6 mg DAILY@17 PO Last administered on 02/15/19 16:38; Admin Dose 6 MG; Start 02/14/19 at 17:00 Cyclobenzaprine HCl (Flexeril) 5 mg Q12 PO Last administered on 02/15/19 09:06; Admin Dose 5 MG; Start 02/14/19 at 21:00 Hydrocortisone (Hydrocortisone 1% Cr) 1 applic BID TOP Last administered on 02/15/19 20:30; Admin Dose 1 APPLIC; Start 02/14/19 at 23:00 Heparin Sodium (Porcine) 250 ml @ 7 mls/hr PER PROTOCOL IV Last administered on 02/16/19 07:07; Admin Dose 8 MLS/HR; Start 02/15/19 at 03:00 ROHAN NAIK Feb 16, 2019 07:18
[2019-02-16] MEDS: [UNRECOGNIZED DRUG - REMARK] XX SCH ×2 (08:00→16:00)
[2019-02-16] MEDS: CYCLOBENZAPRINE 10 MG TAB PO SCH (09:00)
[2019-02-16] MEDS: GABAPENTIN 100 MG CAP PO SCH ×3 (09:13→20:00)
[2019-02-16] MEDS: SACCHAROMYCES BOULARDII 250 MG CAP PO SCH ×2 (09:13→20:00)
[2019-02-16] MEDS: CHOLECALCIFEROL 2,000 UNIT CAP PO SCH (09:13)
[2019-02-16] MEDS: HYDROCORTISONE 1% 28 GM CR TOP SCH ×2 (09:17→20:00)
--- NOTE | 2019-02-16 10:56 | CONS ---
Assessment/Plan Assessment/Plan Hospital Course (Demo Recall) Status post breast surgery 02/04/2019 Mechanical aortic valve replacement Paroxysmal atrial fibrillation, currently sinus rhythm Acute blood loss anemia Hemoglobin has remained stable Patient is on Coumadin and continue IV heparin bridging until INR is therapeutic No new cardiac orders at the current time Plan of care discussed with patient and daughter at bedside Consultation Date/Type/Reason Admit Date/Time February 04, 2019 at 14:08 Initial Consult Date Type of Consult Cardiology Requesting Provider: LEYLA ZIEGLER MD Date/Time of Note DATE: 02/16/19 TIME: 10:55 24 HR Interval Summary Free Text/Dictation Overall feeling better. No dizziness today. Shortness of breath is better Exam/Review of Systems Vital Signs Vitals Vital Signs Date Temp Pulse Resp B/P (MAP) Pulse Ox O2 O2 Flow FiO2 Time Delivery Rate 02/16/19 77 08:26 02/16/19 98.3 20 144/65 97 07:15 (91) 02/14/19 Nasal 2.0 20:00 Cannula Intake and Output 02/15/19 02/15/19 02/16/19 1515:00 23:00 07:00 IntakeIntake Total 400 ml 1349 ml 500 ml OutputOutput Total 2 ml BalanceBalance 400 ml 1349 ml 498 ml Exam Constitutional: alert, oriented (Sitting in chair, no apparent distress) Head: normocephalic Respiratory: other (Coarse breath sounds bilaterally, no wheezing) Cardiovascular: regular rate and rhythm (S1-S2 heard) Gastrointestinal: soft, non-tender, bowel sounds Extremities: other (No significant edema) Labs Result Diagram: 02/16/19 0940 02/16/19 0626 Results 24hrs Laboratory Tests Test 02/15/19 16:36 02/15/19 20:50 02/16/19 00:27 02/16/19 06:26 Activated 88.1 *H 59.8 H 63.0 H Partial Thromboplas t Time Sodium Level 138 137 Potassium Level 4.1 4.3 Chloride Level 104 104 Carbon Dioxide 28 26 Level Anion Gap 6 7 Blood Urea Nitrogen 16 17 Creatinine 0.74 0.73 Est Glomerular > 60 > 60 Filtrat Rate mL/min Glucose Level 128 96 Calcium Level 8.6 8.9 Hemoglobin 11.0 L 11.4 L Hematocrit 33.9 L 35.1 L White Blood Count 7.6 Red Blood Count 3.91 L Mean Corpuscular 89.8 Volume Mean Corpuscular 29.2 Hemoglobin Mean Corpuscular 32.5 Hemoglobin Concent Red Cell 13.7 Distribution Width Platelet Count 393 # Mean Platelet 9.2 Volume Immature 2.800 H Granulocytes % Neutrophils % 60.4 Lymphocytes % 22.1 Monocytes % 8.8 Eosinophils % 5.1 Basophils % 0.8 Nucleated Red Blood 0.0 Cells % Immature 0.210 H Granulocytes # Neutrophils # 4.6 Lymphocytes # 1.7 Monocytes # 0.7 Eosinophils # 0.4 Basophils # 0.1 Nucleated Red Blood 0.0 Cells # Prothrombin Time 12.5 Prothrombin Time 1.0 Ratio INR International 0.92 Normalized Ratio Test 02/16/19 07:37 02/16/19 09:40 Lab Scanned Report BLOOD TRANSFUSION Hemoglobin 11.5 L Hematocrit 35.8 L Medications Medications Current Medications Ondansetron HCl (Zofran Inj) 4 mg Q6H PRN IV NAUSEA AND/OR VOMITING Last administered on 02/13/19 18:54; Admin Dose 4 MG; Start 02/04/19 at 14:00 Pantoprazole (Protonix Tab) 40 mg DAILY@06 PO Last administered on 02/16/19 05:58; Admin Dose 40 MG; Start 02/07/19 at 06:00 Docusate Sodium (Colace) 200 mg DAILY PRN PO CONSTIPATION Last administered on 02/12/19 08:27; Admin Dose 200 MG; Start 02/06/19 at 14:00 Gabapentin (Neurontin) 200 mg TID PO Last administered on 02/16/19 09:13; Admin Dose 200 MG; Start 02/08/19 at 13:00 Acetaminophen (Tylenol Tab) 650 mg Q4H PRN PO MILD PAIN(1-3)OR ELEVATED TEMP Last administered on 02/16/19 06:13; Admin Dose 650 MG; Start 02/09/19 at 12:00 Saccharomyces Boulardii (Florastor) 250 mg BID PO Last administered on 02/16/19 09:13; Admin Dose 250 MG; Start 02/09/19 at 15:30 Magnesium Hydroxide (Milk Of Mag) 30 ml BID PRN PO CONSTIPATION Last administered on 02/12/19 08:27; Admin Dose 30 ML; Start 02/10/19 at 13:00 Cholecalciferol (Vitamin D) 2,000 unit DAILY PO Last administered on 02/16/19at 09:13; Admin Dose 2,000 UNIT; Start 02/11/19 at 11:00 Acetaminophen/ Hydrocodone Bitart ([place] (5/325)) 1 tab Q4H PRN PO MODERATE PAIN LEVEL 4-6; Start 02/11/19 at 17:00; Status Hold Heparin Sodium (Porcine) (Heparin (1000 Units/ml)) 3,500 unit PER PROTOCOL PRN IV aPTT<47; Start 02/12/19 at 17:30 Warfarin Sodium (Coumadin) 6 mg DAILY@17 PO Last administered on 02/15/19at 16:38; Admin Dose 6 MG; Start 02/14/19 at 17:00 Cyclobenzaprine HCl (Flexeril) 5 mg Q12 PO Last administered on 02/15/19at 09:06; Admin Dose 5 MG; Start 02/14/19 at 21:00 Hydrocortisone (Hydrocortisone 1% Cr) 1 applic BID TOP Last administered on 02/16/19at 09:17; Admin Dose 1 APPLIC; Start 02/14/19 at 23:00 Heparin Sodium (Porcine) 250 ml @ 7 mls/hr PER PROTOCOL IV Last administered on 02/16/19at 07:07; Admin Dose 8 MLS/HR; Start 02/15/19 at 03:00 Miscellaneous Information (*Order Clarification Bulletin) MEDICATION REQUIRES CLARIFICATI... Q8H XX ; Start 02/16/19 at 08:00 Dima Hicks DO Feb 16, 2019 10:56
--- NOTE | 2019-02-16 15:06 | CONS ---
Assessment/Plan Assessment/Plan Hospital Course (Demo Recall) - post op fever, may be due to L breast hematoma - hematoma of L breast, its culture was negative - post-op anemia requiring PRBC - pain and swelling of L axilla, and L scapular region, associated with either the exuberant inflammation from L breast or underlying infection - eczematous rash of L axillary region, possible allergic dermatitis - resolving with hydrocortisone cream 1% - h/o Invasive Breast CA - h/o L partial mastectomy and axillary lymph node dissection - h/o AVR, on heparin as a transition to Coumadin - PAF - low vitamin D - acute cephalgia recommendations: - continue hydrocortisone cream 1% (02/14/2019-) for pruritic rash - monitor closely off antibiotics; s/p pip/tazo (02/08/19-02/14/19). Vancomycin was discontinued (02/08/2019-02/11/2019) due to phlebitis in the UE Consultation Date/Type/Reason Admit Date/Time February 04, 2019 at 14:08 Initial Consult Date Type of Consult ID Requesting Provider: LEYLA ZIEGLER MD Date/Time of Note DATE: 02/16/19 TIME: 15:05 24 HR Interval Summary Free Text/Dictation doing pt Exam/Review of Systems Exam Vitals Vital Signs Date Temp Pulse Resp B/P (MAP) Pulse Ox O2 O2 Flow FiO2 Time Delivery Rate 02/16/19 66 12:26 02/16/19 98.1 20 133/62 96 12:03 (85) 02/14/19 Nasal 2.0 20:00 Cannula Intake and Output 02/15/19 02/15/19 02/16/19 1515:00 23:00 07:00 IntakeIntake Total 400 ml 1349 ml 500 ml OutputOutput Total 2 ml BalanceBalance 400 ml 1349 ml 498 ml Constitutional: alert, oriented, well developed Psych: no complaints, nl mood/affect Head: normocephalic, atraumatic Eyes: nl conjunctiva, EOMI, nl lids, nl sclera, PERRL Results Result Diagram: 02/16/19 0940 02/16/19 0626 Results 24hrs Laboratory Tests Test 02/15/19 16:36 02/15/19 20:50 02/16/19 00:27 02/16/19 06:26 Activated 88.1 *H 59.8 H 63.0 H Partial Thromboplas t Time Sodium Level 138 137 Potassium Level 4.1 4.3 Chloride Level 104 104 Carbon Dioxide 28 26 Level Anion Gap 6 7 Blood Urea Nitrogen 16 17 Creatinine 0.74 0.73 Est Glomerular > 60 > 60 Filtrat Rate mL/min Glucose Level 128 96 Calcium Level 8.6 8.9 Hemoglobin 11.0 L 11.4 L Hematocrit 33.9 L 35.1 L White Blood Count 7.6 Red Blood Count 3.91 L Mean Corpuscular 89.8 Volume Mean Corpuscular 29.2 Hemoglobin Mean Corpuscular 32.5 Hemoglobin Concent Red Cell 13.7 Distribution Width Platelet Count 393 # Mean Platelet 9.2 Volume Immature 2.800 H Granulocytes % Neutrophils % 60.4 Lymphocytes % 22.1 Monocytes % 8.8 Eosinophils % 5.1 Basophils % 0.8 Nucleated Red Blood 0.0 Cells % Immature 0.210 H Granulocytes # Neutrophils # 4.6 Lymphocytes # 1.7 Monocytes # 0.7 Eosinophils # 0.4 Basophils # 0.1 Nucleated Red Blood 0.0 Cells # Prothrombin Time 12.5 Prothrombin Time 1.0 Ratio INR International 0.92 Normalized Ratio Test 02/16/19 07:37 02/16/19 09:40 02/16/19 11:59 Lab Scanned Report BLOOD TRANSFUSION Hemoglobin 11.5 L Hematocrit 35.8 L Activated 58.1 H Partial Thromboplas t Time Medications Medication Current Medications Ondansetron HCl (Zofran Inj) 4 mg Q6H PRN IV NAUSEA AND/OR VOMITING Last administered on 02/13/19at 18:54; Admin Dose 4 MG; Start 02/04/19 at 14:00 Pantoprazole (Protonix Tab) 40 mg DAILY@06 PO Last administered on 02/16/19at 05:58; Admin Dose 40 MG; Start 02/07/19 at 06:00 Docusate Sodium (Colace) 200 mg DAILY PRN PO CONSTIPATION Last administered on 02/12/19at 08:27; Admin Dose 200 MG; Start 02/06/19 at 14:00 Gabapentin (Neurontin) 200 mg TID PO Last administered on 02/16/19at 13:34; Admin Dose 200 MG; Start 02/08/19 at 13:00 Acetaminophen (Tylenol Tab) 650 mg Q4H PRN PO MILD PAIN(1-3)OR ELEVATED TEMP Last administered on 02/16/19 06:13; Admin Dose 650 MG; Start 02/09/19 at 12:00 Saccharomyces Boulardii (Florastor) 250 mg BID PO Last administered on 02/16/19 09:13; Admin Dose 250 MG; Start 02/09/19 at 15:30 Magnesium Hydroxide (Milk Of Mag) 30 ml BID PRN PO CONSTIPATION Last administered on 02/12/19 08:27; Admin Dose 30 ML; Start 02/10/19 at 13:00 Cholecalciferol (Vitamin D) 2,000 unit DAILY PO Last administered on 02/16/19 09:13; Admin Dose 2,000 UNIT; Start 02/11/19 at 11:00 Acetaminophen/ Hydrocodone Bitart ([place] (5/325)) 1 tab Q4H PRN PO MODERATE PAIN LEVEL 4-6; Start 02/11/19 at 17:00; Status Hold Heparin Sodium (Porcine) (Heparin (1000 Units/ml)) 3,500 unit PER PROTOCOL PRN IV aPTT<47; Start 02/12/19 at 17:30 Warfarin Sodium (Coumadin) 6 mg DAILY@17 PO Last administered on 02/15/19 16:38; Admin Dose 6 MG; Start 02/14/19 at 17:00 Cyclobenzaprine HCl (Flexeril) 5 mg Q12 PO Last administered on 02/15/19 09:06; Admin Dose 5 MG; Start 02/14/19 at 21:00 Hydrocortisone (Hydrocortisone 1% Cr) 1 applic BID TOP Last administered on 02/16/19 09:17; Admin Dose 1 APPLIC; Start 02/14/19 at 23:00 Heparin Sodium (Porcine) 250 ml @ 7 mls/hr PER PROTOCOL IV Last administered on 02/16/19 07:07; Admin Dose 8 MLS/HR; Start 02/15/19 at 03:00 Miscellaneous Information (*Order Clarification Bulletin) MEDICATION REQUIRES CLARIFICATI... Q8H XX ; Start 02/16/19 at 08:00 ANGÉLICA BRAVO MD Feb 16, 2019 15:06
--- NOTE | 2019-02-16 16:29 | PN ---
DATE: 02/16/2019 HOSPITAL COURSE: Status post left partial mastectomy and axillary dissection for cancer of left jostin st. Postoperatively, the patient had complicated by bleeding in the site of the operation due to pro longed coagulation factors due to receiving Lovenox and Coumadin for protection of the aortic valve p rosthesis. Today, the patient does not have any complaint. No nausea, no vomiting. Appetite is goo d. Has been out of the bed and walking around. The patient is on Heparin IV drip and Coumadin also was started for her as of yesterday and heparin is going to be continued until we get an acceptable I NR for the anticoagulation. I changed the dressing yesterday afternoon myself and the wound is clean . There is no evidence of infection. Still, hematoma is palpable in the breast tissue and in the ax illa, but mostly in the axilla has more fluctuations. There is 1 [address] drain in place, but i s not draining that much. After milking the tubing, there is 5 to 10 mL of dark old blood drained. ASSESSMENT: Fortunately, the patient is stable now. Her hemoglobin and hematocrit today is 11.5 and 35.8 which has been stable since 02/13/2019. PLAN: Continue current care per core stripper. From general surgical point of view, the patient can be discharged, but of course the patient has to be fully anticoagulated before can be discharged. It depends on the core stripper of course. We will continue to follow. Dictated By: ALFONSO CONTRERAS MD PS/NTS Conf#: [id number] DID#: [id number] CC: MAIA HINOJOSA MD; LEYLA ZIEGLER MD;*[facility]*
[2019-02-16] MEDS: WARFARIN 3 MG TAB PO SCH (16:47)
[2019-02-16] MEDS ORDERED: CYCLOBENZAPRINE 10 MG TAB PO PRN (17:30)
--- NOTE | 2019-02-16 19:26 | PN ---
Date/Time of Note Date/Time of Note DATE: 02/16/19 TIME: 19:26 Assessment/Plan VTE Prophylaxis Risk score (from [facility] [place])>0 risk: 11 SCD applied (from [facility] [place]): Yes Pharmacological prophylaxis: heparin, warfarin tx Lines/Catheters IV Catheter Type (from [facility]): Peripheral IV Assessment/Plan Hospital Course Patient is awake, alert, CT of the brain with no acute findings. Patient continues on heparin drip for mechanical AVR and Coumadin, INR is 0.92. Assessment/Plan -Hemoptysis, likely secondary to tracheobronchitis, on anticoagulation--now improved. No evidence of significant intraparenchymal abnormalities on CT chest. Status post evaluation by Dr. Pierce in pulmonology consultation. -Left breast cancer, status post left partial mastectomy by Dr. Diaz. -Postoperative hematomas in left breast and left axillary region. -Postoperative fever, continue antibiotics per ID. Dr. Srinivasan is following in infection disease consultation. -Paroxysmal atrial fibrillation. -Mechanical aortic valve replacement secondary to aortic insufficiency. Dr. Hicks is following in cardiology consultation. on heparin drip. -Anemia of acute blood loss, continue to monitor H&H, will transfuse as needed. -Vitamin D deficiency, started on supplement. Further recommendations based on clinical course. Plan of care discussed with Dr. Pelaez. Result Diagram: 02/16/19 0940 02/16/19 0626 Results 24hrs Laboratory Tests Test 02/15/19 20:50 02/16/19 00:27 02/16/19 06:26 02/16/19 07:37 Hemoglobin 11.0 L 11.4 L Hematocrit 33.9 L 35.1 L Activated 59.8 H 63.0 H Partial Thromboplas t Time White Blood Count 7.6 Red Blood Count 3.91 L Mean Corpuscular 89.8 Volume Mean Corpuscular 29.2 Hemoglobin Mean Corpuscular 32.5 Hemoglobin Concent Red Cell 13.7 Distribution Width Platelet Count 393 # Mean Platelet 9.2 Volume Immature 2.800 H Granulocytes % Neutrophils % 60.4 Lymphocytes % 22.1 Monocytes % 8.8 Eosinophils % 5.1 Basophils % 0.8 Nucleated Red Blood 0.0 Cells % Immature 0.210 H Granulocytes # Neutrophils # 4.6 Lymphocytes # 1.7 Monocytes # 0.7 Eosinophils # 0.4 Basophils # 0.1 Nucleated Red Blood 0.0 Cells # Prothrombin Time 12.5 Prothrombin Time 1.0 Ratio INR International 0.92 Normalized Ratio Sodium Level 137 Potassium Level 4.3 Chloride Level 104 Carbon Dioxide 26 Level Anion Gap 7 Blood Urea Nitrogen 17 Creatinine 0.73 Est Glomerular > 60 Filtrat Rate mL/min Glucose Level 96 Calcium Level 8.9 Lab Scanned Report BLOOD TRANSFUSION Test 02/16/19 09:40 02/16/19 11:59 Hemoglobin 11.5 L Hematocrit 35.8 L Activated 58.1 H Partial Thromboplas t Time Exam/Review of Systems Exam Vitals Vital Signs Date Temp Pulse Resp B/P (MAP) Pulse Ox O2 O2 Flow FiO2 Time Delivery Rate 02/16/19 69 17:05 02/16/19 98.0 20 155/76 99 15:41 (102) 02/14/19 Nasal 2.0 20:00 Cannula Intake and Output 02/15/19 02/15/19 02/16/19 1515:00 23:00 07:00 IntakeIntake Total 400 ml 1349 ml 500 ml OutputOutput Total 2 ml BalanceBalance 400 ml 1349 ml 498 ml Exam Constitutional: alert, oriented Respiratory: clear to auscultation Cardiovascular: regular rate and rhythm Gastrointestinal: soft, non-tender Musculoskeletal: nl extremities to inspection Extremities: normal pulses Neurological: nl mental status Skin: other (Status post left partial mastectomy, axillary JPs) Results Results 24hrs Laboratory Tests Test 02/15/19 20:50 02/16/19 00:27 02/16/19 06:26 02/16/19 07:37 Hemoglobin 11.0 L 11.4 L Hematocrit 33.9 L 35.1 L Activated 59.8 H 63.0 H Partial Thromboplas t Time White Blood Count 7.6 Red Blood Count 3.91 L Mean Corpuscular 89.8 Volume Mean Corpuscular 29.2 Hemoglobin Mean Corpuscular 32.5 Hemoglobin Concent Red Cell 13.7 Distribution Width Platelet Count 393 # Mean Platelet 9.2 Volume Immature 2.800 H Granulocytes % Neutrophils % 60.4 Lymphocytes % 22.1 Monocytes % 8.8 Eosinophils % 5.1 Basophils % 0.8 Nucleated Red Blood 0.0 Cells % Immature 0.210 H Granulocytes # Neutrophils # 4.6 Lymphocytes # 1.7 Monocytes # 0.7 Eosinophils # 0.4 Basophils # 0.1 Nucleated Red Blood 0.0 Cells # Prothrombin Time 12.5 Prothrombin Time 1.0 Ratio INR International 0.92 Normalized Ratio Sodium Level 137 Potassium Level 4.3 Chloride Level 104 Carbon Dioxide 26 Level Anion Gap 7 Blood Urea Nitrogen 17 Creatinine 0.73 Est Glomerular > 60 Filtrat Rate mL/min Glucose Level 96 Calcium Level 8.9 Lab Scanned Report BLOOD TRANSFUSION Test 02/16/19 09:40 02/16/19 11:59 Hemoglobin 11.5 L Hematocrit 35.8 L Activated 58.1 H Partial Thromboplas t Time Medications Medication Current Medications Ondansetron HCl (Zofran Inj) 4 mg Q6H PRN IV NAUSEA AND/OR VOMITING Last ad ministered on 02/13/19 18:54; Admin Dose 4 MG; Start 02/04/19 at 14:00 Pantoprazole (Protonix Tab) 40 mg DAILY@06 PO Last administered on 02/16/19 05:58; Admin Dose 40 MG; Start 02/07/19 at 06:00 Docusate Sodium (Colace) 200 mg DAILY PRN PO CONSTIPATION Last administered on 02/12/19 08:27; Admin Dose 200 MG; Start 02/06/19 at 14:00 Gabapentin (Neurontin) 200 mg TID PO Last administered on 02/16/19 13:34; Admin Dose 200 MG; Start 02/08/19 at 13:00 Acetaminophen (Tylenol Tab) 650 mg Q4H PRN PO MILD PAIN(1-3)OR ELEVATED TEMP Last administered on 02/16/19 06:13; Admin Dose 650 MG; Start 02/09/19 at 12:00 Saccharomyces Boulardii (Florastor) 250 mg BID PO Last administered on 02/16/19 09:13; Admin Dose 250 MG; Start 02/09/19 at 15:30 Magnesium Hydroxide (Milk Of Mag) 30 ml BID PRN PO CONSTIPATION Last administered on 02/12/19 08:27; Admin Dose 30 ML; Start 02/10/19 at 13:00 Cholecalciferol (Vitamin D) 2,000 unit DAILY PO Last administered on 02/16/19 09:13; Admin Dose 2,000 UNIT; Start 02/11/19 at 11:00 Acetaminophen/ Hydrocodone Bitart ([place] (5/325)) 1 tab Q4H PRN PO MODERATE P AIN LEVEL 4-6; Start 02/11/19 at 17:00; Status Hold Heparin Sodium (Porcine) (Heparin (1000 Units/ml)) 3,500 unit PER PROTOCOL PRN IV aPTT<47; Start 02/12/19 at 17:30 Warfarin Sodium (Coumadin) 6 mg DAILY@17 PO Last administered on 02/16/19at 16:47; Admin Dose 6 MG; Start 02/14/19 at 17:00 Hydrocortisone (Hydrocortisone 1% Cr) 1 applic BID TOP Last administered on 02/16/19at 09:17; Admin Dose 1 APPLIC; Start 02/14/19 at 23:00 Heparin Sodium (Porcine) 250 ml @ 7 mls/hr PER PROTOCOL IV Last administered on 02/16/19at 07:07; Admin Dose 8 MLS/HR; Start 02/15/19 at 03:00 Miscellaneous Information (*Order Clarification Bulletin) MEDICATION REQUIRES CLARIFICATI... Q8H XX ; Start 02/16/19 at 08:00 Cyclobenzaprine HCl (Flexeril) 5 mg Q12 PRN PO spasm; Start 02/16/19 at 17:30 MIHAI GUTIERREZ Feb 16, 2019 19:26
[2019-02-17] VITALS (11 sets, daily range): BP systolic 124–151; BP diastolic 55–80; PULSE 66–83; RESP 18–22
[2019-02-17] MEDS: PANTOPRAZOLE (EC) 40 MG TAB PO SCH (05:31)
[2019-02-17] MEDS: [UNRECOGNIZED DRUG - REMARK] XX SCH ×3 (08:00→15:03)
[2019-02-17] MEDS: CHOLECALCIFEROL 2,000 UNIT CAP PO SCH (08:54)
[2019-02-17] MEDS: GABAPENTIN 100 MG CAP PO SCH ×3 (08:54→20:48)
[2019-02-17] MEDS: SACCHAROMYCES BOULARDII 250 MG CAP PO SCH ×2 (08:54→20:48)
[2019-02-17] MEDS: HYDROCORTISONE 1% 28 GM CR TOP SCH ×2 (08:54→20:48)
[2019-02-17] MEDS: ACETAMINOPHEN 325 MG TAB PO PRN ×2 (09:16→17:25)
--- NOTE | 2019-02-17 10:52 | CONS ---
Assessment/Plan Assessment/Plan Assessment/Plan (Daily) Assessment recommendations; 1. Patient with history of mechanical aortic valve replacement admitted for hemoptysis possibly from tracheal bronchitis with marked interval resolution. Continue current supportive care. Patient to be discharged home once INR is therapeutic. Will sign off from pulmonary perspective. Consultation Date/Type/Reason Admit Date/Time February 04, 2019 at 14:08 Initial Consult Date 02/13/19 Type of Consult Pulmonary Patient's condition is stable. Denies any further hemoptysis, chest pain, shortness of breath. General exam; elderly lady, sitting in chair by bedside. Awake and alert. Currently in no distress. On room air. Requesting Provider: LEYLA ZIEGLER MD Date/Time of Note DATE: 02/17/19 TIME: 10:51 24 HR Interval Summary Free Text/Dictation Patient's condition is stable. Denies any shortness of breath, coughing, any further hemoptysis. General exam; elderly woman, awake alert, sitting in a chair by bedside. Currently no distress. On room air. Exam/Review of Systems Exam Vitals Vital Signs Date Temp Pulse Resp B/P (MAP) Pulse Ox O2 O2 Flow FiO2 Time Delivery Rate 02/17/19 83 08:00 02/17/19 98.6 20 132/58 97 03:51 (82) 02/14/19 Nasal 2.0 20:00 Cannula Intake and Output 02/16/19 02/16/19 02/17/19 1515:00 23:00 07:00 IntakeIntake Total 1250 ml 800 ml OutputOutput Total 2 ml 4 ml BalanceBalance 1248 ml 796 ml Exam HEENT exam; supple neck, no JVD. No lymphadenopathy. Midline trachea. No thyromegaly. Pharynx is clear. No neck bruits. Patient has fair dentition. Chest exam; clear to auscultation. Mechanical S2. There is a well-healed sternal scar. Regular rhythm. Abdomen exam; soft, nontender. No organomegaly. Bowel sounds audible. Extremity exam; no peripheral edema clubbing. 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 Results Result Diagram: 02/16/19 1930 02/16/19 0626 Results 24hrs Laboratory Tests Test 02/16/19 11:59 02/16/19 19:30 02/17/19 05:32 Activated Partial Thromboplast Time 58.1 H 67.7 H Hemoglobin 11.4 L Hematocrit 35.2 L Prothrombin Time 12.9 Prothrombin Time Ratio 1.0 INR International Normalized Ratio 0.96 Medications Medication Current Medications Ondansetron HCl (Zofran Inj) 4 mg Q6H PRN IV NAUSEA AND/OR VOMITING Last administered on 02/13/19 18:54; Admin Dose 4 MG; Start 02/04/19 at 14:00 Pantoprazole (Protonix Tab) 40 mg DAILY@06 PO Last administered on 02/17/19 05:31; Admin Dose 40 MG; Start 02/07/19 at 06:00 Docusate Sodium (Colace) 200 mg DAILY PRN PO CONSTIPATION Last administered on 02/12/19 08:27; Admin Dose 200 MG; Start 02/06/19 at 14:00 Gabapentin (Neurontin) 200 mg TID PO Last administered on 02/17/19 08:54; Admin Dose 200 MG; Start 02/08/19 at 13:00 Acetaminophen (Tylenol Tab) 650 mg Q4H PRN PO MILD PAIN(1-3)OR ELEVATED TEMP Last administered on 02/17/19 09:16; Admin Dose 650 MG; Start 02/09/19 at 12:00 Saccharomyces Boulardii (Florastor) 250 mg BID PO Last administered on 02/17/19 08:54; Admin Dose 250 MG; Start 02/09/19 at 15:30 Magnesium Hydroxide (Milk Of Mag) 30 ml BID PRN PO CONSTIPATION Last administered on 02/12/19 08:27; Admin Dose 30 ML; Start 02/10/19 at 13:00 Cholecalciferol (Vitamin D) 2,000 unit DAILY PO Last administered on 02/17/19 08:54; Admin Dose 2,000 UNIT; Start 02/11/19 at 11:00 Heparin Sodium (Porcine) (Heparin (1000 Units/ml)) 3,500 unit PER PROTOCOL PRN IV aPTT<47; Start 02/12/19 at 17:30 Warfarin Sodium (Coumadin) 6 mg DAILY@17 PO Last administered on 02/16/19 16:47; Admin Dose 6 MG; Start 02/14/19 at 17:00 Hydrocortisone (Hydrocortisone 1% Cr) 1 applic BID TOP Last administered on 6/5/19at 08:54; Admin Dose 1 APPLIC; Start 02/14/19 at 23:00 Heparin Sodium (Porcine) 250 ml @ 7 mls/hr PER PROTOCOL IV Last administered on 02/16/19at 07:07; Admin Dose 8 MLS/HR; Start 02/15/19 at 03:00 Miscellaneous Information (*Order Clarification Bulletin) MEDICATION REQUIRES CLARIFICATI... Q8H XX ; Start 02/16/19 at 08:00 Cyclobenzaprine HCl (Flexeril) 5 mg Q12 PRN PO spasm; Start 02/16/19 at 17:30 ROHAN NAIK Feb 17, 2019 10:52
--- NOTE | 2019-02-17 11:28 | CONS ---
Assessment/Plan Assessment/Plan Hospital Course (Demo Recall) - post op fever, may be due to L breast hematoma - hematoma of L breast, its culture was negative - post-op anemia requiring PRBC - pain and swelling of L axilla, and L scapular region, associated with either the exuberant inflammation from L breast or underlying infection - eczematous rash of L axillary region, possible allergic dermatitis - resolving with hydrocortisone cream 1% - h/o Invasive Breast CA - h/o L partial mastectomy and axillary lymph node dissection - h/o AVR, on heparin as a transition to Coumadin - PAF - low vitamin D - acute cephalgia Recommendations: - continue hydrocortisone cream 1% (02/14/2019-) for pruritic rash - monitor closely off antibiotics; s/p pip/tazo (02/08/19-02/14/19). Vancomycin was discontinued (02/08/2019-02/11/2019) due to phlebitis in the UE Plan was d/w patient, and with Dr. Arias via [employer] messaging. Consultation Date/Type/Reason Admit Date/Time February 04, 2019 at 14:08 Initial Consult Date 02/13/19 Type of Consult ID Requesting Provider: LEYLA ZIEGLER MD Date/Time of Note DATE: 02/17/19 TIME: 11:28 24 HR Interval Summary Free Text/Dictation Afebrile. Per patient she is experiencing itching at the top of her dressing. States rash is improving with cream use. Denies feeling of fevers, chills, sweats today, Denies sob, cp, n/v/d. Is c/o RLQ pain, has not had a bm in 2d. Exam/Review of Systems Exam Vitals Vital Signs Date Temp Pulse Resp B/P (MAP) Pulse Ox O2 O2 Flow FiO2 Time Delivery Rate 02/17/19 83 08:00 02/17/19 97.9 22 124/80 96 Room Air 08:00 (95) 02/14/19 2.0 20:00 Allergies Coded Allergies belladonna alkaloids (Verified Allergy, Mild, itching, swelling, 02/04/19) codeine (Verified Allergy, Mild, NUMBNESS OF HAND, EXTREME AGITATION, 02/04/19) hydrocodone (Verified Allergy, Unknown, itch, swelling, 02/04/19) aspirin (Verified Adverse Reaction, Mild, GASTRIC PROBLEMS, 02/04/19) Intake and Output 02/16/19 02/16/19 02/17/19 1515:00 23:00 07:00 IntakeIntake Total 1250 ml 800 ml OutputOutput Total 2 ml 4 ml BalanceBalance 1248 ml 796 ml Constitutional: alert, oriented, well developed, other (laying in bed with visitor at bedside ) Psych: no complaints, nl mood/affect Head: normocephalic, atraumatic Eyes: nl conjunctiva, nl lids, nl sclera ENMT: nl external ears & nose, nl nasal mucosa & septum, mucosa pink and moist (no thrush noted ) Neck: supple, non-tender Respiratory: clear to auscultation, normal air movement Cardiovascular: regular rate and rhythm, nl pulses Gastrointestinal: soft, non-tender (patient does not report increase in pain in RLQ with palpation ), bowel sounds (normoactive ) Musculoskeletal: swelling (L shoulder - improving ), other (Limited LUE ROM d/t pain/swelling) Extremities: normal pulses; No edema Neurological: TREE TRIMMER II-XII intact, nl mental status, nl speech Skin: nl turgor, other (L axillary rash resolving; L breast dressing is c/d/i, L breast KARY drain with minimal sanguinous output noted ) Results Result Diagram: 02/16/19 19302/16/19 06 Results 24hrs Laboratory Tests Test 02/16/19 11:59 02/16/19 19:30 02/17/19 05:32 Activated Partial Thromboplast Time 58.1 H 67.7 H Hemoglobin 11.4 L Hematocrit 35.2 L Prothrombin Time 12.9 Prothrombin Time Ratio 1.0 INR International Normalized Ratio 0.96 Medications Medication Current Medications Ondansetron HCl (Zofran Inj) 4 mg Q6H PRN IV NAUSEA AND/OR VOMITING Last ad ministered on 02/13/19at 18:54; Admin Dose 4 MG; Start 02/04/19 at 14:00 Pantoprazole (Protonix Tab) 40 mg DAILY@06 PO Last administered on 02/17/19at 05:31; Admin Dose 40 MG; Start 02/07/19 at 06:00 Docusate Sodium (Colace) 200 mg DAILY PRN PO CONSTIPATION Last administered on 02/12/19 08:27; Admin Dose 200 MG; Start 02/06/19 at 14:00 Gabapentin (Neurontin) 200 mg TID PO Last administered on 02/17/19 08:54; Admin Dose 200 MG; Start 02/08/19 at 13:00 Acetaminophen (Tylenol Tab) 650 mg Q4H PRN PO MILD PAIN(1-3)OR ELEVATED TEMP Last administered on 02/17/19 09:16; Admin Dose 650 MG; Start 02/09/19 at 12:00 Saccharomyces Boulardii (Florastor) 250 mg BID PO Last administered on 02/17/19 08:54; Admin Dose 250 MG; Start 02/09/19 at 15:30 Magnesium Hydroxide (Milk Of Mag) 30 ml BID PRN PO CONSTIPATION Last administered on 02/12/19 08:27; Admin Dose 30 ML; Start 02/10/19 at 13:00 Cholecalciferol (Vitamin D) 2,000 unit DAILY PO Last administered on 02/17/19 08:54; Admin Dose 2,000 UNIT; Start 02/11/19 at 11:00 Heparin Sodium (Porcine) (Heparin (1000 Units/ml)) 3,500 unit PER PROTOCOL PRN IV aPTT<47; Start 02/12/19 at 17:30 Warfarin Sodium (Coumadin) 6 mg DAILY@17 PO Last administered on 02/16/19 16:47; Admin Dose 6 MG; Start 02/14/19 at 17:00 Hydrocortisone (Hydrocortisone 1% Cr) 1 applic BID TOP Last administered on 02/17/19 08:54; Admin Dose 1 APPLIC; Start 02/14/19 at 23:00 Heparin Sodium (Porcine) 250 ml @ 7 mls/hr PER PROTOCOL IV Last administered on 02/16/19 07:07; Admin Dose 8 MLS/HR; Start 02/15/19 at 03:00 Miscellaneous Information (*Order Clarification Bulletin) MEDICATION REQUIRES CLARIFICATI... Q8H XX ; Start 02/16/19 at 08:00 Cyclobenzaprine HCl (Flexeril) 5 mg Q12 PRN PO spasm; Start 02/16/19 at 17:30 SHAYY GARRISON NP Feb 17, 2019 11:28
--- NOTE | 2019-02-17 11:46 | CONS ---
Assessment/Plan Assessment/Plan Hospital Course (Demo Recall) Status post breast surgery 02/04/2019 Mechanical aortic valve replacement Paroxysmal atrial fibrillation, currently sinus rhythm Acute blood loss anemia Patient is on Coumadin and continue IV heparin bridging until INR is therapeutic Consultation Date/Type/Reason Admit Date/Time February 04, 2019 at 14:08 Initial Consult Date Type of Consult Cardiology Requesting Provider: LEYLA ZIEGLER MD Date/Time of Note DATE: 02/17/19 TIME: 11:45 24 HR Interval Summary Free Text/Dictation Feeling better, less fatigue. Denies shortness of breath Exam/Review of Systems Vital Signs Vitals Vital Signs Date Temp Pulse Resp B/P (MAP) Pulse Ox O2 O2 Flow FiO2 Time Delivery Rate 02/17/19 83 08:00 02/17/19 97.9 22 124/80 96 Room Air 08:00 (95) 02/14/19 2.0 20:00 Intake and Output 02/16/19 02/16/19 02/17/19 1515:00 23:00 07:00 IntakeIntake Total 1250 ml 800 ml OutputOutput Total 2 ml 4 ml BalanceBalance 1248 ml 796 ml Exam Constitutional: alert, oriented (No apparent distress) Head: normocephalic Respiratory: clear to auscultation, normal air movement Cardiovascular: regular rate and rhythm (s1 S2 heard) Gastrointestinal: soft, non-tender, bowel sounds Extremities: other (No significant edema) Labs Result Diagram: 02/16/19 1930 02/16/19 0626 Results 24hrs Laboratory Tests Test 02/16/19 11:59 02/16/19 19:30 02/17/19 05:32 Activated Partial Thromboplast Time 58.1 H 67.7 H Hemoglobin 11.4 L Hematocrit 35.2 L Prothrombin Time 12.9 Prothrombin Time Ratio 1.0 INR International Normalized Ratio 0.96 Medications Medications Current Medications Ondansetron HCl (Zofran Inj) 4 mg Q6H PRN IV NAUSEA AND/OR VOMITING Last administered on 02/13/19at 18:54; Admin Dose 4 MG; Start 02/04/19 at 14:00 Pantoprazole (Protonix Tab) 40 mg DAILY@06 PO Last administered on 02/17/19at 05:31; Admin Dose 40 MG; Start 02/07/19 at 06:00 Docusate Sodium (Colace) 200 mg DAILY PRN PO CONSTIPATION Last administered on 02/12/19 08:27; Admin Dose 200 MG; Start 02/06/19 at 14:00 Gabapentin (Neurontin) 200 mg TID PO Last administered on 02/17/19 08:54; Admin Dose 200 MG; Start 02/08/19 at 13:00 Acetaminophen (Tylenol Tab) 650 mg Q4H PRN PO MILD PAIN(1-3)OR ELEVATED TEMP Last administered on 02/17/19 09:16; Admin Dose 650 MG; Start 02/09/19 at 12:00 Saccharomyces Boulardii (Florastor) 250 mg BID PO Last administered on 02/17/19 08:54; Admin Dose 250 MG; Start 02/09/19 at 15:30 Magnesium Hydroxide (Milk Of Mag) 30 ml BID PRN PO CONSTIPATION Last admin istered on 02/12/19 08:27; Admin Dose 30 ML; Start 02/10/19 at 13:00 Cholecalciferol (Vitamin D) 2,000 unit DAILY PO Last administered on 02/17/19 08:54; Admin Dose 2,000 UNIT; Start 02/11/19 at 11:00 Heparin Sodium (Porcine) (Heparin (1000 Units/ml)) 3,500 unit PER PROTOCOL PRN IV aPTT<47; Start 02/12/19 at 17:30 Warfarin Sodium (Coumadin) 6 mg DAILY@17 PO Last administered on 02/16/19 16:47; Admin Dose 6 MG; Start 02/14/19 at 17:00 Hydrocortisone (Hydrocortisone 1% Cr) 1 applic BID TOP Last administered on 02/17/19 08:54; Admin Dose 1 APPLIC; Start 02/14/19 at 23:00 Heparin Sodium (Porcine) 250 ml @ 7 mls/hr PER PROTOCOL IV Last administered on 02/16/19 07:07; Admin Dose 8 MLS/HR; Start 02/15/19 at 03:00 Miscellaneous Information (*Order Clarification Bulletin) MEDICATION REQUIRES CLARIFICATI... Q8H XX ; Start 02/16/19 at 08:00 Cyclobenzaprine HCl (Flexeril) 5 mg Q12 PRN PO spasm; Start 02/16/19 at 17:30 Dima Hicks DO Feb 17, 2019 11:46
[2019-02-17] MEDS: HEPARIN 25000 UNITS/250 ML 250 ML IV SCH (12:43)
[2019-02-17] MEDS ORDERED: IOHEXOL 14.3 MG(I)/ML (ADULT) BTL PO ONE (15:30)
--- NOTE | 2019-02-17 15:31 | PN ---
DATE: 02/17/2019 SUBJECTIVE: She is stating that since last night has been experiencing pain in the right lower quadr ant. No nausea, no vomiting. Appetite has been okay and she has good breakfast today. Stated pain in right lower quadrant is around 6 or 7/10. No bowel movement today. Has not passed any gas today. OBJECTIVE: GENERAL: Awake, alert, oriented, comfortable, in no acute distress. VITAL SIGNS: Temperature maximum 98.6, heart rate 69, respirations 20, blood pressure 136/58, satura tion 97% on room air. HEART: Regular. Sinus rhythm. LUNGS: Clear. ABDOMEN: Soft, especially right lower quadrant. There is no guarding. There is no rigidity. There is no rebound. There is no voluntary guarding, but is tender on deep palpation. I cannot detect an y hernia at this time. INPUT AND OUTPUT: Urine output in the past 24 hours has not been documented. Gerson-Russell drain in the past 24 hours was only 4 mL. LABORATORY DATA: Hemoglobin 11.4, hematocrit 35.2, has been stable, WBC 7600 with 60% segmented. Ch emistry: Sodium, potassium, BUN, creatinine are within normal limits. Coagulation: PT is 12.9 whic h is normal, INR is 0.96 which is normal, APTT is 67.7 which is to some extent elevated and of course , this is due to effect of heparin drip that patient is receiving. ASSESSMENT: The patient is status post left breast partial mastectomy with axillary dissection and a lso aortic valve replacement status post many years ago with metallic valve for which she has been on Coumadin. The patient post-operation developed hematoma of left breast and axillary area and has re quired 5 units of blood transfusion. Eventually, she appears in the past 3 days has stopped oozing a nd bleeding. The patient is feeling better and out of bed, walking around. PLAN: Cardiology is managing and bridging the Coumadin with heparin drip. She is getting 6 mg of Co umadin in the afternoon everyday in the past 3 days. Continue current care. We will follow. Dictated By: ALFONSO CONTRERAS MD PS/NTS Conf#: [id number] DID#: [id number] CC: LEYLA ZIEGLER MD; MAIA HINOJOSA MD;*EndCC*
--- NOTE | 2019-02-17 16:07 | CONS ---
Assessment/Plan Assessment/Plan Assessment/Plan (Daily) Assessment/Plan Hospital Course (Demo Recall) 63 yo female 1. Status post surgery, left-sided mastectomy for a left breast cancer. 2. Postoperative hematoma at the site of surgery now the drain has been in place. 3. Status post 6 units of packed cell RBC transfusion. 4. Chronic constipation, which has improved with Amitiza. 5. Mechanical aortic valve replacement. The patient is on heparin for that. 6. Paroxysmal atrial fibrillation. 7. Vitamin D deficiency with low calcium 8. Anemia, mild -no evidence of overt GI bleeding -pt is on coumadin and heparin gtt 9. Right lower quadrant pain and mild tenderness. Patient CAT scan 3 4 days ago for the appendix was negative she has no leukocytosis no fever. PLAN: Continue post op care Utilize prn laxatives as needed Monitor HH and for active GI bleeding, pt is on coumadin Another CT scan of abdomen and pelvis has been ordered to rule out appendicitis Consultation Date/Type/Reason Admit Date/Time February 04, 2019 at 14:08 Initial Consult Date 02/08/19 Requesting Provider: LEYLA ZIEGLER MD Date/Time of Note DATE: 02/17/19 TIME: 16:05 24 HR Interval Summary Free Text/Dictation Patient complains of pain in the right lower quadrant for last 1 day Had a good bowel movement no bleeding Exam/Review of Systems Exam Vitals Vital Signs Date Temp Pulse Resp B/P (MAP) Pulse Ox O2 O2 Flow FiO2 Time Delivery Rate 02/17/19 66 12:00 02/17/19 98.4 20 133/71 94 Room Air 11:44 (91) 02/14/19 2.0 20:00 Intake and Output 02/16/19 02/16/19 02/17/19 1515:00 23:00 07:00 IntakeIntake Total 1250 ml 800 ml OutputOutput Total 2 ml 4 ml BalanceBalance 1248 ml 796 ml ENMT: nl external ears & nose, nl lips & teeth, nl nasal mucosa & septum Respiratory: clear to auscultation, normal air movement Gastrointestinal: tender (Mild tenderness right lower quadrant) Musculoskeletal: nl extremities to inspection, nl gait and stance Results Result Diagram: 02/16/19 1930 02/16/19 0626 Results 24hrs Laboratory Tests Test 02/16/19 19:30 02/17/19 05:32 Hemoglobin 11.4 L Hematocrit 35.2 L Prothrombin Time 12.9 Prothrombin Time Ratio 1.0 INR International Normalized Ratio 0.96 Activated Partial Thromboplast Time 67.7 H Medications Medication Current Medications Ondansetron HCl (Zofran Inj) 4 mg Q6H PRN IV NAUSEA AND/OR VOMITING Last administered on 02/13/19 18:54; Admin Dose 4 MG; Start 02/04/19 at 14:00 Pantoprazole (Protonix Tab) 40 mg DAILY@06 PO Last administered on 02/17/19 05:31; Admin Dose 40 MG; Start 02/07/19 at 06:00 Docusate Sodium (Colace) 200 mg DAILY PRN PO CONSTIPATION Last administered on 02/12/19 08:27; Admin Dose 200 MG; Start 02/06/19 at 14:00 Gabapentin (Neurontin) 200 mg TID PO Last administered on 02/17/19 12:43; Admin Dose 200 MG; Start 02/08/19 at 13:00 Acetaminophen (Tylenol Tab) 650 mg Q4H PRN PO MILD PAIN(1-3)OR ELEVATED TEMP Last administered on 02/17/19 09:16; Admin Dose 650 MG; Start 02/09/19 at 12:00 Saccharomyces Boulardii (Florastor) 250 mg BID PO Last administered on 02/17/19 08:54; Admin Dose 250 MG; Start 02/09/19 at 15:30 Magnesium Hydroxide (Milk Of Mag) 30 ml BID PRN PO CONSTIPATION Last adminis tered on 02/12/19 08:27; Admin Dose 30 ML; Start 02/10/19 at 13:00 Cholecalciferol (Vitamin D) 2,000 unit DAILY PO Last administered on 02/17/19 08:54; Admin Dose 2,000 UNIT; Start 02/11/19 at 11:00 Heparin Sodium (Porcine) (Heparin (1000 Units/ml)) 3,500 unit PER PROTOCOL PRN IV aPTT<47; Start 02/12/19 at 17:30 Warfarin Sodium (Coumadin) 6 mg DAILY@17 PO Last administered on 02/16/19 16:47; Admin Dose 6 MG; Start 02/14/19 at 17:00 Hydrocortisone (Hydrocortisone 1% Cr) 1 applic BID TOP Last administered on 6/5/19at 08:54; Admin Dose 1 APPLIC; Start 02/14/19 at 23:00 Heparin Sodium (Porcine) 250 ml @ 7 mls/hr PER PROTOCOL IV Last administered on 02/17/19at 12:43; Admin Dose 8 MLS/HR; Start 02/15/19 at 03:00 Miscellaneous Information (*Order Clarification Bulletin) MEDICATION REQUIRES CLARIFICATI... Q8H XX ; Start 02/16/19 at 08:00 Cyclobenzaprine HCl (Flexeril) 5 mg Q12 PRN PO spasm; Start 02/16/19 at 17:30 TONIA SANTANA MD Feb 17, 2019 16:07
[2019-02-17] MEDS: WARFARIN 3 MG TAB PO SCH (17:21)
--- NOTE | 2019-02-17 18:23 | PN ---
Date/Time of Note Date/Time of Note DATE: 02/17/19 TIME: 18:19 Assessment/Plan VTE Prophylaxis Risk score (from Ns)>0 risk: 11 SCD applied (from Ns): Yes Pharmacological prophylaxis: heparin Lines/Catheters IV [facility] [place] Assessment/Plan Hospital Course Patient complains of RLQ pain, will obtain CT abd. Patient continues on heparin drip for mechanical AVR and Coumadin. Assessment/Plan -Hemoptysis, likely secondary to tracheobronchitis, on anticoagulation--now improved. No evidence of significant intraparenchymal abnormalities on CT chest. Status post evaluation by Dr. Pierce in pulmonology consultation. -Left breast cancer, status post left partial mastectomy by Dr. Diaz. -Postoperative hematomas in left breast and left axillary region. -Postoperative fever, continue antibiotics per ID. Dr. Srinivasan is following in infection disease consultation. -Paroxysmal atrial fibrillation. -Mechanical aortic valve replacement secondary to aortic insufficiency. Dr. Hicks is following in cardiology consultation. on heparin drip. -Anemia of acute blood loss, continue to monitor H&H, will transfuse as needed. -Vitamin D deficiency, started on supplement. Further recommendations based on clinical course. Plan of care discussed with Dr. Pelaez. Result Diagram: 02/16/19 1930 02/16/19 0626 Results 24hrs Laboratory Tests Test 02/16/19 19:30 02/17/19 05:32 Hemoglobin 11.4 L Hematocrit 35.2 L Prothrombin Time 12.9 Prothrombin Time Ratio 1.0 INR International Normalized Ratio 0.96 Activated Partial Thromboplast Time 67.7 H Exam/Review of Systems Exam Vitals Vital Signs Date Temp Pulse Resp B/P (MAP) Pulse Ox O2 O2 Flow FiO2 Time Delivery Rate 02/17/19 98.3 69 22 136/62 Room Air 16:25 (86) 02/17/19 94 11:44 02/14/19 2.0 20:00 Intake and Output 02/16/19 02/16/19 02/17/19 1515:00 23:00 07:00 IntakeIntake Total 1250 ml 800 ml OutputOutput Total 2 ml 4 ml BalanceBalance 1248 ml 796 ml Exam Constitutional: alert, oriented Respiratory: clear to auscultation Cardiovascular: regular rate and rhythm Gastrointestinal: soft, non-tender Musculoskeletal: nl extremities to inspection Extremities: normal pulses Neurological: nl mental status Skin: other (Status post left partial mastectomy, axillary JPs) Results Results 24hrs Laboratory Tests Test 02/16/19 19:30 02/17/19 05:32 Hemoglobin 11.4 L Hematocrit 35.2 L Prothrombin Time 12.9 Prothrombin Time Ratio 1.0 INR International Normalized Ratio 0.96 Activated Partial Thromboplast Time 67.7 H Medications Medication Current Medications Ondansetron HCl (Zofran Inj) 4 mg Q6H PRN IV NAUSEA AND/OR VOMITING Last administered on 02/13/19 18:54; Admin Dose 4 MG; Start 02/04/19 at 14:00 Pantoprazole (Protonix Tab) 40 mg DAILY@06 PO Last administered on 02/17/19 05:31; Admin Dose 40 MG; Start 02/07/19 at 06:00 Docusate Sodium (Colace) 200 mg DAILY PRN PO CONSTIPATION Last administered on 02/12/19 08:27; Admin Dose 200 MG; Start 02/06/19 at 14:00 Gabapentin (Neurontin) 200 mg TID PO Last administered on 02/17/19 12:43; Admin Dose 200 MG; Start 02/08/19 at 13:00 Acetaminophen (Tylenol Tab) 650 mg Q4H PRN PO MILD PAIN(1-3)OR ELEVATED TEMP Last administered on 02/17/19 17:25; Admin Dose 650 MG; Start 02/09/19 at 12:00 Saccharomyces Boulardii (Florastor) 250 mg BID PO Last administered on 02/17/19 08:54; Admin Dose 250 MG; Start 02/09/19 at 15:30 Magnesium Hydroxide (Milk Of Mag) 30 ml BID PRN PO CONSTIPATION Last administered on 02/12/19 08:27; Admin Dose 30 ML; Start 02/10/19 at 13:00 Cholecalciferol (Vitamin D) 2,000 unit DAILY PO Last administered on 02/17/19 08:54; Admin Dose 2,000 UNIT; Start 02/11/19 at 11:00 Heparin Sodium (Porcine) (Heparin (1000 Units/ml)) 3,500 unit PER PROTOCOL PRN IV aPTT<47; Start 02/12/19 at 17:30 Warfarin Sodium (Coumadin) 6 mg DAILY@17 PO Last administered on 02/17/19at 17:21; Admin Dose 6 MG; Start 02/14/19 at 17:00 Hydrocortisone (Hydrocortisone 1% Cr) 1 applic BID TOP Last administered on 02/17/19 08:54; Admin Dose 1 APPLIC; Start 02/14/19 at 23:00 Heparin Sodium (Porcine) 250 ml @ 7 mls/hr PER PROTOCOL IV Last administered on 02/17/19at 12:43; Admin Dose 8 MLS/HR; Start 02/15/19 at 03:00 Miscellaneous Information (*Order Clarification Bulletin) MEDICATION REQUIRES CLARIFICATI... Q8H XX ; Start 02/16/19 at 08:00 Cyclobenzaprine HCl (Flexeril) 5 mg Q12 PRN PO spasm; Start 02/16/19 at 17:30 MIHAI GUTIERREZ Feb 17, 2019 18:23
[2019-02-18] VITALS (10 sets, daily range): BP systolic 119–162; BP diastolic 55–79; PULSE 65–86; RESP 18
[2019-02-18] MEDS: PANTOPRAZOLE (EC) 40 MG TAB PO SCH (05:49)
[2019-02-18] MEDS: [UNRECOGNIZED DRUG - REMARK] XX SCH (07:43)
[2019-02-18] MEDS ORDERED: IOHEXOL 300MG/ML 150 ML BTL ONE (09:38)
[2019-02-18] MEDS ORDERED: SOD CHLORIDE 0.9% 100 ML ONE (09:38)
[2019-02-18] MEDS: HYDROCORTISONE 1% 28 GM CR TOP SCH ×2 (11:02→21:24)
[2019-02-18] MEDS: SACCHAROMYCES BOULARDII 250 MG CAP PO SCH ×2 (11:02→21:24)
[2019-02-18] MEDS: CHOLECALCIFEROL 2,000 UNIT CAP PO SCH (11:02)
[2019-02-18] MEDS: GABAPENTIN 100 MG CAP PO SCH ×3 (11:05→21:24)
--- NOTE | 2019-02-18 12:58 | CONS ---
Assessment/Plan Assessment/Plan Hospital Course (Demo Recall) Status post breast surgery 02/04/2019 Mechanical aortic valve replacement Paroxysmal atrial fibrillation, currently sinus rhythm Acute blood loss anemia Patient is on Coumadin and continue IV heparin bridging until INR is therapeutic Consultation Date/Type/Reason Admit Date/Time February 04, 2019 at 14:08 Initial Consult Date Type of Consult Cardiology Requesting Provider: LEYLA ZIEGLER MD Date/Time of Note DATE: 02/18/19 TIME: 12:57 24 HR Interval Summary Free Text/Dictation No shortness of breath. Overall feeling better. Exam/Review of Systems Vital Signs Vitals Vital Signs Date Temp Pulse Resp B/P (MAP) Pulse Ox O2 O2 Flow FiO2 Time Delivery Rate 02/18/19 69 08:01 02/18/19 98.4 18 132/58 97 07:33 (82) 02/17/19 Room Air 16:25 02/14/19 2.0 20:00 Intake and Output 02/17/19 02/17/19 02/18/19 1515:00 23:00 07:00 IntakeIntake Total 240 ml 900 ml 660 ml OutputOutput Total 0 ml 4 ml BalanceBalance 240 ml 900 ml 656 ml Exam Constitutional: alert, oriented (No apparent distress) Head: normocephalic Respiratory: other (Coarse breath sounds bilaterally, no wheezing) Cardiovascular: regular rate and rhythm (S1 S2 heard), systolic murmur Gastrointestinal: soft, non-tender, bowel sounds Extremities: other (No significant edema) Labs Result Diagram: 02/18/19 0547 02/18/19 0547 Results 24hrs Laboratory Tests Test 02/18/19 05:47 White Blood Count 6.0 # Red Blood Count 4.10 L Hemoglobin 11.8 L Hematocrit 36.8 L Mean Corpuscular Volume 89.8 Mean Corpuscular Hemoglobin 28.8 L Mean Corpuscular Hemoglobin Concent 32.1 Red Cell Distribution Width 13.9 Platelet Count 445 H Mean Platelet Volume 9.3 Immature Granulocytes % 2.200 H Neutrophils % 54.8 Lymphocytes % 25.9 Monocytes % 10.3 Eosinophils % 5.5 Basophils % 1.3 Nucleated Red Blood Cells % 0.0 Immature Granulocytes # 0.130 H Neutrophils # 3.3 Lymphocytes # 1.6 Monocytes # 0.6 Eosinophils # 0.3 Basophils # 0.1 Nucleated Red Blood Cells # 0.0 Prothrombin Time 13.8 Prothrombin Time Ratio 1.1 INR International Normalized Ratio 1.05 Activated Partial Thromboplast Time 91.5 *H Sodium Level 139 Potassium Level 4.6 Chloride Level 104 Carbon Dioxide Level 27 Anion Gap 8 Blood Urea Nitrogen 19 Creatinine 0.75 Est Glomerular Filtrat Rate mL/min > 60 Glucose Level 97 Calcium Level 9.1 Total Bilirubin 0.7 Direct Bilirubin 0.00 Indirect Bilirubin 0.7 Aspartate Amino Transf (AST/SGOT) 45 Alanine Aminotransferase (ALT/SGPT) 67 Alkaline Phosphatase 304 H Total Protein 7.4 Albumin 4.0 Globulin 3.40 H Albumin/Globulin Ratio 1.17 Medications Medications Current Medications Ondansetron HCl (Zofran Inj) 4 mg Q6H PRN IV NAUSEA AND/OR VOMITING Last administered on 02/13/19 18:54; Admin Dose 4 MG; Start 02/04/19 at 14:00 Pantoprazole (Protonix Tab) 40 mg DAILY@06 PO Last administered on 02/18/19 05:49; Admin Dose 40 MG; Start 02/07/19 at 06:00 Docusate Sodium (Colace) 200 mg DAILY PRN PO CONSTIPATION Last administered on 02/12/19 08:27; Admin Dose 200 MG; Start 02/06/19 at 14:00 Gabapentin (Neurontin) 200 mg TID PO Last administered on 02/18/19 11:05; Admin Dose 200 MG; Start 02/08/19 at 13:00 Acetaminophen (Tylenol Tab) 650 mg Q4H PRN PO MILD PAIN(1-3)OR ELEVATED TEMP Last administered on 02/17/19 17:25; Admin Dose 650 MG; Start 02/09/19 at 12:00 Saccharomyces Boulardii (Florastor) 250 mg BID PO Last administered on 02/18/19 11:02; Admin Dose 250 MG; Start 02/09/19 at 15:30 Magnesium Hydroxide (Milk Of Mag) 30 ml BID PRN PO CONSTIPATION Last administered on 02/12/19 08:27; Admin Dose 30 ML; Start 02/10/19 at 13:00 Cholecalciferol (Vitamin D) 2,000 unit DAILY PO Last administered on 02/18/19 1 1:02; Admin Dose 2,000 UNIT; Start 02/11/19 at 11:00 Heparin Sodium (Porcine) (Heparin (1000 Units/ml)) 3,500 unit PER PROTOCOL PRN IV aPTT<47; Start 02/12/19 at 17:30 Warfarin Sodium (Coumadin) 6 mg DAILY@17 PO Last administered on 02/17/19at 17:21; Admin Dose 6 MG; Start 02/14/19 at 17:00 Hydrocortisone (Hydrocortisone 1% Cr) 1 applic BID TOP Last administered on 02/18/19at 11:02; Admin Dose 1 APPLIC; Start 02/14/19 at 23:00 Heparin Sodium (Porcine) 250 ml @ 7 mls/hr PER PROTOCOL IV Last administered on 02/17/19at 12:43; Admin Dose 8 MLS/HR; Start 02/15/19 at 03:00 Cyclobenzaprine HCl (Flexeril) 5 mg Q12 PRN PO spasm; Start 02/16/19 at 17:30 Dima Hicks DO Feb 18, 2019 12:57
[2019-02-18] MEDS: ACETAMINOPHEN 325 MG TAB PO PRN ×2 (14:05→18:49)
--- NOTE | 2019-02-18 16:46 | CONS ---
Assessment/Plan Assessment/Plan Hospital Course (Demo Recall) assessment: - post op fever, may be due to L breast hematoma - hematoma of L breast, its culture was negative - post-op anemia requiring PRBC, now stable - pain and swelling of L axilla, and L scapular region, associated with either the exuberant inflammation from L breast or underlying infection - eczematous rash of L axillary region, possible allergic dermatitis - resolving with hydrocortisone cream 1% - h/o Invasive Breast CA - h/o L partial mastectomy and axillary lymph node dissection - h/o AVR, on heparin as a transition to Coumadin - PAF - low vitamin D - acute cephalgia- improved; CT head showed no acute findings - elevated alk phos with mild lower abdominal pain - CT abd/pelvis showed No evidence of bowel obstruction. Fluid-filled appendix. However the appendix appears to be normal size and there is no evidence of significant adjacent inflammatory changes; low suspicion for mild appendicitis per Surgery recommendations: - continue hydrocortisone cream 1% (02/14/2019-) for pruritic rash - monitor closely off antibiotics; s/p pip/tazo (02/08/19-02/14/19). Vancomycin was discontinued (02/08/2019-02/11/2019) due to phlebitis in the UE - monitor pt closely for bleeding as she is on Coumadin and IV heparin bridging until INR is therapeutic Management d/w patient, pt's daughter Brit, pt's sister, and with Dr. Arias. Family with multiple questions: asking what is the therapeutic level of aPTT, asking nursing how often do they make rounds to check pt for active bleeding, asking if pt is still on Coumadin. CT abd/pelvis results reviewed with pt/family. All questions answered. Therapeutic time provided. Briefly d/w pt's RN [facility]. Consultation Date/Type/Reason Admit Date/Time February 04, 2019 at 14:08 Initial Consult Date 02/08/19 Type of Consult Infectious Disease Requesting Provider: LEYLA ZIEGLER MD Date/Time of Note DATE: 02/18/19 TIME: 16:44 24 HR Interval Summary Free Text/Dictation KARY drain was removed d/t no drainage. Pt had some bleeding and dressing was changed earlier today. PTT is supratherapeutic while on heparin drip and INR subtherapeutic (on Coumadin). Had normal BM today. Good appetite. CT abd/pelvis showed "No evidence of bowel obstruction. Fluid-filled appendix. However the appendix appears to be normal size and there is no evidence of significant adjacent inflammatory changes. Correlate with clinical symptoms to exclude the possibility of a very mild appendicitis." Rates L axilla pain 8/10. Rates lower abd pain 2/10. No n/v/d, dysuria. Exam/Review of Systems Exam Vitals Vital Signs Date Temp Pulse Resp B/P (MAP) Pulse Ox O2 O2 Flow FiO2 Time Delivery Rate 02/18/19 98.9 74 18 133/75 98 15:16 (94) 02/17/19 Room Air 16:25 02/14/19 2.0 20:00 Intake and Output 02/17/19 02/17/19 02/18/19 1515:00 23:00 07:00 IntakeIntake Total 240 ml 900 ml 660 ml OutputOutput Total 0 ml 4 ml BalanceBalance 240 ml 900 ml 656 ml Exam Constitutional: alert, oriented, well developed, other (laying in bed in NAD; pt's daughter and sister are at bedside) Psych: no complaints, nl mood/affect Head: normocephalic, atraumatic Eyes: nl conjunctiva, nl sclera ENMT: nl external ears & nose, nl nasal mucosa & septum, mucosa pink and moist (no thrush) Neck: non-tender Respiratory: clear to auscultation (anteriorly), normal air movement, other (on room air) Cardiovascular: regular rate and rhythm, nl pulses Gastrointestinal: soft, bowel sounds (normoactive), other (min lower abdominal TTP; no guarding or rebound tenderness) Musculoskeletal: joint tenderness (L scapula has improved), range of motion (limited of LUE d/t pain and swelling; cannot raise LUE above shoulder level), swelling (L shoulder but improved) Extremities: normal pulses; No edema Neurological: nl mental status, nl speech Skin: nl turgor, other (L axillary rash has resolved; L breast with large bulky dressing c/d/i, L breast KARY drain is no longer present) Results Result Diagram: 02/18/19 0572 02/18/19 0547 Results 24hrs Laboratory Tests Test 02/18/19 05:47 02/18/19 14:08 White Blood Count 6.0 # Red Blood Count 4.10 L Hemoglobin 11.8 L Hematocrit 36.8 L Mean Corpuscular Volume 89.8 Mean Corpuscular Hemoglobin 28.8 L Mean Corpuscular Hemoglobin Concent 32.1 Red Cell Distribution Width 13.9 Platelet Count 445 H Mean Platelet Volume 9.3 Immature Granulocytes % 2.200 H Neutrophils % 54.8 Lymphocytes % 25.9 Monocytes % 10.3 Eosinophils % 5.5 Basophils % 1.3 Nucleated Red Blood Cells % 0.0 Immature Granulocytes # 0.130 H Neutrophils # 3.3 Lymphocytes # 1.6 Monocytes # 0.6 Eosinophils # 0.3 Basophils # 0.1 Nucleated Red Blood Cells # 0.0 Prothrombin Time 13.8 Prothrombin Time Ratio 1.1 INR International Normalized Ratio 1.05 Activated Partial Thromboplast Time 91.5 *H 119.1 *H Sodium Level 139 Potassium Level 4.6 Chloride Level 104 Carbon Dioxide Level 27 Anion Gap 8 Blood Urea Nitrogen 19 Creatinine 0.75 Est Glomerular Filtrat Rate mL/min > 60 Glucose Level 97 Calcium Level 9.1 Total Bilirubin 0.7 Direct Bilirubin 0.00 Indirect Bilirubin 0.7 Aspartate Amino Transf (AST/SGOT) 45 Alanine Aminotransferase (ALT/SGPT) 67 Alkaline Phosphatase 304 H Total Protein 7.4 Albumin 4.0 Globulin 3.40 H Albumin/Globulin Ratio 1.[address] abd/pelvis 02/18/2019: 1. No evidence of bowel obstruction. Fluid-filled appendix. However the appendix appears to be normal size and there is no evidence of significant adjacent inflammatory changes. Correlate with clinical symptoms to exclude the possibility of a very mild appendicitis. 2. No evidence of free fluid or free air. No gross focal fluid collections. No evidence of solid organ injury. 3. No evidence of acute fractures of visualized bilateral lower ribs and lumbosacral spine as well as the bony pelvis. 4. Resolution of previously noted left lower lobe consolidation and hemothorax. 5. Partial visualization of left breast hematoma. CT brain 02/15/2019: No evidence of acute intracranial pathology. Medications Medication Current Medications Ondansetron HCl (Zofran Inj) 4 mg Q6H PRN IV NAUSEA AND/OR VOMITING Last administered on 02/13/19at 18:54; Admin Dose 4 MG; Start 02/04/19 at 14:00 Pantoprazole (Protonix Tab) 40 mg DAILY@06 PO Last administered on 02/18/19 05:49; Admin Dose 40 MG; Start 02/07/19 at 06:00 Docusate Sodium (Colace) 200 mg DAILY PRN PO CONSTIPATION Last administered on 02/12/19 08:27; Admin Dose 200 MG; Start 02/06/19 at 14:00 Gabapentin (Neurontin) 200 mg TID PO Last administered on 02/18/19 14:05; Admin Dose 200 MG; Start 02/08/19 at 13:00 Acetaminophen (Tylenol Tab) 650 mg Q4H PRN PO MILD PAIN(1-3)OR ELEVATED TEMP Last administered on 02/18/19 14:05; Admin Dose 650 MG; Start 02/09/19 at 12:00 Saccharomyces Boulardii (Florastor) 250 mg BID PO Last administered on 02/18/19 11:02; Admin Dose 250 MG; Start 02/09/19 at 15:30 Magnesium Hydroxide (Milk Of Mag) 30 ml BID PRN PO CONSTIPATION Last administered on 02/12/19 08:27; Admin Dose 30 ML; Start 02/10/19 at 13:00 Cholecalciferol (Vitamin D) 2,000 unit DAILY PO Last administered on 02/18/19 11:02; Admin Dose 2,000 UNIT; Start 02/11/19 at 11:00 Heparin Sodium (Porcine) (Heparin (1000 Units/ml)) 3,500 unit PER PROTOCOL PRN IV aPTT<47; Start 02/12/19 at 17:30 Warfarin Sodium (Coumadin) 6 mg DAILY@17 PO Last administered on 02/17/19 17:21; Admin Dose 6 MG; Start 02/14/19 at 17:00 Hydrocortisone (Hydrocortisone 1% Cr) 1 applic BID TOP Last administered on 02/18/19 11:02; Admin Dose 1 APPLIC; Start 02/14/19 at 23:00 Heparin Sodium (Porcine) 250 ml @ 7 mls/hr PER PROTOCOL IV Last administered on 02/17/19 12:43; Admin Dose 8 MLS/HR; Start 02/15/19 at 03:00 Cyclobenzaprine HCl (Flexeril) 5 mg Q12 PRN PO spasm; Start 02/16/19 at 17:30 ZULEMA BOWLING NP Feb 18, 2019 16:46
--- NOTE | 2019-02-18 16:57 | EN ---
Date/Time of Note Date/Time of Note DATE: 02/18/19 TIME: 16:56 Event Note Medicine Medicine Event Note EMR reviewed. further eval with AUDIT TECH under my direction to follow. full note to follow shortly ANGÉLICA BRAVO MD Feb 18, 2019 16:57
--- NOTE | 2019-02-18 17:10 | PN ---
DATE: 02/18/2019 SUBJECTIVE: No specific complaint. Has had bowel movement. Tolerating diet. Appetite is good. No fever, no nausea, no chills. OBJECTIVE: GENERAL: Awake, alert, oriented, sitting on the chair and having his lunch. VITAL SIGNS: Temperature maximum 98.9 today, heart rate 74 maximum, respirations 18, blood pressure 133/75, saturation 98% room air. HEART: Regular. LUNGS: Clear. CHEST: Dressing was removed. SKIN: The incision for the axillary lymph node dissection area is clean. It is not infected, but there has been slight amount of oozing somewhere from it, which has stained the dressing slightly. This is dark old blood of course. Probably liquified hematoma which may even drain more from that incision line. ABDOMEN: Flat. Bowel sound is normal. Soft. There is no rigidity, no guarding, no rebound tenderness. Very mild tenderness in right lower quadrant. LABORATORY DATA: Today, sodium and potassium are normal, BUN and creatinine are normal. Alkaline phosphatase is slightly elevated at 304. Hematology: Today, WBC 6000 with 54% segmented which is normal differential, hemoglobin is 11.8, hematocrit 36.8. Platelet is 445, which is slightly elevated. Coagulation profile: PT 13.8 normal range, INR is 1.04 which is normal, APTT is 119.1, which is elevated. Of course, the patient is on heparin drip. INPUT AND OUTPUT: The Gerson-Russell drainage which has been there for more than 10 days is not draining anything. I removed it because I do not want to remove when the PT is very abnormal and may cause more bleeding, so easily it was removed and there was no oozing or bleeding from its site. Dry dressing was applied over the left breast area. DIAGNOSTIC DATA: We had to do a CT scan of the abdomen and pelvis with contrast oral to rule out possibility of appendicitis because of right lower quadrant abdominal pain that the patient has had in the past [address] scan report is back today and radiologist has read it as follows. IMPRESSION: 1. No evidence of bowel obstruction. Fluid-filled appendix. However, the appendix appears to be normal size and there is no evidence of significant adjacent inflammatory changes. Correlate with clinical symptoms to exclude the possibility of very mild appendicitis. 2. No evidence of free fluid or free air. No gross focal fluid collections. No evidence of solid organ injury. 3. No evidence of acute fracture of visualized bilateral lower ribs and lumbosacral spine as well as the bony pelvis. 4. Resolution of previously noted left lower lobe consolidation and hemothorax. Partial visualization of the left breast hematoma. Therefore considering clinical evaluation that the patient does not have any guarding, does not have any peritoneal irritation sign, the appetite is good, there is no leukocytosis, there is no shift to the left and there is no cough sign and even on pressing over the right lower quadrant, there is very minimal tenderness today while the first day it was more pronounced and yesterday was less than and also today very much less; therefore, I really do not think the patient has appendicitis. Therefore, we will just observe the patient. Dictated By: ALFONSO CONTRERAS MD PS/NTS Conf#: [id number] DID#: [id number] CC: LEYLA ZIEGLER MD; MAIA HINOJOSA MD;*EndCC* MTDD
[2019-02-18] MEDS: WARFARIN 3 MG TAB PO SCH (17:33)
--- NOTE | 2019-02-18 20:01 | PN ---
Date/Time of Note Date/Time of Note DATE: 02/18/19 TIME: 19:59 Assessment/Plan VTE Prophylaxis Risk score (from [facility])>0 risk: 9 SCD applied (from [facility]): Yes Pharmacological prophylaxis: heparin, warfarin tx Lines/Catheters IV Catheter Type (from [facility]): Peripheral IV Assessment/Plan Hospital Course Patient remains hemodynamically stable, afebrile. CT of the abdomen and pelvis is noted, no acute finding. Patient tolerates food without emesis. patient continues on heparin drip for mechanical AVR and Coumadin. Assessment/Plan -Hemoptysis, likely secondary to tracheobronchitis, on anticoagulation--now improved. No evidence of significant intraparenchymal abnormalities on CT chest. Status post evaluation by Dr. Pierce in pulmonology consultation. -Left breast cancer, status post left partial mastectomy by Dr. Diaz. -Postoperative hematomas in left breast and left axillary region. -Postoperative fever, continue antibiotics per ID. Dr. Arias is following in infection disease consultation. -Paroxysmal atrial fibrillation. -Mechanical aortic valve replacement secondary to aortic insufficiency. Dr. Hicks is following in cardiology consultation. on heparin drip. -Anemia of acute blood loss, continue to monitor H&H, will transfuse as needed. -Vitamin D deficiency, started on supplement. Further recommendations based on clinical course. Plan of care discussed with Dr. Pelaez. Result Diagram: 02/18/19 0547 02/18/19 0547 Results 24hrs Laboratory Tests Test 02/18/19 05:47 02/18/19 14:08 White Blood Count 6.0 # Red Blood Count 4.10 L Hemoglobin 11.8 L Hematocrit 36.8 L Mean Corpuscular Volume 89.8 Mean Corpuscular Hemoglobin 28.8 L Mean Corpuscular Hemoglobin Concent 32.1 Red Cell Distribution Width 13.9 Platelet Count 445 H Mean Platelet Volume 9.3 Immature Granulocytes % 2.200 H Neutrophils % 54.8 Lymphocytes % 25.9 Monocytes % 10.3 Eosinophils % 5.5 Basophils % 1.3 Nucleated Red Blood Cells % 0.0 Immature Granulocytes # 0.130 H Neutrophils # 3.3 Lymphocytes # 1.6 Monocytes # 0.6 Eosinophils # 0.3 Basophils # 0.1 Nucleated Red Blood Cells # 0.0 Prothrombin Time 13.8 Prothrombin Time Ratio 1.1 INR International Normalized Ratio 1.05 Activated Partial Thromboplast Time 91.5 *H 119.1 *H Sodium Level 139 Potassium Level 4.6 Chloride Level 104 Carbon Dioxide Level 27 Anion Gap 8 Blood Urea Nitrogen 19 Creatinine 0.75 Est Glomerular Filtrat Rate mL/min > 60 Glucose Level 97 Calcium Level 9.1 Total Bilirubin 0.7 Direct Bilirubin 0.00 Indirect Bilirubin 0.7 Aspartate Amino Transf (AST/SGOT) 45 Alanine Aminotransferase (ALT/SGPT) 67 Alkaline Phosphatase 304 H Total Protein 7.4 Albumin 4.0 Globulin 3.40 H Albumin/Globulin Ratio 1.17 Exam/Review of Systems Exam Vitals Vital Signs Date Temp Pulse Resp B/P (MAP) Pulse Ox O2 O2 Flow FiO2 Time Delivery Rate 02/18/19 69 16:01 02/18/19 98.9 18 133/75 98 15:16 (94) 02/17/19 Room Air 16:25 02/14/19 2.0 20:00 Intake and Output 02/17/19 02/17/19 02/18/19 1515:00 23:00 07:00 IntakeIntake Total 240 ml 900 ml 660 ml OutputOutput Total 0 ml 4 ml BalanceBalance 240 ml 900 ml 656 ml Exam Constitutional: alert, oriented Respiratory: clear to auscultation Cardiovascular: regular rate and rhythm Gastrointestinal: soft, non-tender Musculoskeletal: nl extremities to inspection Extremities: normal pulses Neurological: nl mental status Skin: other (Status post left partial mastectomy, axillary JPs) Results Results 24hrs Laboratory Tests Test 02/18/19 05:47 02/18/19 14:08 White Blood Count 6.0 # Red Blood Count 4.10 L Hemoglobin 11.8 L Hematocrit 36.8 L Mean Corpuscular Volume 89.8 Mean Corpuscular Hemoglobin 28.8 L Mean Corpuscular Hemoglobin Concent 32.1 Red Cell Distribution Width 13.9 Platelet Count 445 H Mean Platelet Volume 9.3 Immature Granulocytes % 2.200 H Neutrophils % 54.8 Lymphocytes % 25.9 Monocytes % 10.3 Eosinophils % 5.5 Basophils % 1.3 Nucleated Red Blood Cells % 0.0 Immature Granulocytes # 0.130 H Neutrophils # 3.3 Lymphocytes # 1.6 Monocytes # 0.6 Eosinophils # 0.3 Basophils # 0.1 Nucleated Red Blood Cells # 0.0 Prothrombin Time 13.8 Prothrombin Time Ratio 1.1 INR International Normalized Ratio 1.05 Activated Partial Thromboplast Time 91.5 *H 119.1 *H Sodium Level 139 Potassium Level 4.6 Chloride Level 104 Carbon Dioxide Level 27 Anion Gap 8 Blood Urea Nitrogen 19 Creatinine 0.75 Est Glomerular Filtrat Rate mL/min > 60 Glucose Level 97 Calcium Level 9.1 Total Bilirubin 0.7 Direct Bilirubin 0.00 Indirect Bilirubin 0.7 Aspartate Amino Transf (AST/SGOT) 45 Alanine Aminotransferase (ALT/SGPT) 67 Alkaline Phosphatase 304 H Total Protein 7.4 Albumin 4.0 Globulin 3.40 H Albumin/Globulin Ratio 1.17 Medications Medication Current Medications Ondansetron HCl (Zofran Inj) 4 mg Q6H PRN IV NAUSEA AND/OR VOMITING Last administered on 02/13/19 18:54; Admin Dose 4 MG; Start 02/04/19 at 14:00 Pantoprazole (Protonix Tab) 40 mg DAILY@06 PO Last administered on 02/18/19 05:49; Admin Dose 40 MG; Start 02/07/19 at 06:00 Docusate Sodium (Colace) 200 mg DAILY PRN PO CONSTIPATION Last administered on 02/12/19 08:27; Admin Dose 200 MG; Start 02/06/19 at 14:00 Gabapentin (Neurontin) 200 mg TID PO Last administered on 02/18/19 14:05; Admin Dose 200 MG; Start 02/08/19 at 13:00 Acetaminophen (Tylenol Tab) 650 mg Q4H PRN PO MILD PAIN(1-3)OR ELEVATED TEMP Last administered on 02/18/19 18:49; Admin Dose 650 MG; Start 02/09/19 at 12:00 Saccharomyces Boulardii (Florastor) 250 mg BID PO Last administered on 02/18/19 11:02; Admin Dose 250 MG; Start 02/09/19 at 15:30 Magnesium Hydroxide (Milk Of Mag) 30 ml BID PRN PO CONSTIPATION Last administered on 02/12/19 08:27; Admin Dose 30 ML; Start 02/10/19 at 13:00 Cholecalciferol (Vitamin D) 2,000 unit DAILY PO Last administered on 02/18/19 11:02; Admin Dose 2,000 UNIT; Start 02/11/19 at 11:00 Heparin Sodium (Porcine) (Heparin (1000 Units/ml)) 3,500 unit PER PROTOCOL PRN IV aPTT<47; Start 02/12/19 at 17:30 Warfarin Sodium (Coumadin) 6 mg DAILY@17 PO Last administered on 02/18/19 17:33; Admin Dose 6 MG; Start 02/14/19 at 17:00 Hydrocortisone (Hydrocortisone 1% Cr) 1 applic BID TOP Last administered on 02/18/19 11:02; Admin Dose 1 APPLIC; Start 02/14/19 at 23:00 Heparin Sodium (Porcine) 250 ml @ 7 mls/hr PER PROTOCOL IV Last administered on 02/17/19at 12:43; Admin Dose 8 MLS/HR; Start 02/15/19 at 03:00 Cyclobenzaprine HCl (Flexeril) 5 mg Q12 PRN PO spasm; Start 02/16/19 at 17:30 MIHAI GUTIERREZ Feb 18, 2019 20:01
--- NOTE | 2019-02-18 21:34 | CONS ---
Assessment/Plan Assessment/Plan Assessment/Plan (Daily) Assessment/Plan Hospital Course (Demo Recall) 63 yo female 1. Status post surgery, left-sided mastectomy for a left breast cancer. 2. Postoperative hematoma at the site of surgery now the drain has been in place. 3. Status post 6 units of packed cell RBC transfusion. 4. Chronic constipation, which has improved with Amitiza. 5. Mechanical aortic valve replacement. The patient is on heparin for that. 6. Paroxysmal atrial fibrillation. 7. Vitamin D deficiency with low calcium 8. Anemia, mild -no evidence of overt GI bleeding -pt is on coumadin and heparin gtt 9. Right lower quadrant pain and mild tenderness. Patient CAT scan 3 4 days ago for the appendix was negative she has no leukocytosis no fever. PLAN: Continue post op care Utilize prn laxatives as needed Monitor HH and for active GI bleeding, pt is on coumadin The scan of the abdomen and pelvis was negative for appendicitis and clinically patient has no fever no leukocytosis no shift to the left and the tenderness is very mild. Clinically I doubt patient is appendicitis will observe and I concur with Dr. Olmedo Consultation Date/Type/Reason Admit Date/Time February 04, 2019 at 14:08 Initial Consult Date 02/08/19 Requesting Provider: LEYLA ZIEGLER MD Date/Time of Note DATE: 02/18/19 TIME: 21:32 24 HR Interval Summary Free Text/Dictation Patient complains of mild right lower quadrant pain. No nausea no vomiting no GI bleeding no fever no chills Exam/Review of Systems Exam Vitals Vital Signs Date Temp Pulse Resp B/P (MAP) Pulse Ox O2 O2 Flow FiO2 Time Delivery Rate 02/18/19 98.1 76 18 162/73 99 20:00 (102) 02/17/19 Room Air 16:25 02/14/19 2.0 20:00 Intake and Output 02/17/19 02/17/19 02/18/19 1515:00 23:00 07:00 IntakeIntake Total 240 ml 900 ml 660 ml OutputOutput Total 0 ml 4 ml BalanceBalance 240 ml 900 ml 656 ml Constitutional: alert, oriented, well developed Psych: no complaints, nl mood/affect Head: normocephalic, atraumatic Eyes: nl conjunctiva, EOMI, nl lids, nl sclera, PERRL ENMT: nl external ears & nose, nl lips & teeth, nl nasal mucosa & septum Neck: supple, non-tender Respiratory: clear to auscultation, normal air movement Cardiovascular: regular rate and rhythm, nl pulses Gastrointestinal: soft, nl liver, spleen, non-tender Musculoskeletal: nl extremities to inspection, nl gait and stance Extremities: normal pulses Neurological: HAIR MIXER II-XII intact, nl mental status, nl speech, nl strength Skin: nl turgor; No rash or lesions Lymph: nl lymph nodes Results Result Diagram: 02/18/19210402/18/19 0547 Results 24hrs Laboratory Tests Test 02/18/19 05:47 02/18/19 14:08 02/18/19 21:05 White Blood Count 6.0 # Red Blood Count 4.10 L Hemoglobin 11.8 L 12.1 Hematocrit 36.8 L 37.3 Mean Corpuscular Volume 89.8 Mean Corpuscular Hemoglobin 28.8 L Mean Corpuscular Hemoglobin Concent 32.1 Red Cell Distribution Width 13.9 Platelet Count 445 H Mean Platelet Volume 9.3 Immature Granulocytes % 2.200 H Neutrophils % 54.8 Lymphocytes % 25.9 Monocytes % 10.3 Eosinophils % 5.5 Basophils % 1.3 Nucleated Red Blood Cells % 0.0 Immature Granulocytes # 0.130 H Neutrophils # 3.3 Lymphocytes # 1.6 Monocytes # 0.6 Eosinophils # 0.3 Basophils # 0.1 Nucleated Red Blood Cells # 0.0 Prothrombin Time 13.8 Prothrombin Time Ratio 1.1 INR International Normalized Ratio 1.05 Activated Partial Thromboplast Time 91.5 *H 119.1 *H Sodium Level 139 Potassium Level 4.6 Chloride Level 104 Carbon Dioxide Level 27 Anion Gap 8 Blood Urea Nitrogen 19 Creatinine 0.75 Est Glomerular Filtrat Rate mL/min > 60 Glucose Level 97 Calcium Level 9.1 Total Bilirubin 0.7 Direct Bilirubin 0.00 Indirect Bilirubin 0.7 Aspartate Amino Transf (AST/SGOT) 45 Alanine Aminotransferase (ALT/SGPT) 67 Alkaline Phosphatase 304 H Total Protein 7.4 Albumin 4.0 Globulin 3.40 H Albumin/Globulin Ratio 1.17 Medications Medication Current Medications Ondansetron HCl (Zofran Inj) 4 mg Q6H PRN IV NAUSEA AND/OR VOMITING Last administered on 02/13/19at 18:54; Admin Dose 4 MG; Start 02/04/19 at 14:00 Pantoprazole (Protonix Tab) 40 mg DAILY@06 PO Last administered on 02/18/19 05:49; Admin Dose 40 MG; Start 02/07/19 at 06:00 Docusate Sodium (Colace) 200 mg DAILY PRN PO CONSTIPATION Last administered on 02/12/19 08:27; Admin Dose 200 MG; Start 02/06/19 at 14:00 Gabapentin (Neurontin) 200 mg TID PO Last administered on 02/18/19 21:24; Admin Dose 200 MG; Start 02/08/19 at 13:00 Acetaminophen (Tylenol Tab) 650 mg Q4H PRN PO MILD PAIN(1-3)OR ELEVATED TEMP Last administered on 02/18/19 18:49; Admin Dose 650 MG; Start 02/09/19 at 12:00 Saccharomyces Boulardii (Florastor) 250 mg BID PO Last administered on 02/18/19 21:24; Admin Dose 250 MG; Start 02/09/19 at 15:30 Magnesium Hydroxide (Milk Of Mag) 30 ml BID PRN PO CONSTIPATION Last administered on 02/12/19 08:27; Admin Dose 30 ML; Start 02/10/19 at 13:00 Cholecalciferol (Vitamin D) 2,000 unit DAILY PO Last administered on 02/18/19 11:02; Admin Dose 2,000 UNIT; Start 02/11/19 at 11:00 Heparin Sodium (Porcine) (Heparin (1000 Units/ml)) 3,500 unit PER PROTOCOL PRN IV aPTT<47; Start 02/12/19 at 17:30 Warfarin Sodium (Coumadin) 6 mg DAILY@17 PO Last administered on 02/18/19 17:33; Admin Dose 6 MG; Start 02/14/19 at 17:00 Hydrocortisone (Hydrocortisone 1% Cr) 1 applic BID TOP Last administered on 02/18/19 21:24; Admin Dose 1 APPLIC; Start 02/14/19 at 23:00 Heparin Sodium (Porcine) 250 ml @ 7 mls/hr PER PROTOCOL IV Last administered on 02/17/19 12:43; Admin Dose 8 MLS/HR; Start 02/15/19 at 03:00 Cyclobenzaprine HCl (Flexeril) 5 mg Q12 PRN PO spasm; Start 02/16/19 at 17:30 TONIA SANTANA MD Feb 18, 2019 21:34
[2019-02-19] VITALS (9 sets, daily range): BP systolic 115–153; BP diastolic 56–81; PULSE 64–77; RESP 18–22
[2019-02-19] MEDS: HEPARIN 25000 UNITS/250 ML 250 ML IV SCH (00:28)
--- NOTE | 2019-02-19 04:32 | PN ---
Date/Time of Note Date/Time of Note DATE: 02/19/19 TIME: 04:32 Assessment/Plan VTE Prophylaxis Risk score (from [facility] [place]0 risk: 8 SCD applied (from [facility] [place]): Yes SCD contraindicated: other Pharmacological prophylaxis: other Pharm contraindication: other Lines/Catheters IV Catheter Type (from [facility]): Peripheral IV Assessment/Plan Assessment/Plan -Hemoptysis, likely secondary to tracheobronchitis, on anticoagulation--now improved. No evidence of significant intraparenchymal abnormalities on CT chest. - Status post evaluation by Dr. Pierce in pulmonology consultation. -Left breast cancer, status post left partial mastectomy by Dr. Diaz. -Postoperative hematomas in left breast and left axillary region. -Postoperative fever, continue antibiotics per ID. Dr. Arias is following in infection disease consultation. -Paroxysmal atrial fibrillation. -Mechanical aortic valve replacement secondary to aortic insufficiency. - Dr. Hicks is following in cardiology consultation. on heparin drip. -Anemia of acute blood loss, continue to monitor H&H, will transfuse as needed. -Vitamin D deficiency, started on supplement. Further recommendations based on clinical course. Plan of care discussed with Dr. Pelaez. Result Diagram: 02/18/19210402/18/19 0547 Results 24hrs Laboratory Tests Test 02/18/19 05:47 02/18/19 14:08 02/18/19 21:05 White Blood Count 6.0 # Red Blood Count 4.10 L Hemoglobin 11.8 L 12.1 Hematocrit 36.8 L 37.3 Mean Corpuscular Volume 89.8 Mean Corpuscular Hemoglobin 28.8 L Mean Corpuscular Hemoglobin Concent 32.1 Red Cell Distribution Width 13.9 Platelet Count 445 H Mean Platelet Volume 9.3 Immature Granulocytes % 2.200 H Neutrophils % 54.8 Lymphocytes % 25.9 Monocytes % 10.3 Eosinophils % 5.5 Basophils % 1.3 Nucleated Red Blood Cells % 0.0 Immature Granulocytes # 0.130 H Neutrophils # 3.3 Lymphocytes # 1.6 Monocytes # 0.6 Eosinophils # 0.3 Basophils # 0.1 Nucleated Red Blood Cells # 0.0 Prothrombin Time 13.8 Prothrombin Time Ratio 1.1 INR International Normalized Ratio 1.05 Activated Partial Thromboplast Time 91.5 *H 119.1 *H 51.9 H Sodium Level 139 Potassium Level 4.6 Chloride Level 104 Carbon Dioxide Level 27 Anion Gap 8 Blood Urea Nitrogen 19 Creatinine 0.75 Est Glomerular Filtrat Rate mL/min > 60 Glucose Level 97 Calcium Level 9.1 Total Bilirubin 0.7 Direct Bilirubin 0.00 Indirect Bilirubin 0.7 Aspartate Amino Transf (AST/SGOT) 45 Alanine Aminotransferase (ALT/SGPT) 67 Alkaline Phosphatase 304 H Total Protein 7.4 Albumin 4.0 Globulin 3.40 H Albumin/Globulin Ratio 1.17 Subjective 24 Hr Interval Summary Free Text/Dictation nad - afebrile - on heparin drip- 7 cc/hr - no bleeding reported -daughter at bed side- all Qs answered -no events reported last night Constitutional: requiring IVF ENT: no complaints Respiratory: no complaints Cardiovascular: no complaints Gastrointestinal: no complaints Genitourinary: no complaints Musculoskeletal: no complaints Skin: no complaints Neurologic: no complaints Endocrine: no complaints Lymphatic: no complaints Psychological: nl mood/affect Immunologic: no complaints Exam/Review of Systems Exam Vitals Vital Signs Date Temp Pulse Resp B/P (MAP) Pulse Ox O2 O2 Flow FiO2 Time Delivery Rate 02/19/19 97.4 64 18 115/56 96 04:00 (75) 02/17/19 Room Air 16:25 Constitutional: alert, well developed Psych: nl mood/affect Eyes: nl lids, nl sclera ENMT: nl external ears & nose Neck: non-tender Respiratory: clear to auscultation Cardiovascular: nl pulses, other (s1s2) Gastrointestinal: soft, non-tender Musculoskeletal: nl extremities to inspection Neurological: nl speech, other (alert/responsive) Skin: other (sp left brest sx) Results Results 24hrs Laboratory Tests Test 02/18/19 05:47 02/18/19 14:08 02/18/19 21:05 White Blood Count 6.0 # Red Blood Count 4.10 L Hemoglobin 11.8 L 12.1 Hematocrit 36.8 L 37.3 Mean Corpuscular Volume 89.8 Mean Corpuscular Hemoglobin 28.8 L Mean Corpuscular Hemoglobin Concent 32.1 Red Cell Distribution Width 13.9 Platelet Count 445 H Mean Platelet Volume 9.3 Immature Granulocytes % 2.200 H Neutrophils % 54.8 Lymphocytes % 25.9 Monocytes % 10.3 Eosinophils % 5.5 Basophils % 1.3 Nucleated Red Blood Cells % 0.0 Immature Granulocytes # 0.130 H Neutrophils # 3.3 Lymphocytes # 1.6 Monocytes # 0.6 Eosinophils # 0.3 Basophils # 0.1 Nucleated Red Blood Cells # 0.0 Prothrombin Time 13.8 Prothrombin Time Ratio 1.1 INR International Normalized Ratio 1.05 Activated Partial Thromboplast Time 91.5 *H 119.1 *H 51.9 H Sodium Level 139 Potassium Level 4.6 Chloride Level 104 Carbon Dioxide Level 27 Anion Gap 8 Blood Urea Nitrogen 19 Creatinine 0.75 Est Glomerular Filtrat Rate mL/min > 60 Glucose Level 97 Calcium Level 9.1 Total Bilirubin 0.7 Direct Bilirubin 0.00 Indirect Bilirubin 0.7 Aspartate Amino Transf (AST/SGOT) 45 Alanine Aminotransferase (ALT/SGPT) 67 Alkaline Phosphatase 304 H Total Protein 7.4 Albumin 4.0 Globulin 3.40 H Albumin/Globulin Ratio 1.17 Medications Medication Current Medications Ondansetron HCl (Zofran Inj) 4 mg Q6H PRN IV NAUSEA AND/OR VOMITING Last administered on 02/13/19 18:54; Admin Dose 4 MG; Start 02/04/19 at 14:00 Pantoprazole (Protonix Tab) 40 mg DAILY@06 PO Last administered on 02/18/19 05:49; Admin Dose 40 MG; Start 02/07/19 at 06:00 Docusate Sodium (Colace) 200 mg DAILY PRN PO CONSTIPATION Last administered on 02/12/19 08:27; Admin Dose 200 MG; Start 02/06/19 at 14:00 Gabapentin (Neurontin) 200 mg TID PO Last administered on 02/18/19 21:24; Admin Dose 200 MG; Start 02/08/19 at 13:00 Acetaminophen (Tylenol Tab) 650 mg Q4H PRN PO MILD PAIN(1-3)OR ELEVATED TEMP Last administered on 02/18/19 18:49; Admin Dose 650 MG; Start 02/09/19 at 12:00 Saccharomyces Boulardii (Florastor) 250 mg BID PO Last administered on 02/18/19 21:24; Admin Dose 250 MG; Start 02/09/19 at 15:30 Magnesium Hydroxide (Milk Of Mag) 30 ml BID PRN PO CONSTIPATION Last administered on 02/12/19 08:27; Admin Dose 30 ML; Start 02/10/19 at 13:00 Cholecalciferol (Vitamin D) 2,000 unit DAILY PO Last administered on 02/18/19 11:02; Admin Dose 2,000 UNIT; Start 02/11/19 at 11:00 Heparin Sodium (Porcine) (Heparin (1000 Units/ml)) 3,500 unit PER PROTOCOL PRN IV aPTT<47; Start 02/12/19 at 17:30 Warfarin Sodium (Coumadin) 6 mg DAILY@17 PO Last administered on 02/18/19at 17:33; Admin Dose 6 MG; Start 02/14/19 at 17:00 Hydrocortisone (Hydrocortisone 1% Cr) 1 applic BID TOP Last administered on 02/18/19at 21:24; Admin Dose 1 APPLIC; Start 02/14/19 at 23:00 Heparin Sodium (Porcine) 250 ml @ 7 mls/hr PER PROTOCOL IV Last administered on 02/19/19 00:28; Admin Dose 7 MLS/HR; Start 02/15/19 at 03:00 Cyclobenzaprine HCl (Flexeril) 5 mg Q12 PRN PO spasm; Start 02/16/19 at 17:30 ALEAH RUBY Feb 19, 2019 04:32
[2019-02-19] MEDS: PANTOPRAZOLE (EC) 40 MG TAB PO SCH (05:48)
[2019-02-19] MEDS: ACETAMINOPHEN 325 MG TAB PO PRN ×2 (08:44→20:55)
[2019-02-19] MEDS: GABAPENTIN 100 MG CAP PO SCH ×3 (08:44→20:57)
[2019-02-19] MEDS: CHOLECALCIFEROL 2,000 UNIT CAP PO SCH (08:44)
[2019-02-19] MEDS: SACCHAROMYCES BOULARDII 250 MG CAP PO SCH ×2 (08:44→20:55)
[2019-02-19] MEDS: HYDROCORTISONE 1% 28 GM CR TOP SCH ×2 (08:45→20:58)
--- NOTE | 2019-02-19 10:02 | CONS ---
Assessment/Plan Assessment/Plan Hospital Course (Demo Recall) assessment: - post op fever, may be due to L breast hematoma - hematoma of L breast, its culture was negative - post-op anemia requiring PRBC, now stable - pain and swelling of L axilla, and L scapular region, associated with either the exuberant inflammation from L breast or underlying infection - eczematous rash of L axillary region, possible allergic dermatitis - resolving with hydrocortisone cream 1% - h/o Invasive Breast CA - h/o L partial mastectomy and axillary lymph node dissection - h/o AVR, on heparin as a transition to Coumadin - PAF - low vitamin D - acute cephalgia- improved; CT head showed no acute findings - elevated alk phos with mild lower abdominal pain - CT abd/pelvis showed No evidence of bowel obstruction. Fluid-filled appendix. However the appendix appears to be normal size and there is no evidence of significant adjacent inflammatory changes; low suspicion for mild appendicitis per Surgery - improving recommendations: - continue hydrocortisone cream 1% (02/14/2019-) for pruritic rash - monitor closely off antibiotics; s/p pip/tazo (02/08/19-02/14/19). Vancomycin was discontinued (02/08/2019-02/11/2019) due to phlebitis in the UE - monitor pt closely for bleeding as she is on Coumadin and IV heparin bridging until INR is therapeutic - OT eval for f/u on LUE ROM exercises to prevent frozen shoulder Management d/w patient, pt's daughter Miranda, Dr. Royal, RN Rust, and with Dr. Arias. Daughter, Miranda, had multiple questions and was appreciative of answers. Therapeutic time provided. Consultation Date/Type/Reason Admit Date/Time February 04, 2019 at 14:08 Initial Consult Date 02/08/19 Type of Consult Infectious Disease Requesting Provider: LEYLA ZIEGLER MD Date/Time of Note DATE: 02/19/19 TIME: 09:58 24 HR Interval Summary Free Text/Dictation Pt walked with PT earlier. Rates L axillary pain 5/10. Denies abd pain. No n/v/d. Last BM was yesterday. Pruritic rash on LUE is improving with cream. Daughter Miranda asked "Are they planning to aspirate the hematoma?". Dr. Royal came to bedside and explained that it is not unusual for old blood to leak out. Also informed daughter that it is not possible to drain a non-liquid mass, i.e. hematoma He instructed pt to do ROM of L shoulder as tolerated to prevent frozen shoulder. No further bleeding noted overnight per d/w pt and pt's daughter. Exam/Review of Systems Exam Vitals Vital Signs Date Temp Pulse Resp B/P (MAP) Pulse Ox O2 O2 Flow FiO2 Time Delivery Rate 02/19/19 98.0 72 22 125/60 97 Room Air 07:24 (81) Intake and Output 02/18/19 02/18/19 02/19/19 1515:00 23:00 07:00 IntakeIntake Total 1100 ml OutputOutput Total 3 ml BalanceBalance 1097 ml Exam Constitutional: alert, oriented, well developed, other (sitting in chair in NAD; pt's other daughter, Miranda, at bedside) Psych: no complaints, nl mood/affect Head: normocephalic, atraumatic Eyes: nl conjunctiva, nl sclera ENMT: nl external ears & nose, nl nasal mucosa & septum, mucosa pink and moist (no thrush) Neck: non-tender Respiratory: clear to auscultation (anteriorly), normal air movement, other (on room air) Cardiovascular: regular rate and rhythm, nl pulses Gastrointestinal: soft, bowel sounds (normoactive), other (no TTP) Musculoskeletal: joint tenderness (L scapula has improved), range of motion (LUE ROM limited d/t pain and swelling; cannot raise LUE slightly above shoulder level), swelling (L shoulder but improved) Extremities: normal pulses; No edema Neurological: nl mental status, nl speech Skin: nl turgor, other (L axillary rash has resolved; L breast with large bulky dressing c/d/i) Results Result Diagram: 02/19/19 0636 02/19/19 0636 Results 24hrs Laboratory Tests Test 02/18/19 14:08 02/18/19 21:05 02/19/19 06:36 Activated Partial Thromboplast Time 119.1 *H 51.9 H 95.4 *H Hemoglobin 12.1 12.2 Hematocrit 37.3 37.9 White Blood Count 5.2 Red Blood Count 4.19 L Mean Corpuscular Volume 90.5 Mean Corpuscular Hemoglobin 29.1 Mean Corpuscular Hemoglobin Concent 32.2 Red Cell Distribution Width 14.0 Platelet Count 436 H Mean Platelet Volume 8.9 Immature Granulocytes % 1.900 H Neutrophils % 51.8 Lymphocytes % 27.0 Monocytes % 12.8 H Eosinophils % 5.2 Basophils % 1.3 Nucleated Red Blood Cells % 0.0 Immature Granulocytes # 0.100 H Neutrophils # 2.7 Lymphocytes # 1.4 Monocytes # 0.7 Eosinophils # 0.3 Basophils # 0.1 Nucleated Red Blood Cells # 0.0 Prothrombin Time 15.2 H Prothrombin Time Ratio 1.2 INR International Normalized Ratio 1.19 Sodium Level 138 Potassium Level 4.5 Chloride Level 102 Carbon Dioxide Level 31 Anion Gap 5 Blood Urea Nitrogen 20 Creatinine 0.87 Est Glomerular Filtrat Rate mL/min > 60 Glucose Level 102 Calcium Level 9.1 Total Bilirubin 0.8 Direct Bilirubin 0.00 Indirect Bilirubin 0.8 Aspartate Amino Transf (AST/SGOT) 38 Alanine Aminotransferase (ALT/SGPT) 54 Alkaline Phosphatase 293 H Total Protein 7.6 Albumin 4.1 Globulin 3.50 H Albumin/Globulin Ratio 1.17 Medications Medication Current Medications Ondansetron HCl (Zofran Inj) 4 mg Q6H PRN IV NAUSEA AND/OR VOMITING Last administered on 02/13/19 18:54; Admin Dose 4 MG; Start 02/04/19 at 14:00 Pantoprazole (Protonix Tab) 40 mg DAILY@06 PO Last administered on 02/19/19 05:48; Admin Dose 40 MG; Start 02/07/19 at 06:00 Docusate Sodium (Colace) 200 mg DAILY PRN PO CONSTIPATION Last administered on 02/12/19 08:27; Admin Dose 200 MG; Start 02/06/19 at 14:00 Gabapentin (Neurontin) 200 mg TID PO Last administered on 02/19/19 08:44; Admin Dose 200 MG; Start 02/08/19 at 13:00 Acetaminophen (Tylenol Tab) 650 mg Q4H PRN PO MILD PAIN(1-3)OR ELEVATED TEMP Last administered on 02/19/19 08:44; Admin Dose 650 MG; Start 02/09/19 at 12:00 Saccharomyces Boulardii (Florastor) 250 mg BID PO Last administered on 02/19/19 08:44; Admin Dose 250 MG; Start 02/09/19 at 15:30 Magnesium Hydroxide (Milk Of Mag) 30 ml BID PRN PO CONSTIPATION Last administered on 02/12/19 08:27; Admin Dose 30 ML; Start 02/10/19 at 13:00 Cholecalciferol (Vitamin D) 2,000 unit DAILY PO Last administered on 02/19/19 08:44; Admin Dose 2,000 UNIT; Start 02/11/19 at 11:00 Heparin Sodium (Porcine) (Heparin (1000 Units/ml)) 3,500 unit PER PROTOCOL PRN IV aPTT<47; Start 02/12/19 at 17:30 Warfarin Sodium (Coumadin) 6 mg DAILY@17 PO Last administered on 02/18/19 17:33; Admin Dose 6 MG; Start 02/14/19 at 17:00 Hydrocortisone (Hydrocortisone 1% Cr) 1 applic BID TOP Last administered on 02/19/19 08:45; Admin Dose 1 APPLIC; Start 02/14/19 at 23:00 Heparin Sodium (Porcine) 250 ml @ 7 mls/hr PER PROTOCOL IV Last administered on 02/19/19 00:28; Admin Dose 7 MLS/HR; Start 02/15/19 at 03:00 Cyclobenzaprine HCl (Flexeril) 5 mg Q12 PRN PO spasm; Start 02/16/19 at 17:30 ZULEMA BOWLNIG NP Feb 19, 2019 10:02
--- NOTE | 2019-02-19 13:34 | CONS ---
Assessment/Plan Assessment/Plan Hospital Course (Demo Recall) Status post breast surgery 02/04/2019 Mechanical aortic valve replacement Paroxysmal atrial fibrillation, currently sinus rhythm Acute blood loss anemia Patient is on Coumadin and continue IV heparin bridging until INR is therapeutic INR with minimal increase, will consider an extra dose of Coumadin if INR does not increase over the next 24 hours Consultation Date/Type/Reason Admit Date/Time February 04, 2019 at 14:08 Initial Consult Date Type of Consult Cardiology Requesting Provider: LEYLA ZIEGLER MD Date/Time of Note DATE: 02/19/19 TIME: 13:32 24 HR Interval Summary Free Text/Dictation Denies palpitations, shortness of breath Exam/Review of Systems Vital Signs Vitals Vital Signs Date Temp Pulse Resp B/P (MAP) Pulse Ox O2 O2 Flow FiO2 Time Delivery Rate 02/19/19 98.6 70 22 142/81 96 Room Air 11:25 (101) Intake and Output 02/18/19 02/18/19 02/19/19 1515:00 23:00 07:00 IntakeIntake Total 1100 ml OutputOutput Total 3 ml BalanceBalance 1097 ml Exam Constitutional: alert, oriented (No apparent distress) Head: normocephalic Respiratory: other (Coarse breath sounds bilaterally, no wheezing) Cardiovascular: regular rate and rhythm (S1-S2 heard) Gastrointestinal: soft, non-tender, bowel sounds Extremities: other (No significant edema) Labs Result Diagram: 02/19/19 0636 02/19/19 0636 Results 24hrs Laboratory Tests Test 02/18/19 14:08 02/18/19 21:05 02/19/19 06:36 Activated Partial Thromboplast Time 119.1 *H 51.9 H 95.4 *H Hemoglobin 12.1 12.2 Hematocrit 37.3 37.9 White Blood Count 5.2 Red Blood Count 4.19 L Mean Corpuscular Volume 90.5 Mean Corpuscular Hemoglobin 29.1 Mean Corpuscular Hemoglobin Concent 32.2 Red Cell Distribution Width 14.0 Platelet Count 436 H Mean Platelet Volume 8.9 Immature Granulocytes % 1.900 H Neutrophils % 51.8 Lymphocytes % 27.0 Monocytes % 12.8 H Eosinophils % 5.2 Basophils % 1.3 Nucleated Red Blood Cells % 0.0 Immature Granulocytes # 0.100 H Neutrophils # 2.7 Lymphocytes # 1.4 Monocytes # 0.7 Eosinophils # 0.3 Basophils # 0.1 Nucleated Red Blood Cells # 0.0 Prothrombin Time 15.2 H Prothrombin Time Ratio 1.2 INR International Normalized Ratio 1.19 Sodium Level 138 Potassium Level 4.5 Chloride Level 102 Carbon Dioxide Level 31 Anion Gap 5 Blood Urea Nitrogen 20 Creatinine 0.87 Est Glomerular Filtrat Rate mL/min > 60 Glucose Level 102 Calcium Level 9.1 Total Bilirubin 0.8 Direct Bilirubin 0.00 Indirect Bilirubin 0.8 Aspartate Amino Transf (AST/SGOT) 38 Alanine Aminotransferase (ALT/SGPT) 54 Alkaline Phosphatase 293 H Total Protein 7.6 Albumin 4.1 Globulin 3.50 H Albumin/Globulin Ratio 1.17 Medications Medications Current Medications Ondansetron HCl (Zofran Inj) 4 mg Q6H PRN IV NAUSEA AND/OR VOMITING Last administered on 02/13/19 18:54; Admin Dose 4 MG; Start 02/04/19 at 14:00 Pantoprazole (Protonix Tab) 40 mg DAILY@06 PO Last administered on 02/19/19 05:48; Admin Dose 40 MG; Start 02/07/19 at 06:00 Docusate Sodium (Colace) 200 mg DAILY PRN PO CONSTIPATION Last administered on 02/12/19 08:27; Admin Dose 200 MG; Start 02/06/19 at 14:00 Gabapentin (Neurontin) 200 mg TID PO Last administered on 02/19/19 13:20; Admin Dose 200 MG; Start 02/08/19 at 13:00 Acetaminophen (Tylenol Tab) 650 mg Q4H PRN PO MILD PAIN(1-3)OR ELEVATED TEMP Last administered on 02/19/19 08:44; Admin Dose 650 MG; Start 02/09/19 at 12:00 Saccharomyces Boulardii (Florastor) 250 mg BID PO Last administered on 02/19/19 08:44; Admin Dose 250 MG; Start 02/09/19 at 15:30 Magnesium Hydroxide (Milk Of Mag) 30 ml BID PRN PO CONSTIPATION Last a dministered on 02/12/19 08:27; Admin Dose 30 ML; Start 02/10/19 at 13:00 Cholecalciferol (Vitamin D) 2,000 unit DAILY PO Last administered on 02/19/19 08:44; Admin Dose 2,000 UNIT; Start 02/11/19 at 11:00 Heparin Sodium (Porcine) (Heparin (1000 Units/ml)) 3,500 unit PER PROTOCOL PRN IV aPTT<47; Start 02/12/19 at 17:30 Warfarin Sodium (Coumadin) 6 mg DAILY@17 PO Last administered on 02/18/19at 17: 33; Admin Dose 6 MG; Start 02/14/19 at 17:00 Hydrocortisone (Hydrocortisone 1% Cr) 1 applic BID TOP Last administered on 02/19/19at 08:45; Admin Dose 1 APPLIC; Start 02/14/19 at 23:00 Heparin Sodium (Porcine) 250 ml @ 7 mls/hr PER PROTOCOL IV Last administered on 02/19/19at 00:28; Admin Dose 7 MLS/HR; Start 02/15/19 at 03:00 Cyclobenzaprine HCl (Flexeril) 5 mg Q12 PRN PO spasm; Start 02/16/19 at 17:30 Dima Hicks DO Feb 19, 2019 13:34
--- NOTE | 2019-02-19 15:38 | PN ---
DATE: 02/19/2019 SUBJECTIVE: No specific complaint. Appetite is good. Tolerating food. Has been out of bed, walked around. No nausea. No vomiting. Abdominal pain is minimal. The patient does not have any more complaint of abdominal pain. OBJECTIVE: VITAL SIGNS: Temperature maximum today is 98.6, heart rate 70 regular, respirations 22, blood pressure 142/81, saturation 96% on room air. HEART: Regular. LUNGS: Clear. SKIN: Dressing is intact. There has been no more oozing out of the incision line. The hematoma site has not increased, probably slightly decreasing. ABDOMEN: Soft. No guarding. No rigidity. No rebound. Specially on the right lower quadrant. EXTREMITIES: Lower extremities are negative. LABORATORY DATA: Today, WBC is 5200 with 51.8% segmented which is normal differential, hemoglobin up to 12.2, hematocrit 37.9. Chemistry: Sodium, potassium, BUN, creatinine are normal. Albumin is 4.1. Coagulation profile: PT is 16.2 today, INR is 1.19 within normal range, PTT is 95.4 which is high. ASSESSMENT: A 63-year-old female who is status post left needle located left breast partial mastectomy for cancer of breast and axillary dissection sentinel lymph node technique on 02/04/2019 postop day #15. The patient got complicated after operation by bleeding into the cavity of the partial mastectomy and axillary area due to the fact that anticoagulation Coumadin and Lovenox was started for the patient soon after the operation and that has to be done per the medical planner because of the consideration for prevention of clot formation on the metallic aortic valve that she has had many years ago aortic valve replacement. In any case, the patient was managed and required to stop the Coumadin and Lovenox start the patient on regular heparin drip. Eventually, the blood loss and bleeding stopped and the patient's hemoglobin and hematocrit has been stable in the past 5 days, has received 5 units of packed cells altogether. Now, they are trying to establish the therapeutic level of Coumadin. Meanwhile before achieving to that goal, the patient is being bridge for anticoagulation with regular heparin IV drip. This is controlled by medical planner and the surgical group who is following the patient in regards with the hematoma in left breast, has continued to cover the patient. Yesterday, the Gerson Russell drain which has been placed at the time of operation was removed by me because of no drain over the past 5 or 6 days. PLAN: As per decision and recommendation of Dr. Diaz who is the surgeon who did the operation on this patient and I am now following for Dr. Diaz. His decision is to not interfere with the hematoma and wait until eventually that gets absorbed or liquifies enough to consider possible aspiration but at this time it is not liquified yet so that no surgical or radiological intervention is being considered at this time by surgical group. Dictated By: ALFONSO CONTRERAS MD PS/NTS Conf#: [id number] DID#: [id number] CC: MAIA DIAZ MD; LEYLA ZIEGLER MD;*EndCC* MTDD
[2019-02-19] MEDS: WARFARIN 3 MG TAB PO SCH (17:08)
--- NOTE | 2019-02-19 17:28 | CONS ---
Assessment/Plan Assessment/Plan Assessment/Plan (Daily) 63 yo female 1. Status post surgery, left-sided mastectomy for a left breast cancer. 2. Postoperative hematoma at the site of surgery now the drain has been in place. 3. Status post 6 units of packed cell RBC transfusion. 4. Chronic constipation, which has improved with Amitiza. 5. Mechanical aortic valve replacement. The patient is on heparin for that. 6. Paroxysmal atrial fibrillation. 7. Vitamin D deficiency with low calcium 8. Anemia, mild -no evidence of overt GI bleeding -pt is on coumadin and heparin gtt 9. Right lower quadrant pain and mild tenderness. Patient CAT scan 3 4 days ago for the appendix was negative she has no leukocytosis no fever. Tenderness reduced significantly PLAN: Continue post op care Utilize prn laxatives as needed Monitor HH and for active GI bleeding, pt is on coumadin Continue present care and monitor her right lower quadrant pain Consultation Date/Type/Reason Admit Date/Time February 04, 2019 at 14:08 Initial Consult Date 02/08/19 Requesting Provider: LEYLA ZIEGLER MD Date/Time of Note DATE: 02/19/19 TIME: 17:26 24 HR Interval Summary Free Text/Dictation Pain in the right lower quadrant much better Constitutional: improved Exam/Review of Systems Exam Vitals Vital Signs Date Temp Pulse Resp B/P (MAP) Pulse Ox O2 O2 Flow FiO2 Time Delivery Rate 02/19/19 98.0 68 22 153/66 96 Room Air 16:00 (95) Intake and Output 02/18/19 02/18/19 02/19/19 1515:00 23:00 07:00 IntakeIntake Total 1100 ml OutputOutput Total 3 ml BalanceBalance 1097 ml Constitutional: alert, oriented, well developed Psych: no complaints, nl mood/affect Head: normocephalic, atraumatic Eyes: nl conjunctiva, EOMI, nl lids, nl sclera, PERRL ENMT: nl external ears & nose, nl lips & teeth, nl nasal mucosa & septum Neck: supple, non-tender Respiratory: clear to auscultation, normal air movement Cardiovascular: regular rate and rhythm, nl pulses Gastrointestinal: soft, nl liver, spleen, non-tender Musculoskeletal: nl extremities to inspection, nl gait and stance Extremities: normal pulses Neurological: CONTACT PRINTER DRY FILM II-XII intact, nl mental status, nl speech, nl strength Skin: nl turgor; No rash or lesions Lymph: nl lymph nodes Results Result Diagram: 02/19/19 0636 02/19/19 0636 Results 24hrs Laboratory Tests Test 02/18/19 21:05 02/19/19 06:36 02/19/19 14:30 Hemoglobin 12.1 12.2 Hematocrit 37.3 37.9 Activated Partial Thromboplast Time 51.9 H 95.4 *H 72.2 *H White Blood Count 5.2 Red Blood Count 4.19 L Mean Corpuscular Volume 90.5 Mean Corpuscular Hemoglobin 29.1 Mean Corpuscular Hemoglobin Concent 32.2 Red Cell Distribution Width 14.0 Platelet Count 436 H Mean Platelet Volume 8.9 Immature Granulocytes % 1.900 H Neutrophils % 51.8 Lymphocytes % 27.0 Monocytes % 12.8 H Eosinophils % 5.2 Basophils % 1.3 Nucleated Red Blood Cells % 0.0 Immature Granulocytes # 0.100 H Neutrophils # 2.7 Lymphocytes # 1.4 Monocytes # 0.7 Eosinophils # 0.3 Basophils # 0.1 Nucleated Red Blood Cells # 0.0 Prothrombin Time 15.2 H Prothrombin Time Ratio 1.2 INR International Normalized Ratio 1.19 Sodium Level 138 Potassium Level 4.5 Chloride Level 102 Carbon Dioxide Level 31 Anion Gap 5 Blood Urea Nitrogen 20 Creatinine 0.87 Est Glomerular Filtrat Rate mL/min > 60 Glucose Level 102 Calcium Level 9.1 Total Bilirubin 0.8 Direct Bilirubin 0.00 Indirect Bilirubin 0.8 Aspartate Amino Transf (AST/SGOT) 38 Alanine Aminotransferase (ALT/SGPT) 54 Alkaline Phosphatase 293 H Total Protein 7.6 Albumin 4.1 Globulin 3.50 H Albumin/Globulin Ratio 1.17 Medications Medication Current Medications Ondansetron HCl (Zofran Inj) 4 mg Q6H PRN IV NAUSEA AND/OR VOMITING Last administered on 02/13/19at 18:54; Admin Dose 4 MG; Start 02/04/19 at 14:00 Pantoprazole (Protonix Tab) 40 mg DAILY@06 PO Last administered on 02/19/19at 05:48; Admin Dose 40 MG; Start 02/07/19 at 06:00 Docusate Sodium (Colace) 200 mg DAILY PRN PO CONSTIPATION Last administered on 02/12/19at 08:27; Admin Dose 200 MG; Start 02/06/19 at 14:00 Gabapentin (Neurontin) 200 mg TID PO Last administered on 02/19/19 13:20; Admin Dose 200 MG; Start 02/08/19 at 13:00 Acetaminophen (Tylenol Tab) 650 mg Q4H PRN PO MILD PAIN(1-3)OR ELEVATED TEMP Last administered on 02/19/19 08:44; Admin Dose 650 MG; Start 02/09/19 at 12:00 Saccharomyces Boulardii (Florastor) 250 mg BID PO Last administered on 02/19/19 08:44; Admin Dose 250 MG; Start 02/09/19 at 15:30 Magnesium Hydroxide (Milk Of Mag) 30 ml BID PRN PO CONSTIPATION Last administered on 02/12/19 08:27; Admin Dose 30 ML; Start 02/10/19 at 13:00 Cholecalciferol (Vitamin D) 2,000 unit DAILY PO Last administered on 02/19/19 08:44; Admin Dose 2,000 UNIT; Start 02/11/19 at 11:00 Heparin Sodium (Porcine) (Heparin (1000 Units/ml)) 3,500 unit PER PROTOCOL PRN IV aPTT<47; Start 02/12/19 at 17:30 Warfarin Sodium (Coumadin) 6 mg DAILY@17 PO Last administered on 02/19/19 17:08; Admin Dose 6 MG; Start 02/14/19 at 17:00 Hydrocortisone (Hydrocortisone 1% Cr) 1 applic BID TOP Last administered on 02/19/19 08:45; Admin Dose 1 APPLIC; Start 02/14/19 at 23:00 Heparin Sodium (Porcine) 250 ml @ 7 mls/hr PER PROTOCOL IV Last administered on 02/19/19 00:28; Admin Dose 7 MLS/HR; Start 02/15/19 at 03:00 Cyclobenzaprine HCl (Flexeril) 5 mg Q12 PRN PO spasm; Start 02/16/19 at 17:30 TONIA SANTANA MD Feb 19, 2019 17:28
[2019-02-20] VITALS (10 sets, daily range): BP systolic 119–164; BP diastolic 56–81; PULSE 64–80; RESP 16–22
[2019-02-20] MEDS: PANTOPRAZOLE (EC) 40 MG TAB PO SCH (05:57)
[2019-02-20] MEDS: GABAPENTIN 100 MG CAP PO SCH ×3 (08:11→21:11)
[2019-02-20] MEDS: SACCHAROMYCES BOULARDII 250 MG CAP PO SCH ×2 (08:11→21:11)
[2019-02-20] MEDS: CHOLECALCIFEROL 2,000 UNIT CAP PO SCH (08:11)
[2019-02-20] MEDS: HYDROCORTISONE 1% 28 GM CR TOP SCH ×2 (08:12→21:11)
--- NOTE | 2019-02-20 14:11 | CONS ---
Assessment/Plan Assessment/Plan Assessment/Plan (Daily) Assessment/Plan Assessment/Plan (Daily) 63 yo female 1. Status post surgery, left-sided mastectomy for a left breast cancer. 2. Postoperative hematoma at the site of surgery now the drain has been in place. 3. Status post 6 units of packed cell RBC transfusion. 4. Chronic constipation, which has improved with Amitiza. 5. Mechanical aortic valve replacement. The patient is on heparin for that. 6. Paroxysmal atrial fibrillation. 7. Vitamin D deficiency with low calcium 8. Anemia, mild -no evidence of overt GI bleeding -pt is on coumadin and heparin gtt 9. Right lower quadrant pain resolved PLAN: Continue post op care Utilize prn laxatives as needed Monitor HH and for active GI bleeding, pt is on coumadin Continue present care and monitor her right lower quadrant pain Discussed with the patient and her daughter [id number] Consultation Date/Type/Reason Admit Date/Time February 04, 2019 at 14:08 Initial Consult Date 02/08/19 Requesting Provider: LEYLA ZIEGLER MD Date/Time of Note DATE: 02/20/19 TIME: 14:10 24 HR Interval Summary Constitutional: no complaints, improved Exam/Review of Systems Exam Vitals Vital Signs Date Temp Pulse Resp B/P (MAP) Pulse Ox O2 O2 Flow FiO2 Time Delivery Rate 02/20/19 98.0 65 22 164/78 96 Room Air 12:20 (106) Intake and Output 02/19/19 02/19/19 02/20/19 1515:00 23:00 07:00 IntakeIntake Total 980 ml 700 ml OutputOutput Total 4 ml 3 ml BalanceBalance 976 ml 697 ml Constitutional: alert, oriented, well developed Psych: no complaints, nl mood/affect Head: normocephalic, atraumatic Eyes: nl conjunctiva, EOMI, nl lids, nl sclera, PERRL ENMT: nl external ears & nose, nl lips & teeth, nl nasal mucosa & septum Neck: supple, non-tender Respiratory: clear to auscultation, normal air movement Cardiovascular: regular rate and rhythm, nl pulses Gastrointestinal: soft, nl liver, spleen, non-tender Musculoskeletal: nl extremities to inspection, nl gait and stance Extremities: normal pulses Neurological: SPECIFICATION WRITER II-XII intact, nl mental status, nl speech, nl strength Skin: nl turgor; No rash or lesions Lymph: nl lymph nodes Results Result Diagram: 02/20/19 0445 02/19/19 0636 Results 24hrs Laboratory Tests Test 02/19/19 14:30 02/19/19 21:14 02/20/19 04:45 02/20/19 10:31 Activated 72.2 *H 60.4 H 58.5 H 63.2 H Partial Thromboplast Time White Blood Count 4.8 Red Blood Count 4.17 L Hemoglobin 12.0 Hematocrit 37.8 Mean Corpuscular Volume 90.6 Mean Corpuscular 28.8 L Hemoglobin Mean Corpuscular 31.7 L Hemoglobin Concent Red Cell Distribution 13.8 Width Platelet Count 449 H Mean Platelet Volume 9.1 Immature Granulocytes % 1.400 H Neutrophils % 49.7 Lymphocytes % 31.5 Monocytes % 10.6 Eosinophils % 5.6 Basophils % 1.2 Nucleated Red Blood 0.0 Cells % Immature Granulocytes # 0.070 H Neutrophils # 2.4 Lymphocytes # 1.5 Monocytes # 0.5 Eosinophils # 0.3 Basophils # 0.1 Nucleated Red Blood 0.0 Cells # Prothrombin Time 16.8 H Prothrombin Time Ratio 1.3 INR International 1.35 Normalized Ratio Medications Medication Current Medications Ondansetron HCl (Zofran Inj) 4 mg Q6H PRN IV NAUSEA AND/OR VOMITING Last administered on 02/13/19at 18:54; Admin Dose 4 MG; Start 02/04/19 at 14:00 Pantoprazole (Protonix Tab) 40 mg DAILY@06 PO Last administered on 02/20/19at 05:57; Admin Dose 40 MG; Start 02/07/19 at 06:00 Docusate Sodium (Colace) 200 mg DAILY PRN PO CONSTIPATION Last administered on 02/12/19 08:27; Admin Dose 200 MG; Start 02/06/19 at 14:00 Gabapentin (Neurontin) 200 mg TID PO Last administered on 02/20/19at 12:11; Admin Dose 200 MG; Start 02/08/19 at 13:00 Acetaminophen (Tylenol Tab) 650 mg Q4H PRN PO MILD PAIN(1-3)OR ELEVATED TEMP Last administered on 02/19/19at 20:55; Admin Dose 650 MG; Start 02/09/19 at 12:00 Saccharomyces Boulardii (Florastor) 250 mg BID PO Last administered on 02/20/19 08:11; Admin Dose 250 MG; Start 02/09/19 at 15:30 Magnesium Hydroxide (Milk Of Mag) 30 ml BID PRN PO CONSTIPATION Last administered on 02/12/19 08:27; Admin Dose 30 ML; Start 02/10/19 at 13:00 Cholecalciferol (Vitamin D) 2,000 unit DAILY PO Last administered on 02/20/19 08:11; Admin Dose 2,000 UNIT; Start 02/11/19 at 11:00 Heparin Sodium (Porcine) (Heparin (1000 Units/ml)) 3,500 unit PER PROTOCOL PRN IV aPTT<47; Start 02/12/19 at 17:30 Warfarin Sodium (Coumadin) 6 mg DAILY@17 PO Last administered on 02/19/19 17:08; Admin Dose 6 MG; Start 02/14/19 at 17:00 Hydrocortisone (Hydrocortisone 1% Cr) 1 applic BID TOP Last administered on 02/20/19 08:12; Admin Dose 1 APPLIC; Start 02/14/19 at 23:00 Heparin Sodium (Porcine) 250 ml @ 7 mls/hr PER PROTOCOL IV Last administered on 02/19/19 00:28; Admin Dose 7 MLS/HR; Start 02/15/19 at 03:00 Cyclobenzaprine HCl (Flexeril) 5 mg Q12 PRN PO spasm; Start 02/16/19 at 17:30 TONIA SANTANA MD Feb 20, 2019 14:11
[2019-02-20] MEDS: HEPARIN 25000 UNITS/250 ML 250 ML IV SCH (14:30)
--- NOTE | 2019-02-20 14:50 | CONS ---
Assessment/Plan Assessment/Plan Hospital Course (Demo Recall) Imp: Status post breast surgery 02/04/2019 Mechanical aortic valve replacement Paroxysmal atrial fibrillation, currently sinus rhythm Acute blood loss anemia Patient is on warfarin and continue IV heparin bridging until INR is therapeutic INR has risen so reasonable to continue with 6 mg warfarin daily Consultation Date/Type/Reason Admit Date/Time February 04, 2019 at 14:08 Initial Consult Date Type of Consult Cardiology Requesting Provider: LEYLA ZIEGLER MD Date/Time of Note DATE: 02/20/19 TIME: 14:47 24 HR Interval Summary Free Text/Dictation Feels well, ambulating in halls, no dyspnea, no pain. Exam/Review of Systems Vital Signs Vitals Vital Signs Date Temp Pulse Resp B/P (MAP) Pulse Ox O2 O2 Flow FiO2 Time Delivery Rate 02/20/19 98.0 65 22 164/78 96 Room Air 12:20 (106) Intake and Output 02/19/19 02/19/19 02/20/19 1515:00 23:00 07:00 IntakeIntake Total 980 ml 700 ml OutputOutput Total 4 ml 3 ml BalanceBalance 976 ml 697 ml Exam Constitutional: alert, oriented, well developed Psych: no complaints, nl mood/affect Head: normocephalic, atraumatic Eyes: EOMI, nl lids ENMT: nl external ears & nose Neck: No jvd, No bruits Respiratory: clear to auscultation Cardiovascular: regular rate and rhythm, murmurs/extra sounds, other (crisp prosthetic heart sound) Gastrointestinal: soft, non-tender Musculoskeletal: nl extremities to inspection Extremities: normal pulses Neurological: nl mental status, nl speech Skin: nl turgor Labs Result Diagram: 02/20/19 0445 02/19/19 0636 Results 24hrs Laboratory Tests Test 02/19/19 21:14 02/20/19 04:45 02/20/19 10:31 Activated Partial Thromboplast Time 60.4 H 58.5 H 63.2 H White Blood Count 4.8 Red Blood Count 4.17 L Hemoglobin 12.0 Hematocrit 37.8 Mean Corpuscular Volume 90.6 Mean Corpuscular Hemoglobin 28.8 L Mean Corpuscular Hemoglobin Concent 31.7 L Red Cell Distribution Width 13.8 Platelet Count 449 H Mean Platelet Volume 9.1 Immature Granulocytes % 1.400 H Neutrophils % 49.7 Lymphocytes % 31.5 Monocytes % 10.6 Eosinophils % 5.6 Basophils % 1.2 Nucleated Red Blood Cells % 0.0 Immature Granulocytes # 0.070 H Neutrophils # 2.4 Lymphocytes # 1.5 Monocytes # 0.5 Eosinophils # 0.3 Basophils # 0.1 Nucleated Red Blood Cells # 0.0 Prothrombin Time 16.8 H Prothrombin Time Ratio 1.3 INR International Normalized Ratio 1.35 Medications Medications Current Medications Ondansetron HCl (Zofran Inj) 4 mg Q6H PRN IV NAUSEA AND/OR VOMITING Last administered on 02/13/19 18:54; Admin Dose 4 MG; Start 02/04/19 at 14:00 Pantoprazole (Protonix Tab) 40 mg DAILY@06 PO Last administered on 02/20/19 05:57; Admin Dose 40 MG; Start 02/07/19 at 06:00 Docusate Sodium (Colace) 200 mg DAILY PRN PO CONSTIPATION Last administered on 02/12/19 08:27; Admin Dose 200 MG; Start 02/06/19 at 14:00 Gabapentin (Neurontin) 200 mg TID PO Last administered on 02/20/19 12:11; Admin Dose 200 MG; Start 02/08/19 at 13:00 Acetaminophen (Tylenol Tab) 650 mg Q4H PRN PO MILD PAIN(1-3)OR ELEVATED TEMP Last administered on 02/19/19 20:55; Admin Dose 650 MG; Start 02/09/19 at 12:00 Saccharomyces Boulardii (Florastor) 250 mg BID PO Last administered on 02/20/19 08:11; Admin Dose 250 MG; Start 02/09/19 at 15:30 Magnesium Hydroxide (Milk Of Mag) 30 ml BID PRN PO CONSTIPATION Last administered on 02/12/19 08:27; Admin Dose 30 ML; Start 02/10/19 at 13:00 Cholecalciferol (Vitamin D) 2,000 unit DAILY PO Last administered on 02/20/19 08:11; Admin Dose 2,000 UNIT; Start 02/11/19 at 11:00 Heparin Sodium (Porcine) (Heparin (1000 Units/ml)) 3,500 unit PER PROTOCOL PRN IV aPTT<47; Start 02/12/19 at 17:30 Warfarin Sodium (Coumadin) 6 mg DAILY@17 PO Last administered on 02/19/19at 17:08; Admin Dose 6 MG; Start 02/14/19 at 17:00 Hydrocortisone (Hydrocortisone 1% Cr) 1 applic BID TOP Last administered on 02/20/19at 08:12; Admin Dose 1 APPLIC; Start 02/14/19 at 23:00 Heparin Sodium (Porcine) 250 ml @ 7 mls/hr PER PROTOCOL IV Last administered on 02/20/19at 14:30; Admin Dose 5.8 MLS/HR; Start 02/15/19 at 03:00 Cyclobenzaprine HCl (Flexeril) 5 mg Q12 PRN PO spasm; Start 02/16/19 at 17:30 JERARDO STEPHENS Feb 20, 2019 14:50
--- NOTE | 2019-02-20 15:49 | CONS ---
Assessment/Plan Assessment/Plan Hospital Course (Demo Recall) assessment: - s/p post op fever, likely due to L breast hematoma - hematoma of L breast, its culture was negative - post-op anemia requiring PRBC, now stable - pain and swelling of L axilla, and L scapular region, associated with either the exuberant inflammation from L breast or underlying infection - slowly improving - eczematous rash of L axillary region, possible allergic dermatitis - resolving with hydrocortisone cream 1% - h/o Invasive Breast CA - h/o L partial mastectomy and axillary lymph node dissection - h/o AVR, on heparin as a transition to Coumadin - PAF - low vitamin D - acute cephalgia- improved; CT head showed no acute findings - elevated alk phos with mild lower abdominal pain - CT abd/pelvis showed No evidence of bowel obstruction. Fluid-filled appendix. However the appendix appears to be normal size and there is no evidence of significant adjacent inflammatory changes; low suspicion for mild appendicitis per Surgery - improving recommendations: - continue hydrocortisone cream 1% (02/14/2019-) for pruritic rash. I told pt's daughter and pt's RN that pt can also use this on her fingers - monitor closely off antibiotics; s/p pip/tazo (02/08/19-02/14/19). Vancomycin was discontinued (02/08/2019-02/11/2019) due to phlebitis in the UE - monitor pt closely for bleeding as she is on Coumadin and IV heparin bridging until INR is therapeutic - OT eval for f/u on LUE ROM exercises to prevent frozen shoulder - I mentioned this to [facility] Management d/w patient, pt's daughter Brit, RN Kadie, and with Dr. Arias. Also briefly d/w TREVOR Knight. Consultation Date/Type/Reason Admit Date/Time February 04, 2019 at 14:08 Initial Consult Date 02/08/19 Type of Consult Infectious Disease Requesting Provider: LEYLA ZIEGLER MD Date/Time of Note DATE: 02/20/19 TIME: 15:48 24 HR Interval Summary Free Text/Dictation Rates L axilla pain 4/10. Denies abd pain, n/v/d, dysuria. Had normal BM today. C/o pruritic finger tips during the night. Walked in hallway earlier and pt did ROM exercises of LUE per pt's daughter. Exam/Review of Systems Exam Vitals Vital Signs Date Temp Pulse Resp B/P (MAP) Pulse Ox O2 O2 Flow FiO2 Time Delivery Rate 02/20/19 98.0 69 22 153/81 96 Room Air 15:33 (105) Intake and Output 02/19/19 02/19/19 02/20/19 1515:00 23:00 07:00 IntakeIntake Total 980 ml 700 ml OutputOutput Total 4 ml 3 ml BalanceBalance 976 ml 697 ml Exam Constitutional: alert, oriented, well developed, other (sitting in chair in NAD watching The Notebook on TV; daughter, Brit, at bedside) Psych: no complaints, nl mood/affect Head: normocephalic, atraumatic Eyes: nl conjunctiva, nl sclera ENMT: nl external ears & nose, nl nasal mucosa & septum, mucosa pink and moist (no thrush) Neck: non-tender Respiratory: clear to auscultation (anteriorly), normal air movement, other (on room air) Cardiovascular: regular rate and rhythm, nl pulses Gastrointestinal: soft, bowel sounds (normoactive), other (no TTP) Musculoskeletal: joint tenderness (L scapula has improved), range of motion (LUE ROM is slowly improving; wall by the bathroom was marked as to how high pt can lift LUE) Extremities: normal pulses; No edema Neurological: nl mental status, nl speech Skin: nl turgor, other (L axillary rash has resolved; L breast with large bulky dressing with dark blood stain, dry, intact. No rash noted on fingers but pt is actively scratching her fingertips bilaterally) Results Result Diagram: 02/20/19 0445 02/19/19 0636 Results 24hrs Laboratory Tests Test 02/19/19 21:14 02/20/19 04:45 02/20/19 10:31 Activated Partial Thromboplast Time 60.4 H 58.5 H 63.2 H White Blood Count 4.8 Red Blood Count 4.17 L Hemoglobin 12.0 Hematocrit 37.8 Mean Corpuscular Volume 90.6 Mean Corpuscular Hemoglobin 28.8 L Mean Corpuscular Hemoglobin Concent 31.7 L Red Cell Distribution Width 13.8 Platelet Count 449 H Mean Platelet Volume 9.1 Immature Granulocytes % 1.400 H Neutrophils % 49.7 Lymphocytes % 31.5 Monocytes % 10.6 Eosinophils % 5.6 Basophils % 1.2 Nucleated Red Blood Cells % 0.0 Immature Granulocytes # 0.070 H Neutrophils # 2.4 Lymphocytes # 1.5 Monocytes # 0.5 Eosinophils # 0.3 Basophils # 0.1 Nucleated Red Blood Cells # 0.0 Prothrombin Time 16.8 H Prothrombin Time Ratio 1.3 INR International Normalized Ratio 1.35 Medications Medication Current Medications Ondansetron HCl (Zofran Inj) 4 mg Q6H PRN IV NAUSEA AND/OR VOMITING Last administered on 02/13/19 18:54; Admin Dose 4 MG; Start 02/04/19 at 14:00 Pantoprazole (Protonix Tab) 40 mg DAILY@06 PO Last administered on 02/20/19 05:57; Admin Dose 40 MG; Start 02/07/19 at 06:00 Docusate Sodium (Colace) 200 mg DAILY PRN PO CONSTIPATION Last administered on 02/12/19 08:27; Admin Dose 200 MG; Start 02/06/19 at 14:00 Gabapentin (Neurontin) 200 mg TID PO Last administered on 02/20/19 12:11; Admin Dose 200 MG; Start 02/08/19 at 13:00 Acetaminophen (Tylenol Tab) 650 mg Q4H PRN PO MILD PAIN(1-3)OR ELEVATED TEMP Last administered on 02/19/19 20:55; Admin Dose 650 MG; Start 02/09/19 at 12:00 Saccharomyces Boulardii (Florastor) 250 mg BID PO Last administered on 02/20/19 08:11; Admin Dose 250 MG; Start 02/09/19 at 15:30 Magnesium Hydroxide (Milk Of Mag) 30 ml BID PRN PO CONSTIPATION Last administered on 02/12/19 08:27; Admin Dose 30 ML; Start 02/10/19 at 13:00 Cholecalciferol (Vitamin D) 2,000 unit DAILY PO Last administered on 02/20/19 08:11; Admin Dose 2,000 UNIT; Start 02/11/19 at 11:00 Heparin Sodium (Porcine) (Heparin (1000 Units/ml)) 3,500 unit PER PROTOCOL PRN IV aPTT<47; Start 02/12/19 at 17:30 Warfarin Sodium (Coumadin) 6 mg DAILY@17 PO Last administered on 02/19/19 17:08; Admin Dose 6 MG; Start 02/14/19 at 17:00 Hydrocortisone (Hydrocortisone 1% Cr) 1 applic BID TOP Last administered on 02/20/19at 08:12; Admin Dose 1 APPLIC; Start 02/14/19 at 23:00 Heparin Sodium (Porcine) 250 ml @ 7 mls/hr PER PROTOCOL IV Last administered on 02/20/19 14:30; Admin Dose 5.8 MLS/HR; Start 02/15/19 at 03:00 Cyclobenzaprine HCl (Flexeril) 5 mg Q12 PRN PO spasm; Start 02/16/19 at 17:30 ZULEMA BOWLING NP Feb 20, 2019 15:48
[2019-02-20] MEDS: WARFARIN 3 MG TAB PO SCH (17:20)
[2019-02-20] MEDS: ACETAMINOPHEN 325 MG TAB PO PRN (17:23)
--- NOTE | 2019-02-20 19:04 | PN ---
DATE: 02/20/2019 SUBJECTIVE: No specific complaint. Has been out of bed and walks along with her daughter on the hallway, tolerating diet. No nausea, no vomiting. Bowel movements okay. No abdominal pain. Shoulder pain is better. She has done some exercise for increasing the range of motion of the left shoulder. OBJECTIVE: GENERAL: Awake, alert, oriented. VITAL SIGNS: Temperature today 98.4, heart rate fluctuating between 64 and 71, respiratory rate 22, blood pressure 164/78, saturation of 96% on room air. LABORATORY DATA: WBC 4800, normal differential, 49% segmented normal. Hemoglobin 12, hematocrit 37.8, stable since past 5 days ago. Platelets 449, slightly elevated. Chemistry: Sodium, potassium, BUN, creatinine normal. Alkaline phosphatase is slightly less than yesterday, but still is up to 293. Albumin is 4.1. Coagulation profile: PT increased to 16.8 today. INR is 1.35 and PTT is 63.2. The last one, the patient is on Coumadin and heparin drip. PHYSICAL EXAMINATION: GENERAL: Awake, alert, oriented, sitting out of bed in a chair and having lunch. HEART: Regular. LUNGS: Clear. Chest dressing is intact. There is no oozing, no bleeding. Patient can raise the left arm almost above the level of the head with no problem. ABDOMEN: Soft. ASSESSMENT AND PLAN: A 63-year-old female status post left partial mastectomy and axillary dissection for cancer of breast. Post-operation, the patient developed hematoma in the cavity of the partial mastectomy on the left axillary area necessitating to stop the Coumadin and stop the Lovenox and starting the patient on heparin drip and gradually hemoglobin stabilized. In the past several days, the patient has been stable in hemoglobin and hematocrit . altogether the patient required 4 units of blood transfusion. The last hemoglobin today is 12, which is stable in the past 5 or 6 days. Dressing was changed by myself yesterday. Still there is a hematoma not liquefied yet, but has not increased in size in the past several days. Abdominal pain, right upper quadrant, the patient has been complaining of. Now, there is no complaint of abdominal pain and the abdomen is soft, there is no tenderness, no rebound or guarding. The patient is on a course of Coumadin bridged with heparin drip to achieve an INR therapeutic and when the INR therapeutic is achieved, then they are going to stop the heparin drip and at that time, most probably patient can be discharged to be followed by Dr. Hinojosa in the office for surgical followup and also by other doctors for other medical problems. Dictated By: ALFONSO CONTRERAS MD PS/NTS Conf#: [id number] DID#: [id number] CC: MAIA HINOJOSA MD;*EndCC* MTDD
[2019-02-21] VITALS (11 sets, daily range): BP systolic 115–161; BP diastolic 55–74; PULSE 64–78; RESP 17–22
[2019-02-21] MEDS: PANTOPRAZOLE (EC) 40 MG TAB PO SCH (06:06)
--- NOTE | 2019-02-21 08:21 | PN ---
Date/Time of Note Date/Time of Note DATE: 02/21/19 TIME: 08:20 Assessment/Plan VTE Prophylaxis Risk score (from Ns)>0 risk: 8 SCD applied (from [facility]): Yes Lines/Catheters IV Catheter Type (from [facility]): Peripheral IV Assessment/Plan Assessment/Plan -Hemoptysis, likely secondary to tracheobronchitis, on anticoagulation--now improved. No evidence of significant intraparenchymal abnormalities on CT chest. - Status post evaluation by Dr. Pierce in pulmonology consultation. -Left breast cancer, status post left partial mastectomy by Dr. Diaz. -Postoperative hematomas in left breast and left axillary region. -Postoperative fever, continue antibiotics per ID. Dr. Arias is following in infection disease consultation. -Paroxysmal atrial fibrillation. -Mechanical aortic valve replacement secondary to aortic insufficiency. - Dr. Hicks is following in cardiology consultation. on heparin drip. -Anemia of acute blood loss, continue to monitor H&H, will transfuse as needed. -Vitamin D deficiency, started on supplement. Further recommendations based on clinical course. Plan of care discussed with Dr. Pelaez. Result Diagram: 02/21/19 0632 02/19/19 0636 Results 24hrs Laboratory Tests Test 02/20/19 10:31 02/21/19 06:32 Activated Partial Thromboplast Time 63.2 H Pending White Blood Count 4.7 L Red Blood Count 3.97 L Hemoglobin 11.9 L Hematocrit 36.1 L Mean Corpuscular Volume 90.9 Mean Corpuscular Hemoglobin 30.0 Mean Corpuscular Hemoglobin Concent 33.0 Red Cell Distribution Width 13.6 Platelet Count 401 Mean Platelet Volume 8.9 Immature Granulocytes % 0.600 H Neutrophils % 49.7 Lymphocytes % 31.6 Monocytes % 11.5 H Eosinophils % 5.1 Basophils % 1.5 Nucleated Red Blood Cells % 0.0 Immature Granulocytes # 0.030 Neutrophils # 2.3 Lymphocytes # 1.5 Monocytes # 0.5 Eosinophils # 0.2 Basophils # 0.1 Nucleated Red Blood Cells # 0.0 Prothrombin Time 18.4 H Prothrombin Time Ratio 1.4 INR International Normalized Ratio 1.52 Subjective 24 Hr Interval Summary Free Text/Dictation Late entry- 02/20/2019 Heparin - 580 units; no bleeding reported Exam/Review of Systems Exam Vitals Vital Signs Date Temp Pulse Resp B/P (MAP) Pulse Ox O2 O2 Flow FiO2 Time Delivery Rate 02/21/19 97.8 22 119/59 96 Room Air 07:31 (79) 02/21/19 64 05:05 Intake and Output 02/20/19 02/20/19 02/21/19 1515:00 23:00 07:00 IntakeIntake Total 720 ml 250 ml OutputOutput Total 3 ml BalanceBalance 717 ml 250 ml Results Results 24hrs Laboratory Tests Test 02/20/19 10:31 02/21/19 06:32 Activated Partial Thromboplast Time 63.2 H Pending White Blood Count 4.7 L Red Blood Count 3.97 L Hemoglobin 11.9 L Hematocrit 36.1 L Mean Corpuscular Volume 90.9 Mean Corpuscular Hemoglobin 30.0 Mean Corpuscular Hemoglobin Concent 33.0 Red Cell Distribution Width 13.6 Platelet Count 401 Mean Platelet Volume 8.9 Immature Granulocytes % 0.600 H Neutrophils % 49.7 Lymphocytes % 31.6 Monocytes % 11.5 H Eosinophils % 5.1 Basophils % 1.5 Nucleated Red Blood Cells % 0.0 Immature Granulocytes # 0.030 Neutrophils # 2.3 Lymphocytes # 1.5 Monocytes # 0.5 Eosinophils # 0.2 Basophils # 0.1 Nucleated Red Blood Cells # 0.0 Prothrombin Time 18.4 H Prothrombin Time Ratio 1.4 INR International Normalized Ratio 1.52 Medications Medication Current Medications Ondansetron HCl (Zofran Inj) 4 mg Q6H PRN IV NAUSEA AND/OR VOMITING Last administered on 02/13/19at 18:54; Admin Dose 4 MG; Start 02/04/19 at 14:00 Pantoprazole (Protonix Tab) 40 mg DAILY@06 PO Last administered on 02/21/19at 06: 06; Admin Dose 40 MG; Start 02/07/19 at 06:00 Docusate Sodium (Colace) 200 mg DAILY PRN PO CONSTIPATION Last administered on 02/12/19at 08:27; Admin Dose 200 MG; Start 02/06/19 at 14:00 Gabapentin (Neurontin) 200 mg TID PO Last administered on 02/20/19at 21:11; Admin Dose 200 MG; Start 02/08/19 at 13:00 Acetaminophen (Tylenol Tab) 650 mg Q4H PRN PO MILD PAIN(1-3)OR ELEVATED TEMP Last administered on 02/20/19 17:23; Admin Dose 650 MG; Start 02/09/19 at 12:00 Saccharomyces Boulardii (Florastor) 250 mg BID PO Last administered on 02/20/19 21:11; Admin Dose 250 MG; Start 02/09/19 at 15:30 Magnesium Hydroxide (Milk Of Mag) 30 ml BID PRN PO CONSTIPATION Last administered on 02/12/19 08:27; Admin Dose 30 ML; Start 02/10/19 at 13:00 Cholecalciferol (Vitamin D) 2,000 unit DAILY PO Last administered on 02/20/19 08:11; Admin Dose 2,000 UNIT; Start 02/11/19 at 11:00 Heparin Sodium (Porcine) (Heparin (1000 Units/ml)) 3,500 unit PER PROTOCOL PRN IV aPTT<47; Start 02/12/19 at 17:30 Warfarin Sodium (Coumadin) 6 mg DAILY@17 PO Last administered on 02/20/19 17:20; Admin Dose 6 MG; Start 02/14/19 at 17:00 Hydrocortisone (Hydrocortisone 1% Cr) 1 applic BID TOP Last administered on 02/20/19 21:11; Admin Dose 1 APPLIC; Start 02/14/19 at 23:00 Heparin Sodium (Porcine) 250 ml @ 7 mls/hr PER PROTOCOL IV Last administered on 02/20/19 14:30; Admin Dose 5.8 MLS/HR; Start 02/15/19 at 03:00 Cyclobenzaprine HCl (Flexeril) 5 mg Q12 PRN PO spasm; Start 02/16/19 at 17:30 ALEAH RUBY Feb 21, 2019 08:21
--- NOTE | 2019-02-21 08:22 | PN ---
Date/Time of Note Date/Time of Note DATE: 02/21/19 TIME: 08:21 Assessment/Plan VTE Prophylaxis Risk score (from [facility])>0 risk: 8 SCD applied (from [facility]): Yes SCD contraindicated: other Pharmacological prophylaxis: other Pharm contraindication: other Lines/Catheters IV Catheter Type (from [facility]): Peripheral IV Assessment/Plan Assessment/Plan -Hemoptysis, likely secondary to tracheobronchitis, on anticoagulation--now improved. No evidence of significant intraparenchymal abnormalities on CT chest. - Status post evaluation by Dr. Pierce in pulmonology consultation. -Left breast cancer, status post left partial mastectomy by Dr. Diaz. -Postoperative hematomas in left breast and left axillary region. -Postoperative fever, continue antibiotics per ID. Dr. Arias is following in infection disease consultation. -Paroxysmal atrial fibrillation. -Mechanical aortic valve replacement secondary to aortic insufficiency. - Dr. Hicks is following in cardiology consultation. on heparin drip. -Anemia of acute blood loss, continue to monitor H&H, will transfuse as needed. -Vitamin D deficiency, started on supplement. Further recommendations based on clinical course. Plan of care discussed with Dr. Pelaez. Result Diagram: 02/21/19 0632 02/19/19 0636 Results 24hrs Laboratory Tests Test 02/20/19 10:31 02/21/19 06:32 Activated Partial Thromboplast Time 63.2 H Pending White Blood Count 4.7 L Red Blood Count 3.97 L Hemoglobin 11.9 L Hematocrit 36.1 L Mean Corpuscular Volume 90.9 Mean Corpuscular Hemoglobin 30.0 Mean Corpuscular Hemoglobin Concent 33.0 Red Cell Distribution Width 13.6 Platelet Count 401 Mean Platelet Volume 8.9 Immature Granulocytes % 0.600 H Neutrophils % 49.7 Lymphocytes % 31.6 Monocytes % 11.5 H Eosinophils % 5.1 Basophils % 1.5 Nucleated Red Blood Cells % 0.0 Immature Granulocytes # 0.030 Neutrophils # 2.3 Lymphocytes # 1.5 Monocytes # 0.5 Eosinophils # 0.2 Basophils # 0.1 Nucleated Red Blood Cells # 0.0 Prothrombin Time 18.4 H Prothrombin Time Ratio 1.4 INR International Normalized Ratio 1.52 Subjective 24 Hr Interval Summary Free Text/Dictation Heparin - 580 units Exam/Review of Systems Exam Vitals Vital Signs Date Temp Pulse Resp B/P (MAP) Pulse Ox O2 O2 Flow FiO2 Time Delivery Rate 02/21/19 97.8 22 119/59 96 Room Air 07:31 (79) 02/21/19 64 05:05 Intake and Output 02/20/19 02/20/19 02/21/19 1515:00 23:00 07:00 IntakeIntake Total 720 ml 250 ml OutputOutput Total 3 ml BalanceBalance 717 ml 250 ml Results Results 24hrs Laboratory Tests Test 02/20/19 10:31 02/21/19 06:32 Activated Partial Thromboplast Time 63.2 H Pending White Blood Count 4.7 L Red Blood Count 3.97 L Hemoglobin 11.9 L Hematocrit 36.1 L Mean Corpuscular Volume 90.9 Mean Corpuscular Hemoglobin 30.0 Mean Corpuscular Hemoglobin Concent 33.0 Red Cell Distribution Width 13.6 Platelet Count 401 Mean Platelet Volume 8.9 Immature Granulocytes % 0.600 H Neutrophils % 49.7 Lymphocytes % 31.6 Monocytes % 11.5 H Eosinophils % 5.1 Basophils % 1.5 Nucleated Red Blood Cells % 0.0 Immature Granulocytes # 0.030 Neutrophils # 2.3 Lymphocytes # 1.5 Monocytes # 0.5 Eosinophils # 0.2 Basophils # 0.1 Nucleated Red Blood Cells # 0.0 Prothrombin Time 18.4 H Prothrombin Time Ratio 1.4 INR International Normalized Ratio 1.52 Medications Medication Current Medications Ondansetron HCl (Zofran Inj) 4 mg Q6H PRN IV NAUSEA AND/OR VOMITING Last administered on 02/13/19at 18:54; Admin Dose 4 MG; Start 02/04/19 at 14:00 Pantoprazole (Protonix Tab) 40 mg DAILY@06 PO Last administered on 02/21/19at 06:06; Admin Dose 40 MG; Start 02/07/19 at 06:00 Docusate Sodium (Colace) 200 mg DAILY PRN PO CONSTIPATION Last administered on 02/12/19at 08:27; Admin Dose 200 MG; Start 02/06/19 at 14:00 Gabapentin (Neurontin) 200 mg TID PO Last administered on 02/20/19at 21:11; Admin Dose 200 MG; Start 02/08/19 at 13:00 Acetaminophen (Tylenol Tab) 650 mg Q4H PRN PO MILD PAIN(1-3)OR ELEVATED TEMP Last administered on 02/20/19 17:23; Admin Dose 650 MG; Start 02/09/19 at 12:00 Saccharomyces Boulardii (Florastor) 250 mg BID PO Last administered on 02/20/19 21:11; Admin Dose 250 MG; Start 02/09/19 at 15:30 Magnesium Hydroxide (Milk Of Mag) 30 ml BID PRN PO CONSTIPATION Last administered on 02/12/19 08:27; Admin Dose 30 ML; Start 02/10/19 at 13:00 Cholecalciferol (Vitamin D) 2,000 unit DAILY PO Last administered on 02/20/19 08:11; Admin Dose 2,000 UNIT; Start 02/11/19 at 11:00 Heparin Sodium (Porcine) (Heparin (1000 Units/ml)) 3,500 unit PER PROTOCOL PRN IV aPTT<47; Start 02/12/19 at 17:30 Warfarin Sodium (Coumadin) 6 mg DAILY@17 PO Last administered on 02/20/19 17:20; Admin Dose 6 MG; Start 02/14/19 at 17:00 Hydrocortisone (Hydrocortisone 1% Cr) 1 applic BID TOP Last administered on 02/20/19 21:11; Admin Dose 1 APPLIC; Start 02/14/19 at 23:00 Heparin Sodium (Porcine) 250 ml @ 7 mls/hr PER PROTOCOL IV Last administered on 02/20/19 14:30; Admin Dose 5.8 MLS/HR; Start 02/15/19 at 03:00 Cyclobenzaprine HCl (Flexeril) 5 mg Q12 PRN PO spasm; Start 02/16/19 at 17:30 ALEAH RUBY Feb 21, 2019 08:22
[2019-02-21] MEDS: CHOLECALCIFEROL 2,000 UNIT CAP PO SCH (09:04)
[2019-02-21] MEDS: GABAPENTIN 100 MG CAP PO SCH ×3 (09:05→20:33)
[2019-02-21] MEDS: SACCHAROMYCES BOULARDII 250 MG CAP PO SCH ×2 (09:05→20:33)
[2019-02-21] MEDS: HYDROCORTISONE 1% 28 GM CR TOP SCH ×2 (09:05→20:33)
[2019-02-21] MEDS: HEPARIN 25000 UNITS/250 ML 250 ML IV SCH ×3 (09:10→23:33)
[2019-02-21] MEDS ORDERED: DIPHENHYDRAMINE 50 MG INJ IM PRN (10:00)
[2019-02-21] MEDS: ACETAMINOPHEN 325 MG TAB PO PRN (15:42)
--- NOTE | 2019-02-21 15:57 | PN ---
DATE: 02/21/2019 SUBJECTIVE: No specific complaint. The pains in the shoulder area and abdomen are much under control. Actually, she does not have any abdominal pain anymore and the left shoulder and chest wall pain has decreased a lot. The patient having movement of the shoulder to prevent the frozen shoulder. Walking around in the hallway. Eating okay. Bowel movements and urination is okay. PHYSICAL EXAMINATION: VITAL SIGNS: Temperature maximum today 98, heart rate 75, respirations 17, blood pressure 119/59, saturation 96% room air. HEART: Regular. LUNGS: Clear. ABDOMEN: Soft. The dressing on the chest wall is intact with a small amount of oozing from the incision line in the axillary fold which is obviously the old liquified blood, total maybe about 2 or 3 mL has oozed out. Otherwise, no other bleeding. LABORATORY DATA: WBC today is 4700 with 49% segmented, which is within normal range, hemoglobin 11.9, hematocrit 36.1. Coagulation profile: PT is 18.4 today, INR 1.2, PTT is 70.8. So, according to the clinical studies specialist, they would like to have the INR at least twice normal before they stop the heparin drip. So, I assume that this goal can be achieved by probably Friday and hopefully, patient is going to be discharged pretty soon. Dictated By: ALFONSO CONTRERAS MD PS/NTS Conf#: [id number] DID#: [id number] CC: MAIA HINOJOSA MD;*EndCC* MTDD
[2019-02-21] MEDS: WARFARIN 3 MG TAB PO SCH (17:20)
--- NOTE | 2019-02-21 19:20 | CONS ---
Assessment/Plan Assessment/Plan Hospital Course (Demo Recall) assessment: - s/p post op fever, likely due to L breast hematoma - hematoma of L breast, its culture was negative - post-op anemia requiring PRBC, now stable - pain and swelling of L axilla, and L scapular region, associated with either the exuberant inflammation from L breast or underlying infection - slowly improving - eczematous rash of L axillary region, possible allergic dermatitis - resolving with hydrocortisone cream 1% - h/o Invasive Breast CA - h/o L partial mastectomy and axillary lymph node dissection - h/o AVR, on heparin as a transition to Coumadin - PAF - low vitamin D - acute cephalgia- improved; CT head showed no acute findings - elevated alk phos with mild lower abdominal pain - CT abd/pelvis showed No evidence of bowel obstruction. Fluid-filled appendix. However the appendix appears to be normal size and there is no evidence of significant adjacent inflammatory changes; low suspicion for mild appendicitis per Surgery - improving recommendations: - continue hydrocortisone cream 1% (02/14/2019-) for pruritic rash. - monitor closely off antibiotics; s/p pip/tazo (02/08/19-02/14/19). Vancomycin was discontinued (02/08/2019-02/11/2019) due to phlebitis in the UE - monitor pt for bleeding as she is on Coumadin and IV heparin bridging until INR is therapeutic - encouraged increased ROM exercises for L shoulder Management d/w patient, NAVIN Engle, and with Dr. Arias. Consultation Date/Type/Reason Admit Date/Time February 04, 2019 at 14:08 Initial Consult Date 02/08/19 Type of Consult Infectious Disease Requesting Provider: LEYLA ZIEGLER MD Date/Time of Note DATE: 02/21/19 TIME: 19:20 24 HR Interval Summary Free Text/Dictation Pt states she is anxious to go home. Pt still feels "tiny bumps" on her fingertips but states pruritus has resolved. Has residual pruritus on LUE. Rates L axilla pain 4-5/10. No n/v/d or dysuria. C/o recurrent mild RLQ abd pain. Exam/Review of Systems Exam Vitals Vital Signs Date Temp Pulse Resp B/P (MAP) Pulse Ox O2 O2 Flow FiO2 Time Delivery Rate 02/21/19 70 16:00 02/21/19 98.0 22 161/72 Room Air 15:45 (101) 02/21/19 96 07:31 Intake and Output 02/20/19 02/20/19 02/21/19 1515:00 23:00 07:00 IntakeIntake Total 720 ml 250 ml OutputOutput Total 3 ml BalanceBalance 717 ml 250 ml Exam Constitutional: alert, oriented, well developed, other (lying in bed in NAD; 3 female family members at bedside) Psych: no complaints, nl mood/affect Head: normocephalic, atraumatic Eyes: nl conjunctiva, nl sclera ENMT: nl external ears & nose, nl nasal mucosa & septum, mucosa pink and moist (no thrush) Neck: non-tender Respiratory: clear to auscultation (anteriorly), normal air movement, other (on room air) Cardiovascular: regular rate and rhythm, nl pulses Gastrointestinal: soft, bowel sounds (normoactive), other (mild RLQ TTP. No guarding or rebound tenderness) Musculoskeletal: joint tenderness (L scapula has improved), range of motion (now able to lift LUE just a little above her head) Extremities: normal pulses; No edema Neurological: nl mental status, nl speech Skin: nl turgor, other (L breast with large bulky dressing with small area of dark blood stain, dry, intact. No rash) Results Result Diagram: 02/21/19 0632 02/21/19 0630 Results 24hrs Laboratory Tests Test 02/21/19 06:30 02/21/19 06:32 02/21/19 15:20 Sodium Level 138 Potassium Level 4.6 Chloride Level 105 Carbon Dioxide Level 26 Anion Gap 7 Blood Urea Nitrogen 21 H Creatinine 0.66 Est Glomerular Filtrat Rate mL/min > 60 Glucose Level 94 Calcium Level 8.7 White Blood Count 4.7 L Red Blood Count 3.97 L Hemoglobin 11.9 L Hematocrit 36.1 L Mean Corpuscular Volume 90.9 Mean Corpuscular Hemoglobin 30.0 Mean Corpuscular Hemoglobin Concent 33.0 Red Cell Distribution Width 13.6 Platelet Count 401 Mean Platelet Volume 8.9 Immature Granulocytes % 0.600 H Neutrophils % 49.7 Lymphocytes % 31.6 Monocytes % 11.5 H Eosinophils % 5.1 Basophils % 1.5 Nucleated Red Blood Cells % 0.0 Immature Granulocytes # 0.030 Neutrophils # 2.3 Lymphocytes # 1.5 Monocytes # 0.5 Eosinophils # 0.2 Basophils # 0.1 Nucleated Red Blood Cells # 0.0 Prothrombin Time 18.4 H Prothrombin Time Ratio 1.4 INR International Normalized Ratio 1.52 Activated Partial Thromboplast Time 70.8 *H 52.8 H Medications Medication Current Medications Ondansetron HCl (Zofran Inj) 4 mg Q6H PRN IV NAUSEA AND/OR VOMITING Last administered on 02/13/19 18:54; Admin Dose 4 MG; Start 02/04/19 at 14:00 Pantoprazole (Protonix Tab) 40 mg DAILY@06 PO Last administered on 02/21/19 06:06; Admin Dose 40 MG; Start 02/07/19 at 06:00 Docusate Sodium (Colace) 200 mg DAILY PRN PO CONSTIPATION Last administered on 02/12/19 08:27; Admin Dose 200 MG; Start 02/06/19 at 14:00 Acetaminophen (Tylenol Tab) 650 mg Q4H PRN PO MILD PAIN(1-3)OR ELEVATED TEMP Last administered on 02/21/19 15:42; Admin Dose 650 MG; Start 02/09/19 at 12:00 Saccharomyces Boulardii (Florastor) 250 mg BID PO Last administered on 02/21/19 09:05; Admin Dose 250 MG; Start 02/09/19 at 15:30 Magnesium Hydroxide (Milk Of Mag) 30 ml BID PRN PO CONSTIPATION Last administered on 02/12/19 08:27; Admin Dose 30 ML; Start 02/10/19 at 13:00 Cholecalciferol (Vitamin D) 2,000 unit DAILY PO Last administered on 02/21/19 09:04; Admin Dose 2,000 UNIT; Start 02/11/19 at 11:00 Heparin Sodium (Porcine) (Heparin (1000 Units/ml)) 3,500 unit PER PROTOCOL PRN IV aPTT<47; Start 02/12/19 at 17:30 Warfarin Sodium (Coumadin) 6 mg DAILY@17 PO Last administered on 02/21/19 17:20; Admin Dose 6 MG; Start 02/14/19 at 17:00 Hydrocortisone (Hydrocortisone 1% Cr) 1 applic BID TOP Last administered on 02/21/19 09:05; Admin Dose 1 APPLIC; Start 02/14/19 at 23:00 Heparin Sodium (Porcine) 250 ml @ 7 mls/hr PER PROTOCOL IV Last administered on 02/21/19at 17:23; Admin Dose 6.2 MLS/HR; Start 02/15/19 at 03:00 Cyclobenzaprine HCl (Flexeril) 5 mg Q12 PRN PO spasm; Start 02/16/19 at 17:30 Diphenhydramine HCl (Benadryl) 25 mg Q6H PRN IM ITCHING; Start 02/21/19 at 10:00 Gabapentin (Neurontin) 100 mg TID PO Last administered on 02/21/19at 13:18; Admin Dose 100 MG; Start 02/21/19 at 13:00 ZULEMA BOWLING NP Feb 21, 2019 19:20
--- NOTE | 2019-02-21 19:32 | CONS ---
Assessment/Plan Assessment/Plan Assessment/Plan (Daily) Assessment/Plan (Daily) 63 yo female 1. Status post surgery, left-sided mastectomy for a left breast cancer. 2. Postoperative hematoma at the site of surgery now the drain has been in place. 3. Status post 6 units of packed cell RBC transfusion. 4. Chronic constipation, which has improved with Amitiza. 5. Mechanical aortic valve replacement. The patient is on heparin for that. 6. Paroxysmal atrial fibrillation. 7. Vitamin D deficiency with low calcium 8. Anemia, mild -no evidence of overt GI bleeding -pt is on coumadin and heparin gtt 9. Right lower quadrant pain mild. Patient also has a back pain. She is able to ambulate without any problem PLAN: Continue post op care Utilize prn laxatives as needed Monitor HH and for active GI bleeding, pt is on coumadin Continue present care and monitor her right lower quadrant pain Discussed with the patient and her daughter [id number] Consultation Date/Type/Reason Admit Date/Time February 04, 2019 at 14:08 Initial Consult Date 02/08/19 Requesting Provider: LEYLA ZIEGLER MD Date/Time of Note DATE: 02/21/19 TIME: 19:31 24 HR Interval Summary Constitutional: no complaints, improved Exam/Review of Systems Exam Vitals Vital Signs Date Temp Pulse Resp B/P (MAP) Pulse Ox O2 O2 Flow FiO2 Time Delivery Rate 02/21/19 70 16:00 02/21/19 98.0 22 161/72 Room Air 15:45 (101) 02/21/19 96 07:31 Intake and Output 02/20/19 02/20/19 02/21/19 1515:00 23:00 07:00 IntakeIntake Total 720 ml 250 ml OutputOutput Total 3 ml BalanceBalance 717 ml 250 ml Constitutional: alert, oriented, well developed Psych: no complaints, nl mood/affect Head: normocephalic, atraumatic Eyes: nl conjunctiva, EOMI, nl lids, nl sclera, PERRL ENMT: nl external ears & nose, nl lips & teeth, nl nasal mucosa & septum Neck: supple, non-tender Respiratory: clear to auscultation, normal air movement Cardiovascular: regular rate and rhythm, nl pulses Gastrointestinal: soft, nl liver, spleen, non-tender Musculoskeletal: nl extremities to inspection, nl gait and stance Extremities: normal pulses Neurological: BLACKTOP SPREADER II-XII intact, nl mental status, nl speech, nl strength Skin: nl turgor; No rash or lesions Lymph: nl lymph nodes Results Result Diagram: 02/21/19 0632 02/21/19 0630 Results 24hrs Laboratory Tests Test 02/21/19 06:30 02/21/19 06:32 02/21/19 15:20 Sodium Level 138 Potassium Level 4.6 Chloride Level 105 Carbon Dioxide Level 26 Anion Gap 7 Blood Urea Nitrogen 21 H Creatinine 0.66 Est Glomerular Filtrat Rate mL/min > 60 Glucose Level 94 Calcium Level 8.7 White Blood Count 4.7 L Red Blood Count 3.97 L Hemoglobin 11.9 L Hematocrit 36.1 L Mean Corpuscular Volume 90.9 Mean Corpuscular Hemoglobin 30.0 Mean Corpuscular Hemoglobin Concent 33.0 Red Cell Distribution Width 13.6 Platelet Count 401 Mean Platelet Volume 8.9 Immature Granulocytes % 0.600 H Neutrophils % 49.7 Lymphocytes % 31.6 Monocytes % 11.5 H Eosinophils % 5.1 Basophils % 1.5 Nucleated Red Blood Cells % 0.0 Immature Granulocytes # 0.030 Neutrophils # 2.3 Lymphocytes # 1.5 Monocytes # 0.5 Eosinophils # 0.2 Basophils # 0.1 Nucleated Red Blood Cells # 0.0 Prothrombin Time 18.4 H Prothrombin Time Ratio 1.4 INR International Normalized Ratio 1.52 Activated Partial Thromboplast Time 70.8 *H 52.8 H Medications Medication Current Medications Ondansetron HCl (Zofran Inj) 4 mg Q6H PRN IV NAUSEA AND/OR VOMITING Last administered on 02/13/19at 18:54; Admin Dose 4 MG; Start 02/04/19 at 14:00 Pantoprazole (Protonix Tab) 40 mg DAILY@06 PO Last administered on 02/21/19at 06:06; Admin Dose 40 MG; Start 02/07/19 at 06:00 Docusate Sodium (Colace) 200 mg DAILY PRN PO CONSTIPATION Last administered on 02/12/19at 08:27; Admin Dose 200 MG; Start 02/06/19 at 14:00 Acetaminophen (Tylenol Tab) 650 mg Q4H PRN PO MILD PAIN(1-3)OR ELEVATED TEMP Last administered on 02/21/19at 15:42; Admin Dose 650 MG; Start 02/09/19 at 12:00 Saccharomyces Boulardii (Florastor) 250 mg BID PO Last administered on 02/21/19 09:05; Admin Dose 250 MG; Start 02/09/19 at 15:30 Magnesium Hydroxide (Milk Of Mag) 30 ml BID PRN PO CONSTIPATION Last administered on 02/12/19 08:27; Admin Dose 30 ML; Start 02/10/19 at 13:00 Cholecalciferol (Vitamin D) 2,000 unit DAILY PO Last administered on 02/21/19 09:04; Admin Dose 2,000 UNIT; Start 02/11/19 at 11:00 Heparin Sodium (Porcine) (Heparin (1000 Units/ml)) 3,500 unit PER PROTOCOL PRN IV aPTT<47; Start 02/12/19 at 17:30 Warfarin Sodium (Coumadin) 6 mg DAILY@17 PO Last administered on 02/21/19 17:20; Admin Dose 6 MG; Start 02/14/19 at 17:00 Hydrocortisone (Hydrocortisone 1% Cr) 1 applic BID TOP Last administered on 02/21/19 09:05; Admin Dose 1 APPLIC; Start 02/14/19 at 23:00 Heparin Sodium (Porcine) 250 ml @ 7 mls/hr PER PROTOCOL IV Last administered on 02/21/19 17:23; Admin Dose 6.2 MLS/HR; Start 02/15/19 at 03:00 Cyclobenzaprine HCl (Flexeril) 5 mg Q12 PRN PO spasm; Start 02/16/19 at 17:30 Diphenhydramine HCl (Benadryl) 25 mg Q6H PRN IM ITCHING; Start 02/21/19 at 10:00 Gabapentin (Neurontin) 100 mg TID PO Last administered on 02/21/19 13:18; Admin Dose 100 MG; Start 02/21/19 at 13:00 TONIA SANTANA MD Feb 21, 2019 19:32
[2019-02-22] VITALS (10 sets, daily range): BP systolic 114–177; BP diastolic 59–101; PULSE 65–73; RESP 17–18
[2019-02-22] MEDS: PANTOPRAZOLE (EC) 40 MG TAB PO SCH (06:17)
--- NOTE | 2019-02-22 07:55 | CONS ---
Assessment/Plan Assessment/Plan Assessment/Plan (Daily) Assessment Status post breast surgery 02/04/2019 Mechanical aortic valve replacement Paroxysmal atrial fibrillation, currently sinus rhythm Acute blood loss anemia Plan: heparin/coumadin Consultation Date/Type/Reason Admit Date/Time February 04, 2019 at 14:08 Initial Consult Date 02/13/19 Type of Consult Cardiology Requesting Provider: LEYLA ZIEGLER MD Date/Time of Note DATE: 02/22/19 TIME: 07:54 24 HR Interval Summary Free Text/Dictation no chest pain, no sob, no apparent signs of bleeding Detailed Summary Respiratory: no complaints Cardiovascular: no complaints Gastrointestinal: no complaints Musculoskeletal: no complaints Skin: no complaints Neurologic: no complaints Exam/Review of Systems Vital Signs Vitals Vital Signs Date Temp Pulse Resp B/P (MAP) Pulse Ox O2 O2 Flow FiO2 Time Delivery Rate 02/22/19 97.9 73 17 135/69 99 04:46 (91) 02/21/19 Room Air 15:45 Intake and Output 02/21/19 02/21/19 02/22/19 1515:00 23:00 07:00 IntakeIntake Total 896 ml 600 ml BalanceBalance 896 ml 600 ml Exam Constitutional: alert, oriented Head: normocephalic, atraumatic Neck: supple Respiratory: clear to auscultation Cardiovascular: regular rate and rhythm Musculoskeletal: nl extremities to inspection Extremities: normal pulses Labs Result Diagram: 02/22/19 0542 02/22/19 0542 Results 24hrs Laboratory Tests Test 02/21/19 15:20 02/21/19 22:39 02/22/19 05:42 Activated Partial Thromboplast Time 52.8 H 50.7 H 107.7 *H White Blood Count 5.0 Red Blood Count 4.09 L Hemoglobin 11.9 L Hematocrit 36.8 L Mean Corpuscular Volume 90.0 Mean Corpuscular Hemoglobin 29.1 Mean Corpuscular Hemoglobin Concent 32.3 Red Cell Distribution Width 13.5 Platelet Count 407 Mean Platelet Volume 9.3 Immature Granulocytes % 0.600 H Neutrophils % 51.9 Lymphocytes % 31.3 Monocytes % 10.6 Eosinophils % 4.4 Basophils % 1.2 Nucleated Red Blood Cells % 0.0 Immature Granulocytes # 0.030 Neutrophils # 2.6 Lymphocytes # 1.6 Monocytes # 0.5 Eosinophils # 0.2 Basophils # 0.1 Nucleated Red Blood Cells # 0.0 Prothrombin Time 19.6 H Prothrombin Time Ratio 1.5 INR International Normalized Ratio 1.65 Sodium Level 138 Potassium Level 4.2 Chloride Level 104 Carbon Dioxide Level 27 Anion Gap 7 Blood Urea Nitrogen 20 Creatinine 0.71 Est Glomerular Filtrat Rate mL/min > 60 Glucose Level 100 Calcium Level 9.1 Medications Medications Current Medications Ondansetron HCl (Zofran Inj) 4 mg Q6H PRN IV NAUSEA AND/OR VOMITING Last administered on 02/13/19 18:54; Admin Dose 4 MG; Start 02/04/19 at 14:00 Pantoprazole (Protonix Tab) 40 mg DAILY@06 PO Last administered on 02/22/19 06:17; Admin Dose 40 MG; Start 02/07/19 at 06:00 Docusate Sodium (Colace) 200 mg DAILY PRN PO CONSTIPATION Last administered on 02/12/19 08:27; Admin Dose 200 MG; Start 02/06/19 at 14:00 Acetaminophen (Tylenol Tab) 650 mg Q4H PRN PO MILD PAIN(1-3)OR ELEVATED TEMP Last administered on 02/21/19 15:42; Admin Dose 650 MG; Start 02/09/19 at 12:00 Saccharomyces Boulardii (Florastor) 250 mg BID PO Last administered on 02/21/19 20:33; Admin Dose 250 MG; Start 02/09/19 at 15:30 Magnesium Hydroxide (Milk Of Mag) 30 ml BID PRN PO CONSTIPATION Last administered on 02/12/19 08:27; Admin Dose 30 ML; Start 02/10/19 at 13:00 Cholecalciferol (Vitamin D) 2,000 unit DAILY PO Last administered on 02/21/19 09:04; Admin Dose 2,000 UNIT; Start 02/11/19 at 11:00 Heparin Sodium (Porcine) (Heparin (1000 Units/ml)) 3,500 unit PER PROTOCOL PRN IV aPTT<47; Start 02/12/19 at 17:30 Warfarin Sodium (Coumadin) 6 mg DAILY@17 PO Last administered on 02/21/19 17:20; Admin Dose 6 MG; Start 02/14/19 at 17:00 Hydrocortisone (Hydrocortisone 1% Cr) 1 applic BID TOP Last administered on 02/21/19 20:33; Admin Dose 1 APPLIC; Start 02/14/19 at 23:00 Heparin Sodium (Porcine) 250 ml @ 7 mls/hr PER PROTOCOL IV Last administered on 02/21/19at 23:33; Admin Dose 7.4 MLS/HR; Start 02/15/19 at 03:00 Cyclobenzaprine HCl (Flexeril) 5 mg Q12 PRN PO spasm; Start 02/16/19 at 17:30 Diphenhydramine HCl (Benadryl) 25 mg Q6H PRN IM ITCHING; Start 02/21/19 at 10:00 Gabapentin (Neurontin) 100 mg TID PO Last administered on 02/21/19at 20:33; Admin Dose 100 MG; Start 02/21/19 at 13:00 ABBY OCONNOR MD Feb 22, 2019 07:55
[2019-02-22] MEDS: GABAPENTIN 100 MG CAP PO SCH ×3 (08:21→20:59)
[2019-02-22] MEDS: CHOLECALCIFEROL 2,000 UNIT CAP PO SCH (08:21)
[2019-02-22] MEDS: SACCHAROMYCES BOULARDII 250 MG CAP PO SCH ×2 (08:21→20:58)
[2019-02-22] MEDS: ACETAMINOPHEN 325 MG TAB PO PRN (08:21)
[2019-02-22] MEDS: HYDROCORTISONE 1% 28 GM CR TOP SCH ×2 (08:22→20:59)
[2019-02-22] MEDS: HEPARIN 25000 UNITS/250 ML 250 ML IV SCH ×2 (09:14→18:09)
--- NOTE | 2019-02-22 11:36 | CONS ---
Assessment/Plan Assessment/Plan Hospital Course (Demo Recall) - s/p post op fever, likely due to L breast hematoma - hematoma of L breast, its culture was negative - post-op anemia requiring PRBC, now stable - pain and swelling of L axilla, and L scapular region, associated with either the exuberant inflammation from L breast or underlying infection - slowly improving - eczematous rash of L axillary region, possible allergic dermatitis - resolving with hydrocortisone cream 1% - pruritic nonerythematous rash amada palmar fingers - pruritis alleviates with hydrocortisone cream 1% - h/o Invasive Breast CA - h/o L partial mastectomy and axillary lymph node dissection - h/o AVR, on heparin as a transition to Coumadin - PAF - low vitamin D - acute cephalgia- improved; CT head showed no acute findings - elevated alk phos with mild lower abdominal pain - CT abd/pelvis showed No evidence of bowel obstruction. Fluid-filled appendix. However the appendix appears to be normal size and there is no evidence of significant adjacent inflammatory changes; low suspicion for mild appendicitis per Surgery - improving recommendations: - continue hydrocortisone cream 1% (02/14/2019-) for pruritic rash. - monitor closely off antibiotics; s/p pip/tazo (02/08/19-02/14/19). 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 Arias via [employer] messaging. Consultation Date/Type/Reason Admit Date/Time February 04, 2019 at 14:08 Initial Consult Date 02/13/19 Type of Consult ID Requesting Provider: LEYLA ZIEGLER MD Date/Time of Note DATE: 02/22/19 TIME: 11:34 Detailed Summary Eyes: no complaints ENT: no complaints Respiratory: no complaints; No cough, No shortness of breath, No sputum, No wheezing Cardiovascular: no complaints Gastrointestinal: decreased appetite (states has been eating but has no appetite ); No diarrhea, No nausea, No vomiting Genitourinary: no complaints Musculoskeletal: restricted range of motion (LUE improving d/t surgical incision site ) Skin: pruritis (amada fingers - palmar side), rash (amada fingers - palmar side ), other (states hydrocortisone cream relieves the prutitis on the fingers ) Neurologic: no complaints Endocrine: no complaints Lymphatic: no complaints Psychological: no complaints, nl mood/affect Exam/Review of Systems Exam Vitals Vital Signs Date Temp Pulse Resp B/P (MAP) Pulse Ox O2 O2 Flow FiO2 Time Delivery Rate 02/22/19 98.0 73 18 177/101 98 08:26 (126) 02/21/19 Room Air 15:45 Intake and Output 02/21/19 02/21/19 02/22/19 1515:00 23:00 07:00 IntakeIntake Total 896 ml 600 ml BalanceBalance 896 ml 600 ml Allergies Coded Allergies belladonna alkaloids (Verified Allergy, Mild, itching, swelling, 02/04/19) codeine (Verified Allergy, Mild, NUMBNESS OF HAND, EXTREME AGITATION, 02/04/19) hydrocodone (Verified Allergy, Unknown, itch, swelling, 02/04/19) aspirin (Verified Adverse Reaction, Mild, GASTRIC PROBLEMS, 02/04/19) Exam Constitutional: alert, oriented, well developed, other (sitting up in a chair at the bedside on a telephone call) Psych: no complaints, nl mood/affect Head: normocephalic, atraumatic Eyes: nl conjunctiva, nl lids, nl sclera ENMT: nl external ears & nose, nl nasal mucosa & septum, mucosa pink and moist (no thrush noted ) Neck: supple, non-tender Respiratory: clear to auscultation, normal air movement Cardiovascular: regular rate and rhythm, nl pulses Gastrointestinal: soft, non-tender (Mild RLQ ttp, no rebound tenderness/gaurding ), bowel sounds (normoactive ) Musculoskeletal: swelling (L shoulder - improving ), other (ROM LUE improving) Extremities: normal pulses; No edema Neurological: EPOXY COATINGS INSTALLER II-XII intact, nl mental status, nl speech Skin: nl turgor, other (L axillary rash resolving; L breast dressing is c/d/i with small dark dried blood stain. Amada palmar hands with small scattered upraised nonfluctuant bumps, without erythema, pain, tenderness) Results Result Diagram: 02/22/1942 02/22/19 0542 Results 24hrs Laboratory Tests Test 02/21/19 15:20 02/21/19 22:39 02/22/19 05:42 02/22/19 08:24 Activated 52.8 H 50.7 H 107.7 *H 93.6 *H Partial Thromboplast Time White Blood Count 5.0 Red Blood Count 4.09 L Hemoglobin 11.9 L Hematocrit 36.8 L Mean Corpuscular 90.0 Volume Mean Corpuscular 29.1 Hemoglobin Mean Corpuscular 32.3 Hemoglobin Concent Red Cell Distribution 13.5 Width Platelet Count 407 Mean Platelet Volume 9.3 Immature Granulocytes 0.600 H % Neutrophils % 51.9 Lymphocytes % 31.3 Monocytes % 10.6 Eosinophils % 4.4 Basophils % 1.2 Nucleated Red Blood 0.0 Cells % Immature Granulocytes 0.030 # Neutrophils # 2.6 Lymphocytes # 1.6 Monocytes # 0.5 Eosinophils # 0.2 Basophils # 0.1 Nucleated Red Blood 0.0 Cells # Prothrombin Time 19.6 H Prothrombin Time Ratio 1.5 INR International 1.65 Normalized Ratio Sodium Level 138 Potassium Level 4.2 Chloride Level 104 Carbon Dioxide Level 27 Anion Gap 7 Blood Urea Nitrogen 20 Creatinine 0.71 Est Glomerular Filtrat > 60 Rate mL/min Glucose Level 100 Calcium Level 9.[address] Abd / Pelvis 02/18/19 IMPRESSION: 1. No evidence of bowel obstruction. Fluid-filled appendix. However the appendix appears to be normal size and there is no evidence of significant adjacent inflammatory changes. Correlate with clinical symptoms to exclude the possibility of a very mild appendicitis. 2. No evidence of free fluid or free air. No gross focal fluid collections. No evidence of solid organ injury. 3. No evidence of acute fractures of visualized bilateral lower ribs and lumbosacral spine as well as the bony pelvis. 4. Resolution of previously noted left lower lobe consolidation and hemothorax. 5. Partial visualization of left breast hematoma. Medications Medication Current Medications Ondansetron HCl (Zofran Inj) 4 mg Q6H PRN IV NAUSEA AND/OR VOMITING Last administered on 02/13/19at 18:54; Admin Dose 4 MG; Start 02/04/19 at 14:00 Pantoprazole (Protonix Tab) 40 mg DAILY@06 PO Last administered on 02/22/19at 06:17; Admin Dose 40 MG; Start 02/07/19 at 06:00 Docusate Sodium (Colace) 200 mg DAILY PRN PO CONSTIPATION Last administered on 02/12/19 08:27; Admin Dose 200 MG; Start 02/06/19 at 14:00 Acetaminophen (Tylenol Tab) 650 mg Q4H PRN PO MILD PAIN(1-3)OR ELEVATED TEMP Last administered on 02/22/19 08:21; Admin Dose 650 MG; Start 02/09/19 at 12:00 Saccharomyces Boulardii (Florastor) 250 mg BID PO Last administered on 02/22/19 08:21; Admin Dose 250 MG; Start 02/09/19 at 15:30 Magnesium Hydroxide (Milk Of Mag) 30 ml BID PRN PO CONSTIPATION Last administered on 02/12/19 08:27; Admin Dose 30 ML; Start 02/10/19 at 13:00 Cholecalciferol (Vitamin D) 2,000 unit DAILY PO Last administered on 02/22/19 08:21; Admin Dose 2,000 UNIT; Start 02/11/19 at 11:00 Heparin Sodium (Porcine) (Heparin (1000 Units/ml)) 3,500 unit PER PROTOCOL PRN IV aPTT<47; Start 02/12/19 at 17:30 Warfarin Sodium (Coumadin) 6 mg DAILY@17 PO Last administered on 02/21/19 17:20; Admin Dose 6 MG; Start 02/14/19 at 17:00 Hydrocortisone (Hydrocortisone 1% Cr) 1 applic BID TOP Last administered on 02/22/19 08:22; Admin Dose 1 APPLIC; Start 02/14/19 at 23:00 Heparin Sodium (Porcine) 250 ml @ 7 mls/hr PER PROTOCOL IV Last administered on 02/22/19 09:14; Admin Dose 6.8 MLS/HR; Start 02/15/19 at 03:00 Cyclobenzaprine HCl (Flexeril) 5 mg Q12 PRN PO spasm; Start 02/16/19 at 17:30 Diphenhydramine HCl (Benadryl) 25 mg Q6H PRN IM ITCHING; Start 02/21/19 at 10:00 Gabapentin (Neurontin) 100 mg TID PO Last administered on 02/22/19 08:21; Admin Dose 100 MG; Start 02/21/19 at 13:00 SHAYY GARRISON NP Feb 22, 2019 11:36
--- NOTE | 2019-02-22 15:08 | PN ---
Date/Time of Note Date/Time of Note DATE: 02/22/19 TIME: 15:03 Assessment/Plan VTE Prophylaxis Risk score (from Ns)>0 risk: 6 SCD applied (from Ns): Yes Pharmacological prophylaxis: heparin, warfarin tx Lines/Catheters IV C[facility] Type [facility]from [facility] Peripheral IV Urinary Cath still in place: No Assessment/Plan Hospital Course Patient is awake alert, pain is adequately controlled his pain patient complains of small small rash over the fingers and no redness, denies any nausea vomiting patient is currently in sinus rhythm, patient is continued on heparin drip and Coumadin. Today's INR is 1.65. Continue current care. Assessment/Plan -Hemoptysis, likely secondary to tracheobronchitis, on anticoagulation--now improved. No evidence of significant intraparenchymal abnormalities on CT chest. Status post evaluation by Dr. Pierce in pulmonology consultation. -Left breast cancer, status post left partial mastectomy by Dr. Diaz. -Postoperative hematomas in left breast and left axillary region. -Postoperative fever, s/p abx. Dr. Arias is following in infection disease consultation. -Paroxysmal atrial fibrillation. -Mechanical aortic valve replacement secondary to aortic insufficiency. Dr. Hicks is following in cardiology consultation. on heparin drip. -Anemia of acute blood loss, continue to monitor H&H, will transfuse as needed. -Vitamin D deficiency, started on supplement. Further recommendations based on clinical course. Plan of care discussed with Dr. Pelaez. Result Diagram: 02/22/19 0542 02/22/19 0542 Results 24hrs Laboratory Tests Test 02/21/19 15:20 02/21/19 22:39 02/22/19 05:42 02/22/19 08:24 Activated 52.8 H 50.7 H 107.7 *H 93.6 *H Partial Thromboplast Time White Blood Count 5.0 Red Blood Count 4.09 L Hemoglobin 11.9 L Hematocrit 36.8 L Mean Corpuscular 90.0 Volume Mean Corpuscular 29.1 Hemoglobin Mean Corpuscular 32.3 Hemoglobin Concent Red Cell Distribution 13.5 Width Platelet Count 407 Mean Platelet Volume 9.3 Immature Granulocytes 0.600 H % Neutrophils % 51.9 Lymphocytes % 31.3 Monocytes % 10.6 Eosinophils % 4.4 Basophils % 1.2 Nucleated Red Blood 0.0 Cells % Immature Granulocytes 0.030 # Neutrophils # 2.6 Lymphocytes # 1.6 Monocytes # 0.5 Eosinophils # 0.2 Basophils # 0.1 Nucleated Red Blood 0.0 Cells # Prothrombin Time 19.6 H Prothrombin Time Ratio 1.5 INR International 1.65 Normalized Ratio Sodium Level 138 Potassium Level 4.2 Chloride Level 104 Carbon Dioxide Level 27 Anion Gap 7 Blood Urea Nitrogen 20 Creatinine 0.71 Est Glomerular Filtrat > 60 Rate mL/min Glucose Level 100 Calcium Level 9.1 Exam/Review of Systems Exam Vitals Vital Signs Date Temp Pulse Resp B/P (MAP) Pulse Ox O2 O2 Flow FiO2 Time Delivery Rate 02/22/19 98.0 67 18 175/88 98 12:41 (117) 02/21/19 Room Air 15:45 Intake and Output 02/21/19 02/21/19 02/22/19 1515:00 23:00 07:00 IntakeIntake Total 896 ml 600 ml BalanceBalance 896 ml 600 ml Exam Constitutional: alert, oriented Respiratory: clear to auscultation Cardiovascular: regular rate and rhythm Gastrointestinal: soft, non-tender Musculoskeletal: nl extremities to inspection Extremities: normal pulses Neurological: nl mental status Skin: other (Status post left partial mastectomy, axillary JPs) Results Results 24hrs Laboratory Tests Test 02/21/19 15:20 02/21/19 22:39 02/22/19 05:42 02/22/19 08:24 Activated 52.8 H 50.7 H 107.7 *H 93.6 *H Partial Thromboplast Time White Blood Count 5.0 Red Blood Count 4.09 L Hemoglobin 11.9 L Hematocrit 36.8 L Mean Corpuscular 90.0 Volume Mean Corpuscular 29.1 Hemoglobin Mean Corpuscular 32.3 Hemoglobin Concent Red Cell Distribution 13.5 Width Platelet Count 407 Mean Platelet Volume 9.3 Immature Granulocytes 0.600 H % Neutrophils % 51.9 Lymphocytes % 31.3 Monocytes % 10.6 Eosinophils % 4.4 Basophils % 1.2 Nucleated Red Blood 0.0 Cells % Immature Granulocytes 0.030 # Neutrophils # 2.6 Lymphocytes # 1.6 Monocytes # 0.5 Eosinophils # 0.2 Basophils # 0.1 Nucleated Red Blood 0.0 Cells # Prothrombin Time 19.6 H Prothrombin Time Ratio 1.5 INR International 1.65 Normalized Ratio Sodium Level 138 Potassium Level 4.2 Chloride Level 104 Carbon Dioxide Level 27 Anion Gap 7 Blood Urea Nitrogen 20 Creatinine 0.71 Est Glomerular Filtrat > 60 Rate mL/min Glucose Level 100 Calcium Level 9.1 Medications Medication Current Medications Ondansetron HCl (Zofran Inj) 4 mg Q6H PRN IV NAUSEA AND/OR VOMITING Last administered on 02/13/19 18:54; Admin Dose 4 MG; Start 02/04/19 at 14:00 Pantoprazole (Protonix Tab) 40 mg DAILY@06 PO Last administered on 02/22/19 06:17; Admin Dose 40 MG; Start 02/07/19 at 06:00 Docusate Sodium (Colace) 200 mg DAILY PRN PO CONSTIPATION Last administered on 02/12/19 08:27; Admin Dose 200 MG; Start 02/06/19 at 14:00 Acetaminophen (Tylenol Tab) 650 mg Q4H PRN PO MILD PAIN(1-3)OR ELEVATED TEMP Last administered on 02/22/19 08:21; Admin Dose 650 MG; Start 02/09/19 at 12:00 Saccharomyces Boulardii (Florastor) 250 mg BID PO Last administered on 02/22/19 08:21; Admin Dose 250 MG; Start 02/09/19 at 15:30 Magnesium Hydroxide (Milk Of Mag) 30 ml BID PRN PO CONSTIPATION Last administered on 02/12/19 08:27; Admin Dose 30 ML; Start 02/10/19 at 13:00 Cholecalciferol (Vitamin D) 2,000 unit DAILY PO Last administered on 02/22/19 08:21; Admin Dose 2,000 UNIT; Start 02/11/19 at 11:00 Heparin Sodium (Porcine) (Heparin (1000 Units/ml)) 3,500 unit PER PROTOCOL PRN IV aPTT<47; Start 02/12/19 at 17:30 Warfarin Sodium (Coumadin) 6 mg DAILY@17 PO Last administered on 02/21/19 17:20; Admin Dose 6 MG; Start 02/14/19 at 17:00 Hydrocortisone (Hydrocortisone 1% Cr) 1 applic BID TOP Last administered on 02/22/19 08:22; Admin Dose 1 APPLIC; Start 02/14/19 at 23:00 Heparin Sodium (Porcine) 250 ml @ 7 mls/hr PER PROTOCOL IV Last administered on 02/22/19at 09:14; Admin Dose 6.8 MLS/HR; Start 02/15/19 at 03:00 Cyclobenzaprine HCl (Flexeril) 5 mg Q12 PRN PO spasm; Start 02/16/19 at 17:30 Diphenhydramine HCl (Benadryl) 25 mg Q6H PRN IM ITCHING; Start 02/21/19 at 10:00 Gabapentin (Neurontin) 100 mg TID PO Last administered on 02/22/19at 12:13; Admin Dose 100 MG; Start 02/21/19 at 13:00 MIHAI GUTIERREZ Feb 22, 2019 15:08
--- NOTE | 2019-02-22 15:15 | EN ---
Date/Time of Note Date/Time of Note DATE: 02/22/19 TIME: 15:15 Event Note Medicine Medicine Event Note I reviewed emr today. I reviewed picts via telemediq and directed care via telemediq. cont. current plan ANGÉLICA BRAVO MD Feb 22, 2019 15:15
[2019-02-22] MEDS ORDERED: CLOB60CR2 TOP (15:55)
[2019-02-22] MEDS ORDERED: hydrALAzine 20 MG INJ IV PRN (16:30)
[2019-02-22] MEDS: WARFARIN 3 MG TAB PO SCH (16:31)
--- NOTE | 2019-02-22 16:52 | CONS ---
DATE OF ADMISSION: 02/04/2019 DATE OF CONSULTATION: Dear Dr. Ziegler. Ms. Wagner. She has had for approximately the last 3 days, itching on the volar aspect of her fingers and to a lesser extent of her palms. This is present bilaterally. She had undergone excision of a left breast cancer that was ER and CT positive and HER-2 negative. She had 5 lymph nod es removed, which were negative. She had a partial mastectomy that was complicated by a hematoma. S he does have a history of mechanical heart valve, for which she has been anticoagulated and she has h ad a heparin, but is now having her INRs adjusted prior to going home. For the rash, she has tried c ortisone 10 with minimal change. She has no history of atopic dermatitis or hand rashes. She does n ot have any rash elsewhere other than rash from the adhesives near her surgery site. Her labs and me dications are reviewed. It is noted that she is on Neurontin, although evidently the dose has been p rogressively decreased. The purpose of her Neurontin was to help her with the pain that she is exper iencing after the surgery. PHYSICAL EXAMINATION: GENERAL: This is a pleasant, alert, Tajik speaking female accompanied by her daughter, in room 619 A. VITAL SIGNS: Stable. HEENT: She has no remarkable lesions of the head or neck. CHEST: She has a dressing on her left chest with some angulated erythematous patches extending below her left anterior axillary fold. EXTREMITIES: On examination of her hands, there is very faint erythema over the digits and palms, bu t without scale. No nail changes. No other remarkable lesions were noted. ASSESSMENT: The patient with complaint of pruritus of her hand for the last 3 days, but with minimal cutaneous change. TREATMENT PLAN: I advised a trial of clobetasol ointment 3 times a day for the next 10 days. Contin ue to taper the gabapentin, if not needed, since this may be causing paradoxical sensitivity of the fingertips and palms. If she diverts evolving rash, please advised so I can further evaluate. Dictated By: BILL FIGUEROA MD GN/ALLEY Conf#: [id number] DID#: [id number] CC: MAIA HINOJOSA MD; LEYLA ZIEGLER MD;*EndCC*
--- NOTE | 2019-02-22 17:36 | CONS ---
Assessment/Plan Assessment/Plan Assessment/Plan (Daily) Assessment/Plan (Daily) Assessment/Plan (Daily) 63 yo female 1. Status post surgery, left-sided mastectomy for a left breast cancer. 2. Postoperative hematoma at the site of surgery now the drain has been in place. 3. Status post 6 units of packed cell RBC transfusion. 4. Chronic constipation, which has improved with Amitiza. 5. Mechanical aortic valve replacement. The patient is on heparin for that. 6. Paroxysmal atrial fibrillation. 7. Vitamin D deficiency with low calcium 8. Anemia, mild -no evidence of overt GI bleeding -pt is on coumadin and heparin gtt 9. Right lower quadrant pain mild. Patient also has a back pain. She is able to ambulate without any problem PLAN: Continue post op care Utilize prn laxatives as needed Monitor HH and for active GI bleeding, pt is on coumadin Continue present care and monitor her right lower quadrant pain Discussed with the patient and her daughter [id number] Once INR is optimized patient will be discharged on Coumadin Consultation Date/Type/Reason Admit Date/Time February 04, 2019 at 14:08 Initial Consult Date 02/08/19 Requesting Provider: LEYLA ZIEGLER MD Date/Time of Note DATE: 02/22/19 TIME: 17:35 24 HR Interval Summary Free Text/Dictation Patient is ambulating no more right lower quadrant abdominal pain Constitutional: no complaints, improved Exam/Review of Systems Exam Vitals Vital Signs Date Temp Pulse Resp B/P (MAP) Pulse Ox O2 O2 Flow FiO2 Time Delivery Rate 02/22/19 98.0 68 18 114/59 97 16:32 (77) 02/21/19 Room Air 15:45 Intake and Output 02/21/19 02/21/19 02/22/19 1515:00 23:00 07:00 IntakeIntake Total 896 ml 600 ml BalanceBalance 896 ml 600 ml Constitutional: alert, oriented, well developed Psych: no complaints, nl mood/affect Head: normocephalic, atraumatic Eyes: nl conjunctiva, EOMI, nl lids, nl sclera, PERRL ENMT: nl external ears & nose, nl lips & teeth, nl nasal mucosa & septum Neck: supple, non-tender Respiratory: clear to auscultation, normal air movement Cardiovascular: regular rate and rhythm, nl pulses Gastrointestinal: soft, nl liver, spleen, non-tender Musculoskeletal: nl extremities to inspection, nl gait and stance Extremities: normal pulses Neurological: AD COPY WRITER II-XII intact, nl mental status, nl speech, nl strength Skin: nl turgor; No rash or lesions Lymph: nl lymph nodes Results Result Diagram: 02/22/19 0542 02/22/19 0542 Results 24hrs Laboratory Tests Test 02/21/19 22:39 02/22/19 05:42 02/22/19 08:24 Activated Partial Thromboplast Time 50.7 H 107.7 *H 93.6 *H White Blood Count 5.0 Red Blood Count 4.09 L Hemoglobin 11.9 L Hematocrit 36.8 L Mean Corpuscular Volume 90.0 Mean Corpuscular Hemoglobin 29.1 Mean Corpuscular Hemoglobin Concent 32.3 Red Cell Distribution Width 13.5 Platelet Count 407 Mean Platelet Volume 9.3 Immature Granulocytes % 0.600 H Neutrophils % 51.9 Lymphocytes % 31.3 Monocytes % 10.6 Eosinophils % 4.4 Basophils % 1.2 Nucleated Red Blood Cells % 0.0 Immature Granulocytes # 0.030 Neutrophils # 2.6 Lymphocytes # 1.6 Monocytes # 0.5 Eosinophils # 0.2 Basophils # 0.1 Nucleated Red Blood Cells # 0.0 Prothrombin Time 19.6 H Prothrombin Time Ratio 1.5 INR International Normalized Ratio 1.65 Sodium Level 138 Potassium Level 4.2 Chloride Level 104 Carbon Dioxide Level 27 Anion Gap 7 Blood Urea Nitrogen 20 Creatinine 0.71 Est Glomerular Filtrat Rate mL/min > 60 Glucose Level 100 Calcium Level 9.1 Medications Medication Current Medications Ondansetron HCl (Zofran Inj) 4 mg Q6H PRN IV NAUSEA AND/OR VOMITING Last administered on 02/13/19at 18:54; Admin Dose 4 MG; Start 02/04/19 at 14:00 Pantoprazole (Protonix Tab) 40 mg DAILY@06 PO Last administered on 02/22/19at 06:17; Admin Dose 40 MG; Start 02/07/19 at 06:00 Docusate Sodium (Colace) 200 mg DAILY PRN PO CONSTIPATION Last administered on 02/12/19at 08:27; Admin Dose 200 MG; Start 02/06/19 at 14:00 Acetaminophen (Tylenol Tab) 650 mg Q4H PRN PO MILD PAIN(1-3)OR ELEVATED TEMP Last administered on 02/22/19 08:21; Admin Dose 650 MG; Start 02/09/19 at 12:00 Saccharomyces Boulardii (Florastor) 250 mg BID PO Last administered on 02/22/19 08:21; Admin Dose 250 MG; Start 02/09/19 at 15:30 Magnesium Hydroxide (Milk Of Mag) 30 ml BID PRN PO CONSTIPATION Last administered on 02/12/19 08:27; Admin Dose 30 ML; Start 02/10/19 at 13:00 Cholecalciferol (Vitamin D) 2,000 unit DAILY PO Last administered on 02/22/19 08:21; Admin Dose 2,000 UNIT; Start 02/11/19 at 11:00 Heparin Sodium (Porcine) (Heparin (1000 Units/ml)) 3,500 unit PER PROTOCOL PRN IV aPTT<47; Start 02/12/19 at 17:30 Warfarin Sodium (Coumadin) 6 mg DAILY@17 PO Last administered on 02/22/19 16:31; Admin Dose 6 MG; Start 02/14/19 at 17:00 Hydrocortisone (Hydrocortisone 1% Cr) 1 applic BID TOP Last administered on 02/22/19 08:22; Admin Dose 1 APPLIC; Start 02/14/19 at 23:00 Heparin Sodium (Porcine) 250 ml @ 7 mls/hr PER PROTOCOL IV Last administered on 02/22/19 09:14; Admin Dose 6.8 MLS/HR; Start 02/15/19 at 03:00 Cyclobenzaprine HCl (Flexeril) 5 mg Q12 PRN PO spasm; Start 02/16/19 at 17:30 Diphenhydramine HCl (Benadryl) 25 mg Q6H PRN IM ITCHING; Start 02/21/19 at 10:00 Gabapentin (Neurontin) 100 mg TID PO Last administered on 02/22/19 12:13; Admin Dose 100 MG; Start 02/21/19 at 13:00 Hydralazine HCl (Apresoline) 10 mg Q4H PRN IV sbp >170; Start 02/22/19 at 16:30 TONIA SANTANA MD Feb 22, 2019 17:36
--- NOTE | 2019-02-22 19:56 | PN ---
DATE: 02/22/2019 SUBJECTIVE: Status post-needle located left breast partial mastectomy with axillary dissection for c ancer of left breast. Status of aortic valve replacement with metallic valve. Status of chronic Cou madin intake and status of chronic anticoagulation. Apparently post-operation this time, the patient bled into the left partial breast mastectomy cavity and also left axillary area and hematoma was for med necessitating discontinuation of the Coumadin and discontinuation of the Lovenox and starting the patient on heparin drip. The patient all together required 5 units of packed cell transfusion. Lori ntually, the bleeding has stopped and hemoglobin and hematocrit start rising up, and now, after stabi lization of hemoglobin and hematocrit, the patient has been started back on Coumadin gradually while bridging with continuous heparin drip. Today, no complaint, no abdominal pain, no nausea, no vomitin g. Appetite good. Eating okay, has been out of bed, walking around. OBJECTIVE: VITAL SIGNS: Temperature maximum 98, heart rate 68, respirations 18, blood pressure 104/59, saturati on 97% room air. LABORATORY DATA: WBC 5000 with 61% segmented, hemoglobin 11.9, hematocrit 36.8. Chemistry: Sodium, potassium, BUN, creatinine within normal limits. Coagulation profile today, PT 19.6. INR 1.65. Ac tivated PTT in different occasion fluctuating between 72 and 107. CLINICAL EXAMINATION: HEART: Regular. LUNGS: Clear. ABDOMEN: Soft. CHEST: Dressing around the chest is intact. There is a small amount of old blood oozed out from the left axillary area incision line. This could maximum be 2 or 3 mL. Anyway, the dressing is going t o be changed today and we will observe the patient, but the hematoma in the axilla appears much softe r. The patient has been walking out of bed in the hallway with help from physical therapy and also has b een using different maneuvers for range of motion of the left shoulder to prevent frozen shoulder bec ause of the severe pain that she used to have at the beginning of complication. The cardiology team is continuing to fully coumadinized the patient and the surgical team is following for breast operati on sites and hematoma. We will continue to follow daily. Dictated By: ALFONSO DUNLAP/ALLEY Conf#: [id number] DID#: [id number] CC: MAIA HINOJOSA MD;*[facility]*
[2019-02-23] VITALS (9 sets, daily range): BP systolic 96–136; BP diastolic 48–62; PULSE 66–85; RESP 17–18
[2019-02-23] MEDS: PANTOPRAZOLE (EC) 40 MG TAB PO SCH (05:42)
[2019-02-23] MEDS: CHOLECALCIFEROL 2,000 UNIT CAP PO SCH (08:11)
[2019-02-23] MEDS: GABAPENTIN 100 MG CAP PO SCH ×2 (08:11→12:52)
[2019-02-23] MEDS: SACCHAROMYCES BOULARDII 250 MG CAP PO SCH ×2 (08:11→21:02)
[2019-02-23] MEDS: HYDROCORTISONE 1% 28 GM CR TOP SCH ×2 (09:58→21:02)
--- NOTE | 2019-02-23 10:35 | CONS ---
Assessment/Plan Assessment/Plan Hospital Course (Demo Recall) - s/p post op fever, likely due to L breast hematoma - hematoma of L breast, its culture was negative - post-op anemia requiring PRBC, now stable - pain and swelling of L axilla, and L scapular region, associated with either the exuberant inflammation from L breast or underlying infection - slowly improving - eczematous rash of L axillary region, possible allergic dermatitis - resolving with hydrocortisone cream 1% - pruritic nonerythematous rash amada palmar fingers - pruritis alleviates with hydrocortisone cream 1% - h/o Invasive Breast CA - h/o L partial mastectomy and axillary lymph node dissection - h/o AVR, on heparin as a transition to Coumadin - PAF - low vitamin D - acute cephalgia- improved; CT head showed no acute findings - elevated alk phos with mild lower abdominal pain - CT abd/pelvis showed No evidence of bowel obstruction. Fluid-filled appendix. However the appendix appears to be normal size and there is no evidence of significant adjacent inflammatory changes; low suspicion for mild appendicitis per Surgery - improving recommendations: - continue hydrocortisone cream 1% (02/14/2019-) for pruritic rash which is improving on left chest and amada hands - monitor closely off antibiotics; s/p pip/tazo (02/08/19-02/14/19). Vancomycin was discontinued (02/08/2019-02/11/2019) due to phlebitis in the UE - monitor pt for bleeding as she is on Coumadin and IV heparin bridging until INR is therapeutic - encouraged increased ROM exercises for L shoulder Management d/w patient and daughter at bedside, and with Dr. Arias via [employer] messaging. Consultation Date/Type/Reason Admit Date/Time February 04, 2019 at 14:08 Initial Consult Date 02/13/19 Type of Consult ID Requesting Provider: LEYLA ZIEGLER MD Date/Time of Note DATE: 02/23/19 TIME: 10:34 Detailed Summary Eyes: no complaints ENT: no complaints Respiratory: cough (dry, intermittent); No shortness of breath, No wheezing Cardiovascular: no complaints; No chest pain, No palpitations Gastrointestinal: decreased appetite; No diarrhea, No nausea, No vomiting Genitourinary: no complaints; No dysuria Musculoskeletal: restricted range of motion (LUE - improving - d/t surgical incision site - daughter shows me pictures from dressing change done earlier.) Skin: rash (amada fingers palmar side with pruritis resolved per patient) Neurologic: no complaints Endocrine: no complaints Lymphatic: no complaints Psychological: no complaints, nl mood/affect Exam/Review of Systems Exam Vitals Vital Signs Date Temp Pulse Resp B/P (MAP) Pulse Ox O2 O2 Flow FiO2 Time Delivery Rate 02/23/19 85 08:07 02/23/19 98.6 136/62 98 Room Air 08:01 (86) 02/23/19 17 04:00 Allergies Coded Allergies belladonna alkaloids (Verified Allergy, Mild, itching, swelling, 02/04/19) codeine (Verified Allergy, Mild, NUMBNESS OF HAND, EXTREME AGITATION, 02/04/19) hydrocodone (Verified Allergy, Unknown, itch, swelling, 02/04/19) aspirin (Verified Adverse Reaction, Mild, GASTRIC PROBLEMS, 02/04/19) Intake and Output 02/22/19 02/22/19 02/23/19 1515:00 23:00 07:00 IntakeIntake Total 850 ml 672 ml BalanceBalance 850 ml 672 ml Exam Constitutional: alert, oriented, well developed, other (sitting up in a chair at the bedside with physical therapy) Psych: no complaints, nl mood/affect Head: normocephalic, atraumatic Eyes: nl conjunctiva, nl lids, nl sclera ENMT: nl external ears & nose, nl nasal mucosa & septum, mucosa pink and moist (no thrush noted) Neck: supple, non-tender Respiratory: clear to auscultation, normal air movement Cardiovascular: regular rate and rhythm, nl pulses Gastrointestinal: soft, non-tender (Mild RLQ ttp, no rebound tenderness/tayo ding ), bowel sounds (normoactive ) Musculoskeletal: swelling (L shoulder - improving ), other (ROM LUE improving) Extremities: normal pulses; No edema Neurological: PYRIDINE OPERATOR II-XII intact, nl mental status, nl speech Skin: nl turgor, other (L axillary rash resolving; L breast dressing is c/d/i, dressing changed this am, reviewed pictures; Amada palmar hands with small scattered upraised nonfluctuant bumps, without erythema, pain, tenderness - improved and less prominent since yesterday) Results Result Diagram: 02/22/19 0542 02/22/19 0542 Results 24hrs Laboratory Tests Test 02/22/19 16:40 02/22/19 23:21 02/23/19 05:28 Activated Partial Thromboplast Time 72.4 *H 67.9 H 58.5 H Prothrombin Time 21.1 H Prothrombin Time Ratio 1.6 INR International Normalized Ratio 1.81 Medications Medication Current Medications Ondansetron HCl (Zofran Inj) 4 mg Q6H PRN IV NAUSEA AND/OR VOMITING Last administered on 02/13/19 18:54; Admin Dose 4 MG; Start 02/04/19 at 14:00 Pantoprazole (Protonix Tab) 40 mg DAILY@06 PO Last administered on 02/23/19 05:42; Admin Dose 40 MG; Start 02/07/19 at 06:00 Docusate Sodium (Colace) 200 mg DAILY PRN PO CONSTIPATION Last administered on 02/12/19 08:27; Admin Dose 200 MG; Start 02/06/19 at 14:00 Acetaminophen (Tylenol Tab) 650 mg Q4H PRN PO MILD PAIN(1-3)OR ELEVATED TEMP Last administered on 02/22/19 08:21; Admin Dose 650 MG; Start 02/09/19 at 12:00 Saccharomyces Boulardii (Florastor) 250 mg BID PO Last administered on 02/23/19 08:11; Admin Dose 250 MG; Start 02/09/19 at 15:30 Magnesium Hydroxide (Milk Of Mag) 30 ml BID PRN PO CONSTIPATION Last administered on 02/12/19 08:27; Admin Dose 30 ML; Start 02/10/19 at 13:00 Cholecalciferol (Vitamin D) 2,000 unit DAILY PO Last administered on 02/23/19 08:11; Admin Dose 2,000 UNIT; Start 02/11/19 at 11:00 Heparin Sodium (Porcine) (Heparin (1000 Units/ml)) 3,500 unit PER PROTOCOL PRN IV aPTT<47; Start 02/12/19 at 17:30 Warfarin Sodium (Coumadin) 6 mg DAILY@17 PO Last administered on 02/22/19 16:31; Admin Dose 6 MG; Start 02/14/19 at 17:00 Hydrocortisone (Hydrocortisone 1% Cr) 1 applic BID TOP Last administered on 6/11/19at 09:58; Admin Dose 1 APPLIC; Start 02/14/19 at 23:00 Heparin Sodium (Porcine) 250 ml @ 7 mls/hr PER PROTOCOL IV Last administered on 02/22/19at 18:09; Admin Dose 6 MLS/HR; Start 02/15/19 at 03:00 Cyclobenzaprine HCl (Flexeril) 5 mg Q12 PRN PO spasm; Start 02/16/19 at 17:30 Diphenhydramine HCl (Benadryl) 25 mg Q6H PRN IM ITCHING; Start 02/21/19 at 10:00 Gabapentin (Neurontin) 100 mg TID PO Last administered on 02/23/19at 08:11; Admin Dose 100 MG; Start 02/21/19 at 13:00 Hydralazine HCl (Apresoline) 10 mg Q4H PRN IV sbp >170; Start 02/22/19 at 16:30 SHAYY GARRISON NP Feb 23, 2019 10:35
--- NOTE | 2019-02-23 12:12 | CONS ---
Assessment/Plan Assessment/Plan Assessment/Plan (Daily) Assessment/Plan (Daily) Assessment/Plan (Daily) 63 yo female 1. Status post surgery, left-sided mastectomy for a left breast cancer. 2. Postoperative hematoma at the site of surgery now the drain has been in place. 3. Status post 6 units of packed cell RBC transfusion. 4. Chronic constipation, which has improved with Amitiza. 5. Mechanical aortic valve replacement. The patient is on heparin for that. 6. Paroxysmal atrial fibrillation. 7. Vitamin D deficiency with low calcium 8. Anemia, mild -no evidence of overt GI bleeding -pt is on coumadin and heparin gtt 9. Right lower quadrant pain, resolved patient also has a back pain. She is able to ambulate without any problem PLAN: Continue post op care Utilize prn laxatives as needed Monitor HH and for active GI bleeding, pt is on coumadin Continue present care and monitor her right lower quadrant pain Discussed with the patient and her daughter [id number] Once INR is optimized patient will be discharged on Coumadin. INR is 1.6 Consultation Date/Type/Reason Admit Date/Time February 04, 2019 at 14:08 Initial Consult Date 02/08/19 Requesting Provider: LEYLA ZIEGLER MD Date/Time of Note DATE: 02/23/19 TIME: 12:11 24 HR Interval Summary Free Text/Dictation No right lower quadrant pain. Good bowel movements no GI bleeding Constitutional: improved Exam/Review of Systems Exam Vitals Vital Signs Date Temp Pulse Resp B/P (MAP) Pulse Ox O2 O2 Flow FiO2 Time Delivery Rate 02/23/19 73 12:11 02/23/19 98.5 103/54 98 Room Air 11:54 (70) 02/23/19 17 04:00 Intake and Output 02/22/19 02/22/19 02/23/19 1515:00 23:00 07:00 IntakeIntake Total 850 ml 672 ml BalanceBalance 850 ml 672 ml Constitutional: alert, oriented, well developed Psych: no complaints, nl mood/affect Head: normocephalic, atraumatic Eyes: nl conjunctiva, EOMI, nl lids, nl sclera, PERRL ENMT: nl external ears & nose, nl lips & teeth, nl nasal mucosa & septum Neck: supple, non-tender Respiratory: clear to auscultation, normal air movement Cardiovascular: regular rate and rhythm, nl pulses Gastrointestinal: soft, nl liver, spleen, non-tender Musculoskeletal: nl extremities to inspection, nl gait and stance Extremities: normal pulses Neurological: CLOTH SHEARING SUPERVISOR II-XII intact, nl mental status, nl speech, nl strength Skin: nl turgor; No rash or lesions Lymph: nl lymph nodes Results Result Diagram: 02/22/19 0542 02/22/19 0542 Results 24hrs Laboratory Tests Test 02/22/19 16:40 02/22/19 23:21 02/23/19 05:28 Activated Partial Thromboplast Time 72.4 *H 67.9 H 58.5 H Prothrombin Time 21.1 H Prothrombin Time Ratio 1.6 INR International Normalized Ratio 1.81 Medications Medication Current Medications Ondansetron HCl (Zofran Inj) 4 mg Q6H PRN IV NAUSEA AND/OR VOMITING Last administered on 02/13/19 18:54; Admin Dose 4 MG; Start 02/04/19 at 14:00 Pantoprazole (Protonix Tab) 40 mg DAILY@06 PO Last administered on 02/23/19 05:42; Admin Dose 40 MG; Start 02/07/19 at 06:00 Docusate Sodium (Colace) 200 mg DAILY PRN PO CONSTIPATION Last administered on 02/12/19 08:27; Admin Dose 200 MG; Start 02/06/19 at 14:00 Acetaminophen (Tylenol Tab) 650 mg Q4H PRN PO MILD PAIN(1-3)OR ELEVATED TEMP Last administered on 02/22/19 08:21; Admin Dose 650 MG; Start 02/09/19 at 12:00 Saccharomyces Boulardii (Florastor) 250 mg BID PO Last administered on 02/23/19 08:11; Admin Dose 250 MG; Start 02/09/19 at 15:30 Magnesium Hydroxide (Milk Of Mag) 30 ml BID PRN PO CONSTIPATION Last administered on 02/12/19 08:27; Admin Dose 30 ML; Start 02/10/19 at 13:00 Cholecalciferol (Vitamin D) 2,000 unit DAILY PO Last administered on 02/23/19 08:11; Admin Dose 2,000 UNIT; Start 02/11/19 at 11:00 Heparin Sodium (Porcine) (Heparin (1000 Units/ml)) 3,500 unit PER PROTOCOL PRN IV aPTT<47; Start 02/12/19 at 17:30 Warfarin Sodium (Coumadin) 6 mg DAILY@17 PO Last administered on 02/22/19at 16:31; Admin Dose 6 MG; Start 02/14/19 at 17:00 Hydrocortisone (Hydrocortisone 1% Cr) 1 applic BID TOP Last administered on 02/23/19at 09:58; Admin Dose 1 APPLIC; Start 02/14/19 at 23:00 Heparin Sodium (Porcine) 250 ml @ 7 mls/hr PER PROTOCOL IV Last administered on 02/22/19at 18:09; Admin Dose 6 MLS/HR; Start 02/15/19 at 03:00 Cyclobenzaprine HCl (Flexeril) 5 mg Q12 PRN PO spasm; Start 02/16/19 at 17:30 Diphenhydramine HCl (Benadryl) 25 mg Q6H PRN IM ITCHING; Start 02/21/19 at 10:00 Gabapentin (Neurontin) 100 mg TID PO Last administered on 02/23/19at 08:11; A dmin Dose 100 MG; Start 02/21/19 at 13:00 Hydralazine HCl (Apresoline) 10 mg Q4H PRN IV sbp >170; Start 02/22/19 at 16:30 TONIA SANTANA MD Feb 23, 2019 12:12
[2019-02-23] MEDS: ACETAMINOPHEN 325 MG TAB PO PRN ×2 (12:52→21:09)
[2019-02-23] MEDS ORDERED: hydrOXYzine HCL 10 MG TAB PO PRN (15:00)
--- NOTE | 2019-02-23 15:41 | PN ---
Date/Time of Note Date/Time of Note DATE: 02/23/19 TIME: 15:37 Assessment/Plan VTE Prophylaxis Risk score (from Ns)>0 risk: 2 SCD applied (from Ns): Yes Pharmacological prophylaxis: heparin, warfarin tx Lines/Catheters IV Catheter Type (from Rust): Peripheral IV Urinary Cath still in place: No Assessment/Plan Hospital Course No acute events overnight, will order front wheel walker per PT recommendations and assessment, patient is continued on heparin drip and Coumadin. Today's INR is 1.81. Continue current care. Assessment/Plan -Hemoptysis, likely secondary to tracheobronchitis, on anticoagulation--now improved. No evidence of significant intraparenchymal abnormalities on CT chest. Status post evaluation by Dr. Pierce in pulmonology consultation. -Left breast cancer, status post left partial mastectomy by Dr. Diaz. -Postoperative hematomas in left breast and left axillary region. -Postoperative fever, s/p abx. Dr. Arias is following in infection disease consultation. -Paroxysmal atrial fibrillation. -Mechanical aortic valve replacement secondary to aortic insufficiency. Dr. Hicks is following in cardiology consultation. on heparin drip. -Anemia of acute blood loss, continue to monitor H&H, will transfuse as needed. -Vitamin D deficiency, continue supplement. Further recommendations based on clinical course. Plan of care discussed with Dr. Pelaez. Result Diagram: 02/22/19 0542 02/22/19 0542 Results 24hrs Laboratory Tests Test 02/22/19 16:40 02/22/19 23:21 02/23/19 05:28 Activated Partial Thromboplast Time 72.4 *H 67.9 H 58.5 H Prothrombin Time 21.1 H Prothrombin Time Ratio 1.6 INR International Normalized Ratio 1.81 Exam/Review of Systems Exam Vitals Vital Signs Date Temp Pulse Resp B/P (MAP) Pulse Ox O2 O2 Flow FiO2 Time Delivery Rate 02/23/19 73 12:11 02/23/19 98.5 103/54 98 Room Air 11:54 (70) 02/23/19 17 04:00 Intake and Output 02/22/19 02/22/19 02/23/19 1515:00 23:00 07:00 IntakeIntake Total 850 ml 672 ml BalanceBalance 850 ml 672 ml Exam Constitutional: alert, oriented Respiratory: clear to auscultation Cardiovascular: regular rate and rhythm Gastrointestinal: soft, non-tender Musculoskeletal: nl extremities to inspection Extremities: normal pulses Neurological: nl mental status Skin: other (Status post left partial mastectomy, axillary JPs) Results Results 24hrs Laboratory Tests Test 02/22/19 16:40 02/22/19 23:21 02/23/19 05:28 Activated Partial Thromboplast Time 72.4 *H 67.9 H 58.5 H Prothrombin Time 21.1 H Prothrombin Time Ratio 1.6 INR International Normalized Ratio 1.81 Medications Medication Current Medications Ondansetron HCl (Zofran Inj) 4 mg Q6H PRN IV NAUSEA AND/OR VOMITING Last administered on 02/13/19 18:54; Admin Dose 4 MG; Start 02/04/19 at 14:00 Pantoprazole (Protonix Tab) 40 mg DAILY@06 PO Last administered on 02/23/19 05:42; Admin Dose 40 MG; Start 02/07/19 at 06:00 Docusate Sodium (Colace) 200 mg DAILY PRN PO CONSTIPATION Last administered on 02/12/19 08:27; Admin Dose 200 MG; Start 02/06/19 at 14:00 Acetaminophen (Tylenol Tab) 650 mg Q4H PRN PO MILD PAIN(1-3)OR ELEVATED TEMP Last administered on 02/23/19 12:52; Admin Dose 650 MG; Start 02/09/19 at 12:00 Saccharomyces Boulardii (Florastor) 250 mg BID PO Last administered on 02/23/19 08:11; Admin Dose 250 MG; Start 02/09/19 at 15:30 Magnesium Hydroxide (Milk Of Mag) 30 ml BID PRN PO CONSTIPATION Last administered on 02/12/19 08:27; Admin Dose 30 ML; Start 02/10/19 at 13:00 Cholecalciferol (Vitamin D) 2,000 unit DAILY PO Last administered on 02/23/19 08:11; Admin Dose 2,000 UNIT; Start 02/11/19 at 11:00 Heparin Sodium (Porcine) (Heparin (1000 Units/ml)) 3,500 unit PER PROTOCOL PRN IV aPTT<47; Start 02/12/19 at 17:30 Warfarin Sodium (Coumadin) 6 mg DAILY@17 PO Last administered on 6/10/19at 16:31; Admin Dose 6 MG; Start 02/14/19 at 17:00 Hydrocortisone (Hydrocortisone 1% Cr) 1 applic BID TOP Last administered on 02/23/19at 09:58; Admin Dose 1 APPLIC; Start 02/14/19 at 23:00 Heparin Sodium (Porcine) 250 ml @ 7 mls/hr PER PROTOCOL IV Last administered on 02/22/19at 18:09; Admin Dose 6 MLS/HR; Start 02/15/19 at 03:00 Cyclobenzaprine HCl (Flexeril) 5 mg Q12 PRN PO spasm; Start 02/16/19 at 17:30 Hydralazine HCl (Apresoline) 10 mg Q4H PRN IV sbp >170; Start 02/22/19 at 16:30 Hydroxyzine HCl (Atarax) 10 mg Q6H PRN PO ITCHING; Start 02/23/19 at 15:00 MIHAI GUTIERREZ Feb 23, 2019 15:41
--- NOTE | 2019-02-23 16:14 | CONS ---
Assessment/Plan Assessment/Plan Hospital Course (Demo Recall) Status post breast surgery 02/04/2019 Mechanical aortic valve replacement Paroxysmal atrial fibrillation, currently sinus rhythm Acute blood loss anemia Patient is on Coumadin and continue IV heparin bridging until INR is therapeutic Discussed with patient and daughter at bedside Consultation Date/Type/Reason Admit Date/Time February 04, 2019 at 14:08 Initial Consult Date Type of Consult Cardiology Requesting Provider: LEYLA ZIEGLER MD Date/Time of Note DATE: 02/23/19 TIME: 16:13 24 HR Interval Summary Free Text/Dictation No shortness of breath, palpitations, dizziness Exam/Review of Systems Vital Signs Vitals Vital Signs Date Temp Pulse Resp B/P (MAP) Pulse Ox O2 O2 Flow FiO2 Time Delivery Rate 02/23/19 67 16:12 02/23/19 98.0 118/59 96 Room Air 16:07 (78) 02/23/19 17 04:00 Intake and Output 02/22/19 02/22/19 02/23/19 1515:00 23:00 07:00 IntakeIntake Total 850 ml 672 ml BalanceBalance 850 ml 672 ml Exam Constitutional: alert, oriented (Family bedside) Head: normocephalic Respiratory: other (Coarse breath sounds bilaterally, no wheezing) Cardiovascular: regular rate and rhythm (S1-S2 heard) Gastrointestinal: soft, non-tender, bowel sounds Extremities: other (No edema) Labs Result Diagram: 02/22/19 0542 02/22/19 0542 Results 24hrs Laboratory Tests Test 02/22/19 16:40 02/22/19 23:21 02/23/19 05:28 Activated Partial Thromboplast Time 72.4 *H 67.9 H 58.5 H Prothrombin Time 21.1 H Prothrombin Time Ratio 1.6 INR International Normalized Ratio 1.81 Medications Medications Current Medications Ondansetron HCl (Zofran Inj) 4 mg Q6H PRN IV NAUSEA AND/OR VOMITING Last administered on 02/13/19at 18:54; Admin Dose 4 MG; Start 02/04/19 at 14:00 Pantoprazole (Protonix Tab) 40 mg DAILY@06 PO Last administered on 02/23/19at 05:42; Admin Dose 40 MG; Start 02/07/19 at 06:00 Docusate Sodium (Colace) 200 mg DAILY PRN PO CONSTIPATION Last administered on 02/12/19 08:27; Admin Dose 200 MG; Start 02/06/19 at 14:00 Acetaminophen (Tylenol Tab) 650 mg Q4H PRN PO MILD PAIN(1-3)OR ELEVATED TEMP Last administered on 02/23/19 12:52; Admin Dose 650 MG; Start 02/09/19 at 12:00 Saccharomyces Boulardii (Florastor) 250 mg BID PO Last administered on 02/23/19 08:11; Admin Dose 250 MG; Start 02/09/19 at 15:30 Magnesium Hydroxide (Milk Of Mag) 30 ml BID PRN PO CONSTIPATION Last administered on 02/12/19 08:27; Admin Dose 30 ML; Start 02/10/19 at 13:00 Cholecalciferol (Vitamin D) 2,000 unit DAILY PO Last administered on 02/23/19 08:11; Admin Dose 2,000 UNIT; Start 02/11/19 at 11:00 Heparin Sodium (Porcine) (Heparin (1000 Units/ml)) 3,500 unit PER PROTOCOL PRN IV aPTT<47; Start 02/12/19 at 17:30 Warfarin Sodium (Coumadin) 6 mg DAILY@17 PO Last administered on 02/22/19 16:31; Admin Dose 6 MG; Start 02/14/19 at 17:00 Hydrocortisone (Hydrocortisone 1% Cr) 1 applic BID TOP Last administered on 02/23/19 09:58; Admin Dose 1 APPLIC; Start 02/14/19 at 23:00 Heparin Sodium (Porcine) 250 ml @ 7 mls/hr PER PROTOCOL IV Last administered on 02/22/19 18:09; Admin Dose 6 MLS/HR; Start 02/15/19 at 03:00 Cyclobenzaprine HCl (Flexeril) 5 mg Q12 PRN PO spasm; Start 02/16/19 at 17:30 Hydralazine HCl (Apresoline) 10 mg Q4H PRN IV sbp >170; Start 02/22/19 at 16:30 Hydroxyzine HCl (Atarax) 10 mg Q6H PRN PO ITCHING; Start 02/23/19 at 15:00 Dima Hicks DO Feb 23, 2019 16:14
[2019-02-23] MEDS: WARFARIN 3 MG TAB PO SCH (16:30)
--- NOTE | 2019-02-23 16:57 | PN ---
DATE: 02/23/2019 SUBJECTIVE: No specific complaint. No nausea, no vomiting, no diarrhea, no abdominal pain. Minimal shoulder pain. Has been walking around the floor. OBJECTIVE: GENERAL: Awake, alert, oriented. VITAL SIGNS: Temperature maximum 98.5, heart rate 70 regular, respirations 17, blood pressure 103/54 , saturation 98% room air. HEART: Regular. LUNGS: Clear. CHEST: Chest wall dressing is removed. There was minimal oozing through the incision line in the le ft axillary area, maybe about 1 or 2 mL of old dark blood has oozed out. Wound was cleansed with Bet adine, with new dry dressing, sponges and lap pad was applied and wrapped around with bias dressing. ABDOMEN: Soft. EXTREMITIES: Lower extremity: No calf tenderness. No pitting edema. LABORATORY DATA: The only lab today is coagulation profile with PT of 21.1, INR is 1.81, activated P TT is 58.5. CONCLUSION: This is a 63-year-old female who has had partial mastectomy with axillary dissection. F ollowing that, the patient got complicated by bleeding due to increased bleeding tendency due to Love nox and Coumadin which was stopped eventually. Now, the patient is getting Coumadin and regular Hepa rin IV to achieve therapeutic level of Coumadin. The bleeding has stopped. The patient has received 5 units of packed cells altogether. Hemoglobin and hematocrit have been stable in the past 6 or 7 d ays. Wound is clean. The patient had another episode of abdominal pain which resolved by itself. N o reason was found for that. PLAN: According to the form tamper, they are awaiting for the results of the INR to become twice no rmal and then the patient can be discharged on Coumadin and discontinue heparin and the patient to be followed later on by Dr. Hinojosa in the surgical office. Dictated By: ALFONSO CONTRERAS MD PS/NTS Conf#: [id number] DID#: [id number] CC: LEYLA ZIEGLER MD; MAIA HINOJOSA MD;*EndCC*
--- NOTE | 2019-02-23 17:47 | CONS ---
Assessment/Plan Assessment/Plan Assessment/Plan (Daily) Assessment/Plan (Daily) Assessment/Plan (Daily) Assessment/Plan (Daily) 63 yo female 1. Status post surgery, left-sided mastectomy for a left breast cancer. 2. Postoperative hematoma at the site of surgery now the drain has been in place. 3. Status post 6 units of packed cell RBC transfusion. 4. Chronic constipation, which has improved with Amitiza. 5. Mechanical aortic valve replacement. The patient is on heparin for that. 6. Paroxysmal atrial fibrillation. 7. Vitamin D deficiency with low calcium 8. Anemia, mild -no evidence of overt GI bleeding -pt is on coumadin and heparin gtt 9. Right lower quadrant pain, resolved patient also has a back pain. She is able to ambulate without any problem PLAN: Continue post op care Utilize prn laxatives as needed Monitor HH and for active GI bleeding, pt is on coumadin Continue present care and monitor her right lower quadrant pain Discussed with the patient and her daughter [id number] Once INR is optimized patient will be discharged on Coumadin. INR is 1.6 Discussed with the daughter [id number] Consultation Date/Type/Reason Admit Date/Time February 04, 2019 at 14:08 Initial Consult Date 02/08/19 Requesting Provider: LEYLA ZIEGLER MD Date/Time of Note DATE: 02/23/19 TIME: 17:46 24 HR Interval Summary Constitutional: no complaints, improved Exam/Review of Systems Exam Vitals Vital Signs Date Temp Pulse Resp B/P (MAP) Pulse Ox O2 O2 Flow FiO2 Time Delivery Rate 02/23/19 67 16:12 02/23/19 98.0 118/59 96 Room Air 16:07 (78) 02/23/19 17 04:00 Intake and Output 02/22/19 02/22/19 02/23/19 1515:00 23:00 07:00 IntakeIntake Total 850 ml 672 ml BalanceBalance 850 ml 672 ml Constitutional: alert, oriented, well developed Psych: no complaints, nl mood/affect Head: normocephalic, atraumatic Eyes: nl conjunctiva, EOMI, nl lids, nl sclera, PERRL ENMT: nl external ears & nose, nl lips & teeth, nl nasal mucosa & septum Neck: supple, non-tender Respiratory: clear to auscultation, normal air movement Cardiovascular: regular rate and rhythm, nl pulses Gastrointestinal: soft, nl liver, spleen, non-tender Musculoskeletal: nl extremities to inspection, nl gait and stance Extremities: normal pulses 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, nl mental status, nl speech, nl strength Skin: nl turgor; No rash or lesions Lymph: nl lymph nodes Results Result Diagram: 02/22/19 0542 02/22/19 0542 Results 24hrs Laboratory Tests Test 02/22/19 23:21 02/23/19 05:28 Activated Partial Thromboplast Time 67.9 H 58.5 H Prothrombin Time 21.1 H Prothrombin Time Ratio 1.6 INR International Normalized Ratio 1.81 Medications Medication Current Medications Ondansetron HCl (Zofran Inj) 4 mg Q6H PRN IV NAUSEA AND/OR VOMITING Last administered on 02/13/19 18:54; Admin Dose 4 MG; Start 02/04/19 at 14:00 Pantoprazole (Protonix Tab) 40 mg DAILY@06 PO Last administered on 02/23/19 05:42; Admin Dose 40 MG; Start 02/07/19 at 06:00 Docusate Sodium (Colace) 200 mg DAILY PRN PO CONSTIPATION Last administered on 02/12/19 08:27; Admin Dose 200 MG; Start 02/06/19 at 14:00 Acetaminophen (Tylenol Tab) 650 mg Q4H PRN PO MILD PAIN(1-3)OR ELEVATED TEMP L ast administered on 02/23/19 12:52; Admin Dose 650 MG; Start 02/09/19 at 12:00 Saccharomyces Boulardii (Florastor) 250 mg BID PO Last administered on 02/23/19 08:11; Admin Dose 250 MG; Start 02/09/19 at 15:30 Magnesium Hydroxide (Milk Of Mag) 30 ml BID PRN PO CONSTIPATION Last administered on 02/12/19 08:27; Admin Dose 30 ML; Start 02/10/19 at 13:00 Cholecalciferol (Vitamin D) 2,000 unit DAILY PO Last administered on 02/23/19 08:11; Admin Dose 2,000 UNIT; Start 02/11/19 at 11:00 Heparin Sodium (Porcine) (Heparin (1000 Units/ml)) 3,500 unit PER PROTOCOL PRN IV aPTT<47; Start 02/12/19 at 17:30 Warfarin Sodium (Coumadin) 6 mg DAILY@17 PO Last administered on 02/23/19at 16:30; Admin Dose 6 MG; Start 02/14/19 at 17:00 Hydrocortisone (Hydrocortisone 1% Cr) 1 applic BID TOP Last administered on 02/23/19at 09:58; Admin Dose 1 APPLIC; Start 02/14/19 at 23:00 Heparin Sodium (Porcine) 250 ml @ 7 mls/hr PER PROTOCOL IV Last administered on 02/22/19at 18:09; Admin Dose 6 MLS/HR; Start 02/15/19 at 03:00 Cyclobenzaprine HCl (Flexeril) 5 mg Q12 PRN PO spasm; Start 02/16/19 at 17:30 Hydralazine HCl (Apresoline) 10 mg Q4H PRN IV sbp >170; Start 02/22/19 at 16:30 Hydroxyzine HCl (Atarax) 10 mg Q6H PRN PO ITCHING; Start 02/23/19 at 15:00 TONIA SANTANA MD Feb 23, 2019 17:47
[2019-02-24] VITALS (9 sets, daily range): BP systolic 107–117; BP diastolic 53–83; PULSE 63–81; RESP 18–22
[2019-02-24] MEDS: PANTOPRAZOLE (EC) 40 MG TAB PO SCH (06:25)
--- NOTE | 2019-02-24 07:29 | CONS ---
Assessment/Plan Assessment/Plan Hospital Course (Demo Recall) 63 yo female 1. Status post surgery, left-sided mastectomy for a left breast cancer. 2. Postoperative hematoma at the site of surgery now the drain has been in place. 3. Status post 6 units of packed cell RBC transfusion. 4. Chronic constipation, which has improved with Amitiza. 5. Mechanical aortic valve replacement. The patient is on heparin for that. 6. Paroxysmal atrial fibrillation. 7. Vitamin D deficiency with low calcium 8. Anemia, mild -no evidence of overt GI bleeding -pt is on coumadin and heparin gtt 9. Elevated alk phos PLAN: Monitor LFTs Hep panel GGT Continue post op care Utilize prn laxatives as needed Monitor HH and for active GI bleeding, pt is on coumadin Pt examined and plan of care discussed with Consultation Date/Type/Reason Admit Date/Time February 04, 2019 at 14:08 Initial Consult Date 02/13/19 Requesting Provider: LEYLA ZIEGLER MD Date/Time of Note DATE: 02/24/19 TIME: 07:26 24 HR Interval Summary Free Text/Dictation Alk phos is elevated. Continues to c/o RLQ pain. No nausea or vomiting. Exam/Review of Systems Exam Vitals Vital Signs Date Temp Pulse Resp B/P (MAP) Pulse Ox O2 O2 Flow FiO2 Time Delivery Rate 02/24/19 69 04:00 02/23/19 98.6 21:54 02/23/19 118/59 96 Room Air 16:07 (78) 02/23/19 17 04:00 Intake and Output 02/23/19 02/23/19 02/24/19 1515:00 23:00 07:00 IntakeIntake Total 1400 ml 475 ml BalanceBalance 1400 ml 475 ml Results Result Diagram: 02/24/19 0610 02/22/19 0542 Results 24hrs Laboratory Tests Test 02/24/19 06:10 White Blood Count 5.1 Red Blood Count 4.10 L Hemoglobin 12.0 Hematocrit 36.7 L Mean Corpuscular Volume 89.5 Mean Corpuscular Hemoglobin 29.3 Mean Corpuscular Hemoglobin Concent 32.7 Red Cell Distribution Width 13.6 Platelet Count 357 Mean Platelet Volume 9.2 Immature Granulocytes % 0.800 H Neutrophils % 49.0 Lymphocytes % 34.3 Monocytes % 10.1 Eosinophils % 4.4 Basophils % 1.4 Nucleated Red Blood Cells % 0.0 Immature Granulocytes # 0.040 H Neutrophils # 2.5 Lymphocytes # 1.7 Monocytes # 0.5 Eosinophils # 0.2 Basophils # 0.1 Nucleated Red Blood Cells # 0.0 Prothrombin Time 22.6 H Prothrombin Time Ratio 1.8 INR International Normalized Ratio 1.98 Medications Medication Current Medications Ondansetron HCl (Zofran Inj) 4 mg Q6H PRN IV NAUSEA AND/OR VOMITING Last administered on 02/13/19 18:54; Admin Dose 4 MG; Start 02/04/19 at 14:00 Pantoprazole (Protonix Tab) 40 mg DAILY@06 PO Last administered on 02/24/19 06:25; Admin Dose 40 MG; Start 02/07/19 at 06:00 Docusate Sodium (Colace) 200 mg DAILY PRN PO CONSTIPATION Last administered on 02/12/19 08:27; Admin Dose 200 MG; Start 02/06/19 at 14:00 Acetaminophen (Tylenol Tab) 650 mg Q4H PRN PO MILD PAIN(1-3)OR ELEVATED TEMP Last administered on 02/23/19 21:09; Admin Dose 650 MG; Start 02/09/19 at 12:00 Saccharomyces Boulardii (Florastor) 250 mg BID PO Last administered on 02/23/19 21:02; Admin Dose 250 MG; Start 02/09/19 at 15:30 Magnesium Hydroxide (Milk Of Mag) 30 ml BID PRN PO CONSTIPATION Last administered on 02/12/19 08:27; Admin Dose 30 ML; Start 02/10/19 at 13:00 Cholecalciferol (Vitamin D) 2,000 unit DAILY PO Last administered on 02/23/19 08:11; Admin Dose 2,000 UNIT; Start 02/11/19 at 11:00 Heparin Sodium (Porcine) (Heparin (1000 Units/ml)) 3,500 unit PER PROTOCOL PRN IV aPTT<47; Start 02/12/19 at 17:30 Warfarin Sodium (Coumadin) 6 mg DAILY@17 PO Last administered on 02/23/19 16:30; Admin Dose 6 MG; Start 02/14/19 at 17:00 Hydrocortisone (Hydrocortisone 1% Cr) 1 applic BID TOP Last administered on 02/23/19 21:02; Admin Dose 1 APPLIC; Start 02/14/19 at 23:00 Heparin Sodium (Porcine) 250 ml @ 7 mls/hr PER PROTOCOL IV Last administered on 02/22/19at 18:09; Admin Dose 6 MLS/HR; Start 02/15/19 at 03:00 Cyclobenzaprine HCl (Flexeril) 5 mg Q12 PRN PO spasm; Start 02/16/19 at 17:30 Hydralazine HCl (Apresoline) 10 mg Q4H PRN IV sbp >170; Start 02/22/19 at 16:30 Hydroxyzine HCl (Atarax) 10 mg Q6H PRN PO ITCHING; Start 02/23/19 at 15:00 BRENDA ESPINOZA Feb 24, 2019 07:29
[2019-02-24] MEDS: SACCHAROMYCES BOULARDII 250 MG CAP PO SCH ×2 (08:37→21:20)
[2019-02-24] MEDS: DOCUSATE SODIUM 100 MG CAP PO PRN (08:37)
[2019-02-24] MEDS: CHOLECALCIFEROL 2,000 UNIT CAP PO SCH (08:37)
[2019-02-24] MEDS: HEPARIN 25000 UNITS/250 ML 250 ML IV SCH (08:43)
[2019-02-24] MEDS: HYDROCORTISONE 1% 28 GM CR TOP SCH ×2 (09:00→21:20)
--- NOTE | 2019-02-24 09:00 | CONS ---
Assessment/Plan Assessment/Plan Hospital Course (Demo Recall) - s/p post op fever, likely due to L breast hematoma - hematoma of L breast, its culture was negative - post-op anemia requiring PRBC, now stable - pain and swelling of L axilla, and L scapular region, associated with either the exuberant inflammation from L breast or underlying infection - slowly improving - eczematous rash of L axillary region, possible allergic dermatitis - resolving with hydrocortisone cream 1% - pruritic nonerythematous rash amada palmar fingers - pruritis alleviates with hydrocortisone cream 1% - h/o Invasive Breast CA - h/o L partial mastectomy and axillary lymph node dissection - h/o AVR, on heparin as a transition to Coumadin - PAF - low vitamin D - acute cephalgia- improved; CT head showed no acute findings - elevated alk phos with mild lower abdominal pain - CT abd/pelvis showed No evidence of bowel obstruction. Fluid-filled appendix. However the appendix appears to be normal size and there is no evidence of significant adjacent inflammatory changes; low suspicion for mild appendicitis per Surgery - improving recommendations: - continue hydrocortisone cream 1% (02/14/2019-) for pruritic rash which is improving on left chest and amada hands - monitor closely off antibiotics - monitor pt for bleeding as she is on Coumadin and IV heparin bridging until INR is therapeutic - encouraged increased ROM exercises for L shoulder I directed care to manpower development advisor yesterday via [employer] messaging. Consultation Date/Type/Reason Admit Date/Time February 04, 2019 at 14:08 Initial Consult Date Type of Consult ID Requesting Provider: LEYLA ZIEGLER MD Date/Time of Note DATE: 02/24/19 TIME: 08:59 24 HR Interval Summary Free Text/Dictation detailed d/w daughter at bedside. I answered all her questions Exam/Review of Systems Exam Vitals Vital Signs Date Temp Pulse Resp B/P (MAP) Pulse Ox O2 O2 Flow FiO2 Time Delivery Rate 02/24/19 97.8 63 20 113/54 96 Room Air 07:46 (73) Intake and Output 02/23/19 02/23/19 02/24/19 1515:00 23:00 07:00 IntakeIntake Total 1400 ml 475 ml BalanceBalance 1400 ml 475 ml Constitutional: alert, oriented, well developed Psych: no complaints, nl mood/affect Head: normocephalic, atraumatic Eyes: nl conjunctiva, EOMI, nl lids, nl sclera, PERRL Neck: supple, non-tender Respiratory: clear to auscultation, normal air movement Cardiovascular: regular rate and rhythm, nl pulses Gastrointestinal: soft, nl liver, spleen, non-tender 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, nl mental status, nl speech, nl strength Results Result Diagram: 02/24/19 0610 02/22/19 0542 Results 24hrs Laboratory Tests Test 02/24/19 06:10 White Blood Count 5.1 Red Blood Count 4.10 L Hemoglobin 12.0 Hematocrit 36.7 L Mean Corpuscular Volume 89.5 Mean Corpuscular Hemoglobin 29.3 Mean Corpuscular Hemoglobin Concent 32.7 Red Cell Distribution Width 13.6 Platelet Count 357 Mean Platelet Volume 9.2 Immature Granulocytes % 0.800 H Neutrophils % 49.0 Lymphocytes % 34.3 Monocytes % 10.1 Eosinophils % 4.4 Basophils % 1.4 Nucleated Red Blood Cells % 0.0 Immature Granulocytes # 0.040 H Neutrophils # 2.5 Lymphocytes # 1.7 Monocytes # 0.5 Eosinophils # 0.2 Basophils # 0.1 Nucleated Red Blood Cells # 0.0 Prothrombin Time 22.6 H Prothrombin Time Ratio 1.8 INR International Normalized Ratio 1.98 Hepatitis B Surface Antigen Pending Hepatitis B Core Total Antibody Pending Hepatitis C Antibody Pending Medications Medication Current Medications Ondansetron HCl (Zofran Inj) 4 mg Q6H PRN IV NAUSEA AND/OR VOMITING Last administered on 02/13/19at 18:54; Admin Dose 4 MG; Start 02/04/19 at 14:00 Pantoprazole (Protonix Tab) 40 mg DAILY@06 PO Last administered on 02/24/19at 06:25; Admin Dose 40 MG; Start 02/07/19 at 06:00 Docusate Sodium (Colace) 200 mg DAILY PRN PO CONSTIPATION Last administered on 02/24/19at 08:37; Admin Dose 200 MG; Start 02/06/19 at 14:00 Acetaminophen (Tylenol Tab) 650 mg Q4H PRN PO MILD PAIN(1-3)OR ELEVATED TEMP Last administered on 02/23/19at 21:09; Admin Dose 650 MG; Start 02/09/19 at 12:00 Saccharomyces Boulardii (Florastor) 250 mg BID PO Last administered on 02/24/19 08:37; Admin Dose 250 MG; Start 02/09/19 at 15:30 Magnesium Hydroxide (Milk Of Mag) 30 ml BID PRN PO CONSTIPATION Last administered on 02/12/19 08:27; Admin Dose 30 ML; Start 02/10/19 at 13:00 Cholecalciferol (Vitamin D) 2,000 unit DAILY PO Last administered on 02/24/19 08:37; Admin Dose 2,000 UNIT; Start 02/11/19 at 11:00 Heparin Sodium (Porcine) (Heparin (1000 Units/ml)) 3,500 unit PER PROTOCOL PRN IV aPTT<47; Start 02/12/19 at 17:30 Warfarin Sodium (Coumadin) 6 mg DAILY@17 PO Last administered on 02/23/19 16:30; Admin Dose 6 MG; Start 02/14/19 at 17:00 Hydrocortisone (Hydrocortisone 1% Cr) 1 applic BID TOP Last administered on 21:02; Admin Dose 1 APPLIC; Start 02/14/19 at 23:00 Heparin Sodium (Porcine) 250 ml @ 7 mls/hr PER PROTOCOL IV Last administered on 02/24/19 08:43; Admin Dose 7 MLS/HR; Start 02/15/19 at 03:00 Cyclobenzaprine HCl (Flexeril) 5 mg Q12 PRN PO spasm Last administered on 02/24/19 08:38; Admin Dose 5 MG; Start 02/16/19 at 17:30 Hydralazine HCl (Apresoline) 10 mg Q4H PRN IV sbp >170; Start 02/22/19 at 16:30 Hydroxyzine HCl (Atarax) 10 mg Q6H PRN PO ITCHING; Start 02/23/19 at 15:00 ANGÉLICA BRAVO MD Feb 24, 2019 09:00
--- NOTE | 2019-02-24 11:53 | CONS ---
Assessment/Plan Assessment/Plan Hospital Course (Demo Recall) Status post breast surgery 02/04/2019 Mechanical aortic valve replacement Paroxysmal atrial fibrillation, currently sinus rhythm Acute blood loss anemia INR is 1.98, patient wants to go home, okay to DC heparin, continue on Coumadin, check INR in 2 to 3 days DC planning Discussed with patient and daughter at bedside Consultation Date/Type/Reason Admit Date/Time February 04, 2019 at 14:08 Initial Consult Date Type of Consult Cardiology Requesting Provider: LEYLA ZIEGLER MD Date/Time of Note DATE: 02/24/19 TIME: 11:52 24 HR Interval Summary Free Text/Dictation No shortness of breath, palpitations, dizziness Exam/Review of Systems Vital Signs Vitals Vital Signs Date Temp Pulse Resp B/P (MAP) Pulse Ox O2 O2 Flow FiO2 Time Delivery Rate 02/24/19 66 08:00 02/24/19 97.8 20 113/54 96 Room Air 07:46 (73) Intake and Output 02/23/19 02/23/19 02/24/19 1515:00 23:00 07:00 IntakeIntake Total 1400 ml 475 ml BalanceBalance 1400 ml 475 ml Exam Constitutional: alert, oriented (Ambulating in the room, no apparent distress) Head: normocephalic Respiratory: other (Coarse breath sounds bilaterally, no wheezing) Cardiovascular: regular rate and rhythm, other (S1-S2 heard) Gastrointestinal: soft, non-tender, bowel sounds Extremities: other (No significant edema) Labs Result Diagram: 02/24/19 0610 02/22/19 0542 Results 24hrs Laboratory Tests Test 02/24/19 06:10 White Blood Count 5.1 Red Blood Count 4.10 L Hemoglobin 12.0 Hematocrit 36.7 L Mean Corpuscular Volume 89.5 Mean Corpuscular Hemoglobin 29.3 Mean Corpuscular Hemoglobin Concent 32.7 Red Cell Distribution Width 13.6 Platelet Count 357 Mean Platelet Volume 9.2 Immature Granulocytes % 0.800 H Neutrophils % 49.0 Lymphocytes % 34.3 Monocytes % 10.1 Eosinophils % 4.4 Basophils % 1.4 Nucleated Red Blood Cells % 0.0 Immature Granulocytes # 0.040 H Neutrophils # 2.5 Lymphocytes # 1.7 Monocytes # 0.5 Eosinophils # 0.2 Basophils # 0.1 Nucleated Red Blood Cells # 0.0 Prothrombin Time 22.6 H Prothrombin Time Ratio 1.8 INR International Normalized Ratio 1.98 Gamma Glutamyl Transpeptidase 278 H Hepatitis B Surface Antigen Pending Hepatitis B Core Total Antibody Pending Hepatitis C Antibody Pending Medications Medications Current Medications Ondansetron HCl (Zofran Inj) 4 mg Q6H PRN IV NAUSEA AND/OR VOMITING Last administered on 02/13/19 18:54; Admin Dose 4 MG; Start 02/04/19 at 14:00 Pantoprazole (Protonix Tab) 40 mg DAILY@06 PO Last administered on 02/24/19 06:25; Admin Dose 40 MG; Start 02/07/19 at 06:00 Docusate Sodium (Colace) 200 mg DAILY PRN PO CONSTIPATION Last administered on 02/24/19 08:37; Admin Dose 200 MG; Start 02/06/19 at 14:00 Acetaminophen (Tylenol Tab) 650 mg Q4H PRN PO MILD PAIN(1-3)OR ELEVATED TEMP Last administered on 02/23/19 21:09; Admin Dose 650 MG; Start 02/09/19 at 12:00 Saccharomyces Boulardii (Florastor) 250 mg BID PO Last administered on 08:37; Admin Dose 250 MG; Start 02/09/19 at 15:30 Magnesium Hydroxide (Milk Of Mag) 30 ml BID PRN PO CONSTIPATION Last administered on 02/12/19 08:27; Admin Dose 30 ML; Start 02/10/19 at 13:00 Cholecalciferol (Vitamin D) 2,000 unit DAILY PO Last administered on 02/24/19 08:37; Admin Dose 2,000 UNIT; Start 02/11/19 at 11:00 Heparin Sodium (Porcine) (Heparin (1000 Units/ml)) 3,500 unit PER PROTOCOL PRN IV aPTT<47; Start 02/12/19 at 17:30 Warfarin Sodium (Coumadin) 6 mg DAILY@17 PO Last administered on 02/23/19 16:30; Admin Dose 6 MG; Start 02/14/19 at 17:00 Hydrocortisone (Hydrocortisone 1% Cr) 1 applic BID TOP Last administered on 02/23/19 21:02; Admin Dose 1 APPLIC; Start 02/14/19 at 23:00 Heparin Sodium (Porcine) 250 ml @ 7 mls/hr PER PROTOCOL IV Last administered on 02/24/19at 08:43; Admin Dose 7 MLS/HR; Start 02/15/19 at 03:00 Cyclobenzaprine HCl (Flexeril) 5 mg Q12 PRN PO spasm Last administered on 02/24/19at 08:38; Admin Dose 5 MG; Start 02/16/19 at 17:30 Hydralazine HCl (Apresoline) 10 mg Q4H PRN IV sbp >170; Start 02/22/19 at 16:30 Hydroxyzine HCl (Atarax) 10 mg Q6H PRN PO ITCHING; Start 02/23/19 at 15:00 Dima Hicks DO Feb 24, 2019 11:53
--- NOTE | 2019-02-24 13:42 | PN ---
DATE: 02/24/2019 SUBJECTIVE: No complaint. No nausea, no vomiting, no abdominal pain, no shoulder pain. DIET: As tolerated. Is walking around. OBJECTIVE: GENERAL: Awake, alert, oriented. VITAL SIGNS: Temperature maximum today 97.8, heart rate 71, respiration 20, blood pressure 107/53, saturation 96% on room air. LABORATORY: WBC 5100 with 49% segmented, hemoglobin 12, hematocrit 36.7, platelet count down to 357. Chemistry: GGT is slightly off 278. I am not sure for what reason. Otherwise, there is no chemistry done today. Coagulation today, PT is 22.6, INR is 1.98 and PTT has not been done. According to the operations and intelligence assistant notes it is okay to discontinue heparin and it is okay from their perspective to be discharged home, to continue Coumadin at home and to do a PTT and INR 2 to 3 days from now. From surgical point of view, also, patient can be discharged to be followed by Dr. Hinojosa in his office on Friday03/03/2019. Instruction was given to the patient in detail by myself. So the patient will be discharged by internal medicine service, today. Dictated By: ALFONSO CONTRERAS MD PS/NTS Conf#: [id number] DID#: [id number] CC: MAIA HINOJOSA MD;*EndCC* MTDD
--- NOTE | 2019-02-24 15:54 | PN ---
Date/Time of Note Date/Time of Note DATE: 02/24/19 TIME: 15:40 Assessment/Plan VTE Prophylaxis Risk score (from Ns)>0 risk: 2 SCD applied (from Ns): Yes Pharmacological prophylaxis: warfarin tx Lines/Catheters IV C[facility]ter Type (from [facility]): Peripheral IV Urinary Cath still in place: No Assessment/Plan Hospital Course Patient is undergoing GI work-up for complaints of abdominal pain. Heparin drip DCed, continue on Coumadin, we will check PT and INR tomorrow. Assessment/Plan -Abdominal pain with elevated, alkaline phosphate. Dr. Aguiar is following in GI consultation. -Hemoptysis, likely secondary to tracheobronchitis, on anticoagulation--now improved. No evidence of significant intraparenchymal abnormalities on CT chest. Status post evaluation by Dr. Pierce in pulmonology consultation. -Left breast cancer, status post left partial mastectomy by Dr. Diaz. -Postoperative hematomas in left breast and left axillary region. -Postoperative fever, s/p abx. Dr. Arias is following in infection disease consultation. -Paroxysmal atrial fibrillation. -Mechanical aortic valve replacement secondary to aortic insufficiency. Dr. Hicks is following in cardiology consultation. Continue Coumadin, monitor PT and INR. -Anemia of acute blood loss, continue to monitor H&H, will transfuse as needed. -Vitamin D deficiency, continue supplement. Further recommendations based on clinical course. Plan of care discussed with Dr. Pelaez. Result Diagram: 02/24/19 0610 02/22/19 0542 Results 24hrs Laboratory Tests Test 02/24/19 06:10 White Blood Count 5.1 Red Blood Count 4.10 L Hemoglobin 12.0 Hematocrit 36.7 L Mean Corpuscular Volume 89.5 Mean Corpuscular Hemoglobin 29.3 Mean Corpuscular Hemoglobin Concent 32.7 Red Cell Distribution Width 13.6 Platelet Count 357 Mean Platelet Volume 9.2 Immature Granulocytes % 0.800 H Neutrophils % 49.0 Lymphocytes % 34.3 Monocytes % 10.1 Eosinophils % 4.4 Basophils % 1.4 Nucleated Red Blood Cells % 0.0 Immature Granulocytes # 0.040 H Neutrophils # 2.5 Lymphocytes # 1.7 Monocytes # 0.5 Eosinophils # 0.2 Basophils # 0.1 Nucleated Red Blood Cells # 0.0 Prothrombin Time 22.6 H Prothrombin Time Ratio 1.8 INR International Normalized Ratio 1.98 Gamma Glutamyl Transpeptidase 278 H Hepatitis B Surface Antigen NEGATIVE Hepatitis B Core Total Antibody NEGATIVE Hepatitis C Antibody NEGATIVE Exam/Review of Systems Exam Vitals Vital Signs Date Temp Pulse Resp B/P (MAP) Pulse Ox O2 O2 Flow FiO2 Time Delivery Rate 02/24/19 97.8 71 22 107/53 96 Room Air 12:28 (71) Intake and Output 02/23/19 02/23/19 02/24/19 1515:00 23:00 07:00 IntakeIntake Total 1400 ml 475 ml BalanceBalance 1400 ml 475 ml Exam Constitutional: alert, oriented Respiratory: clear to auscultation Cardiovascular: regular rate and rhythm Gastrointestinal: soft, non-tender Musculoskeletal: nl extremities to inspection Extremities: normal pulses Neurological: nl mental status Skin: other (Status post left partial mastectomy, axillary JPs) Results Results 24hrs Laboratory Tests Test 02/24/19 06:10 White Blood Count 5.1 Red Blood Count 4.10 L Hemoglobin 12.0 Hematocrit 36.7 L Mean Corpuscular Volume 89.5 Mean Corpuscular Hemoglobin 29.3 Mean Corpuscular Hemoglobin Concent 32.7 Red Cell Distribution Width 13.6 Platelet Count 357 Mean Platelet Volume 9.2 Immature Granulocytes % 0.800 H Neutrophils % 49.0 Lymphocytes % 34.3 Monocytes % 10.1 Eosinophils % 4.4 Basophils % 1.4 Nucleated Red Blood Cells % 0.0 Immature Granulocytes # 0.040 H Neutrophils # 2.5 Lymphocytes # 1.7 Monocytes # 0.5 Eosinophils # 0.2 Basophils # 0.1 Nucleated Red Blood Cells # 0.0 Prothrombin Time 22.6 H Prothrombin Time Ratio 1.8 INR International Normalized Ratio 1.98 Gamma Glutamyl Transpeptidase 278 H Hepatitis B Surface Antigen NEGATIVE Hepatitis B Core Total Antibody NEGATIVE Hepatitis C Antibody NEGATIVE Medications Medication Current Medications Ondansetron HCl (Zofran Inj) 4 mg Q6H PRN IV NAUSEA AND/OR VOMITING Last administered on 02/13/19at 18:54; Admin Dose 4 MG; Start 02/04/19 at 14:00 Pantoprazole (Protonix Tab) 40 mg DAILY@06 PO Last administered on 02/24/19at 06:25; Admin Dose 40 MG; Start 02/07/19 at 06:00 Docusate Sodium (Colace) 200 mg DAILY PRN PO CONSTIPATION Last administered on 02/24/19 08:37; Admin Dose 200 MG; Start 02/06/19 at 14:00 Acetaminophen (Tylenol Tab) 650 mg Q4H PRN PO MILD PAIN(1-3)OR ELEVATED TEMP Last administered on 02/23/19 21:09; Admin Dose 650 MG; Start 02/09/19 at 12:00 Saccharomyces Boulardii (Florastor) 250 mg BID PO Last administered on 02/24/19 08:37; Admin Dose 250 MG; Start 02/09/19 at 15:30 Magnesium Hydroxide (Milk Of Mag) 30 ml BID PRN PO CONSTIPATION Last administered on 02/12/19 08:27; Admin Dose 30 ML; Start 02/10/19 at 13:00 Cholecalciferol (Vitamin D) 2,000 unit DAILY PO Last administered on 02/24/19 08:37; Admin Dose 2,000 UNIT; Start 02/11/19 at 11:00 Warfarin Sodium (Coumadin) 6 mg DAILY@17 PO Last administered on 02/23/19 16:30; Admin Dose 6 MG; Start 02/14/19 at 17:00 Hydrocortisone (Hydrocortisone 1% Cr) 1 applic BID TOP Last administered on 02/24/19 09:00; Admin Dose 1 APPLIC; Start 02/14/19 at 23:00 Cyclobenzaprine HCl (Flexeril) 5 mg Q12 PRN PO spasm Last administered on 02/24/19 08:38; Admin Dose 5 MG; Start 02/16/19 at 17:30 Hydralazine HCl (Apresoline) 10 mg Q4H PRN IV sbp >170; Start 02/22/19 at 16:30 Hydroxyzine HCl (Atarax) 10 mg Q6H PRN PO ITCHING; Start 02/23/19 at 15:00 MIHAI GUTIERREZ Feb 24, 2019 15:50
[2019-02-24] MEDS: WARFARIN 3 MG TAB PO SCH (18:11)
[2019-02-25] VITALS (10 sets, daily range): BP systolic 100–142; BP diastolic 50–97; PULSE 72–81; RESP 16–20
[2019-02-25] MEDS: PANTOPRAZOLE (EC) 40 MG TAB PO SCH (06:26)
[2019-02-25] MEDS: DOCUSATE SODIUM 100 MG CAP PO PRN (09:31)
[2019-02-25] MEDS: SACCHAROMYCES BOULARDII 250 MG CAP PO SCH (09:31)
[2019-02-25] MEDS: CHOLECALCIFEROL 2,000 UNIT CAP PO SCH (09:32)
[2019-02-25] MEDS: HYDROCORTISONE 1% 28 GM CR TOP SCH (09:32)
[2019-02-25] MEDS ORDERED: HYDR30CR TOP (11:29)
[2019-02-25] MEDS ORDERED: SACC250C PO (11:29)
[2019-02-25] MEDS ORDERED: CHOL200073 PO (11:29)
[2019-02-25] MEDS ORDERED: WARF6TAB PO (11:29)
[2019-02-25] MEDS ORDERED: PANT40TA4 PO (11:29)
[2019-02-25] MEDS ORDERED: ATOR20TA38 PO (11:29)
[2019-02-25] MEDS ORDERED: DOCU-144 PO (11:29)
--- NOTE | 2019-02-25 11:42 | DS ---
Date/Time of Note Date/Time of Note DATE: 02/25/19 TIME: 11:32 Discharge Summary Admission/Discharge Info Admit Date/Time February 04, 2019 at 14:08 Discharge Date/Time Patient Condition: Stable Hx of Present Illness The patient is a 63-year-old female with history of mechanical aortic valve, atrial fibrillation who was being followed by Dr. Diaz as an outpatient for a bdominal screening mammogram. The patient had a suspicious lesion in her left breast on screening mammogram. The patient underwent core needle biopsy, which revealed invasive cancer. The patient was brought in to hospital today and underwent a left partial mastectomy and axillary dissection. The patient has significant chest wall pain and is being admitted for further evaluation and management. The patient did not have any nausea, vomiting. No history of lightheadedness or syncope. No history of abdominal pain. No history of focal weakness. No history of headache. Hospital Course -Mechanical aortic valve replacement secondary to aortic insufficiency. Dr. Hicks is following in cardiology consultation. Coumadin was stopped due to development of hematoma and episode of hemoptysis during this admission. Patient was restarted on Coumadin and patient had a bridging with heparin drip which is currently stopped. Continue Coumadin, monitor PT and INR. INR is 2.04 today, patient is requesting to be discharged. Continue Coumadin 6 mg daily, PT and INR in 2 to 3 days at PMD office. -Abdominal pain with elevated, alkaline phosphate is trending down, abdominal pain resolved. Liver ultrasound is unremarkable. Continue Protonix. Dr. Madhuri toro is following in GI consultation. -Constipation, resolved. -Hemoptysis, likely secondary to tracheobronchitis, on anticoagulation, resolved. No evidence of significant intraparenchymal abnormalities on CT chest. Status post evaluation by Dr. Pierce in pulmonology consultation. -Left breast cancer, status post left partial mastectomy by Dr. Diaz on 02/04/19. -Postoperative hematomas in left breast and left axillary region. -Postoperative fever, s/p abx. Dr. Arias is following in infection disease consultation. -Paroxysmal atrial fibrillation, currently in sinus rhythm. -Anemia of acute blood loss, status post transfusions, continue to monitor H&H, will transfuse as needed. -Vitamin D deficiency, continue supplement. Plan of care discussed with Dr. Pelaez. Home Meds Active Scripts Cholecalciferol (Vitamin D3) (VITAMIN D-3) 2,000 Unit Capsule, 2000 UNIT PO DAILY for 30 Days, CAP Prov:MIHAI GUTIERREZ 02/25/19 Hydrocortisone-Aloe Vera (Hydrocortisone-Aloe Vera) 1% - 30 Gm Cream.gm., 1 APPLIC TOP BID for 10 Days Prov:BRENDAMIHAI 02/25/19 Docusate Sodium* (Colace*) 100 Mg Capsule, 200 MG PO DAILY PRN for CONSTIPATION for 30 Days, CAP Prov:MIHAI 02/25/19 Saccharomyces Boulardii* (Florastor*) 250 Mg Cap, 250 MG PO BID for 30 Days, CAP Prov:02/25/19 Pantoprazole* (Pantoprazole*) 40 Mg Tablet.dr, 40 MG PO DAILY@06 for 30 Days Prov:KESHAVBONILLA MOORELANA 02/25/19 Atorvastatin Calcium* (Atorvastatin Calcium*) 20 Mg Tablet, 20 MG PO QHS, #30 TAB Prov:MIHAI 02/25/19 Warfarin Sodium* (Coumadin*) 6 Mg Tablet, 6 MG PO DAILY for 30 Days, TAB Prov:BRENDAMIHAI 02/25/19 Reported Medications Lansoprazole* (Prevacid*) 15 Mg Capsule.dr, 15 MG PO DAILY, CAP 02/04/19 Follow-up Plan Follow-up with PMD and PT and INR at PMD office in 3 days, follow-up with Dr. Diaz in 1 week. Primary Care Provider Hussein Yates MD Time spent on discharge: > 30 minutes Pending Labs Laboratory Tests Test 02/25/19 06:35 Prothrombin Time 23.1 Sec (11.9-14.9) Prothrombin Time Ratio 1.8 INR International Normalized Ratio 2.04 Sodium Level 140 mmol/L (135-144) Potassium Level 4.8 mmol/L (3.5-5.1) Chloride Level 102 mmol/L (97-110) Carbon Dioxide Level 28 mmol/L (21-31) Anion Gap 10 (5-13) Blood Urea Nitrogen 20 mg/dl (7-20) Creatinine 0.70 mg/dl (0.44-1.00) Est Glomerular Filtrat Rate mL/min > 60 mL/min (>60) Glucose Level 96 mg/dl (70-220) Calcium Level 9.3 mg/dl (8.4-10.2) Total Bilirubin 0.8 mg/dl (0.2-1.3) Direct Bilirubin 0.00 mg/dl (0.00-0.20) Indirect Bilirubin 0.8 mg/dl (0-1.1) Aspartate Amino Transf (AST/SGOT) 48 IU/L (15-46) Alanine Aminotransferase (ALT/SGPT) 41 IU/L (13-69) Alkaline Phosphatase 182 IU/L (42-121) Total Protein 8.1 g/dl (6.1-8.1) Albumin 4.3 g/dl (3.3-4.9) Globulin 3.80 g/dl (1.3-3.2) Albumin/Globulin Ratio 1.13 MIHAI GUTIERREZ Feb 25, 2019 11:42
--- NOTE | 2019-02-25 13:23 | CONS ---
Assessment/Plan Assessment/Plan Hospital Course (Demo Recall) Status post breast surgery 02/04/2019 Mechanical aortic valve replacement Paroxysmal atrial fibrillation, currently sinus rhythm Acute blood loss anemia INR 2.04 today, continue on Coumadin, check INR in 2 to 3 days DC planning Discussed with patient and daughter at bedside Consultation Date/Type/Reason Admit Date/Time February 04, 2019 at 14:08 Initial Consult Date Type of Consult Cardiology Requesting Provider: LEYLA ZIEGLER MD Date/Time of Note DATE: 02/25/19 TIME: 13:22 24 HR Interval Summary Free Text/Dictation No shortness of breath, palpitations or dizziness Exam/Review of Systems Vital Signs Vitals Vital Signs Date Temp Pulse Resp B/P (MAP) Pulse Ox O2 O2 Flow FiO2 Time Delivery Rate 02/25/19 98.3 80 20 104/51 95 Room Air 10:54 (68) Intake and Output 02/24/19 02/24/19 02/25/19 1515:00 23:00 07:00 IntakeIntake Total 800 ml 400 ml BalanceBalance 800 ml 400 ml Exam Constitutional: alert, oriented (No apparent distress, eating lunch) Head: normocephalic Respiratory: clear to auscultation, normal air movement Cardiovascular: regular rate and rhythm (S1-S2 heard) Gastrointestinal: soft, non-tender, bowel sounds Extremities: other (No significant edema) Labs Result Diagram: 02/24/19 0610 02/25/19 0635 Results 24hrs Laboratory Tests Test 02/25/19 06:35 Prothrombin Time 23.1 H Prothrombin Time Ratio 1.8 INR International Normalized Ratio 2.04 Sodium Level 140 Potassium Level 4.8 Chloride Level 102 Carbon Dioxide Level 28 Anion Gap 10 Blood Urea Nitrogen 20 Creatinine 0.70 Est Glomerular Filtrat Rate mL/min > 60 Glucose Level 96 Calcium Level 9.3 Total Bilirubin 0.8 Direct Bilirubin 0.00 Indirect Bilirubin 0.8 Aspartate Amino Transf (AST/SGOT) 48 H Alanine Aminotransferase (ALT/SGPT) 41 Alkaline Phosphatase 182 H Total Protein 8.1 Albumin 4.3 Globulin 3.80 H Albumin/Globulin Ratio 1.13 Medications Medications Current Medications Ondansetron HCl (Zofran Inj) 4 mg Q6H PRN IV NAUSEA AND/OR VOMITING Last administered on 02/13/19at 18:54; Admin Dose 4 MG; Start 02/04/19 at 14:00 Pantoprazole (Protonix Tab) 40 mg DAILY@06 PO Last administered on 02/25/19 06:26; Admin Dose 40 MG; Start 02/07/19 at 06:00 Docusate Sodium (Colace) 200 mg DAILY PRN PO CONSTIPATION Last administered on 02/25/19 09:31; Admin Dose 200 MG; Start 02/06/19 at 14:00 Acetaminophen (Tylenol Tab) 650 mg Q4H PRN PO MILD PAIN(1-3)OR ELEVATED TEMP Last administered on 02/23/19 21:09; Admin Dose 650 MG; Start 02/09/19 at 12:00 Saccharomyces Boulardii (Florastor) 250 mg BID PO Last administered on 02/25/19 09:31; Admin Dose 250 MG; Start 02/09/19 at 15:30 Magnesium Hydroxide (Milk Of Mag) 30 ml BID PRN PO CONSTIPATION Last administered on 02/12/19 08:27; Admin Dose 30 ML; Start 02/10/19 at 13:00 Cholecalciferol (Vitamin D) 2,000 unit DAILY PO Last administered on 02/25/19 09:32; Admin Dose 2,000 UNIT; Start 02/11/19 at 11:00 Warfarin Sodium (Coumadin) 6 mg DAILY@17 PO Last administered on 02/24/19 18:11; Admin Dose 6 MG; Start 02/14/19 at 17:00 Hydrocortisone (Hydrocortisone 1% Cr) 1 applic BID TOP Last administered on 02/25/19 09:32; Admin Dose 1 APPLIC; Start 02/14/19 at 23:00 Cyclobenzaprine HCl (Flexeril) 5 mg Q12 PRN PO spasm Last administered on 02/13 08:38; Admin Dose 5 MG; Start 02/16/19 at 17:30 Hydralazine HCl (Apresoline) 10 mg Q4H PRN IV sbp >170; Start 02/22/19 at 16:30 Hydroxyzine HCl (Atarax) 10 mg Q6H PRN PO ITCHING; Start 02/23/19 at 15:00 Dima Hicks DO Feb 25, 2019 13:23
--- NOTE | 2019-02-25 16:36 | CONS ---
Assessment/Plan Assessment/Plan Hospital Course (Demo Recall) 63 yo female 1. Status post surgery, left-sided mastectomy for a left breast cancer. 2. Postoperative hematoma at the site of surgery now the drain has been in place. 3. Status post 6 units of packed cell RBC transfusion. 4. Chronic constipation, which has improved with Amitiza. 5. Mechanical aortic valve replacement. The patient is on heparin for that. 6. Paroxysmal atrial fibrillation. 7. Vitamin D deficiency with low calcium 8. Anemia, mild -no evidence of overt GI bleeding -pt is on coumadin and heparin gtt 9. Elevated alk phos -elevated GGT PLAN: Monitor LFTs Continue post op care Utilize prn laxatives as needed Monitor HH and for active GI bleeding, pt is on coumadin Pt examined and plan of care discussed with Consultation Date/Type/Reason Admit Date/Time February 04, 2019 at 14:08 Initial Consult Date 02/13/19 Requesting Provider: LEYLA ZIEGLER MD Date/Time of Note DATE: 02/25/19 TIME: 16:32 24 HR Interval Summary Free Text/Dictation No abdominal pain or nausea. BM regular. Tolerating PO diet. Afebrile. Exam/Review of Systems Exam Vitals Vital Signs Date Temp Pulse Resp B/P (MAP) Pulse Ox O2 O2 Flow FiO2 Time Delivery Rate 02/25/19 76 16:00 02/25/19 98.0 20 109/56 95 Room Air 15:49 (73) Intake and Output 02/24/19 02/24/19 02/25/19 1515:00 23:00 07:00 IntakeIntake Total 800 ml 400 ml BalanceBalance 800 ml 400 ml Constitutional: alert, oriented Psych: no complaints Head: normocephalic Eyes: nl sclera, PERRL Respiratory: normal air movement Cardiovascular: regular rate and rhythm Gastrointestinal: soft, non-tender, bowel sounds Neurological: nl mental status Results Result Diagram: 02/24/19 0610 02/25/19 0635 Results 24hrs Laboratory Tests Test 02/25/19 06:35 Prothrombin Time 23.1 H Prothrombin Time Ratio 1.8 INR International Normalized Ratio 2.04 Sodium Level 140 Potassium Level 4.8 Chloride Level 102 Carbon Dioxide Level 28 Anion Gap 10 Blood Urea Nitrogen 20 Creatinine 0.70 Est Glomerular Filtrat Rate mL/min > 60 Glucose Level 96 Calcium Level 9.3 Total Bilirubin 0.8 Direct Bilirubin 0.00 Indirect Bilirubin 0.8 Aspartate Amino Transf (AST/SGOT) 48 H Alanine Aminotransferase (ALT/SGPT) 41 Alkaline Phosphatase 182 H Total Protein 8.1 Albumin 4.3 Globulin 3.80 H Albumin/Globulin Ratio 1.13 Medications Medication Current Medications Ondansetron HCl (Zofran Inj) 4 mg Q6H PRN IV NAUSEA AND/OR VOMITING Last administered on 02/13/19 18:54; Admin Dose 4 MG; Start 02/04/19 at 14:00 Pantoprazole (Protonix Tab) 40 mg DAILY@06 PO Last administered on 02/25/19 06:26; Admin Dose 40 MG; Start 02/07/19 at 06:00 Docusate Sodium (Colace) 200 mg DAILY PRN PO CONSTIPATION Last administered on 02/25/19 09:31; Admin Dose 200 MG; Start 02/06/19 at 14:00 Acetaminophen (Tylenol Tab) 650 mg Q4H PRN PO MILD PAIN(1-3)OR ELEVATED TEMP Last administered on 02/23/19 21:09; Admin Dose 650 MG; Start 02/09/19 at 12:00 Saccharomyces Boulardii (Florastor) 250 mg BID PO Last administered on 02/25/19 09:31; Admin Dose 250 MG; Start 02/09/19 at 15:30 Magnesium Hydroxide (Milk Of Mag) 30 ml BID PRN PO CONSTIPATION Last administered on 02/12/19 08:27; Admin Dose 30 ML; Start 02/10/19 at 13:00 Cholecalciferol (Vitamin D) 2,000 unit DAILY PO Last administered on 02/25/19 09:32; Admin Dose 2,000 UNIT; Start 02/11/19 at 11:00 Warfarin Sodium (Coumadin) 6 mg DAILY@17 PO Last administered on 02/24/19 18:11; Admin Dose 6 MG; Start 02/14/19 at 17:00 Hydrocortisone (Hydrocortisone 1% Cr) 1 applic BID TOP Last administered on 02/25/19 09:32; Admin Dose 1 APPLIC; Start 02/14/19 at 23:00 Cyclobenzaprine HCl (Flexeril) 5 mg Q12 PRN PO spasm Last administered on 02/24/19 08:38; Admin Dose 5 MG; Start 02/16/19 at 17:30 Hydralazine HCl (Apresoline) 10 mg Q4H PRN IV sbp >170; Start 02/22/19 at 16:30 Hydroxyzine HCl (Atarax) 10 mg Q6H PRN PO ITCHING; Start 02/23/19 at 15:00 BRENDA ESPINOZA Feb 25, 2019 16:36
--- NOTE | 2019-02-26 06:51 | PN ---
DATE: 02/25/2019 SUBJECTIVE: No specific complaint. OBJECTIVE: GENERAL: Awake, alert, oriented x3. VITAL SIGNS: Stable, temperature 98.3, heart rate 72 and 80, respirations 20, blood pressure 104/51, saturation 95%. LABORATORY DATA: Today, sodium, potassium, BUN, creatinine within normal limits. AST slightly elevated at 48, ALT normal 6, AST 282. Coagulation today, PT is 23.95. Respirations 19. INR is 2.06. LUNGS: Clear. Dressing was changed by me and there was some oozing of old liquified blood from the incision on lt., axillary area. Area was cleansed with Betadine and then sterile dressing was applied and wrapped around with bias dressing. PLAN: The patient has been discharged from cardiology point of view today and from surgical point of view, the patient can be discharged today. Daughter has accepted to change the dressing at home. The patient has an appointment to see Dr. Diaz on 03/02/2019. Patient to take Coumadin 6 mg p.o. daily at home and daughter will make arrangements for her blood test for PT and INR. All the questions that the patient and her daughter had were answered by myself at this time. I informed her daughter that it is possible that more oozing from the incision line in the axillary area may occur and old dark blood may ooze out and it is not the cause of concern unless there is fresh blood. The patient understands and at this time I am signing off the case. I will try to see the patient along with Dr. Diaz in his office next Friday. Otherwise, Dr. Diaz will follow the patient and make the necessary arrangements. Dictated By: ALFONSO DUNLAP/ALLEY Conf#: [id number] DID#: [id number] AUGIE
== END 2019-02-25 16:37 | disposition home or self-care (01) | DRG 580 ==
LOC: SDS 07:10 → REC 14:08 → PP2 17:56 → 6WM 02-08 13:28
PROVIDERS: ADMIT Surgery Surgical Oncology; ATTEND Surgery Surgical Oncology
PROC: 07B60ZX Excision of Left Axillary Lymphatic, Open Approach, Diagnostic (ICD-10-PCS; 2019-02-04)
PROC: 0HBU0ZZ Excision of Left Breast, Open Approach (ICD-10-PCS; principal; 2019-02-04 10:30)
PROC: 30233N1 Transfusion of Nonautologous Red Blood Cells into Peripheral Vein, Percutaneous Approach (ICD-10-PCS; 2019-02-08)
DX: C50.912 Malignant neoplasm of unspecified site of left female breast (principal); L76.32 Postprocedural hematoma of skin and subcutaneous tissue following other procedure; D62 Acute posthemorrhagic anemia; Z95.2 Presence of prosthetic heart valve; I48.0 Paroxysmal atrial fibrillation; E78.5 Hyperlipidemia, unspecified; R50.82 Postprocedural fever; I05.2 Rheumatic mitral stenosis with insufficiency; E55.9 Vitamin D deficiency, unspecified; Z79.01 Long term (current) use of anticoagulants; I10 Essential (primary) hypertension; K59.09 Other constipation
CPT/HCPCS: 36430; 70450; 71045; 71260; 73200; 74176; 74177; 76705; 80048; 80053; 80202; 81001; 81003; 82565; 82652; 82977; 83605; 84145; 84520; 85014; 85018; 85025; 85610; 85730; 86078; 86644; 86704; 86709; 86803; 86850; 86900; 86901; 86920; 87070; 87086; 87340; 88307; 88331; 88342; 97110; 97116; 97162; 97167; 97530; 97535; J0360; J0690; J1100; J1170; J1644; J1650; J1885; J2250; J2405; J2543; J3010; J3370; J3480; J7030; J7040; J7050; P9016; Q9967; Q9968

== ENCOUNTER 2019-04-30 09:39 | Day surgery (SDC) | payer BC ==
[2019-04-30] VITALS (15 sets, daily range): BP systolic 107–136; BP diastolic 52–80; PULSE 83–100; RESP 12–18; Ht 154.9 cm; Wt 59.3 kg
[~2019-04-30] VITALS: Ht 154.9 cm; Wt 59.3 kg
[~2019-04-30 09:39] MED LIST: ACET-141 PO; ATOR20TA38 PO; CALC600T24 PO; CHOL200073 PO; CLOB60CR2 TOP; DOCU-144 PO; HYDR30CR TOP; LACT1TAB25 PO; PANT40TA4 PO; SACC250C PO; VITA200C45 PO; WARF6TAB PO; WARF6TAB48 PO
[2019-04-30] MEDS ORDERED: SOD CHLORIDE 0.9% 1,000 ML IV SCH (11:00)
--- NOTE | 2019-04-30 11:57 | PREAC ---
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 not on B-Maddie Active Scripts Cholecalciferol (Vitamin D3) (VITAMIN D-3) 2,000 Unit Capsule, 2000 UNIT PO DAILY for 30 Days, CAP Prov:MIHAI GUTIERREZ 02/25/19 Pantoprazole* (Pantoprazole*) 40 Mg Tablet.dr, 40 MG PO DAILY@06 for 30 Days Prov:MIHAI GUTIERREZ 02/25/19 Atorvastatin Calcium* (Atorvastatin Calcium*) 20 Mg Tablet, 20 MG PO QHS, #30 TAB Prov:MIHAI GUTIERREZ 02/25/19 Reported Medications Vitamin E* (Vitamin E*) 200 Unit Capsule, 400 UNIT PO DAILY, CAP 04/30/19 Acetaminophen* (Acetaminophen*) 500 MG Extra Strength Tablet, 500 MG PO NEEDED PRN for PAIN AND OR ELEVATED TEMP, TAB PATIENT CAN TAKE REGULAR TYLENOL ONLY,SHE CAN'T TAKE TYLENOL#3 04/30/19 Calcium Carbonate* (Calcium Carbonate*) 600 MG Ca Tab, 600 MG PO DAILY, TAB 04/30/19 Lactobacillus Acidophilus (Probiotic Acidophilus) 1 Each Tablet, 1 EACH PO DAILY, TAB 04/30/19 Warfarin Sodium* (Warfarin Sodium*) 6 Mg Tablet, 6 MG PO DAILY, TAB 04/30/19 Discontinued Scripts Hydrocortisone-Aloe Vera (Hydrocortisone-Aloe Vera) 1% - 30 Gm Cream.gm., 1 APPLIC TOP BID for 10 Days Prov:MIHAI GUTIERREZ 02/25/19 Docusate Sodium* (Colace*) 100 Mg Capsule, 200 MG PO DAILY PRN for CONSTIPATION for 30 Days, CAP Prov:MIHAI GUTIERREZ 02/25/19 Saccharomyces Boulardii* (Florastor*) 250 Mg Cap, 250 MG PO BID for 30 Days, CAP Prov:MIHAI GUTIERREZ 02/25/19 Warfarin Sodium* (Coumadin*) 6 Mg Tablet, 6 MG PO DAILY for 30 Days, TAB Prov:MIHAI GUTIERREZ 02/25/19 Clobetasol Propionate* (Clobetasol Propionate*) 60 Gm Cream.gm., 1 APPLIC TOP BID, #1 TUB Prov:BILL FIGUEROA MD 02/22/19 Current Medications Sodium Chloride 1,000 ml @ 75 mls/hr [id number] IV Last administered on 04/30/19at 11:02; Admin Dose 75 MLS/HR; Start 04/30/19 at 11:00 Meds reviewed: Yes Allergies Coded Allergies: codeine (Verified Allergy, Mild, NUMBNESS OF HAND, EXTREME AGITATION, 04/30/19) hydrocodone (Verified Allergy, Unknown, itch, swelling, 04/30/19) aspirin (Verified Adverse Reaction, Mild, GASTRIC PROBLEMS, 04/30/19) Allergies Reviewed: Yes Labs/Studies Labs Reviewed: Reviewed by anesthesiologist Result Diagram: 04/30/19 1038 04/30/19 1038 Laboratory Tests 04/30/19 10:38 test: Negative Pre-procedure Exam Last vitals Vital Signs Date Temp Pulse Resp B/P (MAP) Pulse Ox O2 O2 Flow FiO2 Time Delivery Rate 04/30/19 98.0 95 16 121/67 98 10:57 (85) Airway: Adequate mouth opening Mallampati: Mallampati I Teeth: Normal Lung: Normal Heart: Normal ASA Physical Status ASA physical status: 2 Emergency: None Planned Anesthetic General/MAC: Mask, ETT, LMA, MAC Pre-operative Attestations Prior to commencing anesthesia and surgery, the patient was re-evaluated, there was verification of: *The patient's identity *The results of appropriate recent lab work and preoperative vital signs *The above evaluation not changing prior to induction *Anesthetic plan, risk benefits, alternative and complications discussed with patient/family; questions answered; patient/family understands, accepts and wishes to proceed. DARRELL MORENO MD Apr 30, 2019 11:57
[2019-04-30] MEDS ORDERED: FENTAnyl 50 MCG/ML VIAL IV PRN ×3 (12:00)
[2019-04-30] MEDS ORDERED: IPRATROPIUM (NEB) 0.5 MG/2.5 ML AMP HHN PRN (12:00)
[2019-04-30] MEDS ORDERED: EPHEDrine 25 MG/5 ML SYG IV PRN (12:00)
[2019-04-30] MEDS ORDERED: MIDAZOLAM 1 MG/ML 2 ML INJ IV PRN (12:00)
[2019-04-30] MEDS ORDERED: DIPHENHYDRAMINE 50 MG INJ IV PRN (12:00)
[2019-04-30] MEDS ORDERED: hydrALAzine 20 MG INJ IV PRN (12:00)
[2019-04-30] MEDS ORDERED: LABETALOL HCL 20MG INJ IV PRN (12:00)
[2019-04-30] MEDS ORDERED: TRIMETHOBENZAMIDE 100 MG/ML VIAL IM PRN (12:00)
[2019-04-30] MEDS ORDERED: MEPERIDINE 25 MG INJ IV PRN (12:00)
[2019-04-30] MEDS ORDERED: HYDROmorphONE 1 MG/5 ML IV SYRINGE IV PRN ×3 (12:00)
[2019-04-30] MEDS ORDERED: ONDANSETRON 4 MG INJ IV PRN (12:00)
[2019-04-30] MEDS ORDERED: OXYCODONE/ACETAMINOPHEN (5/325) TAB PO PRN ×2 (12:00)
[2019-04-30] MEDS ORDERED: ALBUTEROL 0.083% (NEB) 2.5 MG/3 ML AMP HHN PRN (12:00)
[2019-04-30] MEDS ORDERED: HYDROmorphONE 2 MG/ML SYG ONE (12:32)
[2019-04-30] MEDS ORDERED: ETOMIDATE 20 MG INJ ONE (12:32)
[2019-04-30] MEDS ORDERED: SUCCINYLCHOLINE CHLORIDE 100 MG/5 ML SYG IV ONE ×2 (12:32→13:17)
[2019-04-30] MEDS ORDERED: ROCURONIUM 50 MG INJ ONE (12:32)
[2019-04-30] MEDS ORDERED: ONDANSETRON 4 MG INJ ONE (12:36)
[2019-04-30] MEDS ORDERED: DEXAMETHASONE 4 MG/ML 5 ML INJ ONE (12:36)
[2019-04-30] MEDS ORDERED: SUGAMMADEX SODIUM 200 MG/2 ML VIAL IV ONE (13:18)
--- NOTE | 2019-04-30 13:21 | SIPON ---
Date/Time of Note Date/Time of Note DATE: 04/30/19 TIME: 13:20 Operative Report Preoperative Diagnosis History of left breast cancer need for evacuation of wound hematoma left breast Postoperative Diagnosis Same Operation/Procedure Performed Wound exploration and evacuation of hematoma left breast Surgeon see signature line registered nurse first assistant Dr Pandey Anesthesia: general Estimated blood loss: 0 - 10 ml's Transfusion Required none Specimen None Grafts/Implants none Complications none MAIA HINOJOSA MD Apr 30, 2019 13:21
--- NOTE | 2019-04-30 17:38 | OPR ---
DATE OF OPERATION: 04/30/2019 PREOPERATIVE DIAGNOSIS: History of left breast cancer, need for wound exploration and evacuation of hematoma, left breast. POSTOPERATIVE DIAGNOSIS: History of left breast cancer, need for wound exploration and evacuation of hematoma, left breast. PROCEDURE: Wound exploration and evacuation of hematoma, left breast. ANESTHESIA: General. ANESTHESIOLOGIST: Chase Conn MD SURGEON: Barry Diaz MD CULINARY WORKER: Mallorie Pandey MD INDICATIONS FOR PROCEDURE: The patient is a 63-year-old female who was treated several months ago fo r invasive cancer of her left breast. She had been on anticoagulation due to the fact that she has a metal heart valve in place and her surgery was complicated by the fact that she developed a wound he matoma. She was given several months of observation to see if the hematoma would resolve; however, s he developed skin dehiscence and persistent drainage. Incision was made to evacuate hematoma. She c onsented and was scheduled for surgery. DESCRIPTION OF PROCEDURE: The patient was brought to the operating theater, placed under general ane sthesia. The left breast was prepped and draped in usual sterile fashion. A 5 cm incision was made over the area of the hematoma including the region where there was skin dehiscence. The skin was the n retracted and with gentle blunt dissection, large amounts of hematoma were removed. The wound was then irrigated copiously first with normal saline and then with Betadine. Residual bleeding was cont rolled meticulously with cautery. At this point, Dr. Diaz made the decision not to primarily close the wound and packed it with wet to dry dressings. This was done and a sterile dressing was applied over it. The patient tolerated the procedure well. The estimated blood loss was 5 mL. There were n o complications and the patient was transported in stable condition to the recovery room. Dictated By: BARRY ALVAREZ/NTS Conf#: [id number] DID#: [id number]
--- NOTE | 2019-05-05 08:21 | PAC ---
Date/Time of Note Date/Time of Note DATE: 05/05/19 TIME: 08:20 Post-Anesthesia Notes Post-Anesthesia Note Activity: WNL Respiratory function: WNL Cardiovascular function: WNL Mental status: Baseline Pain reasonably controlled: Yes Hydration appropriate: Yes Nausea/Vomiting absent: Yes DARRELL MORENO MD May 05, 2019 08:21
== END 2019-04-30 18:40 | disposition home or self-care (01) ==
LOC: SDS 09:39
PROVIDERS: ATTEND Surgery Surgical Oncology
DX: L76.32 Postprocedural hematoma of skin and subcutaneous tissue following other procedure (principal); Y83.8 Other surgical procedures as the cause of abnormal reaction of the patient, or of later complication, without mention of misadventure at the time of the procedure; N64.89 Other specified disorders of breast; Z79.01 Long term (current) use of anticoagulants; Z85.3 Personal history of malignant neoplasm of breast
CPT/HCPCS: 10140; 80053; 85025; 85610; 85730; J1100; J1170; J2405